=== PATIENT | male | born 1935 | race Caucasian/White ===

== ENCOUNTER 2018-11-15 18:33 | Inpatient (IN) | payer MEDICARE, OTHER ==
[~2018-11-15] VITALS: Ht 177.8 cm; Wt 67.8 kg
[2018-11-15] VITALS (9 sets, daily range): BP systolic 95–156; BP diastolic 58–105
[~2018-11-15 18:33] MED LIST: AMLO10TA PO; ASPI81TA57 PO; C250T PO; CINN500C7 PO; CLN.2T PO; DIAZ5TAB3 PO; FAMO20TA5 PO; GARL200T PO; GEMF600T3 PO; GLIP5TAB26 PO; GLUC100016 PO; HYDR1TAB86 PO; KRIL1CAP PO; LIOT25TA3 PO; LVT.1T PO; MILK200C4 PO; MULT-974 PO; NAPR220C11 PO; NIAC250T17 PO; PNT40TEC PO; SAWP1CAP PO; SOTA80TA PO; SPRN25T GT; ginger root PO
--- OUTSIDE RECORDS SUMMARY | 2018-11-15 19:53 | XMS REPORT | Continuity of Care Document ---
Author Author [facility] Organization [facility] Address Unknown Phone Unavailable Allergies There is no data. Medications There is no data. Problems There is no data. Procedures There is no data. Results There is no data. Encounters ACCT No. Visit Date/Time Discharge Status Pt. Type Provider Facility Loc./Unit Complaint [id number] 04/11/2014 07:37:00 04/11/2014 10:40:00 DIS Outpatient [id number] 04/07/2014 07:27:00 04/07/2014 23:59:59 CLS Outpatient
--- NOTE | 2018-11-15 20:00 | NUR ---
BALJEET MIX Madi admitted to room CU11-1, with an admitting diagnosis of pneumonia, on 11/15/18 from [facility], accompanied by [facility].BALJEET MIX V introduced to surroundings, call light, bed controls, phone, TV, temperature control, lights, meal times, smoking policy, visitor policy, side rail policy, bathrooms and showers. Patient Rights given to patient in the handbook. BALJEET MIX V verbalizes understanding that [facility] is not responsible for the loss or damage to any personal effects or valuables that are kept in the patient's possessions during their hospitalization. The following Patient Care Plans were discussed with the patient: Discharge Planning, risk for infection, risk for impaired mobility, and risk for fluid fall. BALJEET MIX V verbalizes understanding of Interdisciplinary Patient Education. Patient was informed about the Rapid Response Team and its purpose.
[2018-11-15] MEDS ORDERED: VANCOMYCIN INJECTION 1,000 MG in NS (IVPB) 250 ML IV SCH (21:00)
--- NOTE | 2018-11-15 21:00 | NUR ---
DR. REYEZ NOTIFIED OF PATIENT'S ADMISSION. NEW ORDERS RECEIVED AT THIS TIME. SEE ORDER HISTORY.
[2018-11-15] MEDS: rOPINIRole 1 MG (REQUIP) TABLET PO SCH (22:07)
[2018-11-15] MEDS: ALPRAZolam 0.5 MG (XANAX) TAB PO PRN (22:07)
[2018-11-15] MEDS: inSUlin ASPART (NovoLOG) 1 UNIT/0.01 ML (CHARGE PER UNIT) SC SCH (22:40)
[2018-11-16] VITALS (23 sets, daily range): BP systolic 99–164; BP diastolic 51–89
[2018-11-16] MEDS: MELATONIN 3 MG TABLET PO PRN (02:19)
[2018-11-16] MEDS ORDERED: RT-ALBUTEROL/IPRATROPIUM 3 ML (DUONEB) VIAL INH SCH (03:00)
[2018-11-16 04:11] LABS: BASOPHILS % (AUTO) 0 % (0-10); EOSINOPHILS # (AUTO) 0.2 10^3/uL (0.0-0.3); EOSINOPHILS % (AUTO) 2 % (0-10); HEMATOCRIT 34 % (40-54); HEMOGLOBIN 10.8 G/DL (13.3-17.7); LYMPHOCYTES # (AUTO) 2.4 X 10^3 (1.0-4.0); LYMPHOCYTES % (AUTO) 26 % (12-44); MEAN CORPUSCULAR HEMOGLOBIN 30 PG (25-34); MEAN CORPUSCULAR HGB CONC 32 G/DL (32-36); MEAN CORPUSCULAR VOLUME 93 FL (80-99); MEAN PLATELET VOLUME 13.5 FL (7.4-10.4); MONOCYTES # (AUTO) 0.9 X 10^3 (0.0-1.0); MONOCYTES % (AUTO) 10 % (0-12); NEUTROPHILS # (AUTO) 5.9 X 10^3 (1.8-7.8); NEUTROPHILS % (AUTO) 62 % (42-75); PLATELET COUNT 166 10^3/uL (130-400); RED BLOOD COUNT 3.64 10^6/uL (4.35-5.85); RED CELL DISTRIBUTION WIDTH 13.9 % (10.0-14.5); WHITE BLOOD COUNT 9.4 10^3/uL (4.3-11.0)
[2018-11-16 04:23] LABS: INR 1.2 (0.8-1.4); PROTHROMBIN TIME PATIENT 15.2 SEC (12.2-14.7)
[2018-11-16 04:31] LABS: CALCIUM 9.1 MG/DL (8.5-10.1); CREATININE SERUM 1.84 MG/DL (0.60-1.30); MAGNESIUM 2.2 MG/DL (1.8-2.4); PHOSPHORUS 3.3 MG/DL (2.3-4.7); POTASSIUM 4.5 MMOL/L (3.6-5.0)
[2018-11-16] MEDS: PIPERACILLIN SODIUM/TAZOBACTAM 4.5 GM in NS (IVPB) 100 ML IV SCH ×3 (04:32→18:09)
--- NOTE | 2018-11-16 05:37 | Pulmonary Consultation ---
History of Present Illness History of Present Illness Date of Consultation 11/16/18 05:32 Time Seen by Provider: 05:32 Date of Admission History of Present Illness 83yo with hx of pseudomonas and serratia PNA and completed 10days of Merrem. PT was also recently treated with Levaquin as an out patient. He was [place] here [place] [facility] [place] persistent SOB, productive cough and failing out patient treatment. Allergies and Home Medications Allergies Coded Allergies: gabapentin (Verified Allergy, Unknown, 11/15/18) pregabalin (Verified Allergy, Unknown, 11/15/18) Home Medications Ascorbic Acid 250 Mg Tab, 250 MG PO BID, (Reported) Cinnamon Bark 500 Mg Capsule, 500 MG PO BID, (Reported) Diazepam 5 Mg Tablet, 5 MG PO DAILY, (Reported) Gemfibrozil 600 Mg Tablet, 1 EACH PO BID, (Reported) Glipizide 5 Mg Tab.er.24, 5 MG PO BID, (Reported) Levothyroxine Sodium 100 Mcg Tab, 100 MCG PO DAILY, (Reported) Multivitamin 1 Each Tablet, 1 EACH PO DAILY, (Reported) Pantoprazole Sodium 40 Mg Tablet.dr, 1 TAB PO DAILY PRN for HEARTBURN, (Reported ) [mirna root] , 1 TAB PO DAILY Prescribed by: MATY SMITH on 04/11/14 0819 Past Esdzlig-Erdwdl-Ppensv Hx Patient Social History Alcohol Use: Denies Use Recreational Drug Use: No Recent Hopitalizations: Yes (OCT 2018 FOR PNEUMONIA) Immunizations Up To Date Date of Pneumonia Vaccine: Nov 03, 2016 Date of Influenza Vaccine: Aug 03, 2018 Seasonal Allergies Seasonal Allergies: No Past Medical History Surgeries: No Respiratory: Yes Pneumonia, COPD Currently Using CPAP: No Currently Using BIPAP: No Cardiac: Yes (SVT) Neurological: No Sexually Transmitted Disease: No HIV/AIDS: No Genitourinary: Yes Renal Failure Gastrointestinal: No Musculoskeletal: No Endocrine: Yes HEENT: No Cancer: No Psychosocial: Yes Sleep Difficulties Integumentary: No Blood Disorders: No Adverse Reaction/Blood Tranf: No Sepsis Event Evaluation Height, Weight, BMI Height: 5'10.00" Weight: 149lbs. 3.0oz. 67.637176uy; 21.4 BMI Method: Exam Exam Vital Signs Date Time Temp Pulse Resp B/P (MAP) Pulse Ox O2 Delivery O2 Flow Rate FiO2 11/16/18 04:00 89 21 109/78 (88) 97 Nasal Cannula 2.00 11/16/18 03:00 74 20 111/67 (82) 94 Nasal Cannula 2.00 11/16/18 02:00 94 21 119/61 (80) 96 Nasal Cannula 2.00 11/16/18 01:39 97.8 11/16/18 01:07 96 Nasal Cannula 4.00 11/16/18 01:00 80 11/16/18 01:00 82 15 121/75 (90) 96 Nasal Cannula 2.00 11/16/18 00:00 96 Nasal Cannula 3.00 11/16/18 00:00 80 20 100/62 (75) 95 Nasal Cannula 4.00 11/15/18 23:00 87 21 95/58 (70) 93 Nasal Cannula 4.00 11/15/18 22:00 104 23 116/70 (85) 97 Nasal Cannula 4.00 11/15/18 21:30 110 24 136/89 (105) 98 Nasal Cannula 4.00 11/15/18 21:25 97 Nasal Cannula 4.00 11/15/18 21:00 116 18 139/88 (105) 96 Nasal Cannula 4.00 11/15/18 20:45 104 21 129/89 (102) 96 Nasal Cannula 4.00 11/15/18 20:30 113 29 156/105 (122) 91 Nasal Cannula 4.00 11/15/18 20:20 Nasal Cannula 4.00 11/15/18 20:15 111 28 136/94 (108) 97 Nasal Cannula 4.00 11/15/18 20:00 118 11/15/18 20:00 122 21 156/104 (121) 96 Nasal Cannula 4.00 11/15/18 19:55 98.2 121 20 156/93 (114) 94 Nasal Cannula 4.00 I & O 11/16/18 07:00 Intake Total 350 ml Output Total 600 ml Balance -250 ml Height & Weight Height: 5'10.00" Weight: 149lbs. 3.0oz. 67.639250ek; 21.4 BMI Method: Results Lab Laboratory Tests 11/16/18 03:15 Assessment/Plan Assessment/Plan PNA failed out patient tx -Cont vanco, zosyn -escalante cultures -check MRSA swab -Will plan for bronchoscopy in AM Bilateral pleural effusions -Check BNP - thoracentesis today COPDAE -Oxygen -SVNS ARF -monitor Tobacco use -Education DAKOTA CASTAÑEDA DO Nov 16, 2018 05:37
[2018-11-16] MEDS: MAGNESIUM 1 GM/100 ML IVPB 100 ML IV SCH (06:46)
[2018-11-16] MEDS: POTASSIUM CL 10MEQ/50ML IVPB 50 ML IV SCH (06:46)
[2018-11-16] MEDS: inSUlin ASPART (NovoLOG) 1 UNIT/0.01 ML (CHARGE PER UNIT) SC SCH ×4 (06:47→22:15)
[2018-11-16] MEDS: KCL 20 MEQ TAB (K-DUR) PO SCH (06:47)
[2018-11-16] MEDS: rOPINIRole 1 MG (REQUIP) TABLET PO SCH ×3 (06:49→22:24)
--- NOTE | 2018-11-16 06:50 | Progress Note-Hospitalist ---
Progress Note 83 yo m accepted in transfer [place] [facility] for recurrent , refractory pneumonia and exacerbation of COPD. Pt requires further diagnosis and treatment with consultation of pulmonary. RITA REYEZ MD Nov 16, 2018 06:50
--- NOTE | 2018-11-16 07:40 | NUR ---
PTD VANCOMYCIN LABS: SCR 1.85 (CRCL ~ 30) PLAN: VANCOMYCIN 1 GRAM GIVEN ON 11/15 @ 2200, WILL SCHEDULE NEXT DOSE TODAY AT 1200. INSTEAD OF A LARGER LOADING DOSE, WE WILL GIVE THE NEXT DOSE ~ 10 HOURS EARLIER TO FACILITATE A HIGHER TROUGH LEVEL. WE WILL CHECK A TROUGH LEVEL ON 11/17 @ 1100 AND MONITOR LEVELS AND RENAL FXN CLOSELY AND ADJUST DOSING IF NEEDED.
--- NOTE | 2018-11-16 07:50 | Diagnostic Imaging Report ---
INDICATION: Dyspnea Upright portable AP view of the chest is obtained. There is no previous study for comparison. Overall heart size and pulmonary vascularity are within normal limits. There are increased alveolar and interstitial densities in the lung bases which may be due to edema and/or pneumonitis. There are moderate bilateral pleural effusions. No pneumothorax is seen. IMPRESSION: Moderate bilateral pleural effusions with bilateral basilar interstitial edema and/or pneumonitis. Dictated by: Dictated on workstation # [id number]
--- NOTE | 2018-11-16 08:16 | Diagnostic Imaging Report ---
PROCEDURE: CT chest without contrast. TECHNIQUE: Multiple contiguous axial images were obtained through the chest without the use of intravenous contrast. INDICATION: Pneumonia. FINDINGS: There are moderate-sized bilateral pleural effusions layering to a depth of about 4.2 cm without evidence for loculation. There are subjacent dependent atelectatic changes in the lungs and there are background features of centrilobular emphysema with cyst formation predominantly medially and apically. In addition, some chronic appearing prominence of the interstitial lung markings, septal thickening and increased density suggest an element of edema superimposed. Heart size is within the upper limits of normal. No gross overdistention of vascularity. No mecca alveolar consolidation. No pathological-appearing lymph nodes. There are coronary arterial atherosclerotic calcifications and nonaneurysmal calcifications of the thoracic aorta. The upper abdomen reveals atherosclerosis and ectasia with tortuosity of the abdominal aorta measuring up to 3.2 cm. There are renal cortical and parapelvic cysts on the left and a fat-containing small subcentimeter nodule in the right adrenal gland presumed adenoma. IMPRESSION: 1. COPD and bilateral effusions with basilar atelectasis. An element of interstitial edema suspected. No mecca alveolar consolidation, however. 2. Extensive atherosclerotic vascular calcifications with abdominal aortic tortuosity and ectasia up to 3.2 cm where visualized. 3. Incompletely visualized cortical and parapelvic cysts associated with the left kidney. Dictated by: Dictated on workstation # [id number]
[2018-11-16] MEDS: RT-ALBUTEROL/IPRATROPIUM 3 ML (DUONEB) VIAL INH SCH ×3 (08:35→18:41)
[2018-11-16] MEDS: RT-ADVAIR HFA 115/21 MCG PER PUFF IH SCH ×2 (08:36→18:41)
--- NOTE | 2018-11-16 09:11 | History & Physical-Hospitalist ---
History of Present Illness HPI/Chief Complaint Pt is an 83yoCM with a recent history of pneumonia treated [place] [facility] and tobacco abuse. He states roughly 2 weeks ago he was admitted for "double pneumonia" at [facility] and was treated with Merrem for reported pseudomonas and finished Levaquin as an outpatient. He states he was feeling well when he was discharged but after a couple of days started to get very short of breath again and returned to [facility] for evaluation. He was found to have recurrent pneumonia with effusion and was transferred here for pulmonology evaluation. He states he is feeling better today and his SOB is improving. His is at bedside and concerned that his restless leg syndrome is getting worse. Source: patient, family Exam Limitations: no limitations Date Seen 11/16/18 Time Seen by a Provider: 09:05 Attending Physician Rachel Albarado MD PCP SelfRodney MD Referring Physician Date of Admission Nov 16, 2018 at 08:32 Home Medications & Allergies Home Medications Reviewed patient Home Medication Reconciliation performed by pharmacy medication reconciliations lens coating technician and/or nursing. Patients Allergies have been reviewed. Allergies Allergies Coded Allergies gabapentin (Verified Allergy, Unknown, 11/15/18) pregabalin (Verified Allergy, Unknown, 11/15/18) Past Shfbynb-Wwurzl-Trmdko Hx Past Med/Social Hx: Reviewed Nursing Past Med/Soc Hx Patient Social History Marrital Status: Alcohol Use: Denies Use Recreational Drug Use: No Smoking Status: Former Smoker Former Smoker, Quit: Nov 03, 2018 Type Used: Pipe Physical Abuse Screen: No Sexual Abuse: No Recent Hopitalizations: Yes (SEP/OCT 2018 FOR PNEUMONIA) Immunizations Up To Date Date of Pneumonia Vaccine: Nov 03, 2016 Date of Influenza Vaccine: Aug 03, 2018 Seasonal Allergies Seasonal Allergies: No Past Medical History Surgeries: Orthopedic, Rectal Currently Using CPAP: No Currently Using BIPAP: No Restless leg syndrome Sexually Transmitted Disease: No HIV/AIDS: No Genitourinary: Renal Failure Endocrine: Diabetes, Non-Insulin dep Psychosocial: Sleep Difficulties History of Blood Disorders: No Adverse Reaction to Blood Cantor: No Family History Reviewed Nursing Family Hx No Pertinent Family Hx Review of Systems Constitutional: fever Respiratory: see HPI, cough, short of breath Gastrointestinal: No constipation, No diarrhea, No nausea, No vomiting Genitourinary: No dysuria, No frequency All Other Systems Reviewed Negative Unless Noted: Yes (Negative excepted noted.) Physical Exam Physical Exam Vital Signs Vital Signs - First Documented 11/15/18 19:55 Temp 98.2 Pulse 121 Resp 20 B/P (MAP) 156/93 (114) Pulse Ox 94 O2 Delivery Nasal Cannula O2 Flow Rate 4.00 Capillary Refill : Height, Weight, BMI Height: 5'10.00" Weight: 149lbs. 3.0oz. 67.646662lx; 21.4 BMI Method: General Appearance: No Apparent Distress, WD/WN HEENT: PERRL/EOMI, Moist Mucous Membranes Neck: Non Tender, Supple Respiratory: No Accessory Muscle Use, No Respiratory Distress, Decreased Breath Sounds (in bases, R>L) Cardiovascular: Regular Rate, Rhythm, No Murmur Gastrointestinal: Normal Bowel Sounds, Non Tender, Soft Extremity: Normal Capillary Refill, No Calf Tenderness Neurologic/Psychiatric: Alert, Oriented x3, Normal Mood/Affect Skin: Normal Color, Warm/Dry Results Results/Procedures Labs Laboratory Tests 11/16/18 03:15 Patient resulted labs reviewed. Imaging: Reviewed Imaging Report Assessment/Plan Admission Diagnosis Sepsis due to recurrent Pneumonia Admission Status: Inpatient Order (span 2 midnights) Reason for Inpatient Admission: IV abx, failed outpatient management Diagnosis/Problems Diagnosis/Problems (1) Sepsis Assessment & Plan: Febrile with tachycardia on arrival to OSH Placed on Zosyn but reportedly resistant will request records Maintain zosyn as is clinically better and planning for thoracentesis later today Cultures from OSH requested Qualifiers: Sepsis type: Pseudomonas Qualified Codes: A41.52 - Sepsis due to Pseudomonas (2) Pneumonia Assessment & Plan: Resistant pseudomonas per OSH Continue abx as above Await cultures Qualifiers: Pneumonia type: due to Pseudomonas Laterality: bilateral Lung location: unspecified part of lung Qualified Codes: J15.1 - Pneumonia due to Pseudomonas (3) OSWALDO (acute kidney injury) Assessment & Plan: Unsure if acute or chronic- pt denies history Records requested Continue IVF (4) COPD (chronic obstructive pulmonary disease) Status: Chronic Assessment & Plan: Denies known history COPD per CT Pulm consulted, appreciate recs MAT Protocol Qualifiers: COPD type: unspecified COPD Qualified Codes: J44.9 - Chronic obstructive pulmonary disease, unspecified (5) Pleural effusion Assessment & Plan: Plan for thoracentesis today (6) Non-insulin dependent type 2 diabetes mellitus Assessment & Plan: SSI Hold home meds Clinical Quality Measures DVT/VTE Risk/Contraindication: Risk Factor Score Per Nursin RFS Level Per Nursing on Admit: 3=High BABAR PLUMMER MD Nov 16, 2018 09:11
[2018-11-16] MEDS ORDERED: FUROSEMIDE 40 MG/4 ML INJ (LASIX) IVP NR (09:30)
[2018-11-16] MEDS ORDERED: KCL 10 MEQ TAB (MICRO K) PO NR (09:30)
[2018-11-16] MEDS ORDERED: DILTIAZEM 180 MG (CARDIZEM CD) CAP PO NR (09:30)
--- NOTE | 2018-11-16 09:35 | Consultation-Cardiology ---
HPI-Cardiology Cardiology Consultation: Date of Consultation 11/16/18 Time Seen by a Provider: 09:15 Date of Admission Attending Physician Rachel Albarado MD Admitting Physician Rodney Guerrero MD Consulting Physician PAPO HARGROVE MD, MA, FACP, FACC, FSCAI, CCDS Physician requesting consult: Dr Hawk HPI: Chief Complaint: Shortness of breath HPI: 83 yo man with pneumonia in late Oct 2018, treated at [facility], presented with recurrent pneumonia yesterday and transferred to this hosp. Has progressive exertional shortness of breath. Has a cough productive of tenacious, yellowish sputum. No cp or palp or syncope or leg swelling. Has a h/o irreg heart beat Review of Systems-Cardiology Review of Systems Constitutional: malaise, tiredness; No weight loss, No weight gain Eyes: No vision change Ears/Nose/Throat: chronic hearing loss; No ear discharge, No nasal drainage, No recent hearing loss Respiratory: As described under HPI Cardiovascular: As described under HPI Gastrointestinal: No diarrhea, No nausea, No vomiting Genitourinary: No dysuria, No hematuria, No urine frequency changes Musculoskeletal: back pain (chronic), joint pain (chronic) Skin: No rash, No ulcerations Psychiatric/Neurological: No seizure, No focal weakness, No syncope Hematologic: No bleeding abnormalities All Other Systems Reviewed Negative Unless Noted: Yes (Negative excepted noted.) MMG-Vatomf-Hmnfut Hx Patient Social History Marrital Status: Alcohol Use: Denies Use Recreational Drug Use: No Smoking Status: Former Smoker Type Used: Pipe Hospitalization with Isolation: Denies Physical Abuse Screen: No Sexual Abuse: No Immunizations Up To Date Date of Pneumonia Vaccine: Nov 03, 2016 Date of Influenza Vaccine: Aug 03, 2018 Past Medical History PMH As described under Assessment. Family Medical History Family Medical History: No fam h/o early CAD or SCD Allergies and Home Medications Allergies Coded Allergies: gabapentin (Verified Allergy, Unknown, 11/15/18) pregabalin (Verified Allergy, Unknown, 11/15/18) Home Medications Ascorbic Acid 250 Mg Tab, 250 MG PO BID, (Reported) Cinnamon Bark 500 Mg Capsule, 500 MG PO BID, (Reported) Diazepam 5 Mg Tablet, 5 MG PO DAILY, (Reported) Gemfibrozil 600 Mg Tablet, 1 EACH PO BID, (Reported) Glipizide 5 Mg Tab.er.24, 5 MG PO BID, (Reported) Levothyroxine Sodium 100 Mcg Tab, 100 MCG PO DAILY, (Reported) Multivitamin 1 Each Tablet, 1 EACH PO DAILY, (Reported) Pantoprazole Sodium 40 Mg Tablet.dr, 1 TAB PO DAILY PRN for HEARTBURN, (Reported ) [mirna root] , 1 TAB PO DAILY Prescribed by: MATY SMITH on 04/11/14818 Patient Home Medication List Home Medication List Reviewed: Yes Physical Exam-Cardiology Physical Exam Vital Signs/I&O 11/15/18 11/15/18 11/15/18 11/16/18 21:30 22:00 23:00 00:00 Pulse 110 104 87 80 Resp 24 23 21 20 B/P (MAP) 136/89 (105) 116/70 (85) 95/58 (70) 100/62 (75) Pulse Ox 98 97 93 95 O2 Delivery Nasal Cannula Nasal Cannula Nasal Cannula Nasal Cannula O2 Flow Rate 4.00 4.00 4.00 4.00 11/16/18 11/16/18 11/16/18 11/16/18 00:00 01:00 01:00 01:07 Pulse 82 80 Resp 15 B/P (MAP) 121/75 (90) Pulse Ox 96 96 96 O2 Delivery Nasal Cannula Nasal Cannula Nasal Cannula O2 Flow Rate 3.00 2.00 4.00 11/16/18 11/16/18 11/16/18 11/16/18 01:39 02:00 03:00 04:00 Temp 97.8 Pulse 94 74 Resp 21 20 B/P (MAP) 119/61 (80) 111/67 (82) Pulse Ox 96 94 97 O2 Delivery Nasal Cannula Nasal Cannula Nasal Cannula O2 Flow Rate 2.00 2.00 2.00 11/16/18 11/16/18 11/16/18 11/16/18 04:00 05:00 06:00 07:00 Pulse 89 80 80 90 Resp 21 19 22 B/P (MAP) 109/78 (88) 119/74 (89) 127/76 (93) Pulse Ox 97 95 95 O2 Delivery Nasal Cannula Nasal Cannula Nasal Cannula O2 Flow Rate 2.00 2.00 2.00 11/16/18 11/16/18 11/16/18 11/16/18 07:00 08:00 08:36 08:46 Pulse 93 77 Resp 8 21 B/P (MAP) 114/51 (72) 109/67 (81) Pulse Ox 97 95 95 O2 Delivery Nasal Cannula Nasal Cannula Nasal Cannula Nasal Cannula O2 Flow Rate 2.00 2.00 2.00 2.00 11/16/18 09:00 Pulse 95 Resp 21 B/P (MAP) 128/74 (92) Pulse Ox 92 O2 Delivery Nasal Cannula O2 Flow Rate 2.00 11/16/18 00:00 Intake Total 400 ml Output Total 400 ml Balance 0 ml Capillary Refill : Data Review Labs Laboratory Tests 11/16/18 03:15: White Blood Count 9.4, Red Blood Count 3.64L, Hemoglobin 10.8L, Hematocrit 34L, Mean Corpuscular Volume 93, Mean Corpuscular Hemoglobin 30, Mean Corpuscular Hemoglobin Concent 32, Red Cell Distribution Width 13.9, Platelet Count 166, Mean Platelet Volume 13.5H, Neutrophils (%) (Auto) 62, Lymphocytes (%) (Auto) 26 , Monocytes (%) (Auto) 10, Eosinophils (%) (Auto) 2, Basophils (%) (Auto) 0, Neutrophils # (Auto) 5.9, Lymphocytes # (Auto) 2.4, Monocytes # (Auto) 0.9, Eosinophils # (Auto) 0.2, Basophils # (Auto) 0.0, Prothrombin Time 15.2H, INR Comment 1.2, Activated Partial Thromboplast Time 36H, Sodium Level 140, Potassium Level 4.5, Chloride Level 107, Carbon Dioxide Level 22, Anion Gap 11, Blood Urea Nitrogen 34H, Creatinine 1.84H, Estimat Glomerular Filtration Rate 35 , BUN/Creatinine Ratio 18, Glucose Level 118H, Calcium Level 9.1, Phosphorus Level 3.3, Magnesium Level 2.2, B-Type Natriuretic Peptide 1578.1H A/P-Cardiology Assessment/Admission Diagnosis Shortness of breath, multifactorial Pneumonia CHF, probably acute diastolic A fib/flutter of undetermined age. Does note a h/o cardiac arrhythmia (details unknown to him) for which he has been on sotalol DM II Hypertension Quit chronic pipe smoking in Oct 2018 Restless leg syndrome Chronic hearing loss Discussion and Recomendations * We had a long and detailed discussion with him and his * We discussed and recommend risk modification, including continuing avoidance of tobacco use * We recommend a w/u for his newly diagnosed CHF: echo to eval structural heart disease, MPI to eval for cor ischemia * We recommend apixaban stroke prophylaxis * We recommend oral dilt for vent rate control Clinical Quality Measures DVT/VTE Risk/Contraindication: Risk Factor Score Per Nursin RFS Level Per Nursing on Admit: 3=High PAPO HARGROVE MD FACP FAC CCDS Nov 16, 2018 09:35
[2018-11-16] MEDS ORDERED: ASPI-983 PO (09:58)
[2018-11-16] MEDS ORDERED: AMLO10TA6 PO (09:58)
[2018-11-16] MEDS ORDERED: GLUC100016 PO (09:58)
[2018-11-16] MEDS ORDERED: CINN500C2 PO (09:58)
[2018-11-16] MEDS ORDERED: LEVO500T80 PO (09:58)
[2018-11-16] MEDS ORDERED: BRIM5DRO OU (09:58)
[2018-11-16] MEDS ORDERED: LEVO100T7 PO (09:58)
[2018-11-16] MEDS ORDERED: GARL200T PO (09:58)
[2018-11-16] MEDS ORDERED: SOTA120T PO (09:58)
[2018-11-16] MEDS ORDERED: FENO145T37 PO (09:58)
[2018-11-16] MEDS ORDERED: ROPI1TAB2 PO (09:58)
[2018-11-16] MEDS ORDERED: ALPR0.5T7 PO (09:58)
[2018-11-16] MEDS ORDERED: HYDR-3812 PO (09:58)
[2018-11-16] MEDS ORDERED: KRIL1CAP PO (09:58)
[2018-11-16] MEDS ORDERED: LIOT25TA3 PO (09:58)
[2018-11-16] MEDS ORDERED: OMEP20TA33 PO (10:06)
[2018-11-16] MEDS ORDERED: FAMO20TA3 PO (10:06)
[2018-11-16] MEDS ORDERED: MULT-35 PO (10:08)
[2018-11-16] MEDS ORDERED: SAW450CA7 PO (10:08)
[2018-11-16] MEDS ORDERED: ASCO500T7 PO (10:08)
[2018-11-16] MEDS ORDERED: FOLI0.4T2 PO (10:13)
[2018-11-16] MEDS ORDERED: CYAN10006 PO (10:13)
[2018-11-16] MEDS ORDERED: CHOL10007 PO (10:13)
[2018-11-16] MEDS ORDERED: THIA250T8 PO (10:13)
[2018-11-16] MEDS ORDERED: VIT1CAPS9 PO (10:13)
[2018-11-16] MEDS ORDERED: GARL10002 PO (10:13)
[2018-11-16] MEDS ORDERED: PYRI100T2 PO (10:13)
--- NOTE | 2018-11-16 10:14 | NUR ---
WENT OVER EXT MED HX WITH THE PATIENT AND HIS , THEY VERIFIED HOW HE TAKES THEM WELL HIS OTC MEDS. THE LEVAQUIN AND AMLODIPINE WERE STOPPED AT HIS LAST DISCHARGE FROM [place]. HIS ROPINIROLE WAS LAST FILLED #90 11-10-18 HOWEVER THEY STATE THEY HAVE INCREASED IT TO 2 TABS TID NOW.
--- NOTE | 2018-11-16 11:10 | NUR ---
Pastoral Care Visit.
[2018-11-16] MEDS ORDERED: VANCOMYCIN INJECTION 1,000 MG in NS (IVPB) 250 ML IV SCH (12:00)
[2018-11-16] MEDS: ALPRAZolam 0.5 MG (XANAX) TAB PO PRN (22:24)
[2018-11-17] VITALS (24 sets, daily range): BP systolic 91–135; BP diastolic 50–92
[2018-11-17] MEDS: RT-ALBUTEROL/IPRATROPIUM 3 ML (DUONEB) VIAL INH SCH ×4 (03:05→21:38)
[2018-11-17 04:04] LABS: BASOPHILS % (AUTO) 0 % (0-10); EOSINOPHILS # (AUTO) 0.3 10^3/uL (0.0-0.3); EOSINOPHILS % (AUTO) 3 % (0-10); HEMATOCRIT 39 % (40-54); HEMOGLOBIN 12.2 G/DL (13.3-17.7); LYMPHOCYTES # (AUTO) 2.9 X 10^3 (1.0-4.0); LYMPHOCYTES % (AUTO) 23 % (12-44); MEAN CORPUSCULAR HEMOGLOBIN 29 PG (25-34); MEAN CORPUSCULAR HGB CONC 31 G/DL (32-36); MEAN CORPUSCULAR VOLUME 93 FL (80-99); MEAN PLATELET VOLUME 13.3 FL (7.4-10.4); MONOCYTES % (AUTO) 8 % (0-12); NEUTROPHILS # (AUTO) 8.3 X 10^3 (1.8-7.8); NEUTROPHILS % (AUTO) 66 % (42-75); PLATELET COUNT 205 10^3/uL (130-400); RED BLOOD COUNT 4.23 10^6/uL (4.35-5.85); RED CELL DISTRIBUTION WIDTH 13.8 % (10.0-14.5); WHITE BLOOD COUNT 12.6 10^3/uL (4.3-11.0)
--- NOTE | 2018-11-17 04:20 | Pulmonary Progress Note ---
Subjective Time Seen by a Provider: 06:02 Subjective/Events-last exam Pt still only requiring 2 liters of oxygen. Sepsis Event Evaluation Height, Weight, BMI Height: 5'10.00" Weight: 149lbs. 3.0oz. 67.755631dk; 21.4 BMI Method: Exam Exam Vital Signs Date Time Temp Pulse Resp B/P (MAP) Pulse Ox O2 Delivery O2 Flow Rate FiO2 11/17/18 04:00 92 18 91/61 (71) 93 Nasal Cannula 2.00 11/17/18 03:09 99 Nasal Cannula 2.00 11/17/18 03:00 98 19 116/92 (100) 93 Nasal Cannula 2.00 11/17/18 02:00 101 19 112/65 (81) 93 Nasal Cannula 2.00 11/17/18 01:00 94 11/17/18 01:00 100 19 94/59 (71) 90 Nasal Cannula 2.00 11/17/18 00:00 96 Nasal Cannula 2.00 11/17/18 00:00 96 19 134/89 (104) 95 Nasal Cannula 2.00 11/16/18 23:00 96 17 115/81 (92) 92 Nasal Cannula 2.00 11/16/18 22:00 111 23 132/86 (101) 96 Nasal Cannula 2.00 11/16/18 21:00 112 25 164/86 (112) 98 Nasal Cannula 2.00 11/16/18 20:00 98.8 11/16/18 20:00 98 Nasal Cannula 2.00 11/16/18 20:00 107 24 122/82 (95) 94 Nasal Cannula 2.00 11/16/18 19:00 103 24 106/62 (77) 94 Nasal Cannula 2.00 11/16/18 19:00 101 11/16/18 18:51 Nasal Cannula 2.00 11/16/18 18:42 93 Nasal Cannula 2.00 11/16/18 18:00 106 25 99/60 (73) 97 Nasal Cannula 2.00 11/16/18 17:00 101 25 111/80 (90) 96 Nasal Cannula 2.00 11/16/18 16:00 97 Nasal Cannula 2.00 11/16/18 16:00 112 17 123/78 (93) 94 Nasal Cannula 2.00 11/16/18 15:06 96 Nasal Cannula 2.00 11/16/18 15:00 103 25 130/83 (99) 96 Nasal Cannula 2.00 11/16/18 14:00 98.2 11/16/18 14:00 105 28 117/88 (98) 94 Nasal Cannula 2.00 11/16/18 13:08 103 11/16/18 13:00 109 24 132/89 (103) 98 Nasal Cannula 2.00 11/16/18 13:00 98.2 11/16/18 12:00 98.3 11/16/18 12:00 116 29 Nasal Cannula 2.00 11/16/18 12:00 97 Nasal Cannula 2.00 11/16/18 11:00 106 21 117/84 (95) 94 Nasal Cannula 2.00 11/16/18 10:00 95 21 121/80 (94) 98 Nasal Cannula 2.00 11/16/18 09:00 95 21 128/74 (92) 92 Nasal Cannula 2.00 11/16/18 08:46 Nasal Cannula 2.00 11/16/18 08:36 95 Nasal Cannula 2.00 11/16/18 08:00 97 Nasal Cannula 2.00 11/16/18 08:00 77 21 109/67 (81) 95 Nasal Cannula 2.00 11/16/18 07:00 93 8 114/51 (72) 97 Nasal Cannula 2.00 11/16/18 07:00 90 11/16/18 06:00 80 22 127/76 (93) 95 Nasal Cannula 2.00 11/16/18 05:00 80 19 119/74 (89) 95 Nasal Cannula 2.00 I & O 11/17/18 07:00 Intake Total 950 ml Output Total 1725 ml Balance -775 ml Height & Weight Height: 5'10.00" Weight: 149lbs. 3.0oz. 67.733942dm; 21.4 BMI Method: General Appearance: No Apparent Distress, WD/WN HEENT: PERRL/EOMI, Moist Mucous Membranes Neck: Non Tender, Supple Respiratory: No Accessory Muscle Use, No Respiratory Distress, Decreased Breath Sounds (in bases, R>L) Cardiovascular: Regular Rate, Rhythm, No Murmur Extremity: Normal Capillary Refill, No Calf Tenderness Neurologic/Psychiatric: Alert, Oriented x3, Normal Mood/Affect Skin: Normal Color, Warm/Dry Results Lab Laboratory Tests 11/16/18 03:15 1/15/19 03:20 Assessment/Plan Assessment/Plan PNA failed out patient tx - Pt has had recurrent pseudomonus pneumonia -Cont zosyn -D/C Vancomycin secondary to renal function -escalante cultures -MRSA swab pending -Will plan for bronchoscopy this AM Bilateral pleural effusions -I did not do thoracentesis yesterday secondary to pt felling better after lasix and having increased UO. - BNP is 1578 -PT is on 2liter NC -Lasix hold this AMs dose secondary to bronch and worsening renal function COPDAE -Oxygen -SVNS ARF -Cr is worse today -Hold vancomycin. MRSA nose swab pending -monitor Tobacco use -Education DAKOTA CASTAÑEDA DO Nov 17, 2018 04:20
[2018-11-17] MEDS: PIPERACILLIN SODIUM/TAZOBACTAM 4.5 GM in NS (IVPB) 100 ML IV SCH (04:22)
[2018-11-17 04:29] LABS: CALCIUM 9.2 MG/DL (8.5-10.1); CREATININE SERUM 2.09 MG/DL (0.60-1.30); MAGNESIUM 2.2 MG/DL (1.8-2.4); PHOSPHORUS 4.3 MG/DL (2.3-4.7); POTASSIUM 4.3 MMOL/L (3.6-5.0)
[2018-11-17] MEDS: MAGNESIUM 1 GM/100 ML IVPB 100 ML IV SCH (04:52)
[2018-11-17] MEDS: KCL 20 MEQ TAB (K-DUR) PO SCH (04:52)
[2018-11-17] MEDS: POTASSIUM CL 10MEQ/50ML IVPB 50 ML IV SCH (04:52)
[2018-11-17] MEDS: inSUlin ASPART (NovoLOG) 1 UNIT/0.01 ML (CHARGE PER UNIT) SC SCH ×4 (04:53→21:05)
[2018-11-17] MEDS ORDERED: fentaNYL INJECTION 100 MCG/2 ML AMP ONE (05:54)
[2018-11-17] MEDS ORDERED: MIDAZOLAM 5 MG/5 ML (VERSED) VIAL ONE (05:54)
[2018-11-17] MEDS: rOPINIRole 1 MG (REQUIP) TABLET PO SCH ×3 (06:07→21:06)
[2018-11-17] MEDS ORDERED: KCL 10 MEQ TAB (MICRO K) PO SCH (07:00)
[2018-11-17] MEDS ORDERED: MIDAZOLAM 5 MG/5 ML (VERSED) VIAL IVP ONE (07:15)
[2018-11-17] MEDS ORDERED: fentaNYL INJECTION 100 MCG/2 ML AMP IVP ONE (07:15)
--- NOTE | 2018-11-17 08:41 | Progress Note-Hospitalist ---
Subjective HPI/CC On Admission Date Seen by Provider: Nov 17, 2018 Time Seen by Provider: 08:34 Pt is an 83yoCM with a recent history of pneumonia treated at [facility] and tobacco abuse. He states roughly 2 weeks ago he was admitted for "double pneumonia" at [facility] and was treated with Merrem for reported pseudomonas and finished Levaquin as an outpatient. He states he was feeling well when he was discharged but after a couple of days started to get very short of breath again and returned to [facility] for evaluation. He was found to have recurrent pneumonia with effusion and was transferred here for pulmonology evaluation. He states he is feeling better today and his SOB is improving. His is at bedside and concerned that his restless leg syndrome is getting worse. Subjective/Events-last exam Pt reports feeling well. No complaints. Breathing improved. Objective Exam Vital Signs Vital Signs Date Time Temp Pulse Resp B/P (MAP) Pulse Ox O2 Delivery O2 Flow Rate FiO2 11/17/18 08:00 97.3 105 15 113/74 (87) 95 Nasal Cannula 2.00 Capillary Refill : General Appearance: No Apparent Distress, WD/WN Respiratory: Lungs Clear, No Respiratory Distress Cardiovascular: No Murmur, Irregularly Irregular Extremity: No Calf Tenderness, No Pedal Edema Neurologic/Psychiatric: Alert, Oriented x3 Results/Procedures Lab Laboratory Tests 11/17/18 03:20 Patient resulted labs reviewed. Imaging: Reviewed Imaging Report Assessment/Plan Assessment and Plan Assess & Plan/Chief Complaint Recurrent Pneumonia Diagnosis/Problems Diagnosis/Problems (1) Sepsis Assessment & Plan: Febrile with tachycardia on arrival to OSH Placed on Zosyn but reportedly resistant will request records from [facility] White count up so will switch to Merrem Cultures from OSH requested Qualifiers: Sepsis type: Pseudomonas Qualified Codes: A41.52 - Sepsis due to Pseudomonas (2) Pneumonia Assessment & Plan: Resistant pseudomonas per OSH Switch to merrem Await cultures Qualifiers: Pneumonia type: due to Pseudomonas Laterality: bilateral Lung location: unspecified part of lung Qualified Codes: J15.1 - Pneumonia due to Pseudomonas (3) OSWALDO (acute kidney injury) Assessment & Plan: Unsure if acute or chronic- pt denies history trended up today Lasix DC-ed Records requested Continue IVF (4) COPD (chronic obstructive pulmonary disease) Status: Chronic Assessment & Plan: Denies known history COPD per CT Pulm consulted, appreciate recs MAT Protocol Qualifiers: COPD type: unspecified COPD Qualified Codes: J44.9 - Chronic obstructive pulmonary disease, unspecified (5) Pleural effusion Assessment & Plan: Lasix given yesterday Only on 2lpm currently (6) Non-insulin dependent type 2 diabetes mellitus Assessment & Plan: [facility] Hold home meds Clinical Quality Measures DVT/VTE Risk/Contraindication: Risk Factor Score Per Nursin RFS Level Per Nursing on Admit: 3=High BABAR PLUMMER MD Nov 17, 2018 08:41
--- NOTE | 2018-11-17 08:52 | Progress Note-Cardiology ---
Cardiology SOAP Progress Note Subjective: Sitting up on the side of the bed. Feels SOB is better today. No c/o CP at this time. Reports feeling of irregular heartbeat, however he feels this is unchanged. No c/o syncope or near syncope. Objective: I&O/Vital Signs 11/17/18 11/17/18 11/17/18 11/17/18 04:00 04:00 05:00 05:53 Pulse 92 93 Resp 18 18 B/P (MAP) 91/61 (71) 94/50 (65) Pulse Ox 93 92 93 94 O2 Delivery Nasal Cannula Nasal Cannula Nasal Cannula Nasal Cannula O2 Flow Rate 2.00 2.00 2.00 2.00 11/17/18 11/17/18 11/17/18 11/17/18 06:00 06:24 06:50 07:00 Pulse 112 91 110 Resp 18 20 20 B/P (MAP) 110/57 (74) 101/55 (70) Pulse Ox 100 99 O2 Delivery Nasal Cannula Nasal Cannula O2 Flow Rate 2.00 2.00 11/17/18 11/17/18 11/17/18 11/17/18 08:00 08:00 09:00 10:00 Temp 97.3 Pulse 105 109 96 Resp 15 24 27 B/P (MAP) 113/74 (87) 111/78 (89) 105/63 (77) Pulse Ox 95 95 90 91 O2 Delivery Nasal Cannula Nasal Cannula Nasal Cannula Nasal Cannula O2 Flow Rate 2.00 2.00 2.00 2.00 11/17/18 11/17/18 11/17/18 11/17/18 11:00 11:24 11:37 11:41 Temp 98.0 Pulse 92 Resp 26 B/P (MAP) 126/72 (90) Pulse Ox 91 93 95 O2 Delivery Nasal Cannula Nasal Cannula Nasal Cannula O2 Flow Rate 2.00 2.00 2.00 11/17/18 11/17/18 11/17/18 11/17/18 12:00 12:00 13:00 13:07 Pulse 114 115 100 Resp 20 22 B/P (MAP) 133/76 (95) 118/72 (87) Pulse Ox 95 95 95 O2 Delivery Nasal Cannula Nasal Cannula Nasal Cannula O2 Flow Rate 2.00 2.00 2.00 11/17/18 11/17/18 14:00 15:00 Pulse 110 89 Resp 25 32 B/P (MAP) 124/82 (96) 115/76 (89) Pulse Ox 92 95 O2 Delivery Nasal Cannula Nasal Cannula O2 Flow Rate 2.00 2.00 11/17/18 00:00 Intake Total 1000 ml Output Total 1550 ml Balance -550 ml Weight (Pounds): 148 Weight (Ounces): 3.0 Weight (Calculated Kilograms): 67.868744 Constitutional: AAO x 3, well-developed, well-nourished Respiratory: No accessory muscle use, No respiratory distress; chest expansion is symmetric, chest is bilaterally symmetric, other (diminished bases bilat) Cardiovascular: irregularly irregular; No JVD; S1 and S2 Gastrointestional: No tender; soft, round, audible bowel sounds Extremities: no lower extremity edema bilateral Neurologic/Psychiatric: grossly intact Skin: No rash, No ulcerations, No rash on exposed areas Results/Procedures: Labs Laboratory Tests 11/16/18 16:28: Glucometer 146H 11/17/18 03:20: White Blood Count 12.6H, Red Blood Count 4.23L, Hemoglobin 12.2L, Hematocrit 39L , Mean Corpuscular Volume 93, Mean Corpuscular Hemoglobin 29, Mean Corpuscular Hemoglobin Concent 31L, Red Cell Distribution Width 13.8, Platelet Count 205, Mean Platelet Volume 13.3H, Neutrophils (%) (Auto) 66, Lymphocytes (%) (Auto) 23 , Monocytes (%) (Auto) 8, Eosinophils (%) (Auto) 3, Basophils (%) (Auto) 0, Neutrophils # (Auto) 8.3H, Lymphocytes # (Auto) 2.9, Monocytes # (Auto) 1.0, Eosinophils # (Auto) 0.3, Basophils # (Auto) 0.0, Sodium Level 141, Potassium Level 4.3, Chloride Level 105, Carbon Dioxide Level 21, Anion Gap 15H, Blood Urea Nitrogen 36H, Creatinine 2.09H, Estimat Glomerular Filtration Rate 31, BUN/ Creatinine Ratio 17, Glucose Level 136H, Calcium Level 9.2, Phosphorus Level 4.3 , Magnesium Level 2.2 11/17/18 11:26: Glucometer 194H A/P: Assessment: Shortness of breath, multifactorial Pneumonia CHF, probably acute diastolic Renal failure, probably acute on chronic. Chronic component probably due to CKD due to DM II A fib/flutter of undetermined age. Does note a h/o cardiac arrhythmia (details unknown to him) for which he has been on sotalol DM II Hypertension Quit chronic pipe smoking in Oct 2018 Restless leg syndrome Chronic hearing loss Acute, likely on chronic, renal insufficiency - chronic likely d/t diabetic nephropathy; acute likely d/t aggressive diuresis Plan: * We have had a long and detailed discussion with him and his * We have discussed and recommend risk modification, including continuing avoidance of tobacco use * We recommend a w/u for his newly diagnosed CHF: echo to eval structural heart disease, MPI to eval for cor ischemia - echocardiogram pending * Bronchoscopy carried out this morning - we will start Eliquis 2.5 mg BID - d/ t age greater than 80 and Cr >1.5 (2.09 today) low dose is indicated * HR not well controlled, we will increase dilt for vent rate control * Worsening renal function likely acute on chronic renal insufficiency, acute likely d/t aggressive diuresis - Lasix held per pulmonary services * [place] [facility] [place] Assessment Physician Assessment Still has malaise. Shortness of breath somewhat better, but not resolved Denies cp or palp or syncope Cor: irreg Lungs: diminished bs at bases Ext: No c/c/e A&R * As documented in our note above that I updated (italics) * D/c diuretics because of worsening renal failure (prob vol depletion on top of diabetic nephropathy) * Add apixaban (adjusted for renal failure) * Monitor labs * Order echo * I spoke with him and his in detail and answered questions JAGDEEP PEARSON Nov 17, 2018 08:52 [facility] Nov 17, 2018 15:43
--- NOTE | 2018-11-17 08:59 | Diagnostic Imaging Report ---
INDICATION: Dyspnea. COMPARISON: 11/16/2018. FINDINGS: There are bilateral pleural effusions and 5 lobed mixed interstitial and airspace disease, all unchanged. No pneumothorax. IMPRESSION: No substantial change in the bilateral pleural/parenchymal opacities. Dictated by: Dictated on workstation # [id number]
[2018-11-17] MEDS ORDERED: FUROSEMIDE 40 MG/4 ML INJ (LASIX) IVP SCH (09:00)
[2018-11-17] MEDS ORDERED: DILTIAZEM 180 MG (CARDIZEM CD) CAP PO SCH (09:00)
[2018-11-17] MEDS: DILTIAZEM 240 MG (CARDIZEM CD) CAP PO SCH (09:08)
--- NOTE | 2018-11-17 09:08 | NUR ---
THIS RN SPOKE WITH JAGDEEP REGARDING PT CARDIZEM DOSE CHANGE. THIS RN NOTIFIED JAGDEEP THAT 180MG PO HAD ALREADY BEEN GIVEN. JAGDEEP STATED TO GIVE 120MG CD NOW AND START THE 240 DOSE IN THE AM TOMORROW.
[2018-11-17] MEDS ORDERED: DILTIAZEM 120 MG (CARDIZEM CD) CAP PO ONE (09:14)
[2018-11-17] MEDS ORDERED: DILTIAZEM 120 MG (CARDIZEM CD) CAP PO SCH (09:15)
[2018-11-17] MEDS: MEROPENEM 500 MG in NS (IVPB) 100 ML IV SCH ×2 (09:21→17:17)
[2018-11-17] MEDS ORDERED: LIDOCAINE PF 2% 5 ML (XYLOCAINE) VIAL INJ ONE (10:20)
[2018-11-17] MEDS ORDERED: LIDOCAINE PF 1% 2 ML AMP IJ ONE (10:20)
[2018-11-17] MEDS ORDERED: LIDOCAINE JELLY 2% (XYLOCAINE) 30 ML TUBE TOP ONE (10:20)
[2018-11-17] MEDS ORDERED: TROUGH ORDER-PHARMACY XX ONE (11:00)
[2018-11-17] MEDS: RT-ADVAIR HFA 115/21 MCG PER PUFF IH SCH ×2 (11:23→21:38)
[2018-11-17] MEDS: LACTOBACILLUS ACIDOPHILUS (PROBIOTIC) CAPSULE PO SCH ×2 (11:28→17:17)
[2018-11-17] MEDS ORDERED: NS IV 1000 ML 1,000 ML IV SCH (15:45)
[2018-11-17] MEDS: APIXABAN 2.5 MG (ELIQUIS) TABLET PO SCH (21:05)
[2018-11-17] MEDS: MELATONIN 3 MG TABLET PO PRN (21:06)
[2018-11-18] VITALS (13 sets, daily range): BP systolic 92–141; BP diastolic 52–84
[2018-11-18] MEDS: MEROPENEM 500 MG in NS (IVPB) 100 ML IV SCH (00:22)
[2018-11-18] MEDS: RT-ALBUTEROL/IPRATROPIUM 3 ML (DUONEB) VIAL INH SCH ×5 (02:18→21:11)
[2018-11-18 04:17] LABS: BASOPHILS % (AUTO) 0 % (0-10); EOSINOPHILS # (AUTO) 0.2 10^3/uL (0.0-0.3); EOSINOPHILS % (AUTO) 2 % (0-10); HEMATOCRIT 33 % (40-54); HEMOGLOBIN 10.5 G/DL (13.3-17.7); LYMPHOCYTES # (AUTO) 2.6 X 10^3 (1.0-4.0); LYMPHOCYTES % (AUTO) 24 % (12-44); MEAN CORPUSCULAR HEMOGLOBIN 30 PG (25-34); MEAN CORPUSCULAR HGB CONC 32 G/DL (32-36); MEAN CORPUSCULAR VOLUME 93 FL (80-99); MEAN PLATELET VOLUME 13.1 FL (7.4-10.4); MONOCYTES # (AUTO) 0.9 X 10^3 (0.0-1.0); MONOCYTES % (AUTO) 8 % (0-12); NEUTROPHILS # (AUTO) 7.1 X 10^3 (1.8-7.8); NEUTROPHILS % (AUTO) 66 % (42-75); PLATELET COUNT 177 10^3/uL (130-400); RED BLOOD COUNT 3.55 10^6/uL (4.35-5.85); RED CELL DISTRIBUTION WIDTH 13.7 % (10.0-14.5); WHITE BLOOD COUNT 10.8 10^3/uL (4.3-11.0)
[2018-11-18 04:39] LABS: CALCIUM 8.6 MG/DL (8.5-10.1); CREATININE SERUM 1.78 MG/DL (0.60-1.30); MAGNESIUM 2.1 MG/DL (1.8-2.4); PHOSPHORUS 3.4 MG/DL (2.3-4.7); POTASSIUM 3.7 MMOL/L (3.6-5.0)
[2018-11-18] MEDS: POTASSIUM CL 10MEQ/50ML IVPB 50 ML IV SCH (04:41)
[2018-11-18] MEDS: MAGNESIUM 1 GM/100 ML IVPB 100 ML IV SCH (04:41)
[2018-11-18] MEDS: inSUlin ASPART (NovoLOG) 1 UNIT/0.01 ML (CHARGE PER UNIT) SC SCH ×3 (04:42→20:15)
[2018-11-18] MEDS: KCL 20 MEQ TAB (K-DUR) PO SCH (04:42)
--- NOTE | 2018-11-18 05:20 | Pulmonary Consultation ---
History of Present Illness History of Present Illness Date of Consultation 11/18/18 05:13 Date of Admission History of Present Illness 83yo with hx of pseudomonas and serratia PNA and completed 10days of Merrem. PT was also recently treated with Levaquin as an out patient. [place] [facility] [place]B, productive cough and failing out patient treatment. Allergies and Home Medications Allergies Coded Allergies: gabapentin (Verified Allergy, Unknown, 11/15/18) pregabalin (Verified Allergy, Unknown, 11/15/18) Home Medications Alprazolam 0.5 Mg Tablet, 0.5 MG PO HS, (Reported) Ascorbic Acid 500 Mg Tablet, 500 MG PO DAILY, (Reported) Aspirin 81 Mg Tablet.dr, 81 MG PO DAILY, (Reported) Brimonidine Tartrate/Timolol 5 Ml Drops, 1 DROP OU BID, (Reported) Cholecalciferol (Vitamin D3) 1,000 Unit Capsule, 1,000 UNIT PO DAILY, (Reported) Cyanocobalamin (Vitamin B-12) 1,000 Mcg Tablet, 1,000 MCG PO DAILY, (Reported) Famotidine 20 Mg Tablet, 20 MG PO BID, (Reported) Fenofibrate Nanocrystallized 145 Mg Tablet, 145 MG PO DAILY, (Reported) Folic Acid 0.4 Mg Tablet, 0.4 MG PO DAILY, (Reported) Garlic 1,000 Mg Capsule, 1,000 MG PO DAILY, (Reported) Hydrocodone/Acetaminophen 1 Each Tablet, 1 TAB PO Q6H PRN for PAIN-MODERATE, ( Reported) Krill/Om3/Dha/Epa/Om6/Lip/Astx 1 Each Capsule, 1,000 MG PO DAILY, (Reported) Levothyroxine Sodium 100 Mcg Tablet, 100 MCG PO DAILY, (Reported) Liothyronine Sodium 25 Mcg Tablet, 25 MCG PO DAILY, (Reported) Multivitamin 1 Each Tablet, 1 TAB PO DAILY, (Reported) Omeprazole Magnesium 20 Mg Tablet.dr, 20 MG PO DAILY, (Reported) Pyridoxine HCl 100 Mg Tablet, 100 MG PO DAILY, (Reported) Ropinirole HCl 1 Mg Tablet, 2 MG PO TID, (Reported) TAKES 2 (1MG) TABLETS Saw [place] Fruit 450 Mg Capsule, 450 MG PO BID, (Reported) Sotalol HCl 120 Mg Tablet, 120 MG PO BID, (Reported) Thiamine HCl 250 Mg Tablet, 250 MG PO DAILY, (Reported) Vit C/Vit E/Lutein/Min/[place]-3 1 Each Capsule, 1 CAP PO DAILY, (Reported) Past Ibgasev-Theeuu-Jczdzk Hx Past Med/Social Hx: Reviewed Nursing Past Med/Soc Hx Patient Social History Alcohol Use: Denies Use Recreational Drug Use: No Smoking Status: Former Smoker Type Used: Pipe Former Smoker, Quit: Nov 03, 2018 Recent Hopitalizations: Yes (OCT 2018 FOR PNEUMONIA) Immunizations Up To Date Date of Pneumonia Vaccine: Nov 03, 2016 Date of Influenza Vaccine: Aug 03, 2018 Seasonal Allergies Seasonal Allergies: No Past Medical History Surgeries: No Orthopedic, Rectal Respiratory: Yes Pneumonia, COPD Currently Using CPAP: No Currently Using BIPAP: No Cardiac: Yes (SVT) Neurological: No Sexually Transmitted Disease: No HIV/AIDS: No Genitourinary: Yes Renal Failure Gastrointestinal: No Musculoskeletal: No Endocrine: Yes Diabetes, Non-Insulin dep HEENT: No Cancer: No Psychosocial: Yes Sleep Difficulties Integumentary: No Blood Disorders: No Adverse Reaction/Blood Tranf: No Family Medical History Reviewed Nursing Family Hx No Pertinent Family Hx Sepsis Event Evaluation Height, Weight, BMI Height: 5'10.00" Weight: 148lbs. 3.0oz. 67.532530rm; 21.4 BMI Method: Exam Exam Vital Signs Date Time Temp Pulse Resp B/P (MAP) Pulse Ox O2 Delivery O2 Flow Rate FiO2 11/18/18 04:00 95 Nasal Cannula 2.00 11/18/18 04:00 98.6 11/18/18 03:00 114 31 128/84 (99) 90 Nasal Cannula 2.00 11/18/18 02:20 98 Nasal Cannula 2.00 11/18/18 02:00 94 24 99/55 (70) 93 Nasal Cannula 2.00 11/18/18 01:00 73 26 92/53 (66) 91 Nasal Cannula 2.00 11/18/18 00:00 95 Nasal Cannula 2.00 11/18/18 00:00 77 22 94/52 (66) 97 Nasal Cannula 2.00 11/18/18 00:00 97.4 11/17/18 23:00 81 24 96/52 (67) 93 Nasal Cannula 2.00 11/17/18 22:00 93 21 117/67 (84) 95 Nasal Cannula 2.00 11/17/18 21:47 Nasal Cannula 2.00 11/17/18 21:38 97 Nasal Cannula 2.00 11/17/18 21:00 95 23 120/76 (91) 92 Nasal Cannula 2.00 11/17/18 20:00 99.1 11/17/18 20:00 121 21 122/86 (98) 94 Nasal Cannula 2.00 11/17/18 20:00 96 Nasal Cannula 2.00 11/17/18 19:00 131 11/17/18 19:00 131 25 135/87 (103) 96 Nasal Cannula 2.00 11/17/18 18:00 84 20 102/60 (74) 95 Nasal Cannula 2.00 11/17/18 17:00 100 24 114/74 (87) 96 Nasal Cannula 2.00 11/17/18 16:18 99.2 11/17/18 16:00 95 Nasal Cannula 2.00 11/17/18 16:00 97 29 127/62 (83) 95 Nasal Cannula 2.00 11/17/18 15:00 89 32 115/76 (89) 95 Nasal Cannula 2.00 11/17/18 14:00 110 25 124/82 (96) 92 Nasal Cannula 2.00 11/17/18 13:07 100 11/17/18 13:00 115 22 118/72 (87) 95 Nasal Cannula 2.00 11/17/18 12:00 95 Nasal Cannula 2.00 11/17/18 12:00 114 20 133/76 (95) 95 Nasal Cannula 2.00 11/17/18 11:41 95 Nasal Cannula 2.00 11/17/18 11:37 98.0 11/17/18 11:24 93 Nasal Cannula 2.00 11/17/18 11:00 92 26 126/72 (90) 91 Nasal Cannula 2.00 11/17/18 10:00 96 27 105/63 (77) 91 Nasal Cannula 2.00 11/17/18 09:00 109 24 111/78 (89) 90 Nasal Cannula 2.00 11/17/18 08:00 97.3 105 15 113/74 (87) 95 Nasal Cannula 2.00 11/17/18 08:00 95 Nasal Cannula 2.00 11/17/18 07:00 110 20 101/55 (70) 99 Nasal Cannula 2.00 11/17/18 06:50 91 11/17/18 06:24 20 11/17/18 06:00 112 18 110/57 (74) 100 Nasal Cannula 2.00 11/17/18 05:53 94 Nasal Cannula 2.00 I & O 11/18/18 07:00 Intake Total 1260 ml Output Total 1100 ml Balance 160 ml Height & Weight Height: 5'10.00" Weight: 148lbs. 3.0oz. 67.281121up; 21.4 BMI Method: General Appearance: No Apparent Distress, WD/WN HEENT: PERRL/EOMI, Moist Mucous Membranes Neck: Non Tender, Supple Respiratory: Lungs Clear, No Respiratory Distress Cardiovascular: No Murmur, Irregularly Irregular Gastrointestinal: normal bowel sounds, non tender, soft Extremity: No Calf Tenderness, No Pedal Edema Neurologic/Psychiatric: Alert, Oriented x3 Skin: Normal Color, Warm/Dry Results Lab Laboratory Tests 11/17/18 03:20 11/18/18 03:20 DAKOTA CASTAÑEDA DO Nov 18, 2018 05:20
--- NOTE | 2018-11-18 05:24 | Pulmonary Progress Note ---
Subjective Time Seen by a Provider: 05:23 Subjective/Events-last exam PT is doing better. Sepsis Event Evaluation Height, Weight, BMI Height: 5'10.00" Weight: 148lbs. 3.0oz. 67.955228xg; 21.4 BMI Method: Exam Exam Vital Signs Date Time Temp Pulse Resp B/P (MAP) Pulse Ox O2 Delivery O2 Flow Rate FiO2 11/18/18 04:00 95 Nasal Cannula 2.00 11/18/18 04:00 98.6 11/18/18 03:00 114 31 128/84 (99) 90 Nasal Cannula 2.00 11/18/18 02:20 98 Nasal Cannula 2.00 11/18/18 02:00 94 24 99/55 (70) 93 Nasal Cannula 2.00 11/18/18 01:00 73 26 92/53 (66) 91 Nasal Cannula 2.00 11/18/18 00:00 95 Nasal Cannula 2.00 11/18/18 00:00 77 22 94/52 (66) 97 Nasal Cannula 2.00 11/18/18 00:00 97.4 11/17/18 23:00 81 24 96/52 (67) 93 Nasal Cannula 2.00 11/17/18 22:00 93 21 117/67 (84) 95 Nasal Cannula 2.00 11/17/18 21:47 Nasal Cannula 2.00 11/17/18 21:38 97 Nasal Cannula 2.00 11/17/18 21:00 95 23 120/76 (91) 92 Nasal Cannula 2.00 11/17/18 20:00 99.1 11/17/18 20:00 121 21 122/86 (98) 94 Nasal Cannula 2.00 11/17/18 20:00 96 Nasal Cannula 2.00 11/17/18 19:00 131 11/17/18 19:00 131 25 135/87 (103) 96 Nasal Cannula 2.00 11/17/18 18:00 84 20 102/60 (74) 95 Nasal Cannula 2.00 11/17/18 17:00 100 24 114/74 (87) 96 Nasal Cannula 2.00 11/17/18 16:18 99.2 11/17/18 16:00 95 Nasal Cannula 2.00 11/17/18 16:00 97 29 127/62 (83) 95 Nasal Cannula 2.00 11/17/18 15:00 89 32 115/76 (89) 95 Nasal Cannula 2.00 11/17/18 14:00 110 25 124/82 (96) 92 Nasal Cannula 2.00 11/17/18 13:07 100 11/17/18 13:00 115 22 118/72 (87) 95 Nasal Cannula 2.00 11/17/18 12:00 95 Nasal Cannula 2.00 11/17/18 12:00 114 20 133/76 (95) 95 Nasal Cannula 2.00 11/17/18 11:41 95 Nasal Cannula 2.00 11/17/18 11:37 98.0 11/17/18 11:24 93 Nasal Cannula 2.00 11/17/18 11:00 92 26 126/72 (90) 91 Nasal Cannula 2.00 11/17/18 10:00 96 27 105/63 (77) 91 Nasal Cannula 2.00 11/17/18 09:00 109 24 111/78 (89) 90 Nasal Cannula 2.00 11/17/18 08:00 97.3 105 15 113/74 (87) 95 Nasal Cannula 2.00 11/17/18 08:00 95 Nasal Cannula 2.00 11/17/18 07:00 110 20 101/55 (70) 99 Nasal Cannula 2.00 11/17/18 06:50 91 11/17/18 06:24 20 11/17/18 06:00 112 18 110/57 (74) 100 Nasal Cannula 2.00 11/17/18 05:53 94 Nasal Cannula 2.00 I & O 11/18/18 07:00 Intake Total 1260 ml Output Total 1100 ml Balance 160 ml Height & Weight Height: 5'10.00" Weight: 148lbs. 3.0oz. 67.968874sr; 21.4 BMI Method: General Appearance: No Apparent Distress, WD/WN HEENT: PERRL/EOMI, Moist Mucous Membranes Neck: Non Tender, Supple Respiratory: Lungs Clear, No Respiratory Distress Cardiovascular: No Murmur, Irregularly Irregular Gastrointestinal: normal bowel sounds, non tender, soft Extremity: No Calf Tenderness, No Pedal Edema Neurologic/Psychiatric: Alert, Oriented x3 Skin: Normal Color, Warm/Dry Results Lab Laboratory Tests 11/17/18 03:20 11/18/18 03:20 Assessment/Plan Assessment/Plan PNA failed out patient tx - Pt has had recurrent pseudomonus pneumonia -Cont zosyn -escalante cultures pending -s/p bronchoscopy Bilateral pleural effusions -PT is on 2liter NC -Lasix currently on hold secondary to renal failure COPDAE -Oxygen -SVNS ARF -monitor Tobacco use -Education Pt is doing better. Will transfer to 4th floor with tele DAKOTA CASTAÑEDA DO Nov 18, 2018 05:24
[2018-11-18] MEDS: rOPINIRole 1 MG (REQUIP) TABLET PO SCH ×3 (06:02→21:47)
[2018-11-18] MEDS: LACTOBACILLUS ACIDOPHILUS (PROBIOTIC) CAPSULE PO SCH ×3 (06:02→16:33)
[2018-11-18] MEDS: PANTOPRAZOLE 40 MG (PROTONIX) TAB PO SCH (08:01)
[2018-11-18] MEDS: CYANOCOBALAMIN 1,000 MCG (VITAMIN B-12) TABLET PO SCH (08:01)
[2018-11-18] MEDS: meTOprolol TARTRATE 50 MG (LOPRESSOR) TAB PO SCH ×2 (08:01→20:13)
[2018-11-18] MEDS: APIXABAN 2.5 MG (ELIQUIS) TABLET PO SCH ×2 (08:01→20:15)
[2018-11-18] MEDS: LEVOTHYROXINE 100 MCG (LEVOTHROID) TAB PO SCH (08:01)
[2018-11-18] MEDS: ASCORBIC ACID (VIT C) 500 MG TABLET PO SCH (08:01)
[2018-11-18] MEDS: ASPIRIN E.C. 81 MG (ECOTRIN) TAB PO SCH (08:01)
[2018-11-18] MEDS: DILTIAZEM 240 MG (CARDIZEM CD) CAP PO SCH (08:01)
--- NOTE | 2018-11-18 08:08 | Progress Note-Hospitalist ---
Subjective HPI/CC On Admission Date Seen by Provider: Nov 18, 2018 Time Seen by Provider: 08:03 Pt is an 83yoCM with a recent history of pneumonia treated at [facility] [place] and tobacco abuse. He states roughly 2 weeks ago he was admitted for "double pneumonia" at [facility] and was treated with Merrem for reported pseudomonas and finished Levaquin as an outpatient. He states he was feeling well when he was discharged but after a couple of days started to get very short of breath again and returned to [facility] for evaluation. He was found to have recurrent pneumonia with effusion and was transferred here for pulmonology evaluation. He states he is feeling better today and his SOB is improving. His is at bedside and concerned that his restless leg syndrome is getting worse. Subjective/Events-last exam Pt reports feeling well. Still having significant coughing but otherwise no complaints. Objective Exam Vital Signs Vital Signs Date Time Temp Pulse Resp B/P (MAP) Pulse Ox O2 Delivery O2 Flow Rate FiO2 11/18/18 06:00 113 19 133/84 (100) 96 Nasal Cannula 2.00 11/18/18 04:00 98.6 Capillary Refill : General Appearance: No Apparent Distress, WD/WN Respiratory: Lungs Clear, No Respiratory Distress Cardiovascular: Regular Rate, Rhythm, No Murmur Gastrointestinal: Normal Bowel Sounds, Non Tender, Soft Neurologic/Psychiatric: Alert, Oriented x3 Results/Procedures Lab Laboratory Tests 11/18/18 03:20 Patient resulted labs reviewed. Imaging: Reviewed Imaging Report Assessment/Plan Assessment and Plan Assess & Plan/Chief Complaint Recurrent Pneumonia Diagnosis/Problems Diagnosis/Problems (1) Sepsis Assessment & Plan: 2/2 recurrent pneumonia Discussed with [facility] medical records- no sputum culture down Deescalate to Zosyn Await cultures from bronchoscopy Qualifiers: Sepsis type: Pseudomonas Qualified Codes: A41.52 - Sepsis due to Pseudomonas (2) Pneumonia Assessment & Plan: Report was resistant pseudomonas per OSH Discussed with med records there and no sputum cultures done to identify organism Await cultures Qualifiers: Pneumonia type: due to Pseudomonas Laterality: bilateral Lung location: unspecified part of lung Qualified Codes: J15.1 - Pneumonia due to Pseudomonas (3) OSWALDO (acute kidney injury) Assessment & Plan: Unsure if acute or chronic- pt denies history Improving Continue IVF (4) COPD (chronic obstructive pulmonary disease) Status: Chronic Assessment & Plan: Denies known history COPD per CT Pulm consulted, appreciate recs MAT Protocol Qualifiers: COPD type: unspecified COPD Qualified Codes: J44.9 - Chronic obstructive pulmonary disease, unspecified (5) Pleural effusion Assessment & Plan: Stable Only on 2lpm currently (6) Non-insulin dependent type 2 diabetes mellitus Assessment & Plan: SSI Hold home meds Clinical Quality Measures DVT/VTE Risk/Contraindication: Risk Factor Score Per Nursin RFS Level Per Nursing on Admit: 3=High BABAR PLUMMER MD Nov 18, 2018 08:08
--- NOTE | 2018-11-18 08:15 | NUR ---
PT TRANSFERRED TO ROOM 409 VIA WC ACCOMPANIED BY THIS RN AND PT . PT PERSONAL BELONGINGS SENT WITH PT AND PT . REPORT GIVEN TO LACI SCHAEFER FOR CONTINUING CARE.
--- NOTE | 2018-11-18 08:15 | NUR ---
Received report from SILVANO Hewitt. Agree with previous assessment.
--- NOTE | 2018-11-18 08:30 | Diagnostic Imaging Report ---
Indication: Dyspnea PA chest obtained at 338 hours a.m. and compared with 11/17/2018. Heart is normal in size. There is no change in diffuse bilateral mixed interstitial and alveolar infiltrates. There is a small amount of pleural fluid on the left side again noted. There is no pneumothorax or other new finding. IMPRESSION: Unchanged bilateral infiltrates with unchanged small to moderate left pleural effusion. No new abnormality. Dictated by: Dictated on workstation # [id number]
[2018-11-18] MEDS: PIPERACILLIN SODIUM/TAZOBACTAM 4.5 GM in NS (IVPB) 100 ML IV SCH ×3 (09:09→23:42)
[2018-11-18] MEDS: RT-ADVAIR HFA 115/21 MCG PER PUFF IH SCH ×2 (09:49→21:11)
--- NOTE | 2018-11-18 09:57 | Progress Note-Cardiology ---
Cardiology SOAP Progress Note Subjective: Sitting up in bed. No c/o CP or palpitations. Feels SOB continues to improve. No c/o syncope or near syncope. Reports showered this morning. Objective: I&O/Vital Signs 11/18/18 11/18/18 11/18/18 11/18/18 07:00 08:00 08:00 08:48 Temp 98.0 98.0 Pulse 94 85 102 Resp 16 16 B/P (MAP) 116/66 (83) 141/63 (89) Pulse Ox 96 96 94 O2 Delivery Nasal Cannula Nasal Cannula Nasal Cannula O2 Flow Rate 2.00 2.00 2.00 11/18/18 11/18/18 11/18/18 11/18/18 09:49 10:00 12:00 13:00 Temp 98.2 Pulse 86 91 93 Resp 18 B/P (MAP) 126/68 (87) Pulse Ox 92 95 95 O2 Delivery Nasal Cannula Nasal Cannula O2 Flow Rate 2.00 2.00 FiO2 28 11/18/18 11/18/18 14:41 16:20 Temp 97.2 Pulse 78 Resp 20 B/P (MAP) 115/57 (76) Pulse Ox 91 93 O2 Delivery Nasal Cannula Nasal Cannula O2 Flow Rate 2.00 1.50 11/18/18 00:00 Intake Total 480 ml Output Total 725 ml Balance -245 ml Weight (Pounds): 152 Weight (Ounces): 7.0 Weight (Calculated Kilograms): 69.969609 Constitutional: AAO x 3, well-developed, well-nourished Respiratory: No accessory muscle use, No respiratory distress; chest expansion is symmetric, chest is bilaterally symmetric, other (diminished bases bilat) Cardiovascular: irregularly irregular; No JVD; S1 and S2 Gastrointestional: No tender; soft, round, audible bowel sounds Extremities: no lower extremity edema bilateral Neurologic/Psychiatric: grossly intact Skin: No rash, No ulcerations, No rash on exposed areas Results/Procedures: Labs Laboratory Tests 11/17/18 21:02: Glucometer 209H 11/18/18 03:20: White Blood Count 10.8, Red Blood Count 3.55L, Hemoglobin 10.5L, Hematocrit 33L , Mean Corpuscular Volume 93, Mean Corpuscular Hemoglobin 30, Mean Corpuscular Hemoglobin Concent 32, Red Cell Distribution Width 13.7, Platelet Count 177, Mean Platelet Volume 13.1H, Neutrophils (%) (Auto) 66, Lymphocytes (%) (Auto) 24 , Monocytes (%) (Auto) 8, Eosinophils (%) (Auto) 2, Basophils (%) (Auto) 0, Neutrophils # (Auto) 7.1, Lymphocytes # (Auto) 2.6, Monocytes # (Auto) 0.9, Eosinophils # (Auto) 0.2, Basophils # (Auto) 0.0, Sodium Level 141, Potassium Level 3.7, Chloride Level 108H, Carbon Dioxide Level 21, Anion Gap 12, Blood Urea Nitrogen 29H, Creatinine 1.78H, Estimat Glomerular Filtration Rate 37, BUN/ Creatinine Ratio 16, Glucose Level 114H, Calcium Level 8.6, Phosphorus Level 3.4 , Magnesium Level 2.1 11/18/18 11:01: Glucometer 181H 11/18/18 16:24: Glucometer 244H Microbiology 11/17/18 Gram Stain - Final, Resulted 11/17/18 Bronchial Culture - Preliminary, Resulted Enterococcus faecium 11/17/18 Fungal Culture 1 - Preliminary, Resulted Culture In Progress Laboratory Tests 11/17/18 03:20 11/18/18 03:20 A/P: Assessment: Shortness of breath, multifactorial Pneumonia CHF acute diastolic Echocardiogram of 11-17-18 showed LVEF 60-65%. Mild to mod calcified annulus; mild MR; PASP 25-30 mmHg Renal failure, probably acute on chronic. Chronic component probably due to CKD due to DM II - Cr improved A fib/flutter of undetermined age. Does note a h/o cardiac arrhythmia (details unknown to him) for which he had been on sotalol DM II Hypertension Quit chronic pipe smoking in Oct 2018 Restless leg syndrome Chronic hearing loss Plan: * We have had a long and detailed discussion with him and his * We have discussed and recommend risk modification, including continuing avoidance of tobacco use * We recommend a w/u for his newly diagnosed acute diastolic CHF: MPI to eval for cor ischemia * Echocardiogram as noted above * Continue Eliquis 2.5 mg BID - d/t age greater than 80 and Cr >1.5 (2.09 today ) low dose is indicated * HR improved with increase dose of Cardizem * Worsening renal function likely acute on chronic renal insufficiency, acute likely d/t aggressive diuresis - Cr improved - continue to hold Lasix for now Physician Assessment Physician Assessment No cp or palp or syncope Lungs: fair air entry bilat Cor: irreg Ext: no c/c/e A&R * As documented in our note above that I updated (italics) and as noted below * Monitor labs * Continue current regimen JAGDEEP PEARSON [employer]RES[employer]ONDENCE TRANSCRIBER Nov 18, 2018 09:57 PAPO HARGROVE MD FACP FAC CCDS Nov 18, 2018 18:47
[2018-11-18] MEDS ORDERED: RT-ALBUTEROL SULF 2.5 MG/3 ML PRE-MIX VIAL INH PRN (10:15)
[2018-11-18] MEDS ORDERED: DOCUSATE SODIUM 100 MG (COLACE) CAP PO PRN (16:30)
[2018-11-18] MEDS ORDERED: BENZOCAINE/MENTHOL (DERMOPLAST) 56 ML CAN TP PRN (16:45)
[2018-11-18] MEDS: CHLORASEPTIC LOZENGE MM PRN ×2 (17:46→23:47)
[2018-11-19 00:03] VITALS: BP 125/65
[2018-11-19] MEDS: RT-ALBUTEROL/IPRATROPIUM 3 ML (DUONEB) VIAL INH SCH ×3 (02:14→10:52)
[2018-11-19 04:02] VITALS: BP 134/69
[2018-11-19 05:25] LABS: BASOPHILS % (AUTO) 0 % (0-10); EOSINOPHILS # (AUTO) 0.2 10^3/uL (0.0-0.3); EOSINOPHILS % (AUTO) 2 % (0-10); HEMATOCRIT 36 % (40-54); HEMOGLOBIN 11.2 G/DL (13.3-17.7); LYMPHOCYTES # (AUTO) 1.5 X 10^3 (1.0-4.0); LYMPHOCYTES % (AUTO) 15 % (12-44); MEAN CORPUSCULAR HEMOGLOBIN 29 PG (25-34); MEAN CORPUSCULAR HGB CONC 31 G/DL (32-36); MEAN CORPUSCULAR VOLUME 93 FL (80-99); MEAN PLATELET VOLUME 13.2 FL (7.4-10.4); MONOCYTES # (AUTO) 0.7 X 10^3 (0.0-1.0); MONOCYTES % (AUTO) 7 % (0-12); NEUTROPHILS # (AUTO) 7.9 X 10^3 (1.8-7.8); NEUTROPHILS % (AUTO) 77 % (42-75); PLATELET COUNT 178 10^3/uL (130-400); RED BLOOD COUNT 3.88 10^6/uL (4.35-5.85); RED CELL DISTRIBUTION WIDTH 13.5 % (10.0-14.5); WHITE BLOOD COUNT 10.2 10^3/uL (4.3-11.0)
[2018-11-19 05:42] LABS: CALCIUM 9.4 MG/DL (8.5-10.1); CREATININE SERUM 1.88 MG/DL (0.60-1.30); POTASSIUM 4.1 MMOL/L (3.6-5.0)
[2018-11-19] MEDS: inSUlin ASPART (NovoLOG) 1 UNIT/0.01 ML (CHARGE PER UNIT) SC SCH ×2 (05:57→12:03)
[2018-11-19] MEDS: LACTOBACILLUS ACIDOPHILUS (PROBIOTIC) CAPSULE PO SCH ×2 (06:08→12:03)
[2018-11-19] MEDS: rOPINIRole 1 MG (REQUIP) TABLET PO SCH (06:08)
[2018-11-19] MEDS: RT-ADVAIR HFA 115/21 MCG PER PUFF IH SCH (06:45)
--- NOTE | 2018-11-19 07:03 | Pulmonary Progress Note ---
CARINAVINH Weinstein STUDENT 11/19/18 0703: Subjective Date Seen by a Provider: Nov 19, 2018 Time Seen by a Provider: 06:58 Subjective/Events-last exam Yesterday patient was transferred down to 4th floor successfully. His antibiotics were de-escalated to zosyn from merrem due to lack of confirmatory culture [place] [facility] that the bacteria was MDR. He is doing better and would like to go home today. Sepsis Event Evaluation Height, Weight, BMI Height: 5'10.00" Weight: 149lbs. 8.0oz. 67.889583zg; 21.4 BMI Method: Exam Exam Vital Signs Date Time Temp Pulse Resp B/P (MAP) Pulse Ox O2 Delivery O2 Flow Rate FiO2 11/19/18 06:46 94 Nasal Cannula 2.50 11/19/18 04:02 98.1 91 18 134/69 (90) 95 Nasal Cannula 1.50 11/19/18 02:15 90 Nasal Cannula 2.00 11/19/18 01:00 71 11/19/18 00:03 98.0 77 20 125/65 (85) 94 Nasal Cannula 1.50 11/18/18 21:17 94 Nasal Cannula 1.50 11/18/18 21:11 90 Room Air 11/18/18 20:05 94 Nasal Cannula 2.00 11/18/18 20:00 99.3 79 20 133/81 (98) 95 Nasal Cannula 1.50 11/18/18 19:00 61 11/18/18 16:20 97.2 78 20 115/57 (76) 93 Nasal Cannula 1.50 11/18/18 14:41 91 Nasal Cannula 2.00 11/18/18 13:00 93 11/18/18 12:00 98.2 91 18 126/68 (87) 95 Nasal Cannula 2.00 11/18/18 10:00 86 95 28 11/18/18 09:49 92 Nasal Cannula 2.00 11/18/18 08:48 98.0 102 16 141/63 (89) 94 Nasal Cannula 2.00 11/18/18 08:00 98.0 85 16 116/66 (83) 96 Nasal Cannula 2.00 11/18/18 08:00 96 Nasal Cannula 2.00 11/18/18 07:00 94 I & O 11/19/18 07:00 Intake Total 1800 ml Balance 1800 ml Height & Weight Height: 5'10.00" Weight: 149lbs. 8.0oz. 67.409645xr; 21.4 BMI Method: General Appearance: No Apparent Distress, WD/WN HEENT: PERRL/EOMI, Moist Mucous Membranes Neck: Non Tender, Supple Respiratory: Lungs Clear, No Respiratory Distress Cardiovascular: Regular Rate, Rhythm, No Murmur Gastrointestinal: normal bowel sounds, non tender, soft Extremity: No Calf Tenderness, No Pedal Edema Neurologic/Psychiatric: Alert, Oriented x3 Skin: Normal Color, Warm/Dry Results Lab Laboratory Tests 11/18/18 03:20 11/19/18 04:30 Assessment/Plan Assessment/Plan PNA failed out patient tx - Pt has had recurrent pseudomonus pneumonia -Cont zosyn -s/p bronchoscopy - KRISSY wash showed entercoccus bacteria -WBC normalized, no fevers, clinically improving Bilateral pleural effusions -PT is on RA and 2L NC at night -Lasix currently on hold secondary to renal failure Diastolic HF -Cardiology recs COPDAE -Oxygen -SVNS, Proventil, advair ARF -Creatinine worsened today to 1.88 -Monitor Tobacco use -Education DAKOTA CASTAÑEDA DO 11/19/18 0906: Subjective Time Seen by a Provider: 09:01 Subjective/Events-last exam PT is doing well no complications noted. Pt is now on RA oxygen. Pt wants to go home. Exam Exam General Appearance: No Apparent Distress, WD/WN HEENT: PERRL/EOMI, Moist Mucous Membranes Neck: Non Tender, Supple Respiratory: Lungs Clear, No Respiratory Distress Cardiovascular: Regular Rate, Rhythm, No Murmur Gastrointestinal: normal bowel sounds, soft Extremity: No Calf Tenderness, No Pedal Edema Neurologic/Psychiatric: Alert, Oriented x3 Skin: Normal Color, Warm/Dry Assessment/Plan Assessment/Plan PNA failed out patient tx - -Cont zosyn - change to Augmentin at discharge. -s/p bronchoscopy - KRISSY wash showed enterococcus in BAL -WBC normalized, no fevers, clinically improving Bilateral pleural effusions -PT is on RA -Lasix currently on hold secondary to renal failure Diastolic HF -Cardiology recs COPDAE -Oxygen -SVNS, Proventil, advair ARF -Creatinine worsened today to 1.88 -Monitor Tobacco use -Education OK for discharge from pulmonary standpoint with augmentin. I will f.u with him as an outpatient VINH LIM STUDENT Nov 19, 2018 07:03 DAKOTA CASTAÑEDA DO Nov 19, 2018 09:06
--- NOTE | 2018-11-19 07:18 | Diagnostic Imaging Report ---
INDICATION: Shortness of breath. Portable chest 3:31 a.m. FINDINGS: There are bilateral basilar interstitial infiltrates. There is no appreciable effusion. IMPRESSION: Bilateral basilar interstitial infiltrates. No change from previous day. Dictated by: Dictated on workstation # [id number]
[2018-11-19 08:00] VITALS: BP 134/63
[2018-11-19] MEDS: CYANOCOBALAMIN 1,000 MCG (VITAMIN B-12) TABLET PO SCH (09:19)
[2018-11-19] MEDS: meTOprolol TARTRATE 50 MG (LOPRESSOR) TAB PO SCH (09:19)
[2018-11-19] MEDS: LEVOTHYROXINE 100 MCG (LEVOTHROID) TAB PO SCH (09:19)
[2018-11-19] MEDS: ASPIRIN E.C. 81 MG (ECOTRIN) TAB PO SCH (09:19)
[2018-11-19] MEDS: DILTIAZEM 240 MG (CARDIZEM CD) CAP PO SCH (09:19)
[2018-11-19] MEDS: PIPERACILLIN SODIUM/TAZOBACTAM 4.5 GM in NS (IVPB) 100 ML IV SCH (09:19)
[2018-11-19] MEDS: ASCORBIC ACID (VIT C) 500 MG TABLET PO SCH (09:19)
[2018-11-19] MEDS: APIXABAN 2.5 MG (ELIQUIS) TABLET PO SCH (09:19)
[2018-11-19] MEDS: PANTOPRAZOLE 40 MG (PROTONIX) TAB PO SCH (09:19)
--- NOTE | 2018-11-19 09:26 | Progress Note-Cardiology ---
Cardiology SOAP Progress Note Subjective: Sitting up in bed with spouse at the bedside. No c/o CP or palpitations. Feels breathing is improving. C/O gen fatigue. Objective: I&O/Vital Signs 11/19/18 11/19/18 11/19/18 11/19/18 02:15 04:02 06:46 07:05 Temp 98.1 Pulse 91 81 Resp 18 B/P (MAP) 134/69 (90) Pulse Ox 90 95 94 O2 Delivery Nasal Cannula Nasal Cannula Nasal Cannula O2 Flow Rate 2.00 1.50 2.50 11/19/18 11/19/18 11/19/18 11/19/18 08:00 08:00 10:49 10:52 Temp 98.2 Pulse 89 Resp 18 B/P (MAP) 134/63 (86) Pulse Ox 95 95 93 O2 Delivery Nasal Cannula Room Air Nasal Cannula O2 Flow Rate 1.50 0.00 2.00 11/19/18 11/19/18 12:00 12:00 Temp 98.4 98.9 Pulse 92 92 Resp 16 20 B/P (MAP) 131/69 (89) 153/80 (104) Pulse Ox 93 98 O2 Delivery Nasal Cannula Nasal Cannula O2 Flow Rate 1.50 2.00 11/19/18 00:00 Intake Total 1310 ml Balance 1310 ml Weight (Pounds): 149 Weight (Ounces): 8.0 Weight (Calculated Kilograms): 67.704349 Constitutional: AAO x 3, well-developed, well-nourished Respiratory: No accessory muscle use, No respiratory distress; chest expansion is symmetric, chest is bilaterally symmetric, rhonchi (scattered), other ( diminished bases bilat) Cardiovascular: irregularly irregular; No JVD; S1 and S2 Gastrointestional: No tender; soft, round, audible bowel sounds Extremities: no lower extremity edema bilateral Neurologic/Psychiatric: grossly intact Skin: No rash, No ulcerations, No rash on exposed areas Results/Procedures: Labs Laboratory Tests 11/18/18 16:24: Glucometer 244H 11/18/18 20:14: Glucometer 145H 11/19/18 04:30: White Blood Count 10.2, Red Blood Count 3.88L, Hemoglobin 11.2L, Hematocrit 36L , Mean Corpuscular Volume 93, Mean Corpuscular Hemoglobin 29, Mean Corpuscular Hemoglobin Concent 31L, Red Cell Distribution Width 13.5, Platelet Count 178, Mean Platelet Volume 13.2H, Neutrophils (%) (Auto) 77H, Lymphocytes (%) (Auto) 15, Monocytes (%) (Auto) 7, Eosinophils (%) (Auto) 2, Basophils (%) (Auto) 0, Neutrophils # (Auto) 7.9H, Lymphocytes # (Auto) 1.5, Monocytes # (Auto) 0.7, Eosinophils # (Auto) 0.2, Basophils # (Auto) 0.0, Sodium Level 138, Potassium Level 4.1, Chloride Level 107, Carbon Dioxide Level 20L, Anion Gap 11, Blood Urea Nitrogen 30H, Creatinine 1.88H, Estimat Glomerular Filtration Rate 35, BUN/ Creatinine Ratio 16, Glucose Level 191H, Calcium Level 9.4 11/19/18 05:10: Glucometer 220H 11/19/18 11:08: Glucometer 204H Microbiology 11/17/18 Gram Stain - Final, Resulted 11/17/18 Bronchial Culture - Preliminary, Resulted Enterococcus faecium Usual upper respiratory jg 11/17/18 Fungal Culture 1 - Preliminary, Resulted Culture In Progress Procedures NAME: BALJEET MIX [facility] REC#: [id number] PT STATUS: ADM IN : 1935 PHYSICIAN: RITA REYEZ MD ADMIT DATE: 11/16/18 Draft Date of Exam:11/19/18 CHEST 1 VIEW, AP/PA ONLY INDICATION: Shortness of breath. Portable chest 3:31 a.m. FINDINGS: There are bilateral basilar interstitial infiltrates. There is no appreciable effusion. IMPRESSION: Bilateral basilar interstitial infiltrates. No change from previous day. Dictated on workstation # [id number] Dict: 11/19/18 0642 Trans: 11/19/18 0717 [id number] Interpreted by: PALAK REYES MD Electronically signed by: A/P: Assessment: Shortness of breath, multifactorial Pneumonia CHF acute diastolic Echocardiogram of 11-17-18 showed LVEF 60-65%. Mild to mod calcified annulus; mild MR; PASP 25-30 mmHg Renal failure, probably acute on chronic. Chronic component probably due to CKD due to DM II - Cr worse today A fib/flutter of undetermined age. Does note a h/o cardiac arrhythmia (details unknown to him) for which he had been on sotalol in the past - currently controlled on Diltiazem DM II Hypertension Quit chronic pipe smoking in Oct 2018 Restless leg syndrome Chronic hearing loss Plan: * We have had a long and detailed discussion with him and his regarding tx plan * We have discussed and recommend risk modification, including continuing avoidance of tobacco use * We recommend a w/u for his newly diagnosed acute diastolic CHF: MPI to eval for cor ischemia * Continue Eliquis 2.5 mg BID - d/t age greater than 80 and Cr >1.5 (2.09 today ) low dose is indicated * Continue current medication regimen * Monitor lab closely * Cr elevated today from previous Physician Assessment Physician Assessment No cp or palp or syncope Shortness of breath better Wishes to go home Lungs: good bilat air entry Cor: irreg Ext: no/c/c/e A&R * As documented in our note above that I updated (italics) and as noted below * We again reviewed the management of A fib and his current regimen with him * Potential side effects of current meds were reviewed. We advised compliance with meds and with outpt f/u * I also discussed his case with JAGDEEP Jiménez Nov 19, 2018 09:26 PAPO HARGROVE MD FACP FAC CCDS Nov 19, 2018 13:36
[2018-11-19] MEDS ORDERED: APIX2.5T PO (09:36)
[2018-11-19] MEDS ORDERED: METO50TA15 PO (09:36)
[2018-11-19] MEDS ORDERED: DILT240C97 PO (09:36)
--- NOTE | 2018-11-19 09:47 | Discharge Summary-Hospitalist ---
Diagnosis/Chief Complaint Date of Admission Nov 16, 2018 at 08:32 Date of Discharge Admission Diagnosis Sepsis due to recurrent Pneumonia Discharge Diagnosis (1) Sepsis Assessment & Plan: 2/2 recurrent pneumonia Discussed with [facility] medical records- no sputum culture down Deescalate to Zosyn Await cultures from bronchoscopy (2) Pneumonia Assessment & Plan: Report was resistant pseudomonas per OSH Discussed with med records there and no sputum cultures done to identify organism Await cultures (3) OSWALDO (acute kidney injury) Assessment & Plan: Unsure if acute or chronic- pt denies history Improving Continue IVF (4) COPD (chronic obstructive pulmonary disease) Status: Chronic Assessment & Plan: Denies known history COPD per CT Pulm consulted, appreciate recs MAT Protocol (5) Pleural effusion Assessment & Plan: Stable Only on 2lpm currently (6) Non-insulin dependent type 2 diabetes mellitus Assessment & Plan: SSI Hold home meds Discharge Summary Discharge Physical Exam Allergies: Coded Allergies: gabapentin (Verified Allergy, Unknown, 11/15/18) pregabalin (Verified Allergy, Unknown, 11/15/18) Vitals & I&Os Vital Signs Date Time Temp Pulse Resp B/P (MAP) Pulse Ox O2 Delivery O2 Flow Rate FiO2 11/19/18 08:00 98.2 89 18 134/63 (86) 95 Nasal Cannula 1.50 11/18/18 10:00 28 Hospital Course Labs (last 24 hrs) Laboratory Tests 11/18/18 11:01: Glucometer 181H 11/18/18 16:24: Glucometer 244H 11/18/18 20:14: Glucometer 145H 11/19/18 04:30: White Blood Count 10.2, Red Blood Count 3.88L, Hemoglobin 11.2L, Hematocrit 36L , Mean Corpuscular Volume 93, Mean Corpuscular Hemoglobin 29, Mean Corpuscular Hemoglobin Concent 31L, Red Cell Distribution Width 13.5, Platelet Count 178, Mean Platelet Volume 13.2H, Neutrophils (%) (Auto) 77H, Lymphocytes (%) (Auto) 15, Monocytes (%) (Auto) 7, Eosinophils (%) (Auto) 2, Basophils (%) (Auto) 0, Neutrophils # (Auto) 7.9H, Lymphocytes # (Auto) 1.5, Monocytes # (Auto) 0.7, Eosinophils # (Auto) 0.2, Basophils # (Auto) 0.0, Sodium Level 138, Potassium Level 4.1, Chloride Level 107, Carbon Dioxide Level 20L, Anion Gap 11, Blood Urea Nitrogen 30H, Creatinine 1.88H, Estimat Glomerular Filtration Rate 35, BUN/ Creatinine Ratio 16, Glucose Level 191H, Calcium Level 9.4 11/19/18 05:10: Glucometer 220H Microbiology 11/17/18 Gram Stain - Final, Resulted 11/17/18 Bronchial Culture - Preliminary, Resulted Enterococcus faecium 11/17/18 Fungal Culture 1 - Preliminary, Resulted Culture In Progress Patient resulted labs reviewed. Pending Labs Laboratory Tests 11/19/18 04:30: White Blood Count 10.2, Red Blood Count 3.88, Hemoglobin 11.2, Hematocrit 36, Mean Corpuscular Volume 93, Mean Corpuscular Hemoglobin 29, Mean Corpuscular Hemoglobin Concent 31, Red Cell Distribution Width 13.5, Platelet Count 178, Mean Platelet Volume 13.2, Neutrophils (%) (Auto) 77, Lymphocytes (%) (Auto) 15 , Monocytes (%) (Auto) 7, Eosinophils (%) (Auto) 2, Basophils (%) (Auto) 0, Neutrophils # (Auto) 7.9, Lymphocytes # (Auto) 1.5, Monocytes # (Auto) 0.7, Eosinophils # (Auto) 0.2, Basophils # (Auto) 0.0, Sodium Level 138, Potassium Level 4.1, Chloride Level 107, Carbon Dioxide Level 20, Anion Gap 11, Blood Urea Nitrogen 30, Creatinine 1.88, Estimat Glomerular Filtration Rate 35, BUN/ Creatinine Ratio 16, Glucose Level 191, Calcium Level 9.4 11/19/18 05:10: Glucometer 220 Imaging: Reviewed Imaging Report Discharge Home Medications: Active Scripts Active Diltiazem 24Hr Cd (Diltiazem HCl) 240 Mg Cap.er.24h 240 Mg PO DAILY Metoprolol Tartrate 50 Mg Tablet 50 Mg PO BID Eliquis (Apixaban) 2.5 Mg Tablet 2.5 Mg PO BID Reported Vitamin B-12 (Cyanocobalamin (Vitamin B-12)) 1,000 Mcg Tablet 1,000 Mcg PO DAILY Folic Acid 0.4 Mg Tablet 0.4 Mg PO DAILY Garlic 1,000 Mg Capsule 1,000 Mg PO DAILY Vitamin B-6 (Pyridoxine HCl) 100 Mg Tablet 100 Mg PO DAILY Vitamin B-1 (Thiamine HCl) 250 Mg Tablet 250 Mg PO DAILY Ocuvite Softgel (Vit C/Vit E/Lutein/Min/[place]-3) 1 Each Capsule 1 Cap PO DAILY Vitamin D3 (Cholecalciferol (Vitamin D3)) 1,000 Unit Capsule 1,000 Unit PO DAILY Daily Multiple Vitamin (Multivitamin) 1 Each Tablet 1 Tab PO DAILY Ascorbic Acid 500 Mg Tablet 500 Mg PO DAILY Saw Bonesteel (Saw Bonesteel Fruit) 450 Mg Capsule 450 Mg PO BID Acid [employer] (FAMOTIDINE) (Famotidine) 20 Mg Tablet 20 Mg PO BID Prilosec Otc (Omeprazole Magnesium) 20 Mg Tablet.dr 20 Mg PO DAILY Levothyroxine Sodium 100 Mcg Tablet 100 Mcg PO DAILY Fenofibrate (Fenofibrate Nanocrystallized) 145 Mg Tablet 145 Mg PO DAILY Sotalol (Sotalol HCl) 120 Mg Tablet 120 Mg PO BID Alprazolam 0.5 Mg Tablet 0.5 Mg PO HS Hydrocodone-Acetamin 5-325 mg (Hydrocodone/Acetaminophen) 1 Each Tablet 1 Tab PO Q6H PRN Combigan Eye Drops (Brimonidine Tartrate/Timolol) 5 Ml Drops 1 Drop OU BID Ropinirole HCl 1 Mg Tablet 2 Mg PO TID TAKES 2 (1MG) TABLETS Liothyronine Sodium 25 Mcg Tablet 25 Mcg PO DAILY Aspirin EC (Aspirin) 81 Mg Tablet.dr 81 Mg PO DAILY Krill Oil 1,000 mg Softgel (Krill/Om3/Dha/Epa/Om6/Lip/Astx) 1 Each Capsule 1, 000 Mg PO DAILY Instructions to patient/family Please see electronic discharge instructions given to patient. Clinical Quality Measures DVT/VTE Risk/Contraindication: Risk Factor Score Per Nursin RFS Level Per Nursing on Admit: 3=High Problem Qualifiers (1) Sepsis: Sepsis type: Pseudomonas Qualified Codes: A41.52 - Sepsis due to Pseudomonas (2) Pneumonia: Pneumonia type: due to Pseudomonas Laterality: bilateral Lung location: unspecified part of lung Qualified Codes: J15.1 - Pneumonia due to Pseudomonas (3) COPD (chronic obstructive pulmonary disease): COPD type: unspecified COPD Qualified Codes: J44.9 - Chronic obstructive pulmonary disease, unspecified BABAR PLUMMER MD Nov 19, 2018 09:47
[2018-11-19] MEDS ORDERED: LACT1CAP7 PO (09:54)
[2018-11-19] MEDS ORDERED: AMOX-358 PO (09:54)
[2018-11-19] MEDS ORDERED: FLUT12AE4 IH (09:54)
--- NOTE | 2018-11-19 09:57 | Discharge Inst-Simple/Standard ---
Discharge Inst-Standard Discharge Medications New, Converted or Re-Newed RX: Transmitted to Pharmacy Patient Instructions/Follow Up Plan of Care/Instructions/FU: Please continue to take your medications as written. Please follow up with your PCP in the next week and with Dr richards in 1-2 weeks. Please also follow up with Dr Aquino in 2 weeks. Activity as Tolerated: Yes Discharge Diet: Cardiac Diet Return to The Hospital For: Chest pain, shortness of breath, fever, confusion, if you feel you are getting worse. BABAR PLUMMER MD Nov 19, 2018 09:57
--- NOTE | 2018-11-19 10:50 | NUR ---
PTS SP02 ON RA AT REST WAS 86% UPON ENTERING ROOM. PT THEN PLACED ON 2LPM, PROCEEDED TO WALK IN HALLS FOR 3-4 MINS, SP02 STAYED CONSISTENTLY AT 93-94% DURING WALK. PT QUALIFIES FOR 2LPM AT ALL TIME. Addendum: 11/19/18 at 1052 by DELMER CANTRELL RT Amended: Links added.
[2018-11-19 12:00] VITALS: BP_SYST 131; BP_SYST 153; BP_DIAS 69; BP_DIAS 80
--- NOTE | 2018-11-19 12:05 | NUR ---
CM/SS patient will discharge with continuous oxygen need at 2L. Patient is from [facility] and would like his Oxygen to come from [facility] in [facility]. Choice form signed and in chart. All necessary information sent to [facility] and they will provide the portable oxygen within the hour.
== END 2018-11-19 13:45 | disposition home or self-care (01) | DRG 871 ==
LOC: UNDOADMOB 19:49 → ICU 19:49 → INTOOBSV 11-16 08:32 → OBSVTOIN 11-16 08:32 → ICU 11-16 15:07 → 4TH 11-18 08:12 → ICU 11-18 08:12 → 4TH 11-18 14:59 → UNDODISIN 11-19 13:45
PROVIDERS: ADMIT Internal Medicine; ATTEND Internal Medicine
DX: A41.52 Sepsis due to Pseudomonas (principal); J15.1 Pneumonia due to Pseudomonas; I11.0 Hypertensive heart disease with heart failure; I50.31 Acute diastolic (congestive) heart failure; N17.9 Acute kidney failure, unspecified; J44.0 Chronic obstructive pulmonary disease with (acute) lower respiratory infection; J44.1 Chronic obstructive pulmonary disease with (acute) exacerbation; J90 Pleural effusion, not elsewhere classified; I48.92 Unspecified atrial flutter; E11.21 Type 2 diabetes mellitus with diabetic nephropathy; E11.22 Type 2 diabetes mellitus with diabetic chronic kidney disease; N18.9 Chronic kidney disease, unspecified; G25.81 Restless legs syndrome; I48.91 Unspecified atrial fibrillation; G47.9 Sleep disorder, unspecified; H91.90 Unspecified hearing loss, unspecified ear; T50.1X5A Adverse effect of loop [high-ceiling] diuretics, initial encounter; Z87.891 Personal history of nicotine dependence; Z79.84 Long term (current) use of oral hypoglycemic drugs
CPT/HCPCS: 36415; 71045; 71250; 80048; 82728; 82962; 83735; 83880; 84100; 85025; 85610; 85730; 87015; 87070; 87077; 87081; 87101; 87116; 87186; 87205; 87206; 88112; 88305; 88312; 93005; 93306; 94640; 94760; 94761; 99211; G0378

== ENCOUNTER 2018-12-04 22:58 | Inpatient (IN) | payer MEDICARE, OTHER ==
[~2018-12-04] VITALS: Ht 177.8 cm; Wt 60.5 kg
[~2018-12-04 22:58] MED LIST changes: +ALPR0.5T7 PO; +AMLO10TA7 PO; +AMOX-358 PO; +APIX2.5T PO; +ASCO500T7 PO; +ASPI-983 PO; +BRIM5DRO OU; +CHOL10007 PO; +CINN500C2 PO; +CYAN10006 PO; +DILT240C97 PO; +FAMO20TA3 PO; +FENO145T37 PO; +FLUT12AE4 IH; +FOLI0.4T2 PO; +GARL10002 PO; +HYDR-3812 PO; +LACT1CAP7 PO; +LEVO100T7 PO; +LEVO500T80 PO; +METO50TA15 PO; +MULT-35 PO; +OMEP20TA33 PO; +PYRI100T2 PO; +ROPI1TAB2 PO; +SAW450CA7 PO; +SOTA120T PO; +THIA250T8 PO; +VIT1CAPS9 PO
[2018-12-04] MEDS ORDERED: NS IV 1000 ML 1,000 ML IV ONE (23:04)
--- OUTSIDE RECORDS SUMMARY | 2018-12-04 23:04 | XMS REPORT | Continuity of Care Document ---
Author Author [facility] Organization [facility] Address Unknown Phone Unavailable Allergies Active Description Code Type Severity Reaction Onset Reported/Identified Relationship to Patient Clinical Status Yes No Known Drug Allergies [id number] Drug Allergy Unknown N/A 04/11/2014 Yes gabapentin [id number] Drug Allergy Unknown N/A 11/15/2018 Yes pregabalin [id number] Drug Allergy Unknown N/A 11/15/2018 Medications There is no data. 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 11/19/2018 RITA REYEZ MD Ot G25.81 RESTLESS LEGS SYNDROME 11/19/2018 RITA REYEZ MD Ot G47.9 SLEEP DISORDER, UNSPECIFIED 11/19/2018 RITA REYEZ MD, Ot H91.90 UNSPECIFIED HEARING LOSS, UNSPECIFIED EA 11/19/2018 RITA REYEZ MD Ot I11.0 HYPERTENSIVE HEART DISEASE WITH HEART FA 11/19/2018 RITA REYEZ MD Ot I48.91 UNSPECIFIED ATRIAL FIBRILLATION 11/19/2018 RITA REYEZ MD Ot I48.92 UNSPECIFIED ATRIAL FLUTTER 11/19/2018 RITA REYEZ MD Ot I50.31 ACUTE DIASTOLIC (CONGESTIVE) HEART FAILU 11/19/2018 RITA REYEZ MD, Ot J15.1 PNEUMONIA DUE TO PSEUDOMONAS 11/19/2018 RITA REYEZ MD, Ot J44.0 CHRONIC OBSTRUCTIVE PULMON DISEASE W ACU 11/19/2018 RITA REYEZ MD, Ot J44.1 CHRONIC OBSTRUCTIVE PULMONARY DISEASE W 11/19/2018 RITA REYEZ MD, Ot J90 PLEURAL EFFUSION, NOT ELSEWHERE CLASSIFI 11/19/2018 RITA REYEZ MD Ot N17.9 ACUTE KIDNEY FAILURE, UNSPECIFIED 11/19/2018 RITA REYEZ MD, Ot N18.9 CHRONIC KIDNEY DISEASE, UNSPECIFIED 11/19/2018 RITA REYEZ MD Ot T50.1X5A ADVERSE EFFECT OF LOOP DIURETICS, INITIA 11/19/2018 RITA REYEZ MD, Ot 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 11/19/2018 RITA REYEZ MD Ot Z87.891 PERSONAL HISTORY OF NICOTINE DEPENDENCE 11/19/2018 RITA REYEZ MD Ot A41.52 SEPSIS DUE TO PSEUDOMONAS 11/19/2018 RITA REYEZ MD Ot 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1 PNEUMONIA DUE TO PSEUDOMONAS 11/19/2018 RITA REYEZ MD, Ot J44.0 CHRONIC OBSTRUCTIVE PULMON DISEASE W ACU 11/19/2018 RITA REYEZ MD, Ot J44.1 CHRONIC OBSTRUCTIVE PULMONARY DISEASE W 11/19/2018 RITA REYEZ MD, Ot J90 PLEURAL EFFUSION, NOT ELSEWHERE CLASSIFI 11/19/2018 RITA REYEZ MD Ot N17.9 ACUTE KIDNEY FAILURE, UNSPECIFIED 11/19/2018 RITA REYEZ MD, Ot N18.9 CHRONIC KIDNEY DISEASE, UNSPECIFIED 11/19/2018 RITA REYEZ MD Ot T50.1X5A ADVERSE EFFECT OF LOOP DIURETICS, INITIA 11/19/2018 RITA REYEZ MD Ot Z79.84 [facility] (CURRENT) USE OF ORAL HYPOGLYC 11/19/2018 RITA REYEZ MD, Ot Z87.891 PERSONAL HISTORY OF NICOTINE DEPENDENCE 11/19/2018 RITA REYEZ MD Ot A41.52 SEPSIS DUE TO PSEUDOMONAS 11/19/2018 RITA REYEZ MD Ot 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 11/19/2018 RITA REYEZ MD Ot 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 11/19/2018 RITA REYEZ MD Ot G25.81 RESTLESS LEGS SYNDROME 11/19/2018 RITA REYEZ MD, Ot G47.9 SLEEP DISORDER, UNSPECIFIED 11/19/2018 RITA REYEZ MD Ot H91.90 UNSPECIFIED HEARING LOSS, UNSPECIFIED EA 11/19/2018 RITA REYEZ MD Ot I11.0 HYPERTENSIVE HEART DISEASE WITH HEART FA 11/19/2018 RITA REYEZ MD Ot I48.91 UNSPECIFIED ATRIAL FIBRILLATION 11/19/2018 RITA REYEZ MD Ot I48.92 UNSPECIFIED ATRIAL FLUTTER 11/19/2018 RITA REYEZ MD Ot I50.31 ACUTE DIASTOLIC (CONGESTIVE) HEART FAILU 11/19/2018 RITA REYEZ MD, Ot J15.1 PNEUMONIA DUE TO PSEUDOMONAS 11/19/2018 RITA REYEZ MD Ot J44.0 CHRONIC OBSTRUCTIVE PULMON DISEASE W ACU 11/19/2018 RITA REYEZ MD, Ot J44.1 CHRONIC OBSTRUCTIVE PULMONARY DISEASE W 11/19/2018 RITA REYEZ MD Ot J90 PLEURAL EFFUSION, NOT ELSEWHERE CLASSIFI 11/19/2018 RITA REYEZ MD Ot N17.9 ACUTE KIDNEY FAILURE, UNSPECIFIED 11/19/2018 RITA REYEZ MD Ot N18.9 CHRONIC KIDNEY DISEASE, UNSPECIFIED 11/19/2018 RITA REYEZ MD Ot T50.1X5A ADVERSE EFFECT OF LOOP DIURETICS, INITIA 11/19/2018 RITA REYEZ MD Ot 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 11/19/2018 RITA REYEZ MD, Ot Z87.891 PERSONAL HISTORY OF NICOTINE DEPENDENCE 11/19/2018 RITA REYEZ MD Ot A41.52 SEPSIS DUE TO PSEUDOMONAS 11/19/2018 RITA REYEZ MD Ot 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1 PNEUMONIA DUE TO PSEUDOMONAS 11/19/2018 RITA REYEZ MD Ot J44.0 CHRONIC OBSTRUCTIVE PULMON DISEASE W ACU 11/19/2018 RITA REYEZ MD, Ot J44.1 CHRONIC OBSTRUCTIVE PULMONARY DISEASE W 11/19/2018 RITA REYEZ MD Ot J90 PLEURAL EFFUSION, NOT ELSEWHERE CLASSIFI 11/19/2018 RITA REYEZ MD Ot N17.9 ACUTE KIDNEY FAILURE, UNSPECIFIED 11/19/2018 RITA REYEZ MD, Ot N18.9 CHRONIC KIDNEY DISEASE, UNSPECIFIED 11/19/2018 RITA REYEZ MD, Ot T50.1X5A ADVERSE EFFECT OF LOOP DIURETICS, INITIA 11/19/2018 RITA REYEZ MD, Ot 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 11/19/2018 RITA REYEZ MD, Ot Z87.891 PERSONAL HISTORY OF NICOTINE DEPENDENCE 11/20/2018 RITA REYEZ MD Ot A41.52 SEPSIS DUE TO PSEUDOMONAS 11/20/2018 RITA REYEZ MD Ot 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 11/20/2018 RITA REYEZ MD, Ot 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 11/20/2018 RITA REYEZ MD, Ot G25.81 RESTLESS LEGS SYNDROME 11/20/2018 RITA REYEZ MD, Ot G47.9 SLEEP DISORDER, UNSPECIFIED 11/20/2018 RITA REYEZ MD Ot H91.90 UNSPECIFIED HEARING LOSS, UNSPECIFIED EA 11/20/2018 RITA REYEZ MD Ot I11.0 HYPERTENSIVE HEART DISEASE WITH HEART FA 11/20/2018 RITA REYEZ MD Ot I48.91 UNSPECIFIED ATRIAL FIBRILLATION 11/20/2018 RITA REYEZ MD Ot I48.92 UNSPECIFIED ATRIAL FLUTTER 11/20/2018 RITA REYEZ MD Ot I50.31 ACUTE DIASTOLIC (CONGESTIVE) HEART FAILU 11/20/2018 RITA REYEZ MD Ot J15.1 PNEUMONIA DUE TO PSEUDOMONAS 11/20/2018 RITA REYEZ MD, Ot J44.0 CHRONIC OBSTRUCTIVE PULMON DISEASE W ACU 11/20/2018 RITA REYEZ MD, Ot J44.1 CHRONIC OBSTRUCTIVE PULMONARY DISEASE W 11/20/2018 RITA REYEZ MD, Ot J90 PLEURAL EFFUSION, NOT ELSEWHERE CLASSIFI 11/20/2018 RITA REYEZ MD Ot N17.9 ACUTE KIDNEY FAILURE, UNSPECIFIED 11/20/2018 RITA REYEZ MD, Ot N18.9 CHRONIC KIDNEY DISEASE, UNSPECIFIED 11/20/2018 RITA REYEZ MD, Ot T50.1X5A ADVERSE EFFECT OF LOOP DIURETICS, INITIA 11/20/2018 RITA REYEZ MD Ot Z79.84 [facility] (CURRENT) USE OF ORAL HYPOGLYC 11/20/2018 RITA REYEZ MD Ot Z87.891 PERSONAL HISTORY OF NICOTINE DEPENDENCE 11/20/2018 RITA REYEZ MD Ot A41.52 SEPSIS DUE TO PSEUDOMONAS 11/20/2018 RITA REYEZ MD Ot 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1 PNEUMONIA DUE TO PSEUDOMONAS 11/20/2018 RITA REYEZ MD Ot J44.0 CHRONIC OBSTRUCTIVE PULMON DISEASE W ACU 11/20/2018 RITA REYEZ MD Ot J44.1 CHRONIC OBSTRUCTIVE PULMONARY DISEASE W 11/20/2018 RITA REYEZ MD Ot J90 PLEURAL EFFUSION, NOT ELSEWHERE CLASSIFI 11/20/2018 RITA REYEZ MD Ot N17.9 ACUTE KIDNEY FAILURE, UNSPECIFIED 11/20/2018 RITA REYEZ MD Ot N18.9 CHRONIC KIDNEY DISEASE, UNSPECIFIED 11/20/2018 RITA REYEZ MD Ot T50.1X5A ADVERSE EFFECT OF LOOP DIURETICS, INITIA 11/20/2018 RITA REYEZ MD Ot Z79.84 [facility] (CURRENT) USE OF ORAL HYPOGLYC 11/20/2018 RITA REYEZ MD, Ot Z87.891 PERSONAL HISTORY OF NICOTINE DEPENDENCE 11/20/2018 RITA REYEZ MD Ot A41.52 SEPSIS DUE TO PSEUDOMONAS 11/20/2018 RITA REYEZ MD Ot 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1 PNEUMONIA DUE TO PSEUDOMONAS 11/20/2018 RITA REYEZ MD Ot J44.0 CHRONIC OBSTRUCTIVE PULMON DISEASE W ACU 11/20/2018 RITA REYEZ MD, Ot J44.1 CHRONIC OBSTRUCTIVE PULMONARY DISEASE W 11/20/2018 RITA REYEZ MD Ot J90 PLEURAL EFFUSION, NOT ELSEWHERE CLASSIFI 11/20/2018 RITA REYEZ MD Ot N17.9 ACUTE KIDNEY FAILURE, UNSPECIFIED 11/20/2018 RITA REYEZ MD Ot N18.9 CHRONIC KIDNEY DISEASE, UNSPECIFIED 11/20/2018 RITA REYEZ MD Ot T50.1X5A ADVERSE EFFECT OF LOOP DIURETICS, INITIA 11/20/2018 RITA REYEZ MD Ot Z79.84 [facility] (CURRENT) USE OF ORAL HYPOGLYC 11/20/2018 RITA REYEZ MD, Ot Z87.891 PERSONAL HISTORY OF NICOTINE DEPENDENCE Procedures There is no data. Results Test Result Range Methicillin resistant Staphylococcus aureus (MRSA) screening culture - 20:00 Methicillin resistant Staphylococcus aureus (MRSA) screening culture NEG NRG Complete blood count (CBC) with automated white blood cell (WBC) differential - 11/16/18 03:15 Blood leukocytes automated count (number/volume) 9.4 10*3/uL 4.3-11.0 Blood erythrocytes automated count (number/volume) 3.64 10*6/uL 4.35-5.85 Venous blood hemoglobin measurement (mass/volume) 10.8 g/dL 13.3-17.7 Blood hematocrit (volume fraction) 34 % 40-54 Automated erythrocyte mean corpuscular volume 93 [foz_us] 80-99 Automated erythrocyte mean corpuscular hemoglobin (mass per erythrocyte) 30 pg 25-34 Automated erythrocyte mean corpuscular hemoglobin concentration measurement ( mass/volume) 32 g/dL 32-36 Automated erythrocyte distribution width ratio 13.9 % 10.0-14.5 Automated blood platelet count (count/volume) 166 10*3/uL 130-400 Automated blood platelet mean volume measurement 13.5 [foz_us] 7.4-10.4 Automated blood neutrophils/100 leukocytes 62 % 42-75 Automated blood lymphocytes/100 leukocytes 26 % 12-44 Blood monocytes/100 leukocytes 10 % 0-12 Automated blood eosinophils/100 leukocytes 2 % 0-10 Automated blood basophils/100 leukocytes 0 % 0-10 Blood neutrophils automated count (number/volume) 5.9 10*3 1.8-7.8 Blood lymphocytes automated count (number/volume) 2.4 10*3 1.0-4.0 Blood monocytes automated count (number/volume) 0.9 10*3 0.0-1.0 Automated eosinophil count 0.2 10*3/uL 0.0-0.3 Automated blood basophil count (count/volume) 0.0 10*3/uL 0.0-0.1 PT panel in platelet poor plasma by coagulation assay - 11/16/18 03:15 Prothrombin time (PT) in platelet poor plasma by coagulation assay 15.2 s 12.2-14.7 INR in platelet poor plasma or blood by coagulation assay 1.2 0.8-1.4 Activated partial thromboplastin time (aPTT) in platelet poor plasma bycoagulation assay - 11/16/18 03:15 Activated partial thromboplastin time (aPTT) in platelet poor plasma bycoagulation assay 36 s 24-35 Whole blood basic metabolic panel - 11/16/18 03:15 Serum or plasma sodium measurement (moles/volume) 140 mmol/L 135-145 Serum or plasma potassium measurement (moles/volume) 4.5 mmol/L 3.6-5.0 Serum or plasma chloride measurement (moles/volume) 107 mmol/L 98-107 Carbon dioxide 22 mmol/L 21-32 Serum or plasma anion gap determination (moles/volume) 11 mmol/L 5-14 Serum or plasma urea nitrogen measurement (mass/volume) 34 mg/dL 7-18 Serum or plasma creatinine measurement (mass/volume) 1.84 mg/dL 0.60-1.30 Serum or plasma urea nitrogen/creatinine mass ratio 18 NRG Serum or plasma creatinine measurement with calculation of estimated glomerular filtration rate 35 NRG Serum or plasma glucose measurement (mass/volume) 118 mg/dL 70-105 Serum or plasma calcium measurement (mass/volume) 9.1 mg/dL 8.5-10.1 Serum or plasma phosphate measurement (mass/volume) - 11/16/18 03:15 Serum or plasma phosphate measurement (mass/volume) 3.3 mg/dL 2.3-4.7 Magnesium - 11/16/18 03:15 Magnesium 2.2 mg/dL 1.8-2.4 Serum or plasma lithium measurement (moles/volume) - 11/16/18 03:15 BNP level 1578.1 pg/mL <100.0 Serum or plasma ferritin measurement (mass/volume) - 11/16/18 03:15 Serum or plasma ferritin measurement (mass/volume) 97.8 % 32.0-356.0 Capillary blood glucose measurement by glucometer (mass/volume) - 11/16/18 11: 32 Capillary blood glucose measurement by glucometer (mass/volume) 153 mg/dL 70-110 Capillary blood glucose measurement by glucometer (mass/volume) - 11/16/18 16: 28 Capillary blood glucose measurement by glucometer (mass/volume) 146 mg/dL 70-110 Complete blood count (CBC) with automated white blood cell (WBC) differential - 11/17/18 03:20 Blood leukocytes automated count (number/volume) 12.6 10*3/uL 4.3-11.0 Blood erythrocytes automated count (number/volume) 4.23 10*6/uL 4.35-5.85 Venous blood hemoglobin measurement (mass/volume) 12.2 g/dL 13.3-17.7 Blood hematocrit (volume fraction) 39 % 40-54 Automated erythrocyte mean corpuscular volume 93 [foz_us] 80-99 Automated erythrocyte mean corpuscular hemoglobin (mass per erythrocyte) 29 pg 25-34 Automated erythrocyte mean corpuscular hemoglobin concentration measurement ( mass/volume) 31 g/dL 32-36 Automated erythrocyte distribution width ratio 13.8 % 10.0-14.5 Automated blood platelet count (count/volume) 205 10*3/uL 130-400 Automated blood platelet mean volume measurement 13.3 [foz_us] 7.4-10.4 Automated blood neutrophils/100 leukocytes 66 % 42-75 Automated blood lymphocytes/100 leukocytes 23 % 12-44 Blood monocytes/100 leukocytes 8 % 0-12 Automated blood eosinophils/100 leukocytes 3 % 0-10 Automated blood basophils/100 leukocytes 0 % 0-10 Blood neutrophils automated count (number/volume) 8.3 10*3 1.8-7.8 Blood lymphocytes automated count (number/volume) 2.9 10*3 1.0-4.0 Blood monocytes automated count (number/volume) 1.0 10*3 0.0-1.0 Automated eosinophil count 0.3 10*3/uL 0.0-0.3 Automated blood basophil count (count/volume) 0.0 10*3/uL 0.0-0.1 Whole blood basic metabolic panel - 11/17/18 03:20 Serum or plasma sodium measurement (moles/volume) 141 mmol/L 135-145 Serum or plasma potassium measurement (moles/volume) 4.3 mmol/L 3.6-5.0 Serum or plasma chloride measurement (moles/volume) 105 mmol/L 98-107 Carbon dioxide 21 mmol/L 21-32 Serum or plasma anion gap determination (moles/volume) 15 mmol/L 5-14 Serum or plasma urea nitrogen measurement (mass/volume) 36 mg/dL 7-18 Serum or plasma creatinine measurement (mass/volume) 2.09 mg/dL 0.60-1.30 Serum or plasma urea nitrogen/creatinine mass ratio 17 NRG Serum or plasma creatinine measurement with calculation of estimated glomerular filtration rate 31 NRG Serum or plasma glucose measurement (mass/volume) 136 mg/dL 70-105 Serum or plasma calcium measurement (mass/volume) 9.2 mg/dL 8.5-10.1 Serum or plasma phosphate measurement (mass/volume) - 11/17/18 03:20 Serum or plasma phosphate measurement (mass/volume) 4.3 mg/dL 2.3-4.7 Magnesium - 11/17/18 03:20 Magnesium 2.2 mg/dL 1.8-2.4 Sputum Gram stain - 11/17/18 06:15 Sputum Gram stain No bacteria seen NRG Bacteria identification in bronchial specimen by aerobe culture - 11/17/18 06: 15 QUANTITY OF GROWTH . NRG Bacteria identification in bronchial specimen by aerobe culture USUAL RESP NRG FTX;REPORTABLE 2,000 CFU/ML NRG C FUNGUS SPUTUM FLUID TISSUE - 11/17/18 06:15 FUNGUS REPORT CURRENT REPORT: NEGATIVE NRG FUNGUS EXAM FINAL REQUIRES 4 WEEKS NRG Mycobacterium species detection by organism specific culture - 11/17/18 06:15 Sputum Gram stain - 11/17/18 06:16 Sputum Gram stain TNP NRG Bacteria identification in bronchial specimen by aerobe culture - 11/17/18 06: 16 QUANTITY OF GROWTH Rare NRG Bacteria identification in bronchial specimen by aerobe culture USUAL RESP NRG FTX;REPORTABLE RML SENT SENSITIVITY REPORT 11/20 11:05 NRG FREE TEXT ENTRY 2 NOTE:VRE NRG FREE TEXT ENTRY 3 RML SENT ID REPORT 11/18 15:05 NRG RML Sensitivity Panel - 11/17/18 06:16 Vancomycin susceptibility test by minimum inhibitory concentration > NRG Ampicillin susceptibility test by minimum inhibitory concentration > NRG Linezolid susceptibility test by minimum inhibitory concentration 2 NRG C FUNGUS SPUTUM FLUID TISSUE - 11/17/18 06:16 FUNGUS REPORT CURRENT REPORT: NEGATIVE NRG FUNGUS EXAM FINAL REQUIRES 4 WEEKS NRG Capillary blood glucose measurement by glucometer (mass/volume) - 11/17/18 11: 26 Capillary blood glucose measurement by glucometer (mass/volume) 194 mg/dL 70-110 Capillary blood glucose measurement by glucometer (mass/volume) - 11/17/18 16: 07 Capillary blood glucose measurement by glucometer (mass/volume) 281 mg/dL 70-110 Capillary blood glucose measurement by glucometer (mass/volume) - 11/17/18 21: 02 Capillary blood glucose measurement by glucometer (mass/volume) 209 mg/dL 70-110 Complete blood count (CBC) with automated white blood cell (WBC) differential - 11/18/18 03:20 Blood leukocytes automated count (number/volume) 10.8 10*3/uL 4.3-11.0 Blood erythrocytes automated count (number/volume) 3.55 10*6/uL 4.35-5.85 Venous blood hemoglobin measurement (mass/volume) 10.5 g/dL 13.3-17.7 Blood hematocrit (volume fraction) 33 % 40-54 Automated erythrocyte mean corpuscular volume 93 [foz_us] 80-99 Automated erythrocyte mean corpuscular hemoglobin (mass per erythrocyte) 30 pg 25-34 Automated erythrocyte mean corpuscular hemoglobin concentration measurement ( mass/volume) 32 g/dL 32-36 Automated erythrocyte distribution width ratio 13.7 % 10.0-14.5 Automated blood platelet count (count/volume) 177 10*3/uL 130-400 Automated blood platelet mean volume measurement 13.1 [foz_us] 7.4-10.4 Automated blood neutrophils/100 leukocytes 66 % 42-75 Automated blood lymphocytes/100 leukocytes 24 % 12-44 Blood monocytes/100 leukocytes 8 % 0-12 Automated blood eosinophils/100 leukocytes 2 % 0-10 Automated blood basophils/100 leukocytes 0 % 0-10 Blood neutrophils automated count (number/volume) 7.1 10*3 1.8-7.8 Blood lymphocytes automated count (number/volume) 2.6 10*3 1.0-4.0 Blood monocytes automated count (number/volume) 0.9 10*3 0.0-1.0 Automated eosinophil count 0.2 10*3/uL 0.0-0.3 Automated blood basophil count (count/volume) 0.0 10*3/uL 0.0-0.1 Whole blood basic metabolic panel - 11/18/18 03:20 Serum or plasma sodium measurement (moles/volume) 141 mmol/L 135-145 Serum or plasma potassium measurement (moles/volume) 3.7 mmol/L 3.6-5.0 Serum or plasma chloride measurement (moles/volume) 108 mmol/L 98-107 Carbon dioxide 21 mmol/L 21-32 Serum or plasma anion gap determination (moles/volume) 12 mmol/L 5-14 Serum or plasma urea nitrogen measurement (mass/volume) 29 mg/dL 7-18 Serum or plasma creatinine measurement (mass/volume) 1.78 mg/dL 0.60-1.30 Serum or plasma urea nitrogen/creatinine mass ratio 16 NRG Serum or plasma creatinine measurement with calculation of estimated glomerular filtration rate 37 NRG Serum or plasma glucose measurement (mass/volume) 114 mg/dL 70-105 Serum or plasma calcium measurement (mass/volume) 8.6 mg/dL 8.5-10.1 Serum or plasma phosphate measurement (mass/volume) - 11/18/18 03:20 Serum or plasma phosphate measurement (mass/volume) 3.4 mg/dL 2.3-4.7 Magnesium - 11/18/18 03:20 Magnesium 2.1 mg/dL 1.8-2.4 Capillary blood glucose measurement by glucometer (mass/volume) - 11/18/18 11: 01 Capillary blood glucose measurement by glucometer (mass/volume) 181 mg/dL 70-110 Capillary blood glucose measurement by glucometer (mass/volume) - 11/18/18 16: 24 Capillary blood glucose measurement by glucometer (mass/volume) 244 mg/dL 70-110 Capillary blood glucose measurement by glucometer (mass/volume) - 11/18/18 20: 14 Capillary blood glucose measurement by glucometer (mass/volume) 145 mg/dL 70-110 Complete blood count (CBC) with automated white blood cell (WBC) differential - 11/19/18 04:30 Blood leukocytes automated count (number/volume) 10.2 10*3/uL 4.3-11.0 Blood erythrocytes automated count (number/volume) 3.88 10*6/uL 4.35-5.85 Venous blood hemoglobin measurement (mass/volume) 11.2 g/dL 13.3-17.7 Blood hematocrit (volume fraction) 36 % 40-54 Automated erythrocyte mean corpuscular volume 93 [foz_us] 80-99 Automated erythrocyte mean corpuscular hemoglobin (mass per erythrocyte) 29 pg 25-34 Automated erythrocyte mean corpuscular hemoglobin concentration measurement ( mass/volume) 31 g/dL 32-36 Automated erythrocyte distribution width ratio 13.5 % 10.0-14.5 Automated blood platelet count (count/volume) 178 10*3/uL 130-400 Automated blood platelet mean volume measurement 13.2 [foz_us] 7.4-10.4 Automated blood neutrophils/100 leukocytes 77 % 42-75 Automated blood lymphocytes/100 leukocytes 15 % 12-44 Blood monocytes/100 leukocytes 7 % 0-12 Automated blood eosinophils/100 leukocytes 2 % 0-10 Automated blood basophils/100 leukocytes 0 % 0-10 Blood neutrophils automated count (number/volume) 7.9 10*3 1.8-7.8 Blood lymphocytes automated count (number/volume) 1.5 10*3 1.0-4.0 Blood monocytes automated count (number/volume) 0.7 10*3 0.0-1.0 Automated eosinophil count 0.2 10*3/uL 0.0-0.3 Automated blood basophil count (count/volume) 0.0 10*3/uL 0.0-0.1 Whole blood basic metabolic panel - 11/19/18 04:30 Serum or plasma sodium measurement (moles/volume) 138 mmol/L 135-145 Serum or plasma potassium measurement (moles/volume) 4.1 mmol/L 3.6-5.0 Serum or plasma chloride measurement (moles/volume) 107 mmol/L 98-107 Carbon dioxide 20 mmol/L 21-32 Serum or plasma anion gap determination (moles/volume) 11 mmol/L 5-14 Serum or plasma urea nitrogen measurement (mass/volume) 30 mg/dL 7-18 Serum or plasma creatinine measurement (mass/volume) 1.88 mg/dL 0.60-1.30 Serum or plasma urea nitrogen/creatinine mass ratio 16 NRG Serum or plasma creatinine measurement with calculation of estimated glomerular filtration rate 35 NRG Serum or plasma glucose measurement (mass/volume) 191 mg/dL 70-105 Serum or plasma calcium measurement (mass/volume) 9.4 mg/dL 8.5-10.1 Capillary blood glucose measurement by glucometer (mass/volume) - 11/19/18 05: 10 Capillary blood glucose measurement by glucometer (mass/volume) 220 mg/dL 70-110 Capillary blood glucose measurement by glucometer (mass/volume) - 11/19/18 11: 08 Capillary blood glucose measurement by glucometer (mass/volume) 204 mg/dL 70-110 Encounters ACCT No. Visit Date/Time Discharge Status Pt. Type Provider Facility Loc./Unit Complaint [id number] 11/16/2018 08:37:00 11/19/2018 13:45:00 DIS Outpatient AISSATOU RICHTER, RITA Simpson [facility] 4TH PNEUMONIA [id number] 04/11/2014 07:37:00 04/11/2014 10:40:00 DIS Outpatient ZAIRA FLANAGAN MD [facility] SDC DYSPHASIA [id number] 04/07/2014 07:27:00 04/07/2014 23:59:59 CLS Outpatient ZAIRA FLANAGAN MD [facility] PREOP DYSPHASIA [id number] 12/04/2018 22:59:00 ACT Emergency FLORIAN VILLARREAL DO [facility] ER BLOOD SUGAR 427/SOB [id number] 12/02/2018 09:02:00 PEN Preadmit YAMILEX KAPLAN APRN [facility] RAD PNEUMONIA, HYPOXEMIA REQUIRING SUPPLEMENTAL OXYGEN [id number] 12/02/2018 09:00:00 PEN Preadmit YAMILEX KAPLAN APRN [facility] RT OTHER FORMS OF DYSPNEA
[2018-12-04] MEDS ORDERED: ASPIRIN 81 MG CHEW (CHILDREN'S ASA) PO ONE (23:15)
--- NOTE | 2018-12-04 23:20 | NUR ---
Pt complained of chest pain from difficulty breathing, but later asked what his pain was he stated he did not have any. He stated it was earlier on car ride here.
[2018-12-04 23:30] LABS: BASOPHILS % (AUTO) 0 % (0-10); EOSINOPHILS # (AUTO) 0.2 10^3/uL (0.0-0.3); EOSINOPHILS % (AUTO) 1 % (0-10); HEMATOCRIT 37 % (40-54); HEMOGLOBIN 11.5 G/DL (13.3-17.7); LYMPHOCYTES # (AUTO) 1.9 X 10^3 (1.0-4.0); LYMPHOCYTES % (AUTO) 14 % (12-44); MEAN CORPUSCULAR HEMOGLOBIN 29 PG (25-34); MEAN CORPUSCULAR HGB CONC 31 G/DL (32-36); MEAN CORPUSCULAR VOLUME 93 FL (80-99); MEAN PLATELET VOLUME 12.7 FL (7.4-10.4); MONOCYTES % (AUTO) 7 % (0-12); NEUTROPHILS # (AUTO) 10.9 X 10^3 (1.8-7.8); NEUTROPHILS % (AUTO) 78 % (42-75); PLATELET COUNT 309 10^3/uL (130-400); RED CELL DISTRIBUTION WIDTH 14.9 % (10.0-14.5); WHITE BLOOD COUNT 14.1 10^3/uL (4.3-11.0)
[2018-12-04 23:41] LABS: INR 1.3 (0.8-1.4); PROTHROMBIN TIME PATIENT 16.4 SEC (12.2-14.7)
[2018-12-04 23:47] LABS: EOSINOPHILS % (MANUAL) 4 %; LYMPHOCYTES % (MANUAL) 13 %; MONOCYTES % (MANUAL) 13 %; NEUTROPHILS % (MANUAL) 70 %; RBC MORPH NORMAL
[2018-12-04 23:48] LABS: ALANINE AMINOTRANSFERASE 20 U/L (0-55); ALBUMIN 4.1 GM/DL (3.2-4.5); ALKALINE PHOSPHATASE 70 U/L (40-136); AMYLASE 46 U/L (25-125); BILIRUBIN,TOTAL 0.4 MG/DL (0.1-1.0); BUN/CREATININE RATIO 14; CALCIUM 8.9 MG/DL (8.5-10.1); CARBON DIOXIDE 19 MMOL/L (21-32); CHLORIDE 106 MMOL/L (98-107); GFR ESTIMATED 30; GLUCOSE 276 MG/DL (70-105); LIPASE 52 U/L (8-78); MAGNESIUM 2.5 MG/DL (1.8-2.4); POTASSIUM 5.9 MMOL/L (3.6-5.0); SODIUM 139 MMOL/L (135-145)
[2018-12-04] MEDS ORDERED: RT-ALBUTEROL/IPRATROPIUM 3 ML (DUONEB) VIAL ONE (23:57)
[2018-12-05] VITALS (14 sets, daily range): BP systolic 127–156; BP diastolic 78–109
[2018-12-05] MEDS ORDERED: NITROGLYCERIN 2% OINT 1 GM UNIT DOSE PACKET TOP ONE
[2018-12-05] MEDS ORDERED: SOD POLYSTERENE 15 GM/60 ML (KAYEXALATE) UNIT DOSE PO ONE
[2018-12-05] MEDS ORDERED: FUROSEMIDE 40 MG/4 ML INJ (LASIX) IVP ONE
[2018-12-05] MEDS ORDERED: WATER IV ONE ×2
[2018-12-05] MEDS ORDERED: CEFEPIME IV ONE ×2
[2018-12-05] MEDS ORDERED: methylPREDNISolone 125 MG (Solu-MEDROL) VIAL IVP ONE
[2018-12-05 00:04] LABS: ABG BASE EXCESS -5.7 MMOL/L (-2.5-2.5); ABG OXYGEN SATURATION 91 % (94-100); ABG PCO2 34 MMHG (35-45); ABG PH 7.36 (7.37-7.43); ABG PO2 62 MMHG (79-93)
[2018-12-05 00:05] LABS: ALLENS TEST YES-POS; INSPIRED O2 5L; PATIENT TEMP 97.2; VENTILATOR NO
[2018-12-05] MEDS ORDERED: APIXABAN 5 MG (ELIQUIS) TABLET PO ONE (00:15)
--- NOTE | 2018-12-05 00:40 | NUR ---
IV in left wrist was taken out after infiltrating after giving solu-medrol
[2018-12-05] MEDS ORDERED: APIXABAN 5 MG (ELIQUIS) TABLET ONE (00:41)
[2018-12-05] MEDS ORDERED: CEFEPIME 1 GM (MAXIPIME) VIAL ONE (00:41)
[2018-12-05] MEDS ORDERED: NS (IVPB) 50 ML ONE (00:45)
--- NOTE | 2018-12-05 01:01 | NUR ---
maxipine mixed with 50 ml bag of sodium chloride 0.9% not sterile water after talking to Dr. Davison
[2018-12-05 01:10] LABS: BILIRUBIN,URINE NEGATIVE (NEGATIVE); CLARITY,URINE CLEAR; COLOR,URINE YELLOW; GLUCOSE, URINE (UA) 1+ (NEGATIVE); KETONES,URINE NEGATIVE (NEGATIVE); LEUKOCYTE ESTERASE ,URINE NEGATIVE (NEGATIVE); NITRITE,URINE NEGATIVE (NEGATIVE); PH,URINE 5 (5-9); PROTEIN,URINE NEGATIVE (NEGATIVE); UROBILINOGEN,URINE NORMAL (NORMAL)
[2018-12-05] MEDS ORDERED: RT-ALBUTEROL/IPRATROPIUM 3 ML (DUONEB) VIAL ONE (01:11)
[2018-12-05] MEDS ORDERED: RT-ALBUTEROL/IPRATROPIUM 3 ML (DUONEB) VIAL INH ONE ×2 (01:15)
--- NOTE | 2018-12-05 01:20 | NUR ---
Pt's oxygen saturation was 87-88%, so we increased oxygen to 6 liters via nasal canula. Called RT. order to give duoneb and decrease oxygen to 5 liters
[2018-12-05 01:24] LABS: BACTERIA,URINE NEGATIVE /HPF; SQUAMOUS EPITHELIAL CELL,UR RARE /HPF
--- OUTSIDE RECORDS SUMMARY | 2018-12-05 01:30 | XMS REPORT | Continuity of Care Document ---
Author Author [facility] Organization [facility] Address Unknown Phone Unavailable Allergies Active Description Code Type Severity Reaction Onset Reported/Identified Relationship to Patient Clinical Status Yes No Known Drug Allergies [id number] Drug Allergy Unknown N/A 04/11/2014 Yes gabapentin [id number] Drug Allergy Unknown N/A 11/15/2018 Yes pregabalin [id number] Drug Allergy Unknown N/A 11/15/2018 Medications There [...] 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 DIABETIC MEDICAL TECHNOLOGIST GENERALIST 11/19/2018 RITA REYEZ MD Ot G25.81 RESTLESS [...] INITIA 11/19/2018 RITA REYEZ MD, Ot 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 11/19/2018 RITA REYEZ MD Ot Z87.891 PERSONAL HISTORY OF NICOTINE DEPENDENCE 11/19/2018 RITA REYEZ MD Ot A41.52 SEPSIS DUE TO PSEUDOMONAS 11/19/2018 RITA REYEZ MD Ot 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 11/19/2018 RITA REYEZ MD Ot 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 DIABETIC MEDICAL TECHNOLOGIST GENERALIST 11/19/2018 RITA REYEZ MD Ot G25.81 RESTLESS [...] INITIA 11/19/2018 RITA REYEZ MD Ot Z79.84 CORRECTION (CURRENT) USE OF ORAL HYPOGLYC 11/19/2018 RITA REYEZ MD, Ot Z87.891 PERSONAL HISTORY OF NICOTINE DEPENDENCE 11/19/2018 RITA REYEZ MD Ot A41.52 SEPSIS DUE TO PSEUDOMONAS 11/19/2018 RITA REYEZ MD Ot 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 11/19/2018 RITA REYEZ MD Ot 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 DIABETIC MEDICAL TECHNOLOGIST GENERALIST 11/19/2018 RITA REYEZ MD Ot G25.81 RESTLESS [...] INITIA 11/19/2018 RITA REYEZ MD Ot 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 11/19/2018 RITA REYEZ MD, Ot Z87.891 PERSONAL HISTORY OF NICOTINE DEPENDENCE 11/19/2018 RITA REYEZ MD Ot A41.52 SEPSIS DUE TO PSEUDOMONAS 11/19/2018 RITA REYEZ MD Ot 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 11/19/2018 RITA REYEZ MD Ot 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 DIABETIC MEDICAL TECHNOLOGIST GENERALIST 11/19/2018 RITA REYEZ MD Ot G25.81 RESTLESS [...] INITIA 11/19/2018 RITA REYEZ MD, Ot 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 11/19/2018 RITA REYEZ MD, Ot Z87.891 PERSONAL HISTORY OF NICOTINE DEPENDENCE 11/20/2018 RITA REYEZ MD Ot A41.52 SEPSIS DUE TO PSEUDOMONAS 11/20/2018 RITA REYEZ MD Ot 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 11/20/2018 RITA REYEZ MD, Ot 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 DIABETIC MEDICAL TECHNOLOGIST GENERALIST 11/20/2018 RITA REYEZ MD, Ot G25.81 RESTLESS LEGS SYNDROME 11/20/2018 RITA REYEZ MD, Ot G47.9 SLEEP DISORDER, UNSPECIFIED 11/20/2018 RITA REYEZ MD Ot H91.90 UNSPECIFIED HEARING LOSS, UNSPECIFIED EA 11/20/2018 RITA REYEZ MD Ot I11.0 HYPERTENSIVE HEART DISEASE WITH HEART FA 11/20/2018 RITA RYEEZ MD Ot I48.91 UNSPECIFIED ATRIAL FIBRILLATION 11/20/2018 [...] Ot N18.9 CHRONIC KIDNEY DISEASE, UNSPECIFIED 11/20/2018 RTIA REYEZ MD, Ot T50.1X5A ADVERSE EFFECT OF LOOP DIURETICS, INITIA 11/20/2018 RITA REYEZ MD Ot Z79.84 CORRECTION (CURRENT) USE OF ORAL HYPOGLYC 11/20/2018 RITA REYEZ MD Ot Z87.891 PERSONAL HISTORY OF NICOTINE DEPENDENCE 11/20/2018 RITA REYEZ MD Ot A41.52 SEPSIS DUE TO PSEUDOMONAS 11/20/2018 RITA REYEZ MD Ot 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 11/20/2018 RITA REYEZ MD Ot 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 DIABETIC MEDICAL TECHNOLOGIST GENERALIST 11/20/2018 RITA REYEZ MD Ot G25.81 RESTLESS [...] INITIA 11/20/2018 RITA REYEZ MD Ot Z79.84 CORRECTION (CURRENT) USE OF ORAL HYPOGLYC 11/20/2018 RITA REYEZ MD, Ot Z87.891 PERSONAL HISTORY OF NICOTINE DEPENDENCE 11/20/2018 RITA REYEZ MD Ot A41.52 SEPSIS DUE TO PSEUDOMONAS 11/20/2018 RITA REYEZ MD Ot 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 Type Provider Facility Loc./Unit Complaint [id number] 11/16/2018 08:37:00 11/19/2018 13:45:00 DIS Outpatient AISSATOU RICHTER, RITA Simpson [facility] 4TH PNEUMONIA [id number] 04/11/2014 07:37:00 04/11/2014 10:40:00 DIS Outpatient ZAIRA FLANAGAN MD [facility] SDC DYSPHASIA [id number] 04/07/2014 07:27:00 04/07/2014 23:59:59 CLS Outpatient ZAIRA FLANAGAN MD [facility] PREOP DYSPHASIA [id number] 12/05/2018 01:23:00 ACT Inpatient ELIAN RICHTER, BABAR Simpson [facility] ICU CHF;BILAT PLEURAL EFFUSIONS;BIBASILER INFILTRATES; [id number] 12/02/2018 09:02:00 PEN Preadmit YAMILEX KAPLAN APRN [facility] RAD PNEUMONIA, HYPOXEMIA REQUIRING SUPPLEMENTAL OXYGEN [id number] 12/02/2018 09:00:00 PEN Preadmit YAMILEX KAPLAN APRN [facility] RT OTHER FORMS OF DYSPNEA
--- NOTE | 2018-12-05 01:55 | NUR ---
After changing pt into gown, pt was transferred to 2 by [facility] via wheelchair with oxygen. Family was escorted up to room as well.
--- NOTE | 2018-12-05 02:00 | NUR ---
pt to cu2 per wc. pt states that needs to go to commode before getting into bed. large stool passed, pt alert and oriented exhibits signs of HO-CHUNK. pt oriented to surrounding and call light.
[2018-12-05] MEDS ORDERED: CATHETER FLUSH 10 ML SYR IV PRN (03:30)
[2018-12-05] MEDS ORDERED: RT-ALBUTEROL/IPRATROPIUM 3 ML (DUONEB) VIAL INH PRN (03:45)
[2018-12-05 03:58] LABS: BASOPHILS % (AUTO) 0 % (0-10); EOSINOPHILS % (AUTO) 0 % (0-10); HEMATOCRIT 42 % (40-54); HEMOGLOBIN 12.9 G/DL (13.3-17.7); LYMPHOCYTES # (AUTO) 0.9 X 10^3 (1.0-4.0); LYMPHOCYTES % (AUTO) 8 % (12-44); MEAN CORPUSCULAR HEMOGLOBIN 28 PG (25-34); MEAN CORPUSCULAR HGB CONC 31 G/DL (32-36); MEAN CORPUSCULAR VOLUME 91 FL (80-99); MEAN PLATELET VOLUME 12.9 FL (7.4-10.4); MONOCYTES # (AUTO) 0.2 X 10^3 (0.0-1.0); MONOCYTES % (AUTO) 2 % (0-12); NEUTROPHILS # (AUTO) 9.8 X 10^3 (1.8-7.8); NEUTROPHILS % (AUTO) 90 % (42-75); PLATELET COUNT 221 10^3/uL (130-400); RED CELL DISTRIBUTION WIDTH 14.7 % (10.0-14.5); WHITE BLOOD COUNT 10.8 10^3/uL (4.3-11.0)
[2018-12-05 04:20] LABS: ALBUMIN 4.4 GM/DL (3.2-4.5); BILIRUBIN,TOTAL 0.5 MG/DL (0.1-1.0); CALCIUM 9.2 MG/DL (8.5-10.1); CREATININE SERUM 2.03 MG/DL (0.60-1.30); TOTAL PROTEIN 7.8 GM/DL (6.4-8.2)
[2018-12-05] MEDS ORDERED: methylPREDNISolone 125 MG (Solu-MEDROL) VIAL IV ONE (06:00)
[2018-12-05] MEDS ORDERED: FUROSEMIDE 40 MG/4 ML INJ (LASIX) IV ONE (06:00)
[2018-12-05] MEDS: NITROGLYCERIN 2% OINT 1 GM UNIT DOSE PACKET TOP SCH ×2 (06:32→12:33)
[2018-12-05] MEDS: inSUlin ASPART (NovoLOG) 1 UNIT/0.01 ML (CHARGE PER UNIT) SC SCH ×4 (06:32→23:23)
[2018-12-05] MEDS: CATHETER FLUSH 10 ML SYR IV SCH ×3 (06:33→23:23)
--- NOTE | 2018-12-05 06:50 | ED General ---
General Chief Complaint: Respiratory Problems Stated Complaint: CHF;BILAT PLEURAL EFFUSIONS;BIBASILER INFILTRATES; Nursing Triage Note: Pt arrived by private vehicle for SOB. Pt and came from [place]. stated he become very short of breath on drive down here. Pt's was asking if oxygen tank was working, because he was having difficulty breathing. Pt was on 2 liters. After being attached to pulse ox, pt was 87/88%. Pt was increased to 4 liters. Pt was at 94-96%. Within 10 minutes pt had to be increased to 5 liters, because he was staying at 92%. Pt has clear upper lobes, but diminished lower lobes. Pt was having difficulty time catching his breath. Nursing Sepsis Screen: Severe Sepsis Risk Source of Information: Patient, Spouse ( DOES MOST OF TALKING FOR PT) History of Present Illness Date Seen by Provider: Dec 04, 2018 Time Seen by Provider: 23:04 Initial Comments PT ARRIVES VIA POV WITH , FROM [facility]. FONTAINE CAME TO ER BECAUSE OF ELEVATED BLOOD SUGAR STATES GLUCOSE WAS 422, TOOK REGULAR DOSE OF GLIMEPIRIDE 4 MG, AND RECHECKED GLUCOSE AN HOUR LATER AND WAS 427, SO CAME TO ER C/O SHORTNESS OF BREATH ALL EVENING C/O MID EPIGASTRIC / MID STERNAL DISCOMFORT --BEGAN EN ROUTE PT STATES HE IS REAL ANXIOUS NO SWELLING IN LEGS / FEET OR PAIN IN CALVES PT ADMITTED 11/16-11/19/18 FOR NEW ONSET ATRIAL FIBRILLATION, PNEUMONIA STATES HIS COUGH IS BETTER AND IS NON-PRODUCTIVE. HAS FINISHED ANTIBIOTICS NO FEVER WAS SENT HOME WITH HOME O2 TO WEAR AT NIGHT, BUT HAS BEEN WEARING IN CONTINUOUSLY SINCE 1899 THIS EVENING--2L/NC PT WAS STARTED ON ELIQUIS AND TAKES ASPIRIN HAS NOT TAKEN EVENING DOSES OF ANY OF HIS MEDICATIONS SAW DR. CASTAÑEDA ON FRIDAY FOR FOLLOW UP SAW DR. HARGROVE ON FRIDAY FOR FOLLOW UP BOTH REPORTED TO HIM THAT THEY FELT LIKE HE WAS DOING BETTER. PT WAS ADMITTED AT [facility] A COUPLE OF WEEKS PRIOR TO BEING ADMITTED HERE, FOR SIMILAR. ' PCP: DR. FALCON, [facility]. FONTAINE MED AIDE: DR. HARGROVE CODER: DR. CASTAÑEDA Allergies and Home Medications Allergies Coded Allergies: gabapentin (Verified Allergy, Unknown, 11/15/18) pregabalin (Verified Allergy, Unknown, 11/15/18) Home Medications Alprazolam 0.5 Mg Tablet, 0.5 MG PO HS, (Reported) Amoxicillin/Potassium Clav 1 Each Tablet, 1 EACH PO BID Prescribed by: BABAR PLUMMER on 11/19/18953 Apixaban 2.5 Mg Tablet, 2.5 MG PO BID Prescribed by: JAGDEEP PEARSON on 11/19/18935 Ascorbic Acid 500 Mg Tablet, 500 MG PO DAILY, (Reported) Aspirin 81 Mg Tablet.dr, 81 MG PO DAILY, (Reported) Brimonidine Tartrate/Timolol 5 Ml Drops, 1 DROP OU BID, (Reported) Cholecalciferol (Vitamin D3) 1,000 Unit Capsule, 1,000 UNIT PO DAILY, (Reported) Cyanocobalamin (Vitamin B-12) 1,000 Mcg Tablet, 1,000 MCG PO DAILY, (Reported) Diltiazem HCl 240 Mg Cap.er.24h, 240 MG PO DAILY Prescribed by: JAGDEEP PEARSON on 11/19/18935 Famotidine 20 Mg Tablet, 20 MG PO BID, (Reported) Fenofibrate Nanocrystallized 145 Mg Tablet, 145 MG PO DAILY, (Reported) Fluticasone/Salmeterol 12 Gm Hfa.aer.ad, 2 PUFF IH RTBID@0800,1999 Prescribed by: BABAR PLUMMER on 11/19/18953 Folic Acid 0.4 Mg Tablet, 0.4 MG PO DAILY, (Reported) Garlic 1,000 Mg Capsule, 1,000 MG PO DAILY, (Reported) Hydrocodone/Acetaminophen 1 Each Tablet, 1 TAB PO Q6H PRN for PAIN-MODERATE, ( Reported) Krill/Om3/Dha/Epa/Om6/Lip/Astx 1 Each Capsule, 1,000 MG PO DAILY, (Reported) Lactobacillus Acidophilus/Pect 1 Each Capsule, 1 EACH PO TIDWM Prescribed by: BABAR PLUMMER on 11/19/18953 Levothyroxine Sodium 100 Mcg Tablet, 100 MCG PO DAILY, (Reported) Liothyronine Sodium 25 Mcg Tablet, 25 MCG PO DAILY, (Reported) Metoprolol Tartrate 50 Mg Tablet, 50 MG PO BID Prescribed by: JAGDEEP PEARSON on 11/19/18935 Multivitamin 1 Each Tablet, 1 TAB PO DAILY, (Reported) Omeprazole Magnesium 20 Mg Tablet.dr, 20 MG PO DAILY, (Reported) Pyridoxine HCl 100 Mg Tablet, 100 MG PO DAILY, (Reported) Ropinirole HCl 1 Mg Tablet, 2 MG PO TID, (Reported) TAKES 2 (1MG) TABLETS Saw [place] Fruit 450 Mg Capsule, 450 MG PO BID, (Reported) Thiamine HCl 250 Mg Tablet, 250 MG PO DAILY, (Reported) Vit C/Vit E/Lutein/Min/[place]-3 1 Each Capsule, 1 CAP PO DAILY, (Reported) Patient Home Medication List Home Medication List Reviewed: Yes Review of Systems Review of Systems Constitutional: No chills, No dizziness, No fever EENTM: no symptoms reported Respiratory: see HPI Cardiovascular: see HPI Gastrointestinal: no symptoms reported Genitourinary: no symptoms reported Musculoskeletal: no symptoms reported Skin: no symptoms reported Psychiatric/Neurological: No Symptoms Reported Hematologic/Lymphatic: No Symptoms Reported Immunological/Allergic: no symptoms reported Past Ijclokb-Dsgsvc-Airhvy Hx Patient Social History Alcohol Use: Denies Use Recreational Drug Use: No Smoking Status: Former Smoker Type Used: Pipe Former Smoker, Quit: Nov 03, 2018 Recent Foreign Travel: No Contact w/Someone Who Travel: No Recent Infectious Disease Expo: No Recent Hopitalizations: Yes (OCT 2018 FOR PNEUMONIA; 11/16-11/19/18 FOR A FIB AND PNEUMONIA) Physical Abuse: No Sexual Abuse: No Mistreated: No Fear: No Immunizations Up To Date Date of Pneumonia Vaccine: Nov 03, 2016 Date of Influenza Vaccine: Aug 03, 2018 Seasonal Allergies Seasonal Allergies: No Past Medical History Surgeries: Yes (EGD WITH DILATION OF ESOPHAGEAL STRICTUE) Orthopedic, Rectal Respiratory: Yes Pneumonia, COPD Currently Using CPAP: No Currently Using BIPAP: No Cardiac: Yes (SVT) Atrial Fibrillation, High Cholesterol, Hypertension Neurological: No Sexually Transmitted Disease: No HIV/AIDS: No Genitourinary: Yes Renal Failure Gastrointestinal: Yes (ESOPHAGEAL STRICTURE) Gastroesophageal Reflux, Chronic Diarrhea, Hiatal Hernia Musculoskeletal: No Endocrine: Yes Hypothyroidsim, Diabetes, Non-Insulin dep Are Your Blood Sugars Over 250: Yes (yesterday in 400's) HEENT: No Cancer: No Psychosocial: Yes Sleep Difficulties, Anxiety Integumentary: No Blood Disorders: No Adverse Reaction/Blood Tranf: No Family Medical History No Pertinent Family Hx Physical Exam Vital Signs Vital Signs - First Documented 12/04/18 23:20 Temp 96.3 Pulse 97 Resp 27 B/P (MAP) 144/101 (115) Pulse Ox 94 O2 Delivery Nasal Cannula O2 Flow Rate 4.00 Capillary Refill : Less Than 3 Seconds Height, Weight, BMI Height: 5'10.00" Weight: 156lbs. 4.0oz. 70.036199uo; 22.7 BMI Method:Stated General Appearance: WD/WN, Anxious, Mild Distress (MILDLY DYSPNEIC) Neck: Normal Inspection Respiratory: Decreased Breath Sounds (IN BASES), Other (MILD DYSPNEA. ABLE TO SPEAK IN FULL SENTENCES. DECREASED AERATION IN BASES. ) Cardiovascular: No Edema, No JVD, No Murmur, Irregularly Irregular Gastrointestinal: No Pulsatile Mass, Non Tender, Soft Back: Normal Inspection, No CVA Tenderness Extremity: Normal Inspection, Normal Range of Motion, Non Tender, No Calf Tenderness, No Pedal Edema Neurologic/Psychiatric: Alert, Oriented x3, No Motor/Sensory Deficits, medical billing specialist II- XII Norm as Tested, Other (MILDLY ANXIOUS) Focused Exam Lactate Level 12/04/18 23:20: Lactic Acid Level 3.10*H 12/05/18 01:42: Lactic Acid Level 1.71 Progress/Results/Core Measures Suspected Sepsis Recent Fever Within 48 Hours: No Infection Criteria Present: Documented Infection New/Unexplained Altered Menta: No Sepsis Screen: Severe Sepsis Risk SIRS Temperature:97.2 Pulse: 101 Respiratory Rate: 22 Laboratory Tests 12/04/18 23:20: White Blood Count 14.1H 12/05/18 03:45: White Blood Count 10.8 Blood Pressure 138 /85 Mean: 102 12/04/18 23:20: Lactic Acid Level 3.10*H 12/05/18 01:42: Lactic Acid Level 1.71 Laboratory Tests 12/04/18 23:20: Creatinine 2.10H, INR Comment 1.3, Platelet Count 309, Total Bilirubin 0.4 12/05/18 03:45: Creatinine 2.03H, Platelet Count 221, Total Bilirubin 0.5 Results/Orders Lab Results Laboratory Tests Test 12/04/18 23:20 12/04/18 23:59 12/05/18 01:00 12/05/18 01:42 Range/Units White Blood Count 14.1 H 4.3-11.0 10^3/uL Red Blood Count 4.01 L 4.35-5.85 10^6/uL Hemoglobin 11.5 L 13.3-17.7 G/DL Hematocrit 37 L 40-54 % Mean Corpuscular Volume 93 80-99 FL Mean Corpuscular Hemoglobin 29 25-34 PG Mean Corpuscular Hemoglobin Concent 31 L 32-36 G/DL Red Cell Distribution Width 14.9 H 10.0-14.5 % Platelet Count 309 130-400 10^3/uL Mean Platelet Volume 12.7 H 7.4-10.4 FL Neutrophils (%) (Auto) 78 H 42-75 % Lymphocytes (%) (Auto) 14 12-44 % Monocytes (%) (Auto) 7 0-12 % Eosinophils (%) (Auto) 1 0-10 % Basophils (%) (Auto) 0 0-10 % Neutrophils # (Auto) 10.9 H 1.8-7.8 X 10^3 Lymphocytes # (Auto) 1.9 1.0-4.0 X 10^3 Monocytes # (Auto) 1.0 0.0-1.0 X 10^3 Eosinophils # (Auto) 0.2 0.0-0.3 10^3/uL Basophils # (Auto) 0.0 0.0-0.1 10^3/uL Neutrophils % (Manual) 70 % Lymphocytes % (Manual) 13 % Monocytes % (Manual) 13 % Eosinophils % (Manual) 4 % Blood Morphology Comment NORMAL Prothrombin Time 16.4 H 12.2-14.7 SEC INR Comment 1.3 0.8-1.4 Activated Partial Thromboplast Time 29 24-35 SEC Sodium Level 139 135-145 MMOL/L Potassium Level 5.9 H 3.6-5.0 MMOL/L Chloride Level 106 98-107 MMOL/L Carbon Dioxide Level 19 L 21-32 MMOL/L Anion Gap 14 5-14 MMOL/L Blood Urea Nitrogen 30 H 7-18 MG/DL Creatinine 2.10 H 0.60-1.30 MG/DL Estimat Glomerular Filtration Rate 30 BUN/Creatinine Ratio 14 Glucose Level 276 H 70-105 MG/DL Lactic Acid Level 3.10 *H 1.71 0.50-2.00 MMOL/L Calcium Level 8.9 8.5-10.1 MG/DL Corrected Calcium 8.8 8.5-10.1 MG/DL Magnesium Level 2.5 H 1.8-2.4 MG/DL Total Bilirubin 0.4 0.1-1.0 MG/DL Aspartate Amino Transf (AST/SGOT) 52 H 5-34 U/L Alanine Aminotransferase (ALT/SGPT) 20 0-55 U/L Alkaline Phosphatase 70 40-136 U/L Troponin I < 0.028 <0.028 NG/ML B-Type Natriuretic Peptide 1608.8 H <100.0 PG/ML Total Protein 7.0 6.4-8.2 GM/DL Albumin 4.1 3.2-4.5 GM/DL Amylase Level 46 25-125 U/L Lipase 52 8-78 U/L Blood Gas Puncture Site RT RADIAL Blood Gas Patient Temperature 97.2 Arterial Blood pH 7.36 L 7.37-7.43 Arterial Blood Partial Pressure CO2 34 L 35-45 MMHG Arterial Blood Partial Pressure O2 62 L 79-93 MMHG Arterial Blood HCO3 19 L 23-27 MMOL/L Arterial Blood Total CO2 20.0 L 21.0-31.0 MMOL/L Arterial Blood Oxygen Saturation 91 L 94-100 % Arterial Blood Base Excess -5.7 L -2.5-2.5 MMOL/L Bharathi Test YES-POS Blood Gas Ventilator Setting NO Blood Gas Inspired Oxygen 5L Urine Color YELLOW Urine Clarity CLEAR Urine pH 5 5-9 Urine Specific Everly 1.010 L 1.016-1.022 Urine Protein NEGATIVE NEGATIVE Urine Glucose (UA) 1+ H NEGATIVE Urine Ketones NEGATIVE NEGATIVE Urine Nitrite NEGATIVE NEGATIVE Urine Bilirubin NEGATIVE NEGATIVE Urine Urobilinogen NORMAL NORMAL MG/DL Urine Leukocyte Esterase NEGATIVE NEGATIVE Urine RBC (Auto) NEGATIVE NEGATIVE Urine RBC NONE /HPF Urine WBC NONE /HPF Urine Squamous Epithelial Cells RARE /HPF Urine Crystals NONE /LPF Urine Bacteria NEGATIVE /HPF Urine Casts NONE /LPF Urine Mucus NEGATIVE /LPF Urine Culture Indicated NO Test 12/05/18 03:45 12/05/18 06:15 Range/Units White Blood Count 10.8 4.3-11.0 10^3/uL Red Blood Count 4.57 4.35-5.85 10^6/uL Hemoglobin 12.9 L 13.3-17.7 G/DL Hematocrit 42 40-54 % Mean Corpuscular Volume 91 80-99 FL Mean Corpuscular Hemoglobin 28 25-34 PG Mean Corpuscular Hemoglobin Concent 31 L 32-36 G/DL Red Cell Distribution Width 14.7 H 10.0-14.5 % Platelet Count 221 130-400 10^3/uL Mean Platelet Volume 12.9 H 7.4-10.4 FL Neutrophils (%) (Auto) 90 H 42-75 % Lymphocytes (%) (Auto) 8 L 12-44 % Monocytes (%) (Auto) 2 0-12 % Eosinophils (%) (Auto) 0 0-10 % Basophils (%) (Auto) 0 0-10 % Neutrophils # (Auto) 9.8 H 1.8-7.8 X 10^3 Lymphocytes # (Auto) 0.9 L 1.0-4.0 X 10^3 Monocytes # (Auto) 0.2 0.0-1.0 X 10^3 Eosinophils # (Auto) 0.0 0.0-0.3 10^3/uL Basophils # (Auto) 0.0 0.0-0.1 10^3/uL Sodium Level 138 135-145 MMOL/L Potassium Level 5.0 3.6-5.0 MMOL/L Chloride Level 105 98-107 MMOL/L Carbon Dioxide Level 18 L 21-32 MMOL/L Anion Gap 15 H 5-14 MMOL/L Blood Urea Nitrogen 30 H 7-18 MG/DL Creatinine 2.03 H 0.60-1.30 MG/DL Estimat Glomerular Filtration Rate 32 BUN/Creatinine Ratio 15 Glucose Level 216 H 70-105 MG/DL Calcium Level 9.2 8.5-10.1 MG/DL Corrected Calcium 8.9 8.5-10.1 MG/DL Total Bilirubin 0.5 0.1-1.0 MG/DL Aspartate Amino Transf (AST/SGOT) 56 H 5-34 U/L Alanine Aminotransferase (ALT/SGPT) 23 0-55 U/L Alkaline Phosphatase 74 40-136 U/L Total Protein 7.8 6.4-8.2 GM/DL Albumin 4.4 3.2-4.5 GM/DL Glucometer 220 H 70-110 MG/DL My Orders Orders - FLORIAN VILLARREAL DO Accucheck Stat ONCE (12/04/18 23:04) Saline Lock/Iv-Start (12/04/18 23:04) Ekg Tracing (12/04/18 23:04) Monitor-Rhythm Ecg Trace Only (12/04/18 23:04) Amylase (12/04/18 23:04) Arterial Blood Gas (12/04/18 23:04) BNP (12/04/18 23:04) Cbc With Automated Diff (12/04/18 23:04) Comprehensive Metabolic Panel (12/04/18 23:04) Lactic Acid Analyzer (12/04/18 23:04) Lipase (12/04/18 23:04) Magnesium (12/04/18 23:04) Protime With Inr (12/04/18 23:04) Partial Thromboplastin Time (12/04/18 23:04) Troponin I (12/04/18 23:04) Ua Culture If Indicated (12/04/18 23:04) Saline Lock/Iv-Start (12/04/18 23:04) Ns Iv 1000 Ml (Sodium Chloride 0.9%) (12/04/18 23:04) Blood Culture (12/04/18 23:11) Aspirin Chewable Tablet (Baby Aspirin Ch (12/04/18 23:15) Chest 1 View, Ap/Pa Only (12/04/18 23:19) Manual Differential (12/04/18 23:20) Furosemide Injection (Lasix Injection) (12/05/18 00:00) Methylprednisolone Sod Succ (Solu-Medrol (12/05/18 00:00) Sodium Polystyrene Sulfonate (Kayexalate (12/05/18 00:00) Nitroglycerin Ointment (Nitrobid Ointme (12/05/18 00:00) Cefepime Injection (Maxipime Injection) (12/05/18 00:00) Albuterol/Ipra Inhalation Soln (Duoneb I (12/05/18 00:00) Rt Request For Service (12/04/18 23:56) Svn Small Volume Nebulizer (12/04/18 23:56) Apixaban Tablet (Eliquis Tablet) (12/05/18 00:15) Arterial Blood Draw (12/04/18 23:59) Cefepime Injection (Maxipime Injection) (12/05/18 00:41) Ns (Ivpb) (Sodium Chloride 0.9% Ivpb Bag (12/05/18 00:45) Albuterol/Ipra Inhalation Soln (Duoneb I (12/05/18 01:15) Rt Request For Service (12/05/18 01:13) Svn Small Volume Nebulizer (12/05/18 01:13) Albuterol/Ipra Inhalation Soln (Duoneb I (12/04/18 23:57) Albuterol/Ipra Inhalation Soln (Duoneb I (12/05/18 01:11) Apixaban Tablet (Eliquis Tablet) (12/05/18 00:41) Medications Given in ED Current Medications Medications Dose Ordered Sig/Munira Route Start Time Stop Time Status Last Admin Dose Admin Albuterol/ Ipratropium 3 ml ONCE ONCE INH 12/05/18 00:00 12/05/18 03:21 DC 12/05/18 00:13 3 ML Albuterol/ Ipratropium 3 ml ONCE ONCE INH 12/05/18 01:15 12/05/18 01:16 DC 12/05/18 01:34 3 ML Apixaban 10 mg ONCE ONCE PO 12/05/18 00:15 12/05/18 03:21 DC 12/05/18 00:51 10 MG Aspirin 324 mg ONCE ONCE PO 12/04/18 23:15 12/04/18 23:16 DC 12/04/18 23:35 324 MG Cefepime HCl 1000 mg/Sterile Water 50 ml @ 200 mls/hr ONCE ONCE IV 12/05/18 00:00 12/05/18 00:14 DC 12/05/18 00:51 200 MLS/HR Furosemide 80 mg ONCE ONCE IVP 12/05/18 00:00 12/05/18 00:01 DC 12/05/18 00:02 80 MG Methylprednisolone Sodium Succinate 125 mg ONCE ONCE IVP 12/05/18 00:00 12/05/18 00:01 DC 12/05/18 00:02 125 MG Nitroglycerin 1 inch ONCE ONCE TOP 12/05/18 00:00 12/05/18 00:01 DC 12/05/18 00:02 1 INCH Sodium Polystyrene Sulfonate 15 gm ONCE ONCE PO 12/05/18 00:00 12/05/18 03:21 DC 12/05/18 00:52 15 GM Sodium Chloride 1,000 ml @ 0 mls/hr Q0M ONCE IV 12/04/18 23:04 12/04/18 23:06 DC 12/04/18 23:35 1,000 MLS/HR Vital Signs/I&O 12/04/18 12/05/18 12/05/18 12/05/18 23:20 00:03 01:16 01:26 Temp 96.3 96.1 Pulse 97 93 Resp B/P (MAP) 144/101 (115) 143/99 (114) Pulse Ox 94 92 94 90 O2 Delivery Nasal Cannula Nasal Cannula Nasal Cannula Nasal Cannula O2 Flow Rate 4.00 5.00 5.00 5.00 12/05/18 12/05/18 12/05/18 12/05/18 01:53 02:00 02:05 02:11 Temp 96.1 97.2 Pulse 87 87 94 Resp B/P (MAP) 132/89 154/101 Pulse Ox 96 96 94 O2 Delivery Nasal Cannula Nasal Cannula Nasal Cannula O2 Flow Rate 5.00 4.00 4.00 12/05/18 12/05/18 12/05/18 12/05/18 02:15 02:30 02:45 03:00 Temp 97.2 Pulse 89 108 112 106 Resp B/P (MAP) 155/101 (119) 155/82 (106) 156/109 (125) 152/104 (120) Pulse Ox 91 91 91 93 O2 Delivery Nasal Cannula Nasal Cannula Nasal Cannula Nasal Cannula O2 Flow Rate 4.00 4.00 4.00 4.00 12/05/18 12/05/18 12/05/18 12/05/18 03:30 03:32 04:00 04:00 Pulse 104 114 104 Resp B/P (MAP) 147/94 (111) 153/101 (118) Pulse Ox 92 94 94 O2 Delivery Nasal Cannula Nasal Cannula Nasal Cannula O2 Flow Rate 4.00 4.00 4.00 12/05/18 05:00 Pulse 101 Resp 22 B/P (MAP) 138/85 (102) O2 Delivery Nasal Cannula O2 Flow Rate 4.00 Capillary Refill : Less Than 3 Seconds Blood Pressure Mean: 102 Progress Note : Progress Note INCREASED AERATION AFTER NEB TREATMENT AND PT STATES HE FEELS LIKE HE CAN BREATHE BETTER NO DETERIORATION IN PT'S CONDITION DURING ER STAY ECG Initial ECG Impression Date: Dec 04, 2018 Initial ECG Impression Time: 23:31 Initial ECG Rate: 105 Initial ECG Rhythm: A Fib/Flutter Initial ECG Comparisson: Unchanged Diagnostic Imaging Comments CXR--BABASILAR INFILTRATES AND EFFUSIONS, WITH CHF, PENDING RADIOLOGIST REVIEW Reviewed: Reviewed by Me Departure Communication (Admissions) 0001--SPOKE WITH DR. PLUMMER, ACCEPTS PT FOR ADMIT Impression Primary Impression: CHF (congestive heart failure) Additional Impressions: BIBASILAR INFILTRATES AND EFFUSIONS Hypoxia Atrial fibrillation Acute on chronic renal insufficiency Hyperkalemia Non-insulin dependent type 2 diabetes mellitus COPD (chronic obstructive pulmonary disease) Disposition: ADMITTED INPATIENT Condition: Improved Admissions Decision to Admit Reason: Admit from ER (General) Decision to Admit/Date: Dec 05, 2018 Time/Decision to Admit Time: 00:01 Departure-Patient Inst. Referrals: ROBEL FALCON MD (PCP) Primary Care Physician FLORIAN VILLARREAL DO Dec 05, 2018 06:50
--- NOTE | 2018-12-05 07:03 | Pulmonary Consultation ---
History of Present Illness History of Present Illness Date of Consultation 12/05/18 06:57 Time Seen by Provider: 06:57 Date of Admission History of Present Illness 83yo with recent hospitalization for CHF presented to ED secondary to worsening SOB. Upon ED admission Sp02 was 88% on 2 liters did improve to 94% after increasing oxygen to 4 liters/min. PT was also found to have increased K+ and worsening CHF. PT denies missing any medications. No change in diet. I am consulted for pulmonary management. P Allergies and Home Medications Allergies Coded Allergies: gabapentin (Verified Allergy, Unknown, 11/15/18) pregabalin (Verified Allergy, Unknown, 11/15/18) Home Medications Alprazolam 0.5 Mg Tablet, 0.5 MG PO HS, (Reported) Amoxicillin/Potassium Clav 1 Each Tablet, 1 EACH PO BID Prescribed by: BABAR PLUMMER on 11/19/18 0954 Apixaban 2.5 Mg Tablet, 2.5 MG PO BID Prescribed by: JAGDEEP PEARSON on 11/19/18 0936 Ascorbic Acid 500 Mg Tablet, 500 MG PO DAILY, (Reported) Brimonidine Tartrate/Timolol 5 Ml Drops, 1 DROP OU BID, (Reported) Cholecalciferol (Vitamin D3) 1,000 Unit Capsule, 1,000 UNIT PO DAILY, (Reported) Cyanocobalamin (Vitamin B-12) 1,000 Mcg Tablet, 1,000 MCG PO DAILY, (Reported) Diltiazem HCl 240 Mg Cap.er.24h, 240 MG PO DAILY Prescribed by: JAGDEEP PEARSON on 11/19/18 0936 Famotidine 20 Mg Tablet, 20 MG PO BID, (Reported) Fenofibrate Nanocrystallized 145 Mg Tablet, 145 MG PO DAILY, (Reported) Fluticasone/Salmeterol 12 Gm Hfa.aer.ad, 2 PUFF IH RTBID@0800,1999 Prescribed by: BABAR PLUMMER on 11/19/18 0954 Folic Acid 0.4 Mg Tablet, 0.4 MG PO DAILY, (Reported) Garlic 1,000 Mg Capsule, 1,000 MG PO DAILY, (Reported) Hydrocodone/Acetaminophen 1 Each Tablet, 1 TAB PO Q6H PRN for PAIN-MODERATE, ( Reported) Krill/Om3/Dha/Epa/Om6/Lip/Astx 1 Each Capsule, 1,000 MG PO DAILY, (Reported) Lactobacillus Acidophilus/Pect 1 Each Capsule, 1 EACH PO TIDWM Prescribed by: BABAR PLUMMER on 11/19/18 0954 Levothyroxine Sodium 100 Mcg Tablet, 100 MCG PO DAILY, (Reported) Liothyronine Sodium 25 Mcg Tablet, 25 MCG PO DAILY, (Reported) Metoprolol Tartrate 50 Mg Tablet, 50 MG PO BID Prescribed by: JAGDEEP PEARSON on 11/19/18 0936 Multivitamin 1 Each Tablet, 1 TAB PO DAILY, (Reported) Omeprazole Magnesium 20 Mg Tablet.dr, 40 MG PO DAILY, (Reported) Pyridoxine HCl 100 Mg Tablet, 100 MG PO DAILY, (Reported) Ropinirole HCl 1 Mg Tablet, 2 MG PO TID, (Reported) TAKES 2 (1MG) TABLETS [place] Fruit 450 Mg Capsule, 450 MG PO BID, (Reported) Thiamine HCl 250 Mg Tablet, 250 MG PO DAILY, (Reported) Vit C/Vit E/Lutein/Min/[place]-3 1 Each Capsule, 1 CAP PO DAILY, (Reported) Past Tdclknj-Kzjhkd-Fqsjpd Hx Patient Social History Alcohol Use: Denies Use Recreational Drug Use: No Type Used: Pipe Former Smoker, Quit: Nov 03, 2018 Recent Foreign Travel: No Contact w/Someone Who Travel: No Recent Infectious Disease Expo: No Recent Hopitalizations: Yes (SEP/OCT 2018 FOR PNEUMONIA) Physical Abuse: No Sexual Abuse: No Mistreated: No Fear: No Immunizations Up To Date Date of Pneumonia Vaccine: Nov 03, 2016 Date of Influenza Vaccine: Aug 03, 2018 Seasonal Allergies Seasonal Allergies: No Past Medical History Surgeries: No Orthopedic, Rectal Respiratory: Yes Pneumonia, COPD Currently Using CPAP: No Currently Using BIPAP: No Cardiac: Yes (SVT) Neurological: No Sexually Transmitted Disease: No HIV/AIDS: No Genitourinary: Yes Renal Failure Gastrointestinal: Yes Chronic Diarrhea Musculoskeletal: No Endocrine: Yes Diabetes, Non-Insulin dep Are Your Blood Sugars Over 250: Yes (yesterday in 400's) HEENT: No Cancer: No Psychosocial: Yes Sleep Difficulties, Anxiety Integumentary: No Blood Disorders: No Adverse Reaction/Blood Tranf: No Family Medical History No Pertinent Family Hx Review of Systems Time Seen by Provider: 08:59 Constitutional: Chills, Sweats, Weakness, Malaise; No: Fever Eyes: No: Pain, Vision change, Conjunctivae inflammation, Eyelid inflammation, Other, Redness ENT: Nose congestion Respiratory: Cough, Dry, Shortness of breath, SOB with excertion, Wheezing; No : Hemoptysis Cardiovascular: Palpitations, Orthopnea, Paroxysmal Noc. Dyspnea Sepsis Event Evaluation Height, Weight, BMI Height: 5'10.00" Weight: 156lbs. 4.0oz. 70.794699ql; 22.7 BMI Method:Stated Exam Exam Vital Signs Date Time Temp Pulse Resp B/P (MAP) Pulse Ox O2 Delivery O2 Flow Rate FiO2 12/05/18 05:00 101 22 138/85 (102) Nasal Cannula 4.00 12/05/18 04:00 94 Nasal Cannula 4.00 12/05/18 04:00 104 20 153/101 (118) Nasal Cannula 4.00 12/05/18 03:32 114 94 12/05/18 03:30 104 22 147/94 (111) 92 Nasal Cannula 4.00 12/05/18 03:00 106 19 152/104 (120) 93 Nasal Cannula 4.00 12/05/18 02:45 112 21 156/109 (125) 91 Nasal Cannula 4.00 12/05/18 02:30 108 25 155/82 (106) 91 Nasal Cannula 4.00 12/05/18 02:15 97.2 89 25 155/101 (119) 91 Nasal Cannula 4.00 12/05/18 02:11 94 12/05/18 02:05 94 Nasal Cannula 4.00 12/05/18 02:00 97.2 87 19 154/101 96 Nasal Cannula 4.00 12/05/18 01:53 96.1 87 19 132/89 96 Nasal Cannula 5.00 12/05/18 01:26 96.1 93 19 143/99 (114) 90 Nasal Cannula 5.00 12/05/18 01:16 94 Nasal Cannula 5.00 12/05/18 00:03 92 Nasal Cannula 5.00 12/04/18 23:20 96.3 97 27 144/101 (115) 94 Nasal Cannula 4.00 I & O 12/05/18 07:00 Intake Total 1050 ml Balance 1050 ml Height & Weight Height: 5'10.00" Weight: 156lbs. 4.0oz. 70.544568bo; 22.7 BMI Method:Stated General Appearance: Anxious, Chronically ill, Mild Distress HEENT: PERRL/EOMI, Pharynx Normal Neck: Full Range of Motion, Non Tender, Supple Respiratory: Accessory Muscle Use, Crackles, Decreased Breath Sounds Cardiovascular: Regular Rate, Rhythm, No Edema, No Gallop Capillary Refill: Less Than 3 Seconds Gastrointestinal: normal bowel sounds, non tender, soft, no organomegaly Extremity: Normal Capillary Refill, Normal Inspection Neurologic/Psychiatric: Alert, Oriented x3 Skin: Normal Color, Warm/Dry Results Lab Laboratory Tests 12/04/18 23:20 12/05/18 03:45 Assessment/Plan Assessment/Plan Acute on chronic respiratory failure s/p bronchoscopy last admission Diastolic CHFAE with bilateral pleural effusions -Start Lasix 40mg IV daily Pneumonia -Change Cefepime to Zosyn -Bronch cultures grew enterococcus Metabolic lactic acidosis -Monitor -escalante culture Atelectasis -Increase activity COPDAE -SVNS Q4 -Oxygen -Check AB DAKOTA CASTAÑEDA DO Dec 05, 2018 07:03
--- NOTE | 2018-12-05 07:08 | Diagnostic Imaging Report ---
INDICATION: Infiltrates. COMPARISON: 11/19/2018. FINDINGS: Single view of the chest demonstrates cardiac enlargement with mild interstitial pulmonary edema. Bilateral pleural effusions are present. There is no pneumothorax. Osseous structures are age-appropriate. IMPRESSION: Cardiac enlargement with mild interstitial pulmonary edema and increasing bilateral pleural effusions. Dictated by: Dictated on workstation # [id number]
[2018-12-05] MEDS ORDERED: PIPERACILLIN/TAZO 4.5 GM/NS 100 ML IV NR ×2 (07:15)
[2018-12-05] MEDS: RT-ALBUTEROL/IPRATROPIUM 3 ML (DUONEB) VIAL INH SCH ×5 (07:32→22:52)
[2018-12-05] MEDS ORDERED: LORazepam INJ 2 MG/ML (ATIVAN) VIAL IVP PRN (08:30)
[2018-12-05] MEDS: meTOprolol TARTRATE 50 MG (LOPRESSOR) TAB PO SCH ×2 (08:55→23:24)
[2018-12-05] MEDS: DILTIAZEM 240 MG (CARDIZEM CD) CAP PO SCH (08:55)
[2018-12-05] MEDS ORDERED: CEFEPIME 1 GM/NS 50 ML IV SCH ×2 (09:00)
[2018-12-05] MEDS ORDERED: FUROSEMIDE 40 MG/4 ML INJ (LASIX) IVP SCH (09:00)
--- NOTE | 2018-12-05 09:04 | History & Physical-Hospitalist ---
History of Present Illness HPI/Chief Complaint Pt is a 83yoCM known to me from recent admission who presented to the ER per him due to SOB. He is confused and asking for pants so he can go "to the services." He is unable to give me most details of his history other than that he started to get SOB yesterday prompting him to come to the ER. The rest of his history is obtained from records. ER notes state that he came due to high blood sugar (422) and incidentally complained of shortness of breath when he was found to be hypoxic on his normal 2lpm. His CXR revealed persistent bilateral pleural effusions and he had a leukocytosis of 14.1. He was admitted for recurrent pneumonia and OSWALDO. Source: patient Exam Limitations: clinical condition Date Seen 12/05/18 Time Seen by a Provider: 08:59 Attending Physician Babar Hawk MD PCP Rodney Guerrero MD Referring Physician Date of Admission Dec 05, 2018 at 01:23 Home Medications & Allergies Home Medications Reviewed patient Home Medication Reconciliation performed by pharmacy medication reconciliations pharmacy technician assistant and/or nursing. Patients Allergies have been reviewed. Allergies Allergies Coded Allergies gabapentin (Verified Allergy, Unknown, 11/15/18) pregabalin (Verified Allergy, Unknown, 11/15/18) Past Oiqnjoj-Emohqw-Bcvris Hx Past Med/Social Hx: Reviewed Nursing Past Med/Soc Hx Patient Social History Marrital Status: Employed/Student: retired Alcohol Use: Denies Use Recreational Drug Use: No Smoking Status: Former Smoker Former Smoker, Quit: Nov 03, 2018 Type Used: Pipe Physical Abuse Screen: No Sexual Abuse: No Recent Foreign Travel: No Contact w/other who traveled: No Recent Hopitalizations: Yes (OCT 2018 FOR PNEUMONIA; 11/16-11/19/18 FOR A FIB AND PNEUMONIA) Recent Infectious Disease Expo: No Immunizations Up To Date Date of Pneumonia Vaccine: Nov 03, 2016 Date of Influenza Vaccine: Aug 03, 2018 Seasonal Allergies Seasonal Allergies: No Past Medical History Surgeries: Orthopedic, Rectal Currently Using CPAP: No Currently Using BIPAP: No Cardiac: Atrial Fibrillation, High Cholesterol, Hypertension Restless leg syndrome Sexually Transmitted Disease: No HIV/AIDS: No Genitourinary: Renal Failure Gastrointestinal: Gastroesophageal Reflux, Chronic Diarrhea, Hiatal Hernia Endocrine: Hypothyroidsim, Diabetes, Non-Insulin dep Are Your Blood Sugars Over 250: Yes (yesterday in 400's) Psychosocial: Sleep Difficulties, Anxiety History of Blood Disorders: No Adverse Reaction to Blood Cantor: No Family History Reviewed Nursing Family Hx No Pertinent Family Hx Review of Systems ROS-Unable to Obtain: limited due to confusion Constitutional: No chills, No fever Respiratory: short of breath Cardiovascular: No chest pain, No edema, No palpitations Psychiatric/Neurological: Anxiety Physical Exam Physical Exam Vital Signs Vital Signs - First Documented 12/04/18 23:20 Temp 96.3 Pulse 97 Resp 27 B/P (MAP) 144/101 (115) Pulse Ox 94 O2 Delivery Nasal Cannula O2 Flow Rate 4.00 Capillary Refill : Less Than 3 Seconds Height, Weight, BMI Height: 5'10.00" Weight: 156lbs. 4.0oz. 70.889009mj; 22.7 BMI Method:Stated General Appearance: No Apparent Distress, Anxious, Chronically ill, Thin HEENT: PERRL/EOMI, Moist Mucous Membranes; No Scleral Icterus (L), No Scleral Icterus (R) Neck: Non Tender, Supple Respiratory: No Accessory Muscle Use, No Respiratory Distress, Decreased Breath Sounds Cardiovascular: No JVD, No Murmur, Irregularly Irregular Gastrointestinal: Normal Bowel Sounds, Non Tender, Soft Extremity: Normal Capillary Refill, No Calf Tenderness Neurologic/Psychiatric: Alert, Normal Mood/Affect, Other (oriented to person and at times place/situation) Skin: Normal Color, Warm/Dry Results Results/Procedures Labs Laboratory Tests 12/04/18 23:20 12/05/18 03:45 12/06/18 03:35 Patient resulted labs reviewed. Imaging: Reviewed Imaging Report Assessment/Plan Admission Diagnosis Acute on chronic respiratory failure Admission Status: Inpatient Order (span 2 midnights) Reason for Inpatient Admission: Failed outpatient management Diagnosis/Problems Diagnosis/Problems (1) Acute and chronic respiratory failure with hypoxia Assessment & Plan: Currently on 4lpm with baseline 2lpm need Titrate as able Continue lasix CT Chest ordered Pulm consulted, appreciate recs Discussed with Dr Kothari- may need thoracentesis Continue Zosyn for possible recurrent pneumonia Lactic acidosis likely due to hypoxia (2) Acute on chronic renal insufficiency Status: Acute Assessment & Plan: Baseline around 1.8 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 2.1 on arrival Monitor closely with diuresis Hyperkalemia resolved (3) Pleural effusion Assessment & Plan: CT chest ordered unable to order contrast due to OSWALDO Possible thoracentesis pending CT (4) Hyperkalemia Status: Acute Assessment & Plan: Now resolved Monitor with Lasix (5) Non-insulin dependent type 2 diabetes mellitus Assessment & Plan: SSI A Hold home meds (6) Atrial fibrillation Status: Acute Assessment & Plan: Follows with Dr Aquino Rate mildly elevated this AM Resume home Diltiazem and Metoprolol Hold Eliquis today for possible thoracentesis Qualifiers: Atrial fibrillation type: chronic Qualified Codes: I48.2 - Chronic atrial fibrillation (7) Hypothyroidism Assessment & Plan: On supplement per med rec Check TSH Qualifiers: Hypothyroidism type: unspecified Qualified Codes: E03.9 - Hypothyroidism, unspecified Clinical Quality Measures DVT/VTE Risk/Contraindication: Risk Factor Score Per Nursin RFS Level Per Nursing on Admit: 4+=Very High BABAR HAWK MD Dec 05, 2018 09:04
--- NOTE | 2018-12-05 09:30 | Diagnostic Imaging Report ---
INDICATION: lactic acidosis, shortness of breath, CHF COMPARISON: 12/04/2018 FINDINGS: Single view chest demonstrate cardiac enlargement with unchanged central vascular congestion, bilateral pleural effusions and dependent atelectasis. There was no pneumothorax. Osseous structures are stable. IMPRESSION: Unchanged aeration of the lungs. Dictated by: Dictated on workstation # [id number]
--- NOTE | 2018-12-05 09:55 | Diagnostic Imaging Report ---
PROCEDURE: CT chest without contrast. TECHNIQUE: Multiple contiguous axial images were obtained through the chest without the use of intravenous contrast. INDICATION: Shortness of breath, pleural effusion, confusion. COMPARISON: 11/16/2018. FINDINGS: There has been slight interval increase in the patient's bilateral pleural effusions right greater than left. There is dependent atelectasis. There is no pneumothorax. Centrilobular emphysema is present. Heart is enlarged with advanced coronary artery disease. There is no pericardial effusion. No lymphadenopathy is identified. Osseous structures are stable. Visualized upper abdominal solid organs are intact. IMPRESSION: 1. Slight interval increase in the patient's bilateral pleural effusions with dependent atelectasis. 2. Cardiac enlargement with coronary artery disease. 3. Centrilobular emphysema. No new infiltrate identified. 4. Not mentioned above, resolved central vascular congestion. Dictated by: Dictated on workstation # [id number]
[2018-12-05] MEDS ORDERED: ENAL5TAB PO (10:13)
[2018-12-05] MEDS ORDERED: ATOR80TA76 PO (10:13)
[2018-12-05] MEDS ORDERED: BUDE10.22 IH (10:13)
[2018-12-05] MEDS ORDERED: HALOPERIDOL 5 MG/ML (HALDOL) AMP IM NR (11:15)
--- NOTE | 2018-12-05 13:20 | Consultation-Cardiology ---
HPI-Cardiology Cardiology Consultation: Date of Consultation 12/05/18 Time Seen by a Provider: 12:50 Date of Admission 12/05/18 Attending Physician Babar Hawk MD Admitting Physician Rodney Guerrero MD Consulting Physician PAPO HARGROVE MD, MA, FACP, FACC, FSCAI, CCDS Physician requesting consult: Dr Hawk HPI: Chief Complaint: CC: Shortness of breath, marked hyperglycemia, confusion 83 yo man who has intermittently been quite ill since Sep 2018. Admitted through ER to Dr Hawk this am with increasing shortness of breath and confusion. Family noted a blood sugar of around 450 at home. Had been agitated in the hosp and was treated with Haldol. We were asked to see him for A Fib with RVR and for suspected CHF. He is currently not reporting any symptoms. Denies cp or palp or syncope. No N/V/D. Has had gen malaise. No recent wgt loss Review of Systems-Cardiology Review of Systems Constitutional: other (ROS is not fully reliable due to patient's confusion. To the extent that it could be obtained from the patient and his fam ( and son) is described under HPI) JNX-Nfhydi-Qdapro Hx Patient Social History Marrital Status: Employed/Student: retired Alcohol Use: Denies Use Recreational Drug Use: No Smoking Status: Former Smoker Type Used: Pipe Recent Foreign Travel: No Recent Infectious Disease Expo: No Hospitalization with Isolation: Denies Physical Abuse Screen: No Sexual Abuse: No Immunizations Up To Date Date of Pneumonia Vaccine: Nov 03, 2016 Date of Influenza Vaccine: Aug 03, 2018 Past Medical History PMH As described under Assessment. Family Medical History Family Medical History: No fam h/o early CAD or SCD Allergies and Home Medications Allergies Coded Allergies: gabapentin (Verified Allergy, Unknown, 11/15/18) pregabalin (Verified Allergy, Unknown, 11/15/18) Home Medications Alprazolam 0.5 Mg Tablet, 0.5 MG PO HS, (Reported) Amoxicillin/Potassium Clav 1 Each Tablet, 1 EACH PO BID Prescribed by: BABAR HAWK on 11/19/18 0954 Apixaban 2.5 Mg Tablet, 2.5 MG PO BID Prescribed by: JAGDEEP PEARSON on 11/19/18 0936 Ascorbic Acid 500 Mg Tablet, 500 MG PO DAILY, (Reported) Aspirin 81 Mg Tablet.dr, 81 MG PO DAILY, (Reported) Atorvastatin Calcium 80 Mg Tablet, 40 MG PO HS, (Reported) Brimonidine Tartrate/Timolol 5 Ml Drops, 1 DROP OU BID, (Reported) Budesonide/Formoterol Fumarate Unknown Strength Hfa.aer.ad, Unknown Dose IH BID, (Reported) Cholecalciferol (Vitamin D3) 1,000 Unit Capsule, 1,000 UNIT PO DAILY, (Reported) Cyanocobalamin (Vitamin B-12) 1,000 Mcg Tablet, 1,000 MCG PO DAILY, (Reported) Diltiazem HCl 240 Mg Cap.er.24h, 240 MG PO DAILY Prescribed by: JAGDEEP PEARSON on 11/19/18935 Enalapril Maleate 5 Mg Tablet, 5 MG PO DAILY, (Reported) Famotidine 20 Mg Tablet, 20 MG PO BID, (Reported) Fenofibrate Nanocrystallized 145 Mg Tablet, 145 MG PO DAILY, (Reported) Fluticasone/Salmeterol 12 Gm Hfa.aer.ad, 2 PUFF IH RTBID@0800,1999 Prescribed by: BABAR HAWK on 11/19/18953 Folic Acid 0.4 Mg Tablet, 0.4 MG PO DAILY, (Reported) Garlic 1,000 Mg Capsule, 1,000 MG PO DAILY, (Reported) Hydrocodone/Acetaminophen 1 Each Tablet, 1 TAB PO Q6H PRN for PAIN-MODERATE, ( Reported) Krill/Om3/Dha/Epa/Om6/Lip/Astx 1 Each Capsule, 1,000 MG PO DAILY, (Reported) Lactobacillus Acidophilus/Pect 1 Each Capsule, 1 EACH PO TIDWM Prescribed by: BABAR HAWK on 11/19/18953 Levothyroxine Sodium 100 Mcg Tablet, 100 MCG PO DAILY, (Reported) Liothyronine Sodium 25 Mcg Tablet, 25 MCG PO DAILY, (Reported) Metoprolol Tartrate 50 Mg Tablet, 50 MG PO BID Prescribed by: JAGDEEP PEARSON on 11/19/18935 Multivitamin 1 Each Tablet, 1 TAB PO DAILY, (Reported) Omeprazole Magnesium 20 Mg Tablet.dr, 40 MG PO DAILY, (Reported) Pyridoxine HCl 100 Mg Tablet, 100 MG PO DAILY, (Reported) Ropinirole HCl 1 Mg Tablet, 2 MG PO TID, (Reported) TAKES 2 (1MG) TABLETS Saw [place] Fruit 450 Mg Capsule, 450 MG PO BID, (Reported) Thiamine HCl 250 Mg Tablet, 250 MG PO DAILY, (Reported) Vit C/Vit E/Lutein/Min/[place]-3 1 Each Capsule, 1 CAP PO DAILY, (Reported) Patient Home Medication List Home Medication List Reviewed: Yes Physical Exam-Cardiology Physical Exam Vital Signs/I&O 12/05/18 12/05/18 12/05/18 12/05/18 01:16 01:26 01:53 02:00 Temp 96.1 96.1 97.2 Pulse 93 87 87 Resp B/P (MAP) 143/99 (114) 132/89 154/101 Pulse Ox 94 90 96 96 O2 Delivery Nasal Cannula Nasal Cannula Nasal Cannula Nasal Cannula O2 Flow Rate 5.00 5.00 5.00 4.00 12/05/18 12/05/18 12/05/18 12/05/18 02:05 02:11 02:15 02:30 Temp 97.2 Pulse 94 89 108 Resp B/P (MAP) 155/101 (119) 155/82 (106) Pulse Ox 94 91 91 O2 Delivery Nasal Cannula Nasal Cannula Nasal Cannula O2 Flow Rate 4.00 4.00 4.00 12/05/18 12/05/18 12/05/18 12/05/18 02:45 03:00 03:30 03:32 Pulse 112 106 104 114 Resp B/P (MAP) 156/109 (125) 152/104 (120) 147/94 (111) Pulse Ox 91 93 92 94 O2 Delivery Nasal Cannula Nasal Cannula Nasal Cannula O2 Flow Rate 4.00 4.00 4.00 12/05/18 12/05/18 12/05/18 12/05/18 04:00 04:00 05:00 07:06 Pulse 104 101 110 Resp B/P (MAP) 153/101 (118) 138/85 (102) Pulse Ox 94 O2 Delivery Nasal Cannula Nasal Cannula Nasal Cannula O2 Flow Rate 4.00 4.00 4.00 12/05/18 12/05/18 12/05/18 12/05/18 07:33 08:00 08:15 11:21 Pulse 116 Resp B/P (MAP) 153/107 (122) Pulse Ox 95 94 94 95 O2 Delivery Nasal Cannula Nasal Cannula Nasal Cannula Nasal Cannula O2 Flow Rate 5.00 4.00 4.00 5.00 12/05/18 12:17 Temp 98.6 Pulse 99 Resp 16 B/P (MAP) 137/86 (103) Pulse Ox 96 O2 Delivery Nasal Cannula O2 Flow Rate 4.00 Capillary Refill : Less Than 3 Seconds Constitutional: No AAO x 3, No apparent distress; well-developed, well- nourished HEENT: EOMI, hearing is well preserved; No xanthelasmas are seen Neck: carotid pulses are 2 + bilaterally, with good upstrokes Respiratory: No accessory muscle use, No respiratory distress; other (fair bilat air entry, diminished at the bases) Cardiovascular: irregularly irregular, S1 and S2, systolic murmur (soft ARSENIO at card base) Gastrointestinal: No tender; soft; No guarding, No rebound; audible bowel sounds Extremities: No clubbing, No cyanosis, No significant edema Neurologic/Psychiatric: No oriented x 3; other (confused, not able to cooperate with a neuro exam, moves all limbs equally) Skin: No rash on exposed areas, No ulcerations on exposed areas Data Review Labs Laboratory Tests 12/04/18 23:20: White Blood Count 14.1H, Red Blood Count 4.01L, Hemoglobin 11.5L, Hematocrit 37L , Mean Corpuscular Volume 93, Mean Corpuscular Hemoglobin 29, Mean Corpuscular Hemoglobin Concent 31L, Red Cell Distribution Width 14.9H, Platelet Count 309, Mean Platelet Volume 12.7H, Neutrophils (%) (Auto) 78H, Lymphocytes (%) (Auto) 14, Monocytes (%) (Auto) 7, Eosinophils (%) (Auto) 1, Basophils (%) (Auto) 0, Neutrophils # (Auto) 10.9H, Lymphocytes # (Auto) 1.9, Monocytes # (Auto) 1.0, Eosinophils # (Auto) 0.2, Basophils # (Auto) 0.0, Neutrophils % (Manual) 70, Lymphocytes % (Manual) 13, Monocytes % (Manual) 13, Eosinophils % (Manual) 4, Blood Morphology Comment NORMAL, Prothrombin Time 16.4H, INR Comment 1.3, Activated Partial Thromboplast Time 29, Sodium Level 139, Potassium Level 5.9H, Chloride Level 106, Carbon Dioxide Level 19L, Anion Gap 14, Blood Urea Nitrogen 30H, Creatinine 2.10H, Estimat Glomerular Filtration Rate 30, BUN/Creatinine Ratio 14, Glucose Level 276H, Lactic Acid Level 3.10*H, Calcium Level 8.9, Corrected Calcium 8.8, Magnesium Level 2.5H, Total Bilirubin 0.4, Aspartate Amino Transf (AST/SGOT) 52H, Alanine Aminotransferase (ALT/SGPT) 20, Alkaline Phosphatase 70, Troponin I < 0.028, B-Type Natriuretic Peptide 1608.8H, Total Protein 7.0, Albumin 4.1, Amylase Level 46, Lipase 52 12/04/18 23:59: Blood Gas Puncture Site RT RADIAL, Blood Gas Patient Temperature 97.2, Arterial Blood pH 7.36L, Arterial Blood Partial Pressure CO2 34L, Arterial Blood Partial Pressure O2 62L, Arterial Blood HCO3 19L, Arterial Blood Total CO2 20.0L, Arterial Blood Oxygen Saturation 91L, Arterial Blood Base Excess -5.7L, Bharathi Test YES-POS, Blood Gas Ventilator Setting NO, Blood Gas Inspired Oxygen 5L 12/05/18 01:00: Urine Color YELLOW, Urine Clarity CLEAR, Urine pH 5, Urine Specific [place] 1.010L, Urine Protein NEGATIVE, Urine Glucose (UA) 1+H, Urine Ketones NEGATIVE, Urine Nitrite NEGATIVE, Urine Bilirubin NEGATIVE, Urine Urobilinogen NORMAL, Urine Leukocyte Esterase NEGATIVE, Urine RBC (Auto) NEGATIVE, Urine RBC NONE, Urine WBC NONE, Urine Squamous Epithelial Cells RARE, Urine Crystals NONE, Urine Bacteria NEGATIVE, Urine Casts NONE, Urine Mucus NEGATIVE, Urine Culture Indicated NO 12/05/18 01:42: Lactic Acid Level 1.71 12/05/18 03:45: White Blood Count 10.8, Red Blood Count 4.57, Hemoglobin 12.9L, Hematocrit 42, Mean Corpuscular Volume 91, Mean Corpuscular Hemoglobin 28, Mean Corpuscular Hemoglobin Concent 31L, Red Cell Distribution Width 14.7H, Platelet Count 221, Mean Platelet Volume 12.9H, Neutrophils (%) (Auto) 90H, Lymphocytes (%) (Auto) 8L, Monocytes (%) (Auto) 2, Eosinophils (%) (Auto) 0, Basophils (%) (Auto) 0, Neutrophils # (Auto) 9.8H, Lymphocytes # (Auto) 0.9L, Monocytes # (Auto) 0.2, Eosinophils # (Auto) 0.0, Basophils # (Auto) 0.0, Sodium Level 138, Potassium Level 5.0, Chloride Level 105, Carbon Dioxide Level 18L, Anion Gap 15H, Blood Urea Nitrogen 30H, Creatinine 2.03H, Estimat Glomerular Filtration Rate 32, BUN/ Creatinine Ratio 15, Glucose Level 216H, Calcium Level 9.2, Corrected Calcium 8.9, Total Bilirubin 0.5, Aspartate Amino Transf (AST/SGOT) 56H, Alanine Aminotransferase (ALT/SGPT) 23, Alkaline Phosphatase 74, Total Protein 7.8, Albumin 4.4, Thyroid Stimulating Hormone (TSH) 0.92 12/05/18 06:15: Glucometer 220H 12/05/18 11:00: Glucometer 208H Laboratory Tests 12/04/18 23:20 12/05/18 03:45 A/P-Cardiology Assessment/Admission Diagnosis Multifactorial shortness of breath due to pneumonia and ac christie CHF Ac mental status change (confusion) Echocardiogram of 11-17-18 showed LVEF 60-65%. Mild to mod calcified annulus; mild MR; PASP 25-30 mmHg DM II CKD-4, likely due to diabetic nephropathy, followed by Dr Rowley Chronic A Fib with an intermittently rapid ventricular response Hypertension Quit chronic pipe smoking in Sep 2018 Restless leg syndrome Chronic hearing loss H/o h'hoids Discussion and Recomendations * Complex management * We recommend CT head to exclude any ic bleed before continuing OAC * Continue meds for vent rate control * Use furosemide as needed, if decomp of CHF suspected * I had a long and detailed conversation with the fam and answered their CV- related questions Clinical Quality Measures DVT/VTE Risk/Contraindication: Risk Factor Score Per Nursin RFS Level Per Nursing on Admit: 4+=Very High PAPO HARGROVE MD FACP FAC CCDS Dec 05, 2018 13:20
--- NOTE | 2018-12-05 14:22 | NUR ---
Called Dr. Hawk to notify her that patient tolerated IM 2mg haldol well and was calm for 2 hrs, however patient is again agitated/frightened by hallucinations. orders haldol 2mg iv every 2 hrs PRN for agitation at this time.
--- NOTE | 2018-12-05 14:23 | Diagnostic Imaging Report ---
PROCEDURE: CT head without contrast. TECHNIQUE: Multiple contiguous axial images were obtained through the brain without the use of intravenous contrast. INDICATION: Confusion, intraparenchymal hemorrhage, patient taking Eliquis. COMPARISON: None available. FINDINGS: Mild atrophy. No intracranial hemorrhage. No intracranial mass, mass effect, midline shift, herniation or hydrocephalus, or extra-axial fluid collection. 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 No CT evidence of an acute ischemic infarction. The orbits are unremarkable. The visualized paranasal sinuses are clear. The calvarium and extracalvarial soft tissues are unremarkable. IMPRESSION: No acute intracranial abnormality. 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 Dictated by: Dictated on workstation # [id number]
[2018-12-05] MEDS ORDERED: HALOPERIDOL 5 MG/ML (HALDOL) AMP IV PRN (14:30)
[2018-12-05] MEDS: PIPERACILLIN SODIUM/TAZOBACTAM 4.5 GM in NS (IVPB) 100 ML IV SCH ×2 (16:08→23:22)
[2018-12-05] MEDS: FUROSEMIDE 40 MG/4 ML INJ (LASIX) IVP SCH (17:27)
[2018-12-05] MEDS ORDERED: RISP0.253 PO (18:10)
--- NOTE | 2018-12-05 18:15 | NUR ---
FAMILY ASKS THIS RN IS PATIENT'S HOME RISPERIDONE COULD BE RESTARTED. CALLED DR. PLUMMER TO REPORT FAMILY'S REQUEST. DR. PLUMMER ORDERS HOME RISPERIDONE TO BE RESTARTED AT THIS TIME. WILL CARRY OUT ORDERS AND CONTINUE TO MONITOR
[2018-12-05] MEDS: risperiDONE 0.25 MG (RisperDAL) TAB PO SCH (23:23)
[2018-12-05] MEDS: APIXABAN 2.5 MG (ELIQUIS) TABLET PO SCH (23:24)
[2018-12-06] MEDS: RT-ALBUTEROL/IPRATROPIUM 3 ML (DUONEB) VIAL INH SCH ×6 (03:14→22:28)
[2018-12-06 04:00] VITALS: BP 133/75
[2018-12-06 04:02] LABS: BASOPHILS % (AUTO) 0 % (0-10); EOSINOPHILS % (AUTO) 0 % (0-10); HEMATOCRIT 37 % (40-54); HEMOGLOBIN 12.1 G/DL (13.3-17.7); LYMPHOCYTES # (AUTO) 1.6 X 10^3 (1.0-4.0); LYMPHOCYTES % (AUTO) 11 % (12-44); MEAN CORPUSCULAR HEMOGLOBIN 29 PG (25-34); MEAN CORPUSCULAR HGB CONC 33 G/DL (32-36); MEAN CORPUSCULAR VOLUME 89 FL (80-99); MEAN PLATELET VOLUME 12.9 FL (7.4-10.4); MONOCYTES # (AUTO) 1.3 X 10^3 (0.0-1.0); MONOCYTES % (AUTO) 9 % (0-12); NEUTROPHILS # (AUTO) 11.7 X 10^3 (1.8-7.8); NEUTROPHILS % (AUTO) 80 % (42-75); PLATELET COUNT 243 10^3/uL (130-400); RED CELL DISTRIBUTION WIDTH 14.8 % (10.0-14.5); WHITE BLOOD COUNT 14.6 10^3/uL (4.3-11.0)
[2018-12-06 04:20] LABS: CALCIUM 9.2 MG/DL (8.5-10.1); CREATININE SERUM 2.43 MG/DL (0.60-1.30); POTASSIUM 3.8 MMOL/L (3.6-5.0)
--- NOTE | 2018-12-06 06:32 | Pulmonary Progress Note ---
Sepsis Event Evaluation Height, Weight, BMI Height: 5'10.00" Weight: 156lbs. 4.0oz. [id number]; 22.7 BMI Method:Stated Focused Exam Lactate Level 12/04/18 23:20: Lactic Acid Level 3.10*H 12/05/18 01:42: Lactic Acid Level 1.71 Exam Exam Vital Signs Date Time Temp Pulse Resp B/P (MAP) Pulse Ox O2 Delivery O2 Flow Rate FiO2 12/06/18 04:00 96 Nasal Cannula 4.00 12/06/18 03:14 94 Nasal Cannula 4.00 12/06/18 01:00 80 12/06/18 00:00 96 Nasal Cannula 4.00 12/05/18 23:28 99.1 93 18 127/87 (100) 96 Nasal Cannula 4.00 12/05/18 22:52 95 Nasal Cannula 4.00 12/05/18 21:00 Nasal Cannula 4.00 12/05/18 20:00 98.6 89 18 144/78 (100) 97 Nasal Cannula 4.00 12/05/18 20:00 97 Nasal Cannula 4.00 12/05/18 19:00 100 12/05/18 18:45 94 Nasal Cannula 4.00 12/05/18 16:17 99.6 94 18 141/83 (102) 94 Nasal Cannula 4.00 12/05/18 16:00 Nasal Cannula 4.00 12/05/18 14:43 99 Nasal Cannula 5.00 12/05/18 13:00 99 12/05/18 12:17 98.6 99 16 137/86 (103) 96 Nasal Cannula 4.00 12/05/18 12:00 96 Nasal Cannula 4.00 12/05/18 11:21 95 Nasal Cannula 5.00 12/05/18 08:15 94 Nasal Cannula 4.00 12/05/18 08:15 Nasal Cannula 4.00 12/05/18 08:00 116 22 153/107 (122) 94 Nasal Cannula 4.00 12/05/18 07:33 95 Nasal Cannula 5.00 12/05/18 07:06 110 I & O 12/06/18 07:00 Intake Total 240 ml Output Total 950 ml Balance -710 ml Height & Weight Height: 5'10.00" Weight: 156lbs. 4.0oz. 70.481621jy; 22.7 BMI Method:Stated General Appearance: No Apparent Distress, Anxious, Chronically ill, Thin HEENT: PERRL/EOMI, Moist Mucous Membranes; No Scleral Icterus (L), No Scleral Icterus (R) Neck: Non Tender, Supple Respiratory: No Accessory Muscle Use, No Respiratory Distress, Decreased Breath Sounds Cardiovascular: No JVD, No Murmur, Irregularly Irregular Capillary Refill: Less Than 3 Seconds Extremity: Normal Capillary Refill, No Calf Tenderness Neurologic/Psychiatric: Alert, Normal Mood/Affect, Other (oriented to person and at times place/situation) Skin: Normal Color, Warm/Dry Results Lab Laboratory Tests 12/04/18 23:20 12/05/18 03:45 12/06/18 03:35 Assessment/Plan Assessment/Plan Acute on chronic respiratory failure s/p bronchoscopy last admission Diastolic CHFAE with bilateral pleural effusions - Lasix -Repeat CXR pending for this AM. Pt states he feels less SOB and less fullness in his chest. -Will plan for thoracentesis if CXR does not appear improved. -Hold Eliquis for possible thoracentesis Pneumonia - Zosyn -Bronch cultures grew enterococcus Metabolic lactic acidosis - resolved -Monitor -escalante culture Atelectasis -Increase activity COPD -SVNS Q4 -Oxygen -Check ABG AfDAKOTA Gandhi DO Dec 06, 2018 06:32
[2018-12-06] MEDS: FUROSEMIDE 40 MG/4 ML INJ (LASIX) IVP SCH (06:39)
[2018-12-06] MEDS: inSUlin ASPART (NovoLOG) 1 UNIT/0.01 ML (CHARGE PER UNIT) SC SCH ×4 (06:39→21:17)
[2018-12-06] MEDS: CATHETER FLUSH 10 ML SYR IV SCH ×3 (06:40→22:00)
[2018-12-06] MEDS ORDERED: ACETAMINOPHEN 500 MG TAB (TYLENOL) PO PRN (07:30)
[2018-12-06 08:10] VITALS: BP 99/57
[2018-12-06] MEDS: PIPERACILLIN SODIUM/TAZOBACTAM 4.5 GM in NS (IVPB) 100 ML IV SCH ×2 (08:40→17:12)
--- NOTE | 2018-12-06 09:19 | Diagnostic Imaging Report ---
INDICATION: Congestive heart failure, effusions. Shortness of breath.. TECHNIQUE: Single view chest 6:43 AM. CORRELATION STUDY: 12/05/2018 FINDINGS: Cardiac enlargement persists. There is severity of pulmonary vascular congestion and edema, appears slightly less severe but does persist. Combination of effusion with consolidation lung bases persisting unchanged. IMPRESSION: 1. Findings of congestive heart failure persisting but overall slightly improved. 2. Combination of effusion along with atelectasis and/or infiltrate versus edema about both lung bases persisting. Dictated by: Dictated on workstation # [id number]
[2018-12-06] MEDS: risperiDONE 0.25 MG (RisperDAL) TAB PO SCH ×2 (09:40→21:17)
[2018-12-06] MEDS: meTOprolol TARTRATE 50 MG (LOPRESSOR) TAB PO SCH ×2 (09:40→21:17)
[2018-12-06] MEDS: DILTIAZEM 240 MG (CARDIZEM CD) CAP PO SCH (09:40)
[2018-12-06] MEDS ORDERED: LIDOCAINE 1% INJ 20 ML 20 ML VIAL ONE (10:55)
[2018-12-06] MEDS: morphine INJ 4 MG/ML 1 ML (VIAL/SYRINGE) IVP PRN ×2 (11:44→21:17)
--- NOTE | 2018-12-06 11:56 | Progress Note-Hospitalist ---
Subjective HPI/CC On Admission Date Seen by Provider: Dec 06, 2018 Time Seen by Provider: 09:30 Pt is a 83yoCM known to me from recent admission who presented to the ER per him due to SOB. He is confused and asking for pants so he can go "to the services." He is unable to give me most details of his history other than that he started to get SOB yesterday prompting him to come to the ER. The rest of his history is obtained from records. ER notes state that he came due to high blood sugar (422) and incidentally complained of shortness of breath when he was found to be hypoxic on his normal 2lpm. His CXR revealed persistent bilateral pleural effusions and he had a leukocytosis of 14.1. He was admitted for recurrent pneumonia and OSWALDO. Subjective/Events-last exam Pt reports feeling much better today. No complaints. at bedside who states he is markedly improved as well. Focused Exam Lactate Level 12/04/18 23:20: Lactic Acid Level 3.10*H 12/05/18 01:42: Lactic Acid Level 1.71 Objective Exam Vital Signs Vital Signs Date Time Temp Pulse Resp B/P (MAP) Pulse Ox O2 Delivery O2 Flow Rate FiO2 12/06/18 11:00 94 Nasal Cannula 3.00 12/06/18 08:10 99.1 99 18 99/57 (71) Capillary Refill : Less Than 3 Seconds General Appearance: No Apparent Distress, Chronically ill, Thin Respiratory: No Respiratory Distress, Decreased Breath Sounds (in bases); No Wheezing Cardiovascular: Regular Rate, Rhythm, No Murmur Gastrointestinal: Normal Bowel Sounds, Non Tender, Soft Extremity: No Calf Tenderness Neurologic/Psychiatric: Alert, Oriented x3 Results/Procedures Lab Laboratory Tests 12/06/18 03:35 Patient resulted labs reviewed. Imaging: Reviewed Imaging Report Assessment/Plan Assessment and Plan Assess & Plan/Chief Complaint Acute on Chronic Respiratory failure Diagnosis/Problems Diagnosis/Problems (1) Acute and chronic respiratory failure with hypoxia Assessment & Plan: Up from baseline to 3lpm NC Lasix given this AM but will hold for OSWALDO Plan for thoracentesis today per Dr Kothari (2) Hypothyroidism Assessment & Plan: TSH WNL Qualifiers: Hypothyroidism type: unspecified Qualified Codes: E03.9 - Hypothyroidism, unspecified (3) Pleural effusion Assessment & Plan: Thoracentesis today per Dr Saniya Continue IV abx (4) Atrial fibrillation Status: Acute Assessment & Plan: Rate improving Continue home medications Hold anticoagulation for procedure Qualifiers: Atrial fibrillation type: chronic Qualified Codes: I48.2 - Chronic atrial fibrillation (5) Non-insulin dependent type 2 diabetes mellitus Assessment & Plan: Blood sugars well controlled Continue SSI (6) COPD (chronic obstructive pulmonary disease) Status: Chronic Assessment & Plan: Continue scheduled duonebs and prn treatment MAT protocol Qualifiers: COPD type: unspecified COPD Qualified Codes: J44.9 - Chronic obstructive pulmonary disease, unspecified (7) Acute on chronic renal insufficiency Status: Acute Assessment & Plan: Creatinine at baseline 1.8 Up to 2.43 Hold Lasix Monitor I/Os Patient has been incontinent but refusing catheter (8) CHF (congestive heart failure) Status: Acute Assessment & Plan: diastolic HF- acutely decompensated with BNP elevation Cardiology consulted, appreciate recs Lasix held for OSWALDO Echo form earlier this month shows preserved EF Continue metoprolol Qualifiers: Heart failure type: diastolic Heart failure chronicity: acute on chronic Qualified Codes: I50.33 - Acute on chronic diastolic (congestive) heart failure Clinical Quality Measures DVT/VTE Risk/Contraindication: Risk Factor Score Per Nursin RFS Level Per Nursing on Admit: 4+=Very High BABAR PLUMMER MD Dec 06, 2018 11:56
--- NOTE | 2018-12-06 12:15 | NUR ---
THORACENTESIS PERFORMED AT THIS TIME BY DR. CASTAÑEDA YIELDS 1450CC CLEAR YELLOW BODY FLUID. THIS RN WILL SEND FLUID FOR CYTOLOGY AND CULTURE PER DR. HODGE ORDERS IN CHART. PATIENT TOLERATED PROCEDURE WELL. WILL CONTINUE TO MONITOR.
--- NOTE | 2018-12-06 13:03 | Progress Note-Cardiology ---
Cardiology SOAP Progress Note Subjective: Less short of breath No cp or palp or syncope or leg swelling by bedside who notes improvement of pt's confusion Objective: I&O/Vital Signs 12/06/18 12/06/18 12/06/18 12/06/18 01:00 03:14 04:00 04:00 Temp 97.9 Pulse 80 94 Resp 16 B/P (MAP) 133/75 (94) Pulse Ox 94 94 96 O2 Delivery Nasal Cannula Nasal Cannula Nasal Cannula O2 Flow Rate 4.00 4.00 4.00 12/06/18 12/06/18 12/06/18 12/06/18 06:51 07:00 08:10 08:10 Pulse 115 Pulse Ox 100 93 O2 Delivery Nasal Cannula Nasal Cannula Nasal Cannula O2 Flow Rate 4.00 4.00 4.00 12/06/18 12/06/18 08:10 11:00 Temp 99.1 Pulse 99 Resp 18 B/P (MAP) 99/57 (71) Pulse Ox 94 O2 Delivery Nasal Cannula Nasal Cannula O2 Flow Rate 4.00 3.00 12/05/18 23:59 Intake Total 240 ml Output Total 950 ml Balance -710 ml Weight (Pounds): 156 Weight (Ounces): 4.0 Weight (Calculated Kilograms): 70.631318 Constitutional: AAO x 3; No apparent distress; well-developed, well-nourished Respiratory: No accessory muscle use, No respiratory distress; other (fair bilat air entry, diminished at the bases) Cardiovascular: irregularly irregular, S1 and S2, systolic murmur (soft ARSENIO at card base) Gastrointestional: No tender; soft; No guarding, No rebound; audible bowel sounds Extremities: No clubbing, No cyanosis, No significant edema Neurologic/Psychiatric: oriented x 3, other (Moves all limbs equally ) Skin: No rash on exposed areas, No ulcerations on exposed areas Results/Procedures: Labs Laboratory Tests 12/05/18 14:13: Glucometer 129H 12/05/18 15:55: Glucometer 149H 12/05/18 23:12: Glucometer 187H 12/06/18 03:35: White Blood Count 14.6H, Red Blood Count 4.15L, Hemoglobin 12.1L, Hematocrit 37L , Mean Corpuscular Volume 89, Mean Corpuscular Hemoglobin 29, Mean Corpuscular Hemoglobin Concent 33, Red Cell Distribution Width 14.8H, Platelet Count 243, Mean Platelet Volume 12.9H, Neutrophils (%) (Auto) 80H, Lymphocytes (%) (Auto) 11L, Monocytes (%) (Auto) 9, Eosinophils (%) (Auto) 0, Basophils (%) (Auto) 0, Neutrophils # (Auto) 11.7H, Lymphocytes # (Auto) 1.6, Monocytes # (Auto) 1.3H, Eosinophils # (Auto) 0.0, Basophils # (Auto) 0.0, Sodium Level 140, Potassium Level 3.8, Chloride Level 99, Carbon Dioxide Level 23, Anion Gap 18H, Blood Urea Nitrogen 39H, Creatinine 2.43H, Estimat Glomerular Filtration Rate 26, BUN/ Creatinine Ratio 16, Glucose Level 133H, Calcium Level 9.2 12/06/18 11:19: Glucometer 179H Microbiology 12/04/18 Blood Culture - Preliminary, Resulted No growth Laboratory Tests 12/04/18 23:20 12/05/18 03:45 12/06/18 03:35 A/P: Assessment: Multifactorial shortness of breath due to pneumonia and ac christie CHF Ac mental status change (confusion) improved. No head bleed on CT head of 12/05/18 S/p R thoracentesis by Dr Kothari (approx 1500 ml) on 12/06/18 Echocardiogram of 11-17-18 showed LVEF 60-65%. Mild to mod calcified annulus; mild MR; PASP 25-30 mmHg DM II CKD-4, likely due to diabetic nephropathy, followed by Dr Rowley Ac renal insuff due to aggressive diuretic therapy Chronic A Fib with an intermittently rapid ventricular response Hypertension Quit chronic pipe smoking in Sep 2018 Restless leg syndrome Chronic hearing loss H/o h'hoids Plan: * Complex management * I discussed his case in detail with Dr Kothari today * Continue meds for vent rate control * Use furosemide as needed. Reduce furosemide today due to worsening renal function * I had a long and detailed conversation with the pt and his and answered their CV-related questions PAPO HARGROVE MD FACP [facility] CCDS Dec 06, 2018 13:03
[2018-12-06 14:07] LABS: BODY FLUID TRIGLYCERIDES 11 MG/DL; GLUCOSE,BODY FLUID 203 MG/DL; LDH,BODY FLUID 73 U/L; TOTAL PROTEIN,BODY FLUID 1.5 G/DL
[2018-12-06 14:12] LABS: BODY FLUID PH 7.7
[2018-12-06 14:13] LABS: BODY FLUID SOURCE THORACEN
[2018-12-06 14:14] LABS: BODY FLUID APPEARENCE CLEAR; BODY FLUID COLOR YELLOW; BODY FLUID RBC COUNT 436 /uL; BODY FLUID WBC TOTAL COUNT 142 /uL
[2018-12-06 14:15] VITALS: BP 95/50
[2018-12-06 14:27] LABS: BF OTHER CELLS 55 %; LYMPHOCYTES,BODY FLUID 42 %
--- NOTE | 2018-12-06 14:57 | Diagnostic Imaging Report ---
INDICATION: Post thoracentesis. TECHNIQUE: Single view chest 2:14 PM. CORRELATION STUDY: 12/06/2018 FINDINGS: There's been decrease in size of right pleural effusion post thoracentesis. Small amount of fluid along with atelectasis suggested about the right lung base. There is presence of small right apical pneumothorax. Pleural line just below the posterior right third rib. Left pleural effusion along with atelectasis and/or infiltrate at the left lung base generally stable. Heart size enlarged. Vascular is slightly prominent. IMPRESSION: 1. Decreased right pleural effusion post thoracentesis. Improvement in aeration of the right lung base. There's been development of a small right pneumothorax. 2. Stable appearance about the left pleural effusion along with atelectasis or infiltrate the left lung base. Report was called to Brynn/SILVANO [facility] by ariane at 2:56 p.m. Dictated by: Dictated on workstation # [id number]
--- NOTE | 2018-12-06 15:26 | NUR ---
REPORTS OF CXR CALLED TO THIS RN. X-RAY TECH STATES THAT THERE IS A NEW SMALL RIGHT PNEUMOTHORAX POST THORACENTESIS. CALLED DR. CASTAÑEDA TO REPORT. ORDERS TO REPEAT CXR AT 1700 TONIGHT. WILL PUT IN ORDER AND CONTINUE TO MONITOR.
[2018-12-06 16:26] VITALS: BP 109/70
--- NOTE | 2018-12-06 17:40 | Diagnostic Imaging Report ---
EXAMINATION: Portable erect AP chest at 5:02 p.m. INDICATION: Pneumothorax. FINDINGS: The chest exam performed earlier today at 2:14 p.m. noted a small apical pneumothorax on the right. The pneumothorax does appear to have decreased since the prior exam and is now barely visible. There is a linear lucency extending obliquely over the right upper lung. This is most likely due to a skin fold. The overall appearance of the chest has not changed significantly otherwise. IMPRESSION: 1. The apical pneumothorax on the right seen on the previous exam has nearly completely resolved. 2. The overall appearance of the chest is otherwise stable. 3. A followup exam would be recommended for continued evaluation. Dictated by: Dictated on workstation # [id number]
[2018-12-06 20:00] VITALS: BP 118/70
[2018-12-06] MEDS: APIXABAN 2.5 MG (ELIQUIS) TABLET PO SCH (21:00)
[2018-12-07] VITALS (7 sets, daily range): BP systolic 105–142; BP diastolic 64–90
[2018-12-07] MEDS: PIPERACILLIN SODIUM/TAZOBACTAM 4.5 GM in NS (IVPB) 100 ML IV SCH ×3 (00:55→17:40)
[2018-12-07] MEDS: morphine INJ 4 MG/ML 1 ML (VIAL/SYRINGE) IVP PRN (01:23)
[2018-12-07] MEDS: RT-ALBUTEROL/IPRATROPIUM 3 ML (DUONEB) VIAL INH SCH ×6 (02:14→19:20)
--- NOTE | 2018-12-07 05:50 | Pulmonary Progress Note ---
Subjective Time Seen by a Provider: 08:02 Subjective/Events-last exam Pt feels better post thoracentesis Sepsis Event Evaluation Height, Weight, BMI Height: 5'10.00" Weight: 156lbs. 4.0oz. 70.116613ms; 22.7 BMI Method:Stated Focused Exam Lactate Level 12/04/18 23:20: Lactic Acid Level 3.10*H 12/05/18 01:42: Lactic Acid Level 1.71 Exam Exam Vital Signs Date Time Temp Pulse Resp B/P (MAP) Pulse Ox O2 Delivery O2 Flow Rate FiO2 12/07/18 01:00 80 12/07/18 00:00 98.6 96 18 107/67 (80) 98 Nasal Cannula 4.00 12/06/18 22:29 96 Nasal Cannula 3.00 12/06/18 20:00 Nasal Cannula 4.00 12/06/18 20:00 97.0 94 16 118/70 (86) 98 Nasal Cannula 4.00 12/06/18 19:00 100 12/06/18 18:49 98 Nasal Cannula 3.00 12/06/18 16:26 80 18 109/70 (83) 99 Nasal Cannula 4.00 12/06/18 16:00 Nasal Cannula 4.00 12/06/18 14:15 98.7 83 18 95/50 (65) 97 Nasal Cannula 4.00 12/06/18 13:54 97 Nasal Cannula 3.00 12/06/18 13:00 110 12/06/18 12:00 Nasal Cannula 4.00 12/06/18 11:00 94 Nasal Cannula 3.00 12/06/18 08:10 99.1 99 18 99/57 (71) Nasal Cannula 4.00 12/06/18 08:10 93 Nasal Cannula 4.00 12/06/18 08:10 Nasal Cannula 4.00 12/06/18 07:00 115 12/06/18 06:51 100 Nasal Cannula 4.00 I & O 12/07/18 07:00 Intake Total 420 ml Output Total 525 ml Balance -105 ml Height & Weight Height: 5'10.00" Weight: 156lbs. 4.0oz. 70.074164dy; 22.7 BMI Method:Stated General Appearance: No Apparent Distress, Chronically ill, Thin HEENT: PERRL/EOMI, Moist Mucous Membranes; No Scleral Icterus (L), No Scleral Icterus (R) Neck: Non Tender, Supple Respiratory: No Respiratory Distress, Decreased Breath Sounds (in bases); No Wheezing Cardiovascular: Regular Rate, Rhythm, No Murmur Capillary Refill: Less Than 3 Seconds Extremity: No Calf Tenderness Neurologic/Psychiatric: Alert, Oriented x3 Skin: Normal Color, Warm/Dry Results Lab Laboratory Tests 12/06/18 03:35 Assessment/Plan Assessment/Plan Acute on chronic respiratory failure s/p bronchoscopy last admission Diastolic CHFAE with bilateral pleural effusions s/p thoracentesis 12/06/17 - Lasix -Repeat CXR pending for this AM. Pt states he feels less SOB and less fullness in his chest. -Will plan for thoracentesis if CXR does not appear improved. -Hold Eliquis for possible thoracentesis Pneumonia - Zosyn -Bronch cultures grew enterococcus Metabolic lactic acidosis - resolved -Monitor -escalante culture Atelectasis -Increase activity COPD -SVNS Q4 -Oxygen -Check ABG Afib DAKOTA CASTAÑEDA DO Dec 07, 2018 05:50
--- NOTE | 2018-12-07 07:24 | Diagnostic Imaging Report ---
INDICATION: Dyspnea. Upright portable AP view of the chest is obtained with comparison made study one day earlier. FINDINGS: There is continued pulmonary venous congestion with blunting of left costophrenic sulcus. Associated left basilar airspace disease is noted with mild right basilar atelectasis. No pneumothorax is seen. Overall, there is no significant change. IMPRESSION: Pleural effusions, greater on the left with basilar infiltrate also greater on the left. Dictated by: Dictated on workstation # [id number]
[2018-12-07] MEDS: inSUlin ASPART (NovoLOG) 1 UNIT/0.01 ML (CHARGE PER UNIT) SC SCH ×3 (07:44→21:00)
[2018-12-07] MEDS: CATHETER FLUSH 10 ML SYR IV SCH ×3 (07:44→21:13)
[2018-12-07] MEDS: APIXABAN 2.5 MG (ELIQUIS) TABLET PO SCH ×2 (08:26→21:12)
[2018-12-07] MEDS: DILTIAZEM 240 MG (CARDIZEM CD) CAP PO SCH (08:26)
[2018-12-07] MEDS: risperiDONE 0.25 MG (RisperDAL) TAB PO SCH ×2 (08:26→21:12)
[2018-12-07] MEDS: FUROSEMIDE 40 MG/4 ML INJ (LASIX) IVP SCH (08:26)
--- NOTE | 2018-12-07 09:08 | Progress Note-Cardiology ---
Cardiology SOAP Progress Note Objective: I&O/Vital Signs 12/08/18 12/08/18 12/08/18 12/08/18 03:30 04:06 07:05 07:15 Temp 97.8 Pulse 97 80 Resp 18 B/P (MAP) 126/77 (93) Pulse Ox 93 96 97 O2 Delivery Room Air Room Air Room Air 12/08/18 12/08/18 12/08/18 07:15 08:00 08:30 Temp 96.5 Pulse 100 95 Resp 22 B/P (MAP) 141/72 (95) Pulse Ox 97 95 O2 Delivery Room Air Room Air 12/07/18 23:59 Intake Total 1760 ml Output Total 2065 ml Balance -305 ml Weight (Pounds): 156 Weight (Ounces): 4.0 Weight (Calculated Kilograms): 70.654771 Constitutional: AAO x 3; No apparent distress; well-developed, well-nourished Respiratory: No accessory muscle use, No respiratory distress; other (fair bilat air entry, diminished at the bases) Cardiovascular: irregularly irregular, S1 and S2, systolic murmur (soft ARSENIO at card base) Gastrointestional: No tender; soft; No guarding, No rebound; audible bowel sounds Extremities: No clubbing, No cyanosis, No significant edema Neurologic/Psychiatric: oriented x 3, other (Moves all limbs equally ) Skin: No rash on exposed areas, No ulcerations on exposed areas Results/Procedures: Labs Laboratory Tests 12/07/18 17:58: Glucometer 128H 12/07/18 23:42: Glucometer 196H 12/08/18 05:24: Glucometer 135H 12/08/18 06:05: White Blood Count 15.5H, Red Blood Count 4.76, Hemoglobin 13.5, Hematocrit 42, Mean Corpuscular Volume 88, Mean Corpuscular Hemoglobin 28, Mean Corpuscular Hemoglobin Concent 32, Red Cell Distribution Width 14.9H, Platelet Count 220, Mean Platelet Volume 12.9H, Sodium Level 140, Potassium Level 4.3, Chloride Level 101, Carbon Dioxide Level 23, Anion Gap 16H, Blood Urea Nitrogen 41H, Creatinine 2.11H, Estimat Glomerular Filtration Rate 30, BUN/Creatinine Ratio 19 , Glucose Level 134H, Calcium Level 8.9, Magnesium Level 2.4 12/08/18 11:35: Glucometer 120H Microbiology 12/04/18 Blood Culture - Preliminary, Resulted No growth 12/06/18 Gram Stain - Final, Resulted 12/06/18 Body Fluid Culture - Preliminary, Resulted No growth Procedures NAME: [facility] REC#: [id number] PT STATUS: ADM IN : 1935 PHYSICIAN: DAKOTA KOTHARI DO ADMIT DATE: 12/05/18/ICU Draft Date of Exam:12/07/18 CHEST 1 VIEW, AP/PA ONLY INDICATION: Dyspnea. Upright portable AP view of the chest is obtained with comparison made study one day earlier. FINDINGS: There is continued pulmonary venous congestion with blunting of left costophrenic sulcus. Associated left basilar airspace disease is noted with mild right basilar atelectasis. No pneumothorax is seen. Overall, there is no significant change. IMPRESSION: Pleural effusions, greater on the left with basilar infiltrate also greater on the left. Dictated on workstation # [id number] Dict: 12/07/18716 Trans: 12/07/18 0724 [id number] Interpreted by: NICHOLAS FONG MD Electronically signed by: A/P: Assessment: Multifactorial shortness of breath due to pneumonia and ac christie CHF Ac mental status change (confusion) improved. No head bleed on CT head of 12/05/18 S/p R thoracentesis by Dr Kothari (approx 1500 ml) on 12/06/18 Echocardiogram of 11-17-18 showed LVEF 60-65%. Mild to mod calcified annulus; mild MR; PASP 25-30 mmHg DM II CKD-4, likely due to diabetic nephropathy, followed by Dr Rowley Ac renal insuff due to aggressive diuretic therapy Chronic A Fib with an intermittently rapid ventricular response Hypertension Quit chronic pipe smoking in Sep 2018 Restless leg syndrome Chronic hearing loss H/o h'hoids Plan: * Complex management * I discussed his case in detail with Dr Kothari today * Continue meds for vent rate control * Use furosemide as needed. Reduce furosemide today due to worsening renal function * I had a long and detailed conversation with the pt and his and answered their CV-related questions JAGDEEP PEARSON Dec 07, 2018 09:08
[2018-12-07] MEDS: meTOprolol TARTRATE 50 MG (LOPRESSOR) TAB PO SCH ×2 (09:10→21:12)
--- NOTE | 2018-12-07 10:10 | NUR ---
Patient brought to room via wheelchair accompanied by FOR[employer]OLOG[employer] PROFESSOR and . Currently on 3L nasal cannula. Reports no complaints of pain or any needs at this time.
--- NOTE | 2018-12-07 10:25 | NUR ---
REPORT CALLED TO KAMALJIT SCHAEFER, PATIENT TRANSFERRED TO [facility], SPOUSE TOOK PERSONAL BELONGINGS TO NEW ROOM ON TRANSFER.
--- NOTE | 2018-12-07 11:15 | Progress Note-Cardiology ---
Cardiology SOAP Progress Note Subjective: No new symptoms Less confused Less short of breath Objective: I&O/Vital Signs 12/07/18 12/07/18 12/07/18 12/07/18 00:00 00:00 01:00 04:00 Temp 98.6 Pulse 96 80 Resp 18 B/P (MAP) 107/67 (80) Pulse Ox 98 O2 Delivery Nasal Cannula Nasal Cannula Nasal Cannula O2 Flow Rate 4.00 4.00 4.00 12/07/18 12/07/18 12/07/18 12/07/18 04:00 07:00 07:16 08:00 Temp 97.4 Pulse 91 90 Resp 16 B/P (MAP) 142/90 (107) Pulse Ox 98 100 100 O2 Delivery Nasal Cannula Nasal Cannula Nasal Cannula O2 Flow Rate 4.00 3.00 3.00 12/07/18 12/07/18 12/07/18 12/07/18 08:00 08:00 09:00 10:50 Temp 98.5 97.4 Pulse 105 Resp 16 B/P (MAP) 110/64 (79) Pulse Ox 98 98 O2 Delivery Nasal Cannula Nasal Cannula Nasal Cannula O2 Flow Rate 4.00 4.00 3.00 12/07/18 00:00 Intake Total 520 ml Output Total 525 ml Balance -5 ml Weight (Pounds): 156 Weight (Ounces): 4.0 Weight (Calculated Kilograms): 70.017671 Constitutional: AAO x 3; No apparent distress; well-developed, well-nourished Respiratory: No accessory muscle use, No respiratory distress; other (fair bilat air entry, diminished at the bases) Cardiovascular: irregularly irregular, S1 and S2, systolic murmur (soft ARSENIO at card base) Gastrointestional: No tender; soft; No guarding, No rebound; audible bowel sounds Extremities: No clubbing, No cyanosis, No significant edema Neurologic/Psychiatric: oriented x 3, other (Moves all limbs equally ) Skin: No rash on exposed areas, No ulcerations on exposed areas Results/Procedures: Labs Laboratory Tests 12/06/18 11:19: Glucometer 179H 12/06/18 12:32: Body Fluid Source THORACEN, Body Fluid Color YELLOW, Body Fluid Appearance CLEAR , Body Fluid pH 7.7, Body Fluid WBC 142, Body Fluid RBC 436, Body Fluid Polynuclear WBCs 3, Body Fluid Mononuclear WBCs 0, Body Fluid Lymphocytes 42, Body Fluid Other Cells 55, Body Fluid Glucose 203, Body Fluid Total Protein 1.5 , Body Fluid Lactate Dehydrogenase 73, Body Fluid Triglycerides 11 12/06/18 16:25: Glucometer 182H 12/06/18 21:16: Glucometer 177H 12/07/18 06:54: Glucometer 129H Microbiology 12/04/18 Blood Culture - Preliminary, Resulted No growth Laboratory Tests 12/06/18 03:35 A/P: Assessment: Multifactorial shortness of breath due to pneumonia and ac christie CHF Ac mental status change (confusion) improved. No head bleed on CT head of 12/05/18 S/p R thoracentesis by Dr Kothari (approx 1500 ml) on 12/06/18 Echocardiogram of 11-17-18 showed LVEF 60-65%. Mild to mod calcified annulus; mild MR; PASP 25-30 mmHg DM II CKD-4, likely due to diabetic nephropathy, followed by Dr Rowley Ac renal insuff due to aggressive diuretic therapy Chronic A Fib with an intermittently rapid ventricular response Hypertension Quit chronic pipe smoking in Sep 2018 Restless leg syndrome Chronic hearing loss H/o h'hoids Plan: * Complex management * Continue meds for vent rate control * Use furosemide as needed. Reduce furosemide today due to worsening renal function * I had a long and detailed conversation with the pt and his and answered their CV-related questions PAPO HARGROVE MD FACP FAC CCDS Dec 07, 2018 11:15
--- NOTE | 2018-12-07 15:56 | Progress Note-Hospitalist ---
Progress Note Progress Notes/Assess & Plan Date Seen 12/07/18 Time Seen by Provider: 15:50 Assessment & Plan The patient is an 83-year-old white male from [place] who was hospitalized here from 11/16 through 11/19 with a presumed pneumonia. He is modestly confused and tells me that he had one good day at home before he had to return here. His states that he was home for 2 weeks and seemed to be doing well however Spencer evening he became acutely short of breath and that returned here. Chest x-ray showed recurrent pleural effusion. Dr. Kothari has subsequently done a thoracentesis and he feels much better. He has been able to walk in the hallways without oxygen supplementation. Physical exam: The patient appears comfortable. He is somewhat confused about dates and circumstances. Lungs are clear to auscultation. CV is irregular. Abdomen is soft. Extremities show no pedal edema. Impression: Bilateral pleural effusion. 2.atrial fibrillation. 3.possible pneumonia. Plan: Continue present regimen. 2.add furosemide. 3.await lab analysis of thoracentesis fluid. Focused Exam Lactate Level 12/04/18 23:20: Lactic Acid Level 3.10*H 12/05/18 01:42: Lactic Acid Level 1.71 KACEY PALENCIA MD Dec 07, 2018 15:56
[2018-12-08] VITALS (7 sets, daily range): BP systolic 116–141; BP diastolic 61–92
[2018-12-08] MEDS: PIPERACILLIN SODIUM/TAZOBACTAM 4.5 GM in NS (IVPB) 100 ML IV SCH ×3 (00:30→16:32)
[2018-12-08] MEDS: RT-ALBUTEROL/IPRATROPIUM 3 ML (DUONEB) VIAL INH SCH ×5 (03:30→21:40)
[2018-12-08] MEDS: morphine INJ 4 MG/ML 1 ML (VIAL/SYRINGE) IVP PRN ×2 (04:21→16:52)
[2018-12-08] MEDS: inSUlin ASPART (NovoLOG) 1 UNIT/0.01 ML (CHARGE PER UNIT) SC SCH ×4 (05:25→21:26)
[2018-12-08] MEDS: CATHETER FLUSH 10 ML SYR IV SCH ×3 (05:25→22:00)
--- NOTE | 2018-12-08 05:56 | NUR ---
This RN noticed worsening facial and neck tremors. Patient is the same level of orientation to self and place and very confused. Patient strength in all extremities remains equal. No facial drooping or difficulty with speech observed. VS remain similar Patient Fina called at 5:13am to see if facial tremors were normal for the patient and she stated "No he doesn't normally have them." Dr. Tolliver called and notified of tremors at 5:36am with no new orders received. Will continue to monitor.
[2018-12-08 06:22] LABS: HEMOGLOBIN 13.5 G/DL (13.3-17.7); MEAN PLATELET VOLUME 12.9 FL (7.4-10.4); RED CELL DISTRIBUTION WIDTH 14.9 % (10.0-14.5); WHITE BLOOD COUNT 15.5 10^3/uL (4.3-11.0)
[2018-12-08 06:36] LABS: CALCIUM 8.9 MG/DL (8.5-10.1); CREATININE SERUM 2.11 MG/DL (0.60-1.30); MAGNESIUM 2.4 MG/DL (1.8-2.4); POTASSIUM 4.3 MMOL/L (3.6-5.0)
--- NOTE | 2018-12-08 08:04 | Pulmonary Progress Note ---
Sepsis Event Evaluation Height, Weight, BMI Height: 5'10.00" Weight: 141lbs. 1.0oz. 63.328168qt; 22.7 BMI Method:Stated Exam Exam Vital Signs Date Time Temp Pulse Resp B/P (MAP) Pulse Ox O2 Delivery O2 Flow Rate FiO2 12/08/18 07:15 100 97 12/08/18 07:15 97 Room Air 12/08/18 04:06 97.8 97 18 126/77 (93) 96 Room Air 12/08/18 03:30 93 Room Air 12/08/18 01:00 94 12/08/18 00:00 98.8 92 18 129/92 (104) 96 Room Air 12/07/18 21:00 Room Air 12/07/18 20:00 98.5 90 18 135/87 (103) 96 Room Air 12/07/18 19:20 94 Room Air 12/07/18 19:00 88 12/07/18 16:00 98.3 87 19 109/70 (83) 96 Room Air 12/07/18 15:03 97 Room Air 12/07/18 13:00 96 12/07/18 12:00 96.9 105 18 105/64 (78) 97 Room Air 12/07/18 10:50 98 Nasal Cannula 3.00 12/07/18 10:07 97.8 104 18 120/81 (94) 98 Nasal Cannula 4.00 12/07/18 09:00 Nasal Cannula 4.00 I & O 12/08/18 07:00 Intake Total 2060 ml Output Total 2765 ml Balance -705 ml Height & Weight Height: 5'10.00" Weight: 141lbs. 1.0oz. 63.596361ai; 22.7 BMI Method:Stated General Appearance: No Apparent Distress, Chronically ill, Thin HEENT: PERRL/EOMI, Moist Mucous Membranes; No Scleral Icterus (L), No Scleral Icterus (R) Neck: Non Tender, Supple Respiratory: No Respiratory Distress, Decreased Breath Sounds (in bases); No Wheezing Cardiovascular: Regular Rate, Rhythm, No Murmur Capillary Refill: NONE Gastrointestinal: normal bowel sounds, non tender, soft, no organomegaly Extremity: No Calf Tenderness Neurologic/Psychiatric: Alert, Oriented x3 Skin: Normal Color, Warm/Dry Results Lab Laboratory Tests 12/08/18 06:05 Assessment/Plan Assessment/Plan Acute on chronic respiratory failure s/p bronchoscopy last admission Diastolic CHFAE with bilateral pleural effusions s/p thoracentesis 12/06/18 -- transudative -Continue Lasix -Repeat CXR pending for this AM. Pt states he feels less SOB and less fullness in his chest. Pneumonia - Zosyn -Bronch cultures grew enterococcus Metabolic lactic acidosis - resolved -Monitor -escalante culture Atelectasis -Increase activity COPD -SVNS Q4 -Oxygen Afib DAKOTA CASTAÑEDA DO Dec 08, 2018 08:04
--- NOTE | 2018-12-08 08:10 | Diagnostic Imaging Report ---
PATIENT HISTORY: Shortness of breath. TECHNIQUE: Frontal view of the chest COMPARISON: 12/07/2018 FINDINGS: There is a small left pleural effusion with associated airspace opacities. Stable mild interstitial opacities are seen at the right lung base. The cardiac silhouette is stable in size. There is aortic atherosclerosis. Degenerative changes are seen in the spine. IMPRESSION: 1. Small left pleural effusion appears stable since the prior study. Bibasilar pulmonary opacities, left greater than right, also appear stable. Dictated by: Dictated on workstation # [id number]
[2018-12-08] MEDS: meTOprolol TARTRATE 50 MG (LOPRESSOR) TAB PO SCH ×2 (08:36→21:19)
[2018-12-08] MEDS: APIXABAN 2.5 MG (ELIQUIS) TABLET PO SCH ×2 (08:36→21:19)
[2018-12-08] MEDS: DILTIAZEM 240 MG (CARDIZEM CD) CAP PO SCH (08:36)
[2018-12-08] MEDS: risperiDONE 0.25 MG (RisperDAL) TAB PO SCH ×3 (08:43→21:21)
[2018-12-08] MEDS: FUROSEMIDE 40 MG/4 ML INJ (LASIX) IVP SCH (08:44)
[2018-12-08] MEDS ORDERED: LORazepam INJ 2 MG/ML (ATIVAN) VIAL IVP PRN (09:15)
--- NOTE | 2018-12-08 10:16 | Progress Note-Hospitalist ---
Progress Note Progress Notes/Assess & Plan Date Seen 12/08/18 Time Seen by Provider: 10:11 Assessment & Plan Early this morning I got a phone call from nursing staff stating that the patient was having in because voluntary movements of his face and jaw. Ultimately he was given a dose of Ativan to help the 's consternation. He is now sleeplike and these movements are not so obvious. After reviewing his medication list I believe this to be a function of Risperdal. This was started on his last admission as he was agitated and aggressive. This will be discontinued. Physical exam: Lungs are clear to auscultation. CV is irregular. The patient does not answer to voice but does move his arms and made some facial contortions. Impression: Recurrent pneumonia. 2.progressive dementia. 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
--- NOTE | 2018-12-08 11:29 | Progress Note-Cardiology ---
Cardiology SOAP Progress Note Subjective: Spouse at the bedside. She reports he was having facial tremors this morning and was given Ativan. She reports since then he has been trying to get out of the chair and not following directions. Dr. Tolliver has seen him this morning. Objective: I&O/Vital Signs 12/08/18 12/08/18 12/08/18 12/08/18 07:05 07:15 07:15 08:00 Temp 96.5 Pulse 80 100 95 Resp 22 B/P (MAP) 141/72 (95) Pulse Ox 97 97 95 O2 Delivery Room Air Room Air 12/08/18 12/08/18 12/08/18 12/08/18 08:30 12:00 13:07 15:16 Temp 96.7 Pulse 80 95 Resp 20 B/P (MAP) 116/61 (79) Pulse Ox 97 98 O2 Delivery Room Air Room Air Room Air 12/08/18 15:45 Temp 97.9 Pulse 74 Resp 14 B/P (MAP) 125/75 (92) Pulse Ox 99 O2 Delivery Nasal Cannula 12/08/18 00:00 Intake Total 1760 ml Output Total 2065 ml Balance -305 ml Weight (Pounds): 141 Weight (Ounces): 1.0 Weight (Calculated Kilograms): 63.598591 Constitutional: appears stated age; No apparent distress; well-developed, well- nourished Respiratory: No accessory muscle use, No respiratory distress; other (fair bilat air entry, diminished at the bases) Cardiovascular: irregularly irregular, S1 and S2, systolic murmur (soft ARSENIO at card base) Gastrointestional: No tender; soft; No guarding, No rebound; audible bowel sounds Extremities: No clubbing, No cyanosis, No significant edema Neurologic/Psychiatric: No oriented x 3 (unable to answer questions this morning; not verbally answering questions meaningfully; impulsive movement ( trying to get out of the chair)); other (Moves all limbs equally) Skin: No rash on exposed areas, No ulcerations on exposed areas Results/Procedures: Labs Laboratory Tests 12/07/18 23:42: Glucometer 196H 12/08/18 05:24: Glucometer 135H 12/08/18 06:05: White Blood Count 15.5H, Red Blood Count 4.76, Hemoglobin 13.5, Hematocrit 42, Mean Corpuscular Volume 88, Mean Corpuscular Hemoglobin 28, Mean Corpuscular Hemoglobin Concent 32, Red Cell Distribution Width 14.9H, Platelet Count 220, Mean Platelet Volume 12.9H, Sodium Level 140, Potassium Level 4.3, Chloride Level 101, Carbon Dioxide Level 23, Anion Gap 16H, Blood Urea Nitrogen 41H, Creatinine 2.11H, Estimat Glomerular Filtration Rate 30, BUN/Creatinine Ratio 19 , Glucose Level 134H, Calcium Level 8.9, Magnesium Level 2.4 12/08/18 11:35: Glucometer 120H 12/08/18 15:39: Glucometer 199H Microbiology 12/04/18 Blood Culture - Preliminary, Resulted No growth 12/06/18 Gram Stain - Final, Resulted 12/06/18 Body Fluid Culture - Preliminary, Resulted No growth Laboratory Tests 12/08/18 06:05 A/P: Assessment: Multifactorial shortness of breath due to pneumonia and ac christie CHF Fluctuating mental status change (confusion) apparently worsened by anxiolytic and psychoactive medications. No head bleed on CT head of 12/05/18 S/p R thoracentesis by Dr Kothari (approx 1500 ml) on 12/06/18 Echocardiogram of 11-17-18 showed LVEF 60-65%. Mild to mod calcified annulus; mild MR; PASP 25-30 mmHg DM II CKD-4, likely due to diabetic nephropathy, followed by Dr Rowley Ac renal insuff due to aggressive diuretic therapy Chronic A Fib with an intermittently rapid ventricular response Hypertension Quit chronic pipe smoking in Sep 2018 Restless leg syndrome Chronic hearing loss H/o h'hoids Plan: * Complex management * Continue meds for vent rate control * Use furosemide as needed. Previously reduced d/t worsening renal function. Renal function improved today. * I had a long and detailed conversation with the pt and his and answered their CV-related questions Physician Assessment Physician Assessment Confused but pleasant. Does not report any symptoms. by bedside who reports that he has been confused after being treated with Ativan this am for tremors Lungs: fair to good air entry, diminished at the bases Cor: irreg Ext: no c/c/e A&R * As documented in our note above that I updated (italics) and as noted below * Continue current cardiac regimen * Monitor labs * I discussed his CV issues with his and answered questions JAGDEEP PEARSON CINDER CRUSHER OPERATOR Dec 08, 2018 11:29 PAPO HARGROVE MD FACP FAC CCDS Dec 08, 2018 18:58
[2018-12-08] MEDS ORDERED: DILT240C53 PO (13:46)
[2018-12-08] MEDS ORDERED: METO50TA15 PO (13:46)
[2018-12-08] MEDS ORDERED: MULT-351 PO (13:46)
[2018-12-08] MEDS ORDERED: ASCO10006 PO (13:54)
[2018-12-08] MEDS ORDERED: PYRI100T2 PO (13:54)
[2018-12-08] MEDS ORDERED: GLIM4TAB PO (13:54)
[2018-12-08] MEDS ORDERED: ROPI1TAB2 PO (13:54)
[2018-12-08] MEDS ORDERED: LACT1CAP62 PO (13:54)
[2018-12-08] MEDS ORDERED: ASPI-983 PO (13:54)
--- NOTE | 2018-12-08 13:56 | NUR ---
PATIENT'S HAD A DISCHARGE MEDICATION LIST FROM [facility] AND WE WENT OVER THAT TOGETHER. SHE VERIFIED HOW HE TAKES EACH MEDICATION.
--- NOTE | 2018-12-08 15:17 | NUR ---
Pastoral care visit, visited with pts , offered support, expressed department availability and services.
[2018-12-09] MEDS: morphine INJ 4 MG/ML 1 ML (VIAL/SYRINGE) IVP PRN (00:25)
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
[2018-12-09] MEDS: PIPERACILLIN SODIUM/TAZOBACTAM 4.5 GM in NS (IVPB) 100 ML IV SCH ×3 (02:37→18:25)
[2018-12-09 03:36] VITALS: BP 118/69
[2018-12-09] MEDS: inSUlin ASPART (NovoLOG) 1 UNIT/0.01 ML (CHARGE PER UNIT) SC SCH ×4 (06:52→21:52)
[2018-12-09] MEDS: CATHETER FLUSH 10 ML SYR IV SCH ×3 (06:52→20:48)
[2018-12-09 08:00] VITALS: BP 135/75
[2018-12-09] MEDS: RT-ALBUTEROL/IPRATROPIUM 3 ML (DUONEB) VIAL INH SCH ×3 (08:09→18:57)
--- NOTE | 2018-12-09 08:17 | Diagnostic Imaging Report ---
INDICATION: Shortness of breath. TIME OF EXAMINATION: 04:03 a.m. COMPARISON: Correlation is made with prior study one day earlier. FINDINGS: The heart size is stable. There is a small left pleural effusion, slightly decreased when compared with yesterday. There are some patchy airspace infiltrates obscuring the left hemidiaphragm, similar to prior. Mild interstitial changes in the right lung base are noted. The pulmonary vascularity is unremarkable. No pneumothorax is seen. IMPRESSION: Overall stable appearance to the chest when compared with one day earlier apart from slight decrease in left-sided pleural effusion. Dictated by: Dictated on workstation # [id number]
--- NOTE | 2018-12-09 08:49 | Pulmonary Progress Note ---
Subjective Time Seen by a Provider: 08:01 Subjective/Events-last exam Pt is doing better. No complications noted. Sepsis Event Evaluation Height, Weight, BMI Height: 5'10.00" Weight: 143lbs. 1.0oz. 64.012049ye; 22.7 BMI Method:Stated Exam Exam Vital Signs Date Time Temp Pulse Resp B/P (MAP) Pulse Ox O2 Delivery O2 Flow Rate FiO2 12/09/18 08:09 Room Air 12/09/18 08:00 98.0 89 18 135/75 (95) 96 Room Air 12/09/18 03:36 98.6 78 16 118/69 (85) 93 Room Air 12/09/18 00:00 Room Air 12/08/18 21:00 Room Air 12/08/18 19:26 96.7 54 16 118/76 (90) 93 Room Air 12/08/18 15:45 97.9 74 14 125/75 (92) 99 Nasal Cannula 12/08/18 15:16 98 Room Air 12/08/18 13:07 95 12/08/18 12:00 96.7 80 20 116/61 (79) 97 Room Air I & O 12/09/18 07:00 Intake Total 2000 ml Output Total 2275 ml Balance -275 ml Height & Weight Height: 5'10.00" Weight: 143lbs. 1.0oz. 64.146987vk; 22.7 BMI Method:Stated General Appearance: No Apparent Distress, Chronically ill, Thin HEENT: PERRL/EOMI, Moist Mucous Membranes; No Scleral Icterus (L), No Scleral Icterus (R) Neck: Non Tender, Supple Respiratory: No Respiratory Distress, Decreased Breath Sounds (in bases); No Wheezing Cardiovascular: Regular Rate, Rhythm, No Murmur Capillary Refill: NONE Gastrointestinal: normal bowel sounds, non tender, soft, no organomegaly Extremity: No Calf Tenderness Neurologic/Psychiatric: Alert, Oriented x3 Skin: Normal Color, Warm/Dry Results Lab Laboratory Tests 12/08/18 06:05 Assessment/Plan Assessment/Plan Acute on chronic respiratory failure s/p bronchoscopy last admission Diastolic CHFAE with bilateral pleural effusions s/p thoracentesis 12/06/18 -- transudative -Continue Lasix -Repeat CXR pending for this AM. Pt states he feels less SOB and less fullness in his chest. Pneumonia - Zosyn -Bronch cultures grew enterococcus Metabolic lactic acidosis - resolved -Monitor -escalante culture Atelectasis -Increase activity COPD -SVNS Q4 -Oxygen Afib DAKOTA CASTAÑEDA DO Dec 09, 2018 08:49
[2018-12-09] MEDS: meTOprolol TARTRATE 50 MG (LOPRESSOR) TAB PO SCH ×2 (09:13→21:52)
[2018-12-09] MEDS: DILTIAZEM 240 MG (CARDIZEM CD) CAP PO SCH (09:13)
[2018-12-09] MEDS: APIXABAN 2.5 MG (ELIQUIS) TABLET PO SCH ×2 (09:13→21:52)
[2018-12-09] MEDS: FUROSEMIDE 40 MG/4 ML INJ (LASIX) IVP SCH (09:13)
[2018-12-09] MEDS: risperiDONE 0.25 MG (RisperDAL) TAB PO SCH ×2 (09:14→20:33)
[2018-12-09 09:26] LABS: BASOPHILS % (AUTO) 0 % (0-10); EOSINOPHILS # (AUTO) 0.4 10^3/uL (0.0-0.3); EOSINOPHILS % (AUTO) 3 % (0-10); HEMATOCRIT 40 % (40-54); HEMOGLOBIN 12.5 G/DL (13.3-17.7); LYMPHOCYTES # (AUTO) 1.7 X 10^3 (1.0-4.0); LYMPHOCYTES % (AUTO) 14 % (12-44); MEAN CORPUSCULAR HEMOGLOBIN 28 PG (25-34); MEAN CORPUSCULAR HGB CONC 31 G/DL (32-36); MEAN CORPUSCULAR VOLUME 91 FL (80-99); MEAN PLATELET VOLUME 12.4 FL (7.4-10.4); MONOCYTES # (AUTO) 1.1 X 10^3 (0.0-1.0); MONOCYTES % (AUTO) 9 % (0-12); NEUTROPHILS # (AUTO) 8.9 X 10^3 (1.8-7.8); NEUTROPHILS % (AUTO) 74 % (42-75); PLATELET COUNT 206 10^3/uL (130-400); RED CELL DISTRIBUTION WIDTH 14.5 % (10.0-14.5); WHITE BLOOD COUNT 12.1 10^3/uL (4.3-11.0)
[2018-12-09 09:46] LABS: ALBUMIN 3.7 GM/DL (3.2-4.5); BILIRUBIN,TOTAL 0.5 MG/DL (0.1-1.0); CALCIUM 8.9 MG/DL (8.5-10.1); CREATININE SERUM 2.34 MG/DL (0.60-1.30); POTASSIUM 4.1 MMOL/L (3.6-5.0); TOTAL PROTEIN 6.2 GM/DL (6.4-8.2)
--- NOTE | 2018-12-09 09:58 | Progress Note-Cardiology ---
Cardiology SOAP Progress Note Subjective: Still confused and restless by bedside Does not report any cp or shortness of breath or palp Objective: I&O/Vital Signs 12/09/18 12/09/18 12/09/18 12/09/18 00:00 03:36 08:00 08:09 Temp 98.6 98.0 Pulse 78 89 Resp 16 18 B/P (MAP) 118/69 (85) 135/75 (95) Pulse Ox 93 96 O2 Delivery Room Air Room Air Room Air Room Air 12/09/18 00:00 Intake Total 1900 ml Output Total 1975 ml Balance -75 ml Weight (Pounds): 143 Weight (Ounces): 1.0 Weight (Calculated Kilograms): 64.557888 Constitutional: appears stated age; No AAO x 3, No apparent distress; well- developed, well-nourished Respiratory: No accessory muscle use, No respiratory distress; other (fair bilat air entry, diminished at the bases) Cardiovascular: irregularly irregular, S1 and S2, systolic murmur (soft ARSENIO at card base) Gastrointestional: No tender; soft; No guarding, No rebound; audible bowel sounds Extremities: No clubbing, No cyanosis, No significant edema Neurologic/Psychiatric: No oriented x 3 (unable to answer questions this morning; not verbally answering questions meaningfully; impulsive movement ( trying to get out of the chair)); other (Moves all limbs equally) Skin: No rash on exposed areas, No ulcerations on exposed areas Results/Procedures: Labs Laboratory Tests 12/08/18 11:35: Glucometer 120H 12/08/18 15:39: Glucometer 199H 12/08/18 20:17: Glucometer 149H 12/09/18 06:07: Glucometer 136H 12/09/18 09:15: White Blood Count 12.1H, Red Blood Count 4.44, Hemoglobin 12.5L, Hematocrit 40, Mean Corpuscular Volume 91, Mean Corpuscular Hemoglobin 28, Mean Corpuscular Hemoglobin Concent 31L, Red Cell Distribution Width 14.5, Platelet Count 206, Mean Platelet Volume 12.4H, Neutrophils (%) (Auto) 74, Lymphocytes (%) (Auto) 14 , Monocytes (%) (Auto) 9, Eosinophils (%) (Auto) 3, Basophils (%) (Auto) 0, Neutrophils # (Auto) 8.9H, Lymphocytes # (Auto) 1.7, Monocytes # (Auto) 1.1H, Eosinophils # (Auto) 0.4H, Basophils # (Auto) 0.0, Sodium Level 141, Potassium Level 4.1, Chloride Level 102, Carbon Dioxide Level 28, Anion Gap 11, Blood Urea Nitrogen 38H, Creatinine 2.34H, Estimat Glomerular Filtration Rate 27, BUN/ Creatinine Ratio 16, Glucose Level 166H, Calcium Level 8.9, Corrected Calcium 9.1, Total Bilirubin 0.5, Aspartate Amino Transf (AST/SGOT) 26, Alanine Aminotransferase (ALT/SGPT) 10, Alkaline Phosphatase 48, Total Protein 6.2L, Albumin 3.7 Microbiology 12/04/18 Blood Culture - Preliminary, Resulted No growth 12/06/18 Gram Stain - Final, Resulted 12/06/18 Body Fluid Culture - Preliminary, Resulted No growth Laboratory Tests 12/08/18 06:05 12/09/18 09:15 A/P: Assessment: Multifactorial shortness of breath due to pneumonia and ac christie CHF Fluctuating mental status change (confusion) apparently worsened by anxiolytic and psychoactive medications. No head bleed on CT head of 12/05/18 S/p R thoracentesis by Dr Kothari (approx 1500 ml) on 12/06/18 Echocardiogram of 11-17-18 showed LVEF 60-65%. Mild to mod calcified annulus; mild MR; PASP 25-30 mmHg DM II CKD-4, likely due to diabetic nephropathy, followed by Dr Rowley Ac renal insuff due to aggressive diuretic therapy Chronic A Fib with an intermittently rapid ventricular response Hypertension Quit chronic pipe smoking in Sep 2018 Restless leg syndrome Chronic hearing loss H/o h'hoids Plan: * Complex management * Continue meds for vent rate control * Use furosemide as needed. Previously reduced d/t worsening renal function * I had a long and detailed conversation with the pt and his and answered their CV-related questions PAPO HARGROVE MD FACP FAC CCDS Dec 09, 2018 09:57
--- NOTE | 2018-12-09 11:34 | Progress Note-Hospitalist ---
Subjective HPI/CC On Admission Date Seen by Provider: Dec 09, 2018 Time Seen by Provider: 11:00 Pt is a 83yoCM known to me from recent admission who presented to the ER per him due to SOB. He is confused and asking for pants so he can go "to the services." He is unable to give me most details of his history other than that he started to get SOB yesterday prompting him to come to the ER. The rest of his history is obtained from records. ER notes state that he came due to high blood sugar (422) and incidentally complained of shortness of breath when he was found to be hypoxic on his normal 2lpm. His CXR revealed persistent bilateral pleural effusions and he had a leukocytosis of 14.1. He was admitted for recurrent pneumonia and OSWALDO. Subjective/Events-last exam Pt doing much better Less confused but I needed to go ahead and refer to [facility] [place] of which screening was successful. Pt did meet criteria but he does not wish to be admitted there Spoke with Dr. Kothari and antibiotic duration discussed Getting close to DC Creatinine of baseline 2.1 Review of Systems General: Fatigue Neurological: Confusion Objective Exam Vital Signs Vital Signs Date Time Temp Pulse Resp B/P (MAP) Pulse Ox O2 Delivery O2 Flow Rate FiO2 12/09/18 18:59 98 Room Air 12/09/18 16:00 97.7 81 18 151/79 (103) 12/07/18 10:50 3.00 Capillary Refill : NONE General Appearance: No Apparent Distress, Chronically ill, Cachetic, Thin HEENT: PERRL/EOMI, Moist Mucous Membranes; No Scleral Icterus (L), No Scleral Icterus (R) Neck: Non Tender, Supple Respiratory: Chest Non Tender, No Respiratory Distress, Decreased Breath Sounds (in bases); No Wheezing Cardiovascular: Regular Rate, Rhythm, No Murmur Gastrointestinal: Normal Bowel Sounds, Non Tender, Soft Back: Normal Inspection, No CVA Tenderness Extremity: No Calf Tenderness Neurologic/Psychiatric: Alert, Oriented x3, Disoriented Skin: Normal Color, Warm/Dry Results/Procedures Lab Laboratory Tests 12/09/18 09:15 Patient resulted labs reviewed. Imaging: Reviewed Imaging Report Assessment/Plan Assessment and Plan Assess & Plan/Chief Complaint Assessment: Pneumonia with enterococcus on bronch cultures Dementia with severe confusion now improved but prompted [facility] referral Chronic renal insufficiency next number diabetes mellitus Hypertension Plan: Maintain IV antibiotics Monitor creatinine DC soon Diagnosis/Problems Diagnosis/Problems (1) Pneumonia Qualifiers: Pneumonia type: due to unspecified organism Laterality: unspecified laterality Lung location: unspecified part of lung Qualified Codes: J18.9 - Pneumonia, unspecified organism (2) OSWALDO (acute kidney injury) (3) Atrial fibrillation Status: Acute Qualifiers: Atrial fibrillation type: chronic Qualified Codes: I48.2 - Chronic atrial fibrillation (4) Acute and chronic respiratory failure with hypoxia (5) Hypothyroidism Qualifiers: Hypothyroidism type: unspecified Qualified Codes: E03.9 - Hypothyroidism, unspecified (6) COPD (chronic obstructive pulmonary disease) Status: Chronic Qualifiers: COPD type: unspecified COPD Qualified Codes: J44.9 - Chronic obstructive pulmonary disease, unspecified (7) CHF (congestive heart failure) Status: Acute Qualifiers: Heart failure type: diastolic Heart failure chronicity: acute on chronic Qualified Codes: I50.33 - Acute on chronic diastolic (congestive) heart failure (8) Acute on chronic renal insufficiency Status: Acute (9) Hypoxia Status: Acute (10) Hyperkalemia Status: Acute (11) Dementia Status: Chronic Qualifiers: Dementia type: Alzheimer's disease (12) Psychosis Status: Acute Qualifiers: Psychosis type: unspecified psychosis type Qualified Codes: F29 - Unspecified psychosis not due to a substance or known physiological condition (13) Smoker Status: Chronic Clinical Quality Measures DVT/VTE Risk/Contraindication: Risk Factor Score Per Nursin RFS Level Per Nursing on Admit: 4+=Very High VANE BRISCOE DO Dec 09, 2018 11:33
--- NOTE | 2018-12-09 11:38 | NUR ---
GENA/ELENO Shea with [facility] here to assess the patient, provided him with necessary information for his assessment. He will contact after assessment is complete to let know if they are able to accept him.
[2018-12-09 12:00] VITALS: BP 136/80
--- NOTE | 2018-12-09 15:15 | NUR ---
PT REFUSES TO COOPERATE WITH BREATHING TX.
[2018-12-09 16:00] VITALS: BP 151/79
--- NOTE | 2018-12-09 19:12 | NUR ---
is refusing to have Risperdal administered
[2018-12-09 20:05] VITALS: BP 141/84
[2018-12-10 00:58] VITALS: BP 146/88
[2018-12-10] MEDS: PIPERACILLIN SODIUM/TAZOBACTAM 4.5 GM in NS (IVPB) 100 ML IV SCH ×2 (01:04→09:17)
[2018-12-10 05:00] VITALS: BP 148/80
[2018-12-10] MEDS: inSUlin ASPART (NovoLOG) 1 UNIT/0.01 ML (CHARGE PER UNIT) SC SCH ×2 (06:05→11:46)
[2018-12-10] MEDS: CATHETER FLUSH 10 ML SYR IV SCH ×2 (06:06→13:35)
[2018-12-10] MEDS: RT-ALBUTEROL/IPRATROPIUM 3 ML (DUONEB) VIAL INH SCH (06:58)
--- NOTE | 2018-12-10 07:58 | Diagnostic Imaging Report ---
INDICATION: Shortness of breath. COMPARISON: 12/09/2018. FINDINGS: Left basilar heterogeneous opacities are unchanged. Potential trace left pleural effusion is also similar. No pneumothorax. Stable borderline cardiomegaly. IMPRESSION: No change in left basilar heterogeneous opacities and trace left pleural effusion. Dictated by: Dictated on workstation # [id number]
[2018-12-10 08:00] VITALS: BP 148/62
--- NOTE | 2018-12-10 08:06 | Pulmonary Progress Note ---
Subjective Time Seen by a Provider: 08:02 Subjective/Events-last exam No complications noted. Sepsis Event Evaluation Height, Weight, BMI Height: 5'10.00" Weight: 133lbs. 6.0oz. 60.733136gr; 22.7 BMI Method:Stated Exam Exam Vital Signs Date Time Temp Pulse Resp B/P (MAP) Pulse Ox O2 Delivery O2 Flow Rate FiO2 12/10/18 06:58 95 Room Air 12/10/18 05:00 98.0 80 20 148/80 (102) 96 Room Air 12/10/18 00:58 98.3 78 20 146/88 (107) 97 Room Air 12/09/18 21:00 Room Air 12/09/18 20:05 97.0 90 20 141/84 (103) 99 Room Air 12/09/18 18:59 98 Room Air 12/09/18 16:00 97.7 81 18 151/79 (103) 96 Room Air 12/09/18 12:00 97.5 94 18 136/80 (98) 94 Room Air 12/09/18 09:00 Room Air 12/09/18 08:09 Room Air I & O 12/10/18 07:00 Intake Total 1460 ml Output Total 1100 ml Balance 360 ml Height & Weight Height: 5'10.00" Weight: 133lbs. 6.0oz. 60.718170qe; 22.7 BMI Method:Stated General Appearance: No Apparent Distress, Chronically ill, Thin HEENT: PERRL/EOMI, Moist Mucous Membranes; No Scleral Icterus (L), No Scleral Icterus (R) Neck: Non Tender, Supple Respiratory: No Respiratory Distress, Decreased Breath Sounds (in bases); No Wheezing Cardiovascular: Regular Rate, Rhythm, No Murmur Capillary Refill: Less Than 3 Seconds Gastrointestinal: normal bowel sounds, non tender, soft, no organomegaly Extremity: No Calf Tenderness Neurologic/Psychiatric: Alert, Oriented x3 Skin: Normal Color, Warm/Dry Results Lab Laboratory Tests 12/09/18 09:15 Assessment/Plan Assessment/Plan Acute on chronic respiratory failure s/p bronchoscopy last admission Diastolic CHFAE with bilateral pleural effusions s/p thoracentesis 12/06/18 -- transudative -Continue Lasix Pneumonia - Zosyn -Bronch cultures grew enterococcus Metabolic lactic acidosis - resolved -Monitor -escalante culture Atelectasis -Increase activity COPD -SVNS Q4 -Oxygen Afib PT refusing [facility] transfer. DAKOTA CASTAÑEDA DO Dec 10, 2018 08:06
--- NOTE | 2018-12-10 08:09 | Pulmonary Procedures ---
Pulmonary Procedures Date of Procedure Date of Service: Dec 06, 2018 (late entry procedure was done on 12/06/18) Bronch US guided complex thoracentesis Preop DX: pleural effusion post op DX: Same 1500cc of yellow fluid obtained) Complications: None After informed consent obtained US was used to localize pleural fluid. Pt has pleural effusions. Skin was anesthetized at approximately the 10th ICS right posterior axillary line. Thoracentesis needle was advanced through the right 10th ICS posterior axillary line. Needle was removed and catheter left in place.1500cc of yellow fluid obtained using vacuum bottles. Catheter was then removed. Pt tolerated procedure well. No complications noted. DAKOTA CASTAÑEDA DO Dec 10, 2018 08:09
--- NOTE | 2018-12-10 08:10 | Cardiology Progress Note ---
Subjective Date Seen by Provider: Dec 10, 2018 Time Seen by Provider: 08:06 Subjective/Events-last exam Patient is walking around in room, pleasantly confused. No chest pain or dyspnea. Objective-Cardiology Exam Last Set of Vital Signs Vital Signs 12/07/18 12/10/18 12/10/18 10:50 05:00 06:58 Temp 98.0 Pulse 80 Resp 20 B/P (MAP) 148/80 (102) Pulse Ox 95 O2 Delivery Room Air O2 Flow Rate 3.00 Capillary Refill : Less Than 3 SecondsLess Than 3 Seconds I&O Intake and Output 12/10/18 00:00 Intake Total 1260 ml Output Total 1400 ml Balance -140 ml Intake Oral 1160 ml IV Total 100 ml Output Urine Total 1400 ml # Voids 4 # Bowel Movements 2 General: Alert, Cooperative, No Acute Distress HEENT: Atraumatic, PERRLA Neck: Supple, No JVD Lungs: Clear to Auscultation, Normal Air Movement Heart: Other (irregularly irregular) Abdomen: Normal Bowel Sounds, Soft Extremities: No Edema Skin: No Rashes Neuro: Cranial Nerves 3-12 NL Psych/Mental Status: Mental Status NL, Mood NL Results Lab Laboratory Tests 12/09/18 09:15 A/P-Cardiology Admission Diagnosis Dyspnea Diastolic CHF HTN Chronic atrial fibrillation Assessment/Plan Multifactorial shortness of breath due to pneumonia and acute diastolic CHF, improving, continue to monitor. Echocardiogram of 11-17-18 showed LVEF 60-65%. Mild to mod calcified annulus; mild MR; PASP 25-30 mmHg Fluctuating mental status change (confusion) apparently worsened by anxiolytic and psychoactive medications. No head bleed on CT head of 12/05/18 Pleural effusion-S/p R thoracentesis by Dr Kothari (approx 1500 ml) on 12/06/18 CKD-4, likely due to diabetic nephropathy, followed by Dr Rowley Acute on chronic renal insufficiency due to aggressive diuretic therapy, I will change Lasix to PO, continue to monitor. Chronic A Fib with an intermittently rapid ventricular response Hypertension- controlled, continue to monitor. Diabetes mellitus- management per primary services Quit chronic pipe smoking in Sep 2018 Restless leg syndrome Chronic hearing loss Clinical Quality Measures DVT/VTE Risk/Contraindication: Risk Factor Score Per Nursin RFS Level Per Nursing on Admit: 4+=Very High FRED PASTOR Dec 10, 2018 08:10
[2018-12-10] MEDS: APIXABAN 2.5 MG (ELIQUIS) TABLET PO SCH (09:08)
[2018-12-10] MEDS: DILTIAZEM 240 MG (CARDIZEM CD) CAP PO SCH (09:08)
[2018-12-10] MEDS: meTOprolol TARTRATE 50 MG (LOPRESSOR) TAB PO SCH (09:08)
[2018-12-10] MEDS: FUROSEMIDE 40 MG/4 ML INJ (LASIX) IVP SCH (09:09)
--- NOTE | 2018-12-10 09:20 | Cardiology Progress Note ---
Subjective Date Seen by Provider: Dec 10, 2018 Time Seen by Provider: 09:19 Subjective/Events-last exam patient is sitting in a chair, confused, no new complaint. Review of Systems General: No Chills, No Night Sweats, No Fatigue, No Malaise, No Appetite, No Other HEENT: No Head Aches, No Visual Changes, No Eye Pain, No Ear Pain, No Dysphasia , No Sinus Congestion, No Post Nasal Drip, No Sore Throat, No Other Pulmonary: No Dyspnea, No Cough, No Pleuritic Chest Pain, No Other Cardiovascular: No: Chest Pain, Palpitations, Orthopnea, Paroxysmal Noc. Dyspnea, Edema, Lt Headedness, Other Objective-Cardiology Exam Last Set of Vital Signs Vital Signs 12/07/18 12/10/18 10:50 08:00 Temp 98.2 Pulse 94 Resp 20 B/P (MAP) 148/62 (90) Pulse Ox 96 O2 Delivery Room Air O2 Flow Rate 3.00 Capillary Refill : Less Than 3 SecondsLess Than 3 Seconds I&O Intake and Output 12/10/18 00:00 Intake Total 1260 ml Output Total 1400 ml Balance -140 ml Intake Oral 1160 ml IV Total 100 ml Output Urine Total 1400 ml # Voids 4 # Bowel Movements 2 General: Alert, Cooperative, No Acute Distress HEENT: Atraumatic, PERRLA Neck: Supple, No JVD Lungs: Clear to Auscultation, Normal Air Movement Heart: Normal S1, Normal S2, Other (irregularly irregular) Abdomen: Normal Bowel Sounds, Soft Extremities: No Clubbing, No Edema Skin: No Rashes Neuro: Normal Gait, Cranial Nerves 3-12 NL Psych/Mental Status: Mood NL Results Lab Laboratory Tests Test 12/09/18 11:05 12/09/18 17:06 12/09/18 20:44 12/10/18 05:39 Range/Units Glucometer 143 H 192 H 255 H 125 H 70-110 MG/DL A/P-Cardiology Admission Diagnosis Dyspnea Diastolic CHF HTN Chronic atrial fibrillation Assessment/Plan Multifactorial shortness of breath due to pneumonia and acute diastolic CHF, improving, continue to monitor. Echocardiogram of 11-17-18 showed LVEF 60-65%. Mild to mod calcified annulus; mild MR; PASP 25-30 mmHg Fluctuating mental status change (confusion) apparently worsened by anxiolytic and psychoactive medications. No head bleed on CT head of 12/05/18 Pleural effusion-S/p R thoracentesis by Dr Kothari (approx 1500 ml) on 12/06/18 CKD-4, likely due to diabetic nephropathy, followed by Dr Rowley Acute on chronic renal insufficiency due to aggressive diuretic therapy, I will change Lasix to PO, continue to monitor. Chronic A Fib with an intermittently rapid ventricular response Hypertension- controlled, continue to monitor. Diabetes mellitus- management per primary services Quit chronic pipe smoking in Sep 2018 Restless leg syndrome Chronic hearing loss Clinical Quality Measures DVT/VTE Risk/Contraindication: Risk Factor Score Per Nursin RFS Level Per Nursing on Admit: 4+=Very High AZUL THORNTON MD Dec 10, 2018 09:20
[2018-12-10] MEDS: risperiDONE 0.25 MG (RisperDAL) TAB PO SCH (09:24)
[2018-12-10] MEDS ORDERED: IPRA3AMP31 INH (11:14)
[2018-12-10] MEDS ORDERED: AMOX-358 PO (11:14)
[2018-12-10] MEDS ORDERED: FURO-125 PO (11:14)
--- NOTE | 2018-12-10 11:16 | Discharge Summary-Hospitalist ---
Diagnosis/Chief Complaint Date of Admission Dec 05, 2018 at 01:23 Date of Discharge Discharge Date: Dec 10, 2018 Admission Diagnosis Acute on chronic respiratory failure Discharge Diagnosis (1) Pneumonia Status: Acute (2) OSWALDO (acute kidney injury) Status: Acute (3) Atrial fibrillation Status: Acute (4) Acute and chronic respiratory failure with hypoxia Status: Chronic (5) Hypothyroidism Status: Chronic (6) COPD (chronic obstructive pulmonary disease) Status: Chronic (7) CHF (congestive heart failure) Status: Acute (8) Acute on chronic renal insufficiency Status: Acute (9) Hypoxia Status: Acute (10) Hyperkalemia Status: Acute (11) Dementia Status: Chronic (12) Psychosis Status: Acute (13) Smoker Status: Chronic (14) Pleural effusion Status: Acute Discharge Summary Discharge Physical Exam Allergies: Coded Allergies: gabapentin (Verified Allergy, Unknown, 11/15/18) pregabalin (Verified Allergy, Unknown, 11/15/18) lorazepam (Verified Adverse Reaction, Severe, AGITATION, 12/08/18) haloperidol (Verified Adverse Reaction, Intermediate, AGITATION, 12/08/18) Vitals & I&Os Vital Signs Date Time Temp Pulse Resp B/P (MAP) Pulse Ox O2 Delivery O2 Flow Rate FiO2 12/10/18 16:58 12/10/18 12:00 98.6 100 22 96 Room Air 12/07/18 10:50 3.00 General Appearance: No Apparent Distress, Chronically ill, Thin HEENT: PERRL/EOMI, Moist Mucous Membranes; No Scleral Icterus (L), No Scleral Icterus (R) Respiratory: No Respiratory Distress, Decreased Breath Sounds (in bases); No Wheezing Cardiovascular: Regular Rate, Rhythm, No Murmur Gastrointestinal: Normal Bowel Sounds, Non Tender, Soft Extremity: No Calf Tenderness Skin: Normal Color, Warm/Dry Neurologic/Psychiatric: Alert, Disoriented Hospital Course Was the Problem List Reviewed?: Yes This is an 83-year-old white male who is familiar to me from [facility] for Pseudomonas and Serratia pneumonia requiring swing bed for IV antibiotic completion who presented for the second time to be a [place] for recurrent pneumonia and was found to have a pleural effusion that underwent thoracentesis. Patient was placed on aggressive nebulizer treatments and pulmonary management by Dr. Kothari. Dementia worsened with acute psychosis and antipsychotics were initiated with some side effects of worsening behavior and twitching. Laboratory was monitored closely along with creatinine which remained a little bit elevated more than his baseline of 1.8. He does see nephrology in [place] for that. Insulin with sliding scale was initiated and most of his home medications were held due to acute illness. Senior behavioral unit consult was initiated of which she met criteria due to the confusional state but he declined to be admitted there and his supported that decision. Overall he was deemed stable placed on Augmentin for adequate oral antibiotic regimen as an outpatient but considering this being his third hospital stay for the same recurrent pneumonia and worsening renal function along with dementia precludes anything but a poor prognosis. Labs (last 24 hrs) Microbiology 12/04/18 Blood Culture - Final, Complete No growth 12/06/18 Gram Stain - Final, Complete 12/06/18 Body Fluid Culture - Final, Complete No growth Patient resulted labs reviewed. Pending Labs Imaging: Reviewed Imaging Report Discussion & Recommendations Discharge Planning: <30 minutes discharge planning Discharge Home Medications: Active Scripts Active Augmentin 875-125 Tablet (Amoxicillin/Potassium Clav) 1 Each Tablet 1 Each PO BID Lasix (Furosemide) 20 Mg Tablet 20 Mg PO Q48H Iprat-Albut 0.5-3(2.5) mg/3 ml (Ipratropium/Albuterol Sulfate) 3 Ml Ampul.neb 3 Ml INH RTTID Advair Hfa 115-21 Mcg Inhaler (Fluticasone/Salmeterol) 12 Gm Hfa.aer.ad 2 Puff IH RTBID@0800,2000 Eliquis (Apixaban) 2.5 Mg Tablet 2.5 Mg PO BID Reported Ropinirole HCl 1 Mg Tablet 2 Mg PO 2029 TAKES 2 (1MG) TABLETS Probiotic (Lactobacillus Acidophilus) 1 Each Capsule 1 Cap PO DAILY Glimepiride 4 Mg Tablet 4 Mg PO BID Aspirin EC (Aspirin) 81 Mg Tablet.dr 81 Mg PO HS Vitamin B-6 (Pyridoxine HCl) 100 Mg Tablet 100 Mg PO DAILY Vitamin C (Ascorbic Acid) 1,000 Mg Tablet 1,000 Mg PO DAILY Metoprolol Tartrate 50 Mg Tablet 50 Mg PO BID Cartia Xt (Diltiazem HCl) 240 Mg Cap.er.24h 240 Mg PO DAILY Daily Vitamin Formula (Multivitamin) 1 Each Tablet 1 Tab PO DAILY Vitamin B-12 (Cyanocobalamin (Vitamin B-12)) 1,000 Mcg Tablet 1,000 Mcg PO DAILY Garlic 1,000 Mg Capsule 1,000 Mg PO DAILY Vitamin B-6 (Pyridoxine HCl) 100 Mg Tablet 100 Mg PO DAILY Ocuvite Softgel (Vit C/Vit E/Lutein/Min/[place]-3) 1 Each Capsule 1 Cap PO DAILY Vitamin D3 (Cholecalciferol (Vitamin D3)) 1,000 Unit Capsule 1,000 Unit PO DAILY Saw [place] (Saw [place] Fruit) 450 Mg Capsule 450 Mg PO BID Acid Offset Label Rewinder (FAMOTIDINE) (Famotidine) 20 Mg Tablet 20 Mg PO BID Prilosec Otc (Omeprazole Magnesium) 20 Mg Tablet.dr 40 Mg PO DAILY Levothyroxine Sodium 100 Mcg Tablet 100 Mcg PO DAILY Fenofibrate (Fenofibrate Nanocrystallized) 145 Mg Tablet 145 Mg PO DAILY Combigan Eye Drops (Brimonidine Tartrate/Timolol) 5 Ml Drops 1 Drop OU BID Ropinirole HCl 1 Mg Tablet 1 Mg PO 0800,1530 Liothyronine Sodium 25 Mcg Tablet 25 Mcg PO DAILY Krill Oil 1,000 mg Softgel (Krill/Om3/Dha/Epa/Om6/Lip/Astx) 1 Each Capsule 1, 000 Mg PO DAILY Instructions to patient/family Please see electronic discharge instructions given to patient. Clinical Quality Measures DVT/VTE Risk/Contraindication: Risk Factor Score Per Nursin RFS Level Per Nursing on Admit: 4+=Very High Problem Qualifiers (1) Pneumonia: Pneumonia type: due to unspecified organism Laterality: unspecified laterality Lung location: unspecified part of lung Qualified Codes: J18.9 - Pneumonia, unspecified organism (2) Atrial fibrillation: Atrial fibrillation type: chronic Qualified Codes: I48.2 - Chronic atrial fibrillation (3) Hypothyroidism: Hypothyroidism type: unspecified Qualified Codes: E03.9 - Hypothyroidism, unspecified (4) COPD (chronic obstructive pulmonary disease): COPD type: unspecified COPD Qualified Codes: J44.9 - Chronic obstructive pulmonary disease, unspecified (5) CHF (congestive heart failure): Heart failure type: diastolic Heart failure chronicity: acute on chronic Qualified Codes: I50.33 - Acute on chronic diastolic (congestive) heart failure (6) Dementia: Dementia type: Alzheimer's disease (7) Psychosis: Psychosis type: unspecified psychosis type Qualified Codes: F29 - Unspecified psychosis not due to a substance or known physiological condition VANE BRISCOE DO Dec 10, 2018 11:16
[2018-12-10 12:00] VITALS: BP 133/77
== END 2018-12-10 14:25 | disposition home or self-care (01) | DRG 189 ==
LOC: EDUNIT# 22:58 → ER 22:59 → ICU 12-05 01:23 → 4TH 12-07 10:05
PROVIDERS: ADMIT Family Medicine; ATTEND Family Medicine
PROC: 0W993ZZ Drainage of Right Pleural Cavity, Percutaneous Approach (ICD-10-PCS; principal; 2018-12-06)
DX: J96.21 Acute and chronic respiratory failure with hypoxia (principal); I13.0 Hypertensive heart and chronic kidney disease with heart failure and stage 1 through stage 4 chronic kidney disease, or unspecified chronic kidney disease; I50.31 Acute diastolic (congestive) heart failure; N18.4 Chronic kidney disease, stage 4 (severe); J18.9 Pneumonia, unspecified organism; B95.2 Enterococcus as the cause of diseases classified elsewhere; J90 Pleural effusion, not elsewhere classified; E87.2 Acidosis; J98.11 Atelectasis; J44.1 Chronic obstructive pulmonary disease with (acute) exacerbation; J44.0 Chronic obstructive pulmonary disease with (acute) lower respiratory infection; N17.9 Acute kidney failure, unspecified; R41.0 Disorientation, unspecified; I48.2 Chronic atrial fibrillation; E11.65 Type 2 diabetes mellitus with hyperglycemia; E11.21 Type 2 diabetes mellitus with diabetic nephropathy; E78.00 Pure hypercholesterolemia, unspecified; E87.5 Hyperkalemia; E03.9 Hypothyroidism, unspecified; K21.9 Gastro-esophageal reflux disease without esophagitis; K44.9 Diaphragmatic hernia without obstruction or gangrene; G47.9 Sleep disorder, unspecified; F41.9 Anxiety disorder, unspecified; I34.0 Nonrheumatic mitral (valve) insufficiency; G25.81 Restless legs syndrome; G24.01 Drug induced subacute dyskinesia; T43.505A Adverse effect of unspecified antipsychotics and neuroleptics, initial encounter
CPT/HCPCS: 36415; 36600; 70450; 71045; 71250; 80048; 80053; 81000; 82150; 82805; 82945; 82962; 83605; 83615; 83690; 83735; 83880; 83986; 84157; 84443; 84478; 84484; 85007; 85025; 85027; 85610; 85730; 87040; 87070; 87205; 88112; 88305; 88341; 88342; 89051; 93005; 93041; 94640; 94760; 96361; 96365; 96375

== ENCOUNTER 2018-12-26 15:30 | Inpatient (IN) | payer MEDICARE, OTHER ==
[~2018-12-26] VITALS: Ht 175.3 cm; Wt 62.8 kg
[~2018-12-26 15:30] MED LIST changes: +ASCO10006 PO; +ATOR80TA76 PO; +BUDE10.22 IH; +DILT240C53 PO; +ENAL5TAB PO; +FURO-125 PO; +GLIM4TAB PO; +IPRA3AMP31 INH; +LACT1CAP62 PO; +MULT-351 PO; +RISP0.253 PO
--- NOTE | 2018-12-26 15:50 | NUR ---
BALJEET MIX V admitted to room 422-1, with an DIRECT admitting diagnosis of PNUEM, on 12/26/18 from [facility] via [facility], accompanied by EMS STAFF.BALJEET MIX V introduced to surroundings, call light, bed controls, phone, TV, temperature control, lights, meal times, smoking policy, visitor policy, side rail policy, bathrooms and showers. Patient Rights given to patient in the handbook. BALJEET MIX V verbalizes understanding that [facility] is not responsible for the loss or damage to any personal effects or valuables that are kept in the patients posession during their hospitalization. The following Patient Care Plans were discussed with the PT: Discharge Planning, IMP GAS EXCH, INEFF BREATHING PATTERN, INEFF AIRWAY CLEARANCE, PAIN, INFECTION, ACT INTOL AND ANXIETY. BALJEET MIX V verbalizes understanding of Interdisciplinary Patient Education. Patient and/or family were informed about the Rapid Response Team and its purpose. REPORT WAS CALLED TO THIS RN FROM [facility] AT [facility] AND REPORT FROM EM WHEN TO FLOOR -- NOAH WAS MADE AWARE AND DR REYEZ WAS CALLED FOR ORDERS -- PT CAME TO FLOOR WITH SL IN (FROM [facility]) L FA -- FAMILY TO FLOOR AND ROOM --- TELESITTER ON AND WHEN FAMILY LEAVES WILL HAE BED EXIT ALARM ON AND CHAIR ALARM IS IN ROOM
[2018-12-26] MEDS ORDERED: CHOL10003 PO (16:18)
[2018-12-26] MEDS ORDERED: DIVA500T15 PO (16:23)
[2018-12-26] MEDS ORDERED: ACET325T49 PO (16:23)
[2018-12-26] MEDS ORDERED: QUET25TA73 PO (16:23)
[2018-12-26] MEDS ORDERED: LACT20SO2 PO (16:23)
[2018-12-26 16:44] VITALS: BP 119/67
[2018-12-26] MEDS: FUROSEMIDE 20 MG (LASIX) TAB PO SCH (17:29)
[2018-12-26 18:05] LABS: BASOPHILS % (AUTO) 0 % (0-10); EOSINOPHILS % (AUTO) 0 % (0-10); HEMATOCRIT 39 % (40-54); HEMOGLOBIN 12.6 G/DL (13.3-17.7); LYMPHOCYTES # (AUTO) 1.6 X 10^3 (1.0-4.0); LYMPHOCYTES % (AUTO) 17 % (12-44); MEAN CORPUSCULAR HEMOGLOBIN 28 PG (25-34); MEAN CORPUSCULAR HGB CONC 32 G/DL (32-36); MEAN CORPUSCULAR VOLUME 88 FL (80-99); MEAN PLATELET VOLUME 12.5 FL (7.4-10.4); MONOCYTES # (AUTO) 1.1 X 10^3 (0.0-1.0); MONOCYTES % (AUTO) 11 % (0-12); NEUTROPHILS # (AUTO) 6.8 X 10^3 (1.8-7.8); NEUTROPHILS % (AUTO) 72 % (42-75); PLATELET COUNT 178 10^3/uL (130-400); RED CELL DISTRIBUTION WIDTH 15.4 % (10.0-14.5); WHITE BLOOD COUNT 9.5 10^3/uL (4.3-11.0)
[2018-12-26 18:27] LABS: ERYTHROCYTE SEDIMENTATION RATE 39 MM/HR (0-30)
[2018-12-26 18:30] LABS: ALBUMIN 4.1 GM/DL (3.2-4.5); BILIRUBIN,TOTAL 0.4 MG/DL (0.1-1.0); CALCIUM 9.6 MG/DL (8.5-10.1); POTASSIUM 4.5 MMOL/L (3.6-5.0); TOTAL PROTEIN 7.6 GM/DL (6.4-8.2)
[2018-12-26 18:36] LABS: BAND NEUTROPHILS 0 %; BASOPHILS % (MANUAL) 0 %; EOSINOPHILS % (MANUAL) 0 %; LYMPHOCYTES % (MANUAL) 18 %; MONOCYTES % (MANUAL) 7 %; NEUTROPHILS % (MANUAL) 75 %; RBC MORPH NORMAL
--- NOTE | 2018-12-26 19:00 | Diagnostic Imaging Report ---
PROCEDURE: CT chest without contrast. TECHNIQUE: Multiple contiguous axial images were obtained through the chest without the use of intravenous contrast. INDICATION: Pneumonia COMPARISON: 12/05/2018 FINDINGS: Since the previous exam, there has been interval resolution of moderate bilateral pleural effusions. There is background emphysematous disease, primarily within a paraseptal distribution. There are patchy groundglass micronodular densities within both lower lobes, right greater than left. These findings are admixed with areas of coarse interstitial prominence and scattered areas of more dense alveolar consolidation. Findings are felt to be on the basis of residual bibasilar pneumonia superimposed on background chronic interstitial lung disease. Soft tissue pulmonary nodule could be obscured secondary to the underlying airspace disease. No pneumothorax is seen on either side. Cardiomediastinal structures show normal heart size. There is no large pericardial effusion. There is moderate calcified aortic and coronary atherosclerosis. A few prominent right hilar and mediastinal lymph nodes are identified. Largest is precarinal in location and measures 1.6 x 2.5 cm. No abnormal axillary adenopathy is seen. Bony structures show no acute abnormalities. No lytic or blastic osseous lesions are seen. Included portions of the upper abdomen show no additional acute abnormalities. IMPRESSION: 1. Interval resolution of bilateral pleural effusions. 2. Findings suggestive of residual bibasilar pneumonia superimposed on chronic emphysematous disease. Continued followup to resolution with chest radiographs is recommended. 3. Moderate calcified aortic and coronary atherosclerosis. 4. Few mildly prominent right perihilar and mediastinal lymph nodes; possibly reactive. Dictated by: Dictated on workstation # [id number]
[2018-12-26 19:08] LABS: CREATININE SERUM 2.33 MG/DL (0.60-1.30)
[2018-12-26 19:41] VITALS: BP 124/70
[2018-12-26] MEDS: RT-ALBUTEROL/IPRATROPIUM 3 ML (DUONEB) VIAL INH SCH (19:45)
[2018-12-26] MEDS: ACETAMINOPHEN 325 MG TABLET PO SCH (20:17)
[2018-12-26] MEDS: DIVALPROEX EXT RELEASE 500 MG (DEPAKOTE ER) TAB PO SCH (20:17)
[2018-12-26] MEDS: FENOFIBRATE 134 MG (LOFIBRA) CAPSULE PO SCH (20:17)
[2018-12-26] MEDS: ASPIRIN 81 MG CHEW (CHILDREN'S ASA) PO SCH (20:17)
[2018-12-26] MEDS: LACTULOSE SYRUP 10GM/15ML (ENULOSE) 30ML UDC PO SCH (20:18)
[2018-12-26] MEDS: QUEtiapine 25 MG (SEROquel) TAB IMMEDIATE RELEASE PO SCH (20:18)
[2018-12-26] MEDS: APIXABAN 2.5 MG (ELIQUIS) TABLET PO SCH (20:18)
--- NOTE | 2018-12-26 20:18 | NUR ---
MEDICATION NOT SCANNED IN ROOM. COMPUTER NOT WORKING.
[2018-12-26] MEDS ORDERED: FAMOTIDINE 20 MG (PEPCID) TABLET PO SCH (21:00)
[2018-12-27] VITALS (7 sets, daily range): BP systolic 112–166; BP diastolic 57–97
[2018-12-27] MEDS: CYANOCOBALAMIN 1,000 MCG (VITAMIN B-12) TABLET PO SCH (06:13)
[2018-12-27] MEDS: LEVOTHYROXINE 100 MCG (LEVOTHROID) TAB PO SCH (06:13)
[2018-12-27] MEDS ORDERED: LIOTHYRONINE 25 MCG PO SCH (09:00)
--- NOTE | 2018-12-27 09:00 | NUR ---
NOTE THAT PT IS CONTINUALLY UP AND MOVING IN RM -- STAFF GOING IN AND PT EVENTUALLY COOPERATES WITH STAFF TO SIT OR TO GET BACK IN BED -- STAFF HAS HAD TO REMIND HIM NOT TO PICK AT HIS IV SITE
[2018-12-27] MEDS: RT-ALBUTEROL/IPRATROPIUM 3 ML (DUONEB) VIAL INH SCH ×3 (09:49→19:14)
[2018-12-27] MEDS: DILTIAZEM 240 MG (CARDIZEM CD) CAP PO SCH (10:23)
[2018-12-27] MEDS ORDERED: FURO20TA4 PO (10:23)
[2018-12-27] MEDS: APIXABAN 2.5 MG (ELIQUIS) TABLET PO SCH ×2 (10:23→21:06)
[2018-12-27] MEDS: LACTULOSE SYRUP 10GM/15ML (ENULOSE) 30ML UDC PO SCH ×2 (10:23→21:06)
[2018-12-27] MEDS: LINEZOLID IVPB 300 ML IV SCH ×2 (10:23→21:07)
[2018-12-27] MEDS: PYRIDOXINE (VITAMIN B-6) 50 MG TABLET PO SCH (10:23)
[2018-12-27] MEDS: PANTOPRAZOLE 40 MG (PROTONIX) TAB PO SCH (10:24)
[2018-12-27] MEDS: FAMOTIDINE 20 MG (PEPCID) TABLET PO SCH (10:24)
[2018-12-27] MEDS: ASCORBIC ACID (VIT C) 500 MG TABLET PO SCH (10:24)
[2018-12-27] MEDS: LACTOBACILLUS ACIDOPHILUS (PROBIOTIC) CAPSULE PO SCH (10:24)
[2018-12-27] MEDS: ACETAMINOPHEN 325 MG TABLET PO SCH ×3 (10:24→21:06)
[2018-12-27] MEDS: MULTIVIT W/MINERALS TAB (THERAGRAN M) PO SCH (10:25)
[2018-12-27] MEDS: VITAMIN D3 1,000 UNITS (CHOLECALCIFEROL) TABLET PO SCH (10:25)
--- NOTE | 2018-12-27 10:36 | NUR ---
Medication list from [facility]
--- NOTE | 2018-12-27 10:36 | History & Physical-Hospitalist ---
History of Present Illness HPI/Chief Complaint This is an 83-year-old white male who was accepted in transfer from [facility] yesterday. 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 Despite treatment the patient continues to be febrile and have a symptomatic cough. He did have pleural effusions that have been tapped without having any bacteria cultured. The patient does have a history of dementia. He was taken in transfer and seen in consultation by Dr. Kothari who started him on Zyvox. CT chest without contrast shows no evidence of empyema and a resolving bilateral lower lobe pneumonia. Source: family, old records Exam Limitations: clinical condition Date Seen 12/27/18 Time Seen by a Provider: 10:00 Attending Physician Rachel Albarado MD PCP Self,Rodney RICHTER Referring Physician Date of Admission Dec 26, 2018 at 15:30 Home Medications & Allergies Home Medications Reviewed patient Home Medication Reconciliation performed by pharmacy medication reconciliations computer system technician and/or nursing. Patients Allergies have been reviewed. Allergies Allergies Coded Allergies gabapentin (Verified Allergy, Unknown, 11/15/18) pregabalin (Verified Allergy, Unknown, 11/15/18) lorazepam (Verified Adverse Reaction, Severe, AGITATION, 12/08/18) haloperidol (Verified Adverse Reaction, Intermediate, AGITATION, 12/08/18) Past Oabmvpa-Dfqsvm-Rrqsei Hx Past Med/Social Hx: Reviewed Nursing Past Med/Soc Hx Patient Social History Marrital Status: Employed/Student: retired Alcohol Use: Denies Use Recreational Drug Use: No Former Smoker, Quit: Nov 03, 2018 Type Used: Pipe Physical Abuse Screen: No Sexual Abuse: No Recent Foreign Travel: No Contact w/other who traveled: No Recent Hopitalizations: Yes (OCT 2018 FOR PNEUMONIA; 11/16-11/19/18 FOR A FIB AND PNEUMONIA) Recent Infectious Disease Expo: No Immunizations Up To Date Date of Pneumonia Vaccine: Nov 03, 2016 Date of Influenza Vaccine: Aug 03, 2018 Seasonal Allergies Seasonal Allergies: No Past Medical History Surgeries: Orthopedic, Rectal Currently Using CPAP: No Currently Using BIPAP: No Cardiac: Atrial Fibrillation, High Cholesterol, Hypertension Restless leg syndrome Sexually Transmitted Disease: No HIV/AIDS: No Genitourinary: Renal Failure Gastrointestinal: Gastroesophageal Reflux, Chronic Diarrhea, Hiatal Hernia Endocrine: Hypothyroidsim, Diabetes, Non-Insulin dep Psychosocial: Sleep Difficulties, Anxiety History of Blood Disorders: No Adverse Reaction to Blood Cantor: No Family History No Pertinent Family Hx Review of Systems Constitutional: no symptoms reported Respiratory: cough Gastrointestinal: no symptoms reported Psychiatric/Neurological: Other (Dementia with agitation) Physical Exam Physical Exam Vital Signs Vital Signs - First Documented 12/26/18 12/26/18 15:55 16:44 Temp 99.3 Pulse 111 Resp 18 B/P (MAP) 119/67 Pulse Ox 97 O2 Delivery Room Air Capillary Refill : Less Than 3 Seconds Height, Weight, BMI Height: 5'9.00" Weight: 138lbs. 7.0oz. 62.389016gg; 19.1 BMI Method:Stated General Appearance: Chronically ill, Other (And restlessness fidgeting) HEENT: Normal ENT Inspection Neck: Supple Respiratory: Crackles, Expiration, Inspiration, Rales Cardiovascular: Irregularly Irregular, Tachycardia Gastrointestinal: Soft Back: Normal Inspection Extremity: Non Tender, No Calf Tenderness Neurologic/Psychiatric: Alert, Disoriented Skin: Normal Color, Warm/Dry Results Results/Procedures Labs Laboratory Tests 12/26/18 18:00 Patient resulted labs reviewed. Imaging: Reviewed Imaging Report Assessment/Plan Admission Diagnosis VRE pneumonia-per bronch cultures obtained in early November. Uncertain if this is the etiology are whether this has been treated before. Chronic atrial fibrillation Senile dementia Alzheimer's type-with episodic agitation Hypothyroidism replaced Admission Status: Observation Clinical Quality Measures DVT/VTE Risk/Contraindication: Risk Factor Score Per Nursin RFS Level Per Nursing on Admit: 4+=Very High RACHEL ALBARADO MD Dec 27, 2018 10:36
--- NOTE | 2018-12-27 13:04 | Pulmonary Consultation ---
History of Present Illness History of Present Illness Date of Consultation 12/27/18 13:00 Date of Admission Allergies and Home Medications Allergies Coded Allergies: gabapentin (Verified Allergy, Unknown, 11/15/18) pregabalin (Verified Allergy, Unknown, 11/15/18) lorazepam (Verified Adverse Reaction, Severe, AGITATION, 12/08/18) haloperidol (Verified Adverse Reaction, Intermediate, AGITATION, 12/08/18) Home Medications Acetaminophen 325 Mg Tablet, 650 MG PO TID, (Reported) Apixaban 2.5 Mg Tablet, 2.5 MG PO BID Prescribed by: JAGDEEP PEARSON on 11/19/18 0936 Ascorbic Acid 1,000 Mg Tablet, 1,000 MG PO DAILY, (Reported) Aspirin 81 Mg Tablet.dr, 81 MG PO HS, (Reported) Brimonidine Tartrate/Timolol 5 Ml Drops, 1 DROP OU BID, (Reported) Cholecalciferol (Vitamin D3) 1,000 Unit Capsule, 1,000 UNIT PO DAILY, (Reported) Cyanocobalamin (Vitamin B-12) 1,000 Mcg Tablet, 1,000 MCG PO DAILY, (Reported) Diltiazem HCl 240 Mg Cap.er.24h, 240 MG PO DAILY, (Reported) Divalproex Sodium 500 Mg Tab.er.24h, 1,000 MG PO HS, (Reported) Famotidine 20 Mg Tablet, 20 MG PO BID, (Reported) Fenofibrate Nanocrystallized 145 Mg Tablet, 145 MG PO DAILY, (Reported) Fluticasone/Salmeterol 12 Gm Hfa.aer.ad, 2 PUFF IH RTBID@0800,2000 Prescribed by: BABAR PLUMMER on 11/19/18 0954 Furosemide 20 Mg Tablet, 20 MG PO Q48H Prescribed by: VANE BRISCOE on 12/10/18 1114 Garlic 1,000 Mg Capsule, 1,000 MG PO DAILY, (Reported) Glimepiride 4 Mg Tablet, 4 MG PO BID, (Reported) Ipratropium/Albuterol Sulfate 3 Ml Ampul.neb, 3 ML INH RTTID Prescribed by: VANE BRISCOE on 12/10/18 1114 Krill/Om3/Dha/Epa/Om6/Lip/Astx 1 Each Capsule, 1,000 MG PO DAILY, (Reported) Lactobacillus Acidophilus 1 Each Capsule, 1 CAP PO DAILY, (Reported) Lactulose 20 Gm/30 Ml Solution, 20 GM PO BID, (Reported) Levothyroxine Sodium 100 Mcg Tablet, 100 MCG PO DAILY, (Reported) Liothyronine Sodium 25 Mcg Tablet, 25 MCG PO DAILY, (Reported) Metoprolol Tartrate 50 Mg Tablet, 50 MG PO BID, (Reported) Multivitamin 1 Each Tablet, 1 TAB PO DAILY, (Reported) Omeprazole Magnesium 20 Mg Tablet.dr, 40 MG PO DAILY, (Reported) Pyridoxine HCl 100 Mg Tablet, 50 MG PO DAILY, (Reported) Quetiapine Fumarate 25 Mg Tablet, 25 MG PO HS, (Reported) Ropinirole HCl 1 Mg Tablet, 1 MG PO 0800,1530, (Reported) Ropinirole HCl 1 Mg Tablet, 2 MG PO 2030, (Reported) TAKES 2 (1MG) TABLETS Saw [place] Fruit 450 Mg Capsule, 450 MG PO BID, (Reported) Vit C/Vit E/Lutein/Min/[place]-3 1 Each Capsule, 1 CAP PO DAILY, (Reported) Past Kgypdpu-Ravkyv-Mhgbdj Hx Patient Social History Alcohol Use: Denies Use Recreational Drug Use: No Type Used: Pipe Former Smoker, Quit: Nov 03, 2018 Recent Foreign Travel: No Contact w/Someone Who Travel: No Recent Infectious Disease Expo: No Recent Hopitalizations: Yes (OCT 2018 FOR PNEUMONIA; 11/16-11/19/18 FOR A FIB AND PNEUMONIA) Immunizations Up To Date Date of Pneumonia Vaccine: Nov 03, 2016 Date of Influenza Vaccine: Aug 03, 2018 Seasonal Allergies Seasonal Allergies: No Past Medical History Surgeries: Yes (EGD WITH DILATION OF ESOPHAGEAL STRICTUE) Orthopedic, Rectal 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 ) Pneumonia, COPD Currently Using CPAP: No Currently Using BIPAP: No Cardiac: Yes (SVT) Atrial Fibrillation, High Cholesterol, Hypertension Neurological: No Sexually Transmitted Disease: No HIV/AIDS: No Genitourinary: Yes Renal Failure Gastrointestinal: Yes (ESOPHAGEAL STRICTURE) Gastroesophageal Reflux, Chronic Diarrhea, Hiatal Hernia Musculoskeletal: No Endocrine: Yes Hypothyroidsim, Diabetes, Non-Insulin dep HEENT: No Cancer: No Psychosocial: Yes (AGGRESIVE -- ) Sleep Difficulties, Anxiety Integumentary: No Blood Disorders: No Adverse Reaction/Blood Tranf: No Family Medical History No Pertinent Family Hx Sepsis Event Evaluation Height, Weight, BMI Height: 5'9.00" Weight: 138lbs. 7.0oz. 62.909849iy; 19.1 BMI Method:Stated Exam Exam Vital Signs Date Time Temp Pulse Resp B/P (MAP) Pulse Ox O2 Delivery O2 Flow Rate FiO2 12/27/18 09:57 96 Room Air 12/27/18 08:00 97.6 128 117/58 (77) 18 Room Air 12/27/18 08:00 Room Air 12/27/18 04:50 98.3 102 20 112/62 (79) 96 Room Air 12/27/18 00:45 99.0 100 20 166/97 (120) 97 Room Air 12/26/18 20:00 Room Air 12/26/18 19:45 96 Room Air 12/26/18 19:41 98.8 112 22 124/70 (88) 97 Room Air 12/26/18 16:44 99.3 111 18 119/67 97 Room Air 12/26/18 15:55 97 Room Air I & O 12/27/18 07:00 Intake Total 1000 ml Output Total 350 ml Balance 650 ml Height & Weight Height: 5'9.00" Weight: 138lbs. 7.0oz. 62.127942tz; 19.1 BMI Method:Stated General Appearance: Chronically ill, Other (And restlessness fidgeting) HEENT: Normal ENT Inspection Neck: Supple Respiratory: Crackles, Expiration, Inspiration, Rales Cardiovascular: Irregularly Irregular, Tachycardia Extremity: Non Tender, No Calf Tenderness Neurologic/Psychiatric: Alert, Disoriented Skin: Normal Color, Warm/Dry Results Lab Laboratory Tests 12/26/18 18:00 Assessment/Plan Assessment/Plan Persistent pneumonia vs slowly resolving PNA -Pt was transferred here after worsening leukocytosis at [facility] -S/p bronchoscopy at last hospitalization --will start Zyvox -CT of chest reviewed -Await cultures - - DAKOTA CASTAÑEDA DO Dec 27, 2018 13:04
--- NOTE | 2018-12-27 18:36 | NUR ---
NOTE THAT PT WAS VERY CONFUSED HE CAME OUT DOOR AND THIS RN STEPPED IN FRONT OF HIM AND TALKED HIM TO GOING BACK IN ROOM THIS RN SEAT AND TALKED WITH PT HE VOICED HE WANTED TO HAVE HIS BACK TO ROOM ---- REMINDED HIM AND GETS UP AND WANDER AROUND -- DOOR TO HIS ROOM SHUT SHE WAS HERE AND LEFT AND SHE WOULD BE BACK -- PT IN ROOM TALKING TO NO ONE -- STAFF WILL CONT. TO MONITOR
[2018-12-27] MEDS: ASPIRIN 81 MG CHEW (CHILDREN'S ASA) PO SCH (21:06)
[2018-12-27] MEDS: FENOFIBRATE 134 MG (LOFIBRA) CAPSULE PO SCH (21:06)
[2018-12-27] MEDS: QUEtiapine 25 MG (SEROquel) TAB IMMEDIATE RELEASE PO SCH (21:07)
[2018-12-27] MEDS: DIVALPROEX EXT RELEASE 500 MG (DEPAKOTE ER) TAB PO SCH (21:07)
[2018-12-28 04:02] VITALS: BP 121/55
[2018-12-28] MEDS: CYANOCOBALAMIN 1,000 MCG (VITAMIN B-12) TABLET PO SCH (05:48)
[2018-12-28] MEDS: LEVOTHYROXINE 100 MCG (LEVOTHROID) TAB PO SCH (05:48)
[2018-12-28] MEDS: RT-ALBUTEROL/IPRATROPIUM 3 ML (DUONEB) VIAL INH SCH ×3 (07:42→19:55)
[2018-12-28 08:01] VITALS: BP 139/64
[2018-12-28] MEDS: FAMOTIDINE 20 MG (PEPCID) TABLET PO SCH (08:03)
[2018-12-28] MEDS: PANTOPRAZOLE 40 MG (PROTONIX) TAB PO SCH (08:03)
[2018-12-28] MEDS: LACTULOSE SYRUP 10GM/15ML (ENULOSE) 30ML UDC PO SCH ×3 (08:03→20:36)
[2018-12-28] MEDS: DILTIAZEM 240 MG (CARDIZEM CD) CAP PO SCH (08:03)
[2018-12-28] MEDS: APIXABAN 2.5 MG (ELIQUIS) TABLET PO SCH ×2 (08:03→20:50)
[2018-12-28] MEDS: ASCORBIC ACID (VIT C) 500 MG TABLET PO SCH (08:03)
[2018-12-28] MEDS: LINEZOLID IVPB 300 ML IV SCH ×2 (08:03→20:50)
[2018-12-28] MEDS: MULTIVIT W/MINERALS TAB (THERAGRAN M) PO SCH (08:03)
[2018-12-28] MEDS: LACTOBACILLUS ACIDOPHILUS (PROBIOTIC) CAPSULE PO SCH (08:04)
[2018-12-28] MEDS: ACETAMINOPHEN 325 MG TABLET PO SCH ×3 (08:04→20:50)
[2018-12-28] MEDS: PYRIDOXINE (VITAMIN B-6) 50 MG TABLET PO SCH (08:04)
[2018-12-28] MEDS: VITAMIN D3 1,000 UNITS (CHOLECALCIFEROL) TABLET PO SCH (08:04)
[2018-12-28] MEDS ORDERED: LINE600T5 PO (09:56)
[2018-12-28] MEDS ORDERED: CHLORASEPTIC LOZENGE MM PRN (10:15)
--- NOTE | 2018-12-28 10:51 | Progress Note-Hospitalist ---
Subjective HPI/CC On Admission Date Seen by Provider: Dec 28, 2018 Time Seen by Provider: 10:46 This is an 83-year-old white male who was accepted in transfer from [facility] yesterday. 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 Despite treatment the patient continues to be febrile and have a symptomatic cough. He did have pleural effusions that have been tapped without having any bacteria cultured. The patient does have a history of dementia. He was taken in transfer and seen in consultation by Dr. Kothari who started him on Zyvox. CT chest without contrast shows no evidence of empyema and a resolving bilateral lower lobe pneumonia. Subjective/Events-last exam Pt is confused and asking me about expense reports. at bedside with mutiple questions. Concerned about why he keeps getting pneumonia and his confusion. Objective Exam Vital Signs Vital Signs Date Time Temp Pulse Resp B/P (MAP) Pulse Ox O2 Delivery O2 Flow Rate FiO2 12/28/18 12:00 97.2 80 18 121/63 (82) 97 Room Air Capillary Refill : Less Than 3 Seconds General Appearance: Chronically ill, Thin HEENT: Normal ENT Inspection Neck: Supple Respiratory: Lungs Clear, No Accessory Muscle Use, No Respiratory Distress Cardiovascular: No Edema, No Murmur, Irregularly Irregular Gastrointestinal: Non Tender, Soft Extremity: Non Tender, No Calf Tenderness, No Pedal Edema Neurologic/Psychiatric: Alert, Disoriented Results/Procedures Lab Patient resulted labs reviewed. Imaging: Reviewed Imaging Report Assessment/Plan Assessment and Plan Assess & Plan/Chief Complaint VRE pneumonia-per bronch cultures obtained in early November. Continue on Zyvox - Pharmacist to assist with arranging as an outpatient Chronic atrial fibrillation- continue current meds, rate controlled Senile dementia Alzheimer's type-with episodic agitation- confused currently Hypothyroidism- continue supplement Emphysema- discussed trajectory of illness with and that he may not return to previous baseline, consider palliative consult Clinical Quality Measures DVT/VTE Risk/Contraindication: Risk Factor Score Per Nursin RFS Level Per Nursing on Admit: 4+=Very High BABAR PLUMMER MD Dec 28, 2018 10:51
--- NOTE | 2018-12-28 11:29 | NUR ---
CM/SS met with the patient for discharge planning. The patient and his SO know that the prescription will be at [facility] at around $10 and family will be able to afford this. stated that their son will be staying with them and so do not feel that they would have any other discharge needs.
[2018-12-28 12:00] VITALS: BP 121/63
--- NOTE | 2018-12-28 15:11 | Pulmonary Progress Note ---
Sepsis Event Evaluation Height, Weight, BMI Height: 5'9.00" Weight: 138lbs. 7.0oz. 62.842900lk; 19.1 BMI Method:Stated Exam Exam Vital Signs Date Time Temp Pulse Resp B/P (MAP) Pulse Ox O2 Delivery O2 Flow Rate FiO2 12/28/18 12:00 97.2 80 18 121/63 (82) 97 Room Air 12/28/18 08:01 96.8 106 18 139/64 (89) 95 Room Air 12/28/18 08:00 Room Air 12/28/18 07:43 97 Room Air 12/28/18 04:02 97.8 89 18 121/55 (77) 97 Room Air 12/27/18 23:45 97.0 106 16 132/82 (99) 98 Room Air 12/27/18 20:00 Room Air 12/27/18 20:00 98.0 122 22 123/57 (79) 100 Room Air 12/27/18 19:14 94 Room Air 12/27/18 16:00 98.0 93 24 124/72 (89) 97 Room Air I & O 12/28/18 07:00 Intake Total 1800 ml Balance 1800 ml Height & Weight Height: 5'9.00" Weight: 138lbs. 7.0oz. 62.508424qh; 19.1 BMI Method:Stated General Appearance: Chronically ill, Thin HEENT: Normal ENT Inspection Neck: Supple Respiratory: Lungs Clear, No Accessory Muscle Use, No Respiratory Distress Cardiovascular: No Edema, No Murmur, Irregularly Irregular Extremity: Non Tender, No Calf Tenderness, No Pedal Edema Neurologic/Psychiatric: Alert, Disoriented Results Lab Laboratory Tests 12/26/18 18:00 Assessment/Plan Assessment/Plan Persistent pneumonia vs slowly resolving PNA -Pt was transferred here after worsening leukocytosis at [facility] -S/p bronchoscopy at last hospitalization --Zyvox -CT of chest reviewed -Await cultures - Ok with discharge on PO Zyvox x total of 10days. DAKOTA CASTAÑEDA DO Dec 28, 2018 15:11
[2018-12-28 15:16] LABS: BILIRUBIN,URINE NEGATIVE (NEGATIVE); CLARITY,URINE CLEAR; COLOR,URINE YELLOW; GLUCOSE, URINE (UA) NEGATIVE (NEGATIVE); KETONES,URINE NEGATIVE (NEGATIVE); LEUKOCYTE ESTERASE ,URINE NEGATIVE (NEGATIVE); NITRITE,URINE NEGATIVE (NEGATIVE); PH,URINE 6 (5-9); PROTEIN,URINE 2+ (NEGATIVE); UROBILINOGEN,URINE NORMAL (NORMAL)
[2018-12-28 15:25] LABS: BACTERIA,URINE NEGATIVE /HPF; SQUAMOUS EPITHELIAL CELL,UR RARE /HPF
[2018-12-28] MEDS: FUROSEMIDE 20 MG (LASIX) TAB PO SCH (15:58)
[2018-12-28 16:31] VITALS: BP 137/90
[2018-12-28] MEDS: FENOFIBRATE 134 MG (LOFIBRA) CAPSULE PO SCH (20:49)
[2018-12-28] MEDS: QUEtiapine 25 MG (SEROquel) TAB IMMEDIATE RELEASE PO SCH (20:50)
[2018-12-28] MEDS: DIVALPROEX EXT RELEASE 500 MG (DEPAKOTE ER) TAB PO SCH (20:50)
[2018-12-28] MEDS: ASPIRIN 81 MG CHEW (CHILDREN'S ASA) PO SCH (20:50)
[2018-12-28 23:29] VITALS: BP 151/74
[2018-12-29] MEDS ORDERED: ZIPRASIDONE 20 MG INJ (GEODON) VIAL IM ONE ×4 (00:11→02:15)
--- NOTE | 2018-12-29 02:15 | NUR ---
CALLED DR. PALENCIA AND INFORMED HIM THAT PATIENT WAS STILL COMBATIVE AND ATTEMPTING TO KICK AT NURSES. RECEIVED ORDERS FOR 10MG GEODON. WILL CONTINUE TO MONITOR.
[2018-12-29] MEDS: VITAMIN D3 1,000 UNITS (CHOLECALCIFEROL) TABLET PO SCH (06:15)
[2018-12-29] MEDS: LEVOTHYROXINE 100 MCG (LEVOTHROID) TAB PO SCH (06:15)
--- NOTE | 2018-12-29 07:00 | Pulmonary Progress Note ---
Subjective Time Seen by a Provider: 08:32 Subjective/Events-last exam NO complications noted. Sepsis Event Evaluation Height, Weight, BMI Height: 5'9.00" Weight: 138lbs. 7.0oz. 62.623374iu; 19.1 BMI Method:Stated Exam Exam Vital Signs Date Time Temp Pulse Resp B/P (MAP) Pulse Ox O2 Delivery O2 Flow Rate FiO2 12/28/18 23:29 96.5 112 18 151/74 (99) 98 Room Air 12/28/18 20:00 Room Air 12/28/18 19:55 96 Room Air 12/28/18 16:31 96.5 105 18 137/90 (106) 100 Room Air 12/28/18 15:46 95 Room Air 12/28/18 12:00 97.2 80 18 121/63 (82) 97 Room Air 12/28/18 08:01 96.8 106 18 139/64 (89) 95 Room Air 12/28/18 08:00 Room Air 12/28/18 07:43 97 Room Air I & O 12/29/18 07:00 Intake Total 1440 ml Output Total 625 ml Balance 815 ml Height & Weight Height: 5'9.00" Weight: 138lbs. 7.0oz. 62.991962sd; 19.1 BMI Method:Stated General Appearance: Chronically ill, Thin HEENT: Normal ENT Inspection Neck: Supple Respiratory: Lungs Clear, No Accessory Muscle Use, No Respiratory Distress Cardiovascular: No Edema, No Murmur, Irregularly Irregular Extremity: Non Tender, No Calf Tenderness, No Pedal Edema Neurologic/Psychiatric: Alert, Disoriented Assessment/Plan Assessment/Plan Persistent pneumonia vs slowly resolving PNA -Pt was transferred here after worsening leukocytosis at [facility] -S/p bronchoscopy at last hospitalization --Zyvox switch to PO and continue for 10 more days. -CT of chest reviewed -Await cultures -Repeat CBC, and CMP today -Repeat CXR - DAKOTA CASTAÑEDA DO Dec 29, 2018 07:00
[2018-12-29 08:00] VITALS: BP 152/86
--- NOTE | 2018-12-29 08:22 | Diagnostic Imaging Report ---
Indication: Shortness of breath. Findings: There are interstitial opacities in the mid to lower lungs, chronic. No alveolar consolidation, effusion or pneumothorax. The heart size is upper limits, stable. Impression: Chronic interstitial disease and upper limits heart size. No acute finding apparent. Dictated by: Dictated on workstation # [id number]
[2018-12-29] MEDS: LACTOBACILLUS ACIDOPHILUS (PROBIOTIC) CAPSULE PO SCH (08:23)
[2018-12-29] MEDS: LACTULOSE SYRUP 10GM/15ML (ENULOSE) 30ML UDC PO SCH (08:24)
[2018-12-29] MEDS: DILTIAZEM 240 MG (CARDIZEM CD) CAP PO SCH (08:24)
[2018-12-29] MEDS: PANTOPRAZOLE 40 MG (PROTONIX) TAB PO SCH (08:24)
[2018-12-29] MEDS: ACETAMINOPHEN 325 MG TABLET PO SCH (08:24)
[2018-12-29] MEDS: MULTIVIT W/MINERALS TAB (THERAGRAN M) PO SCH (08:24)
[2018-12-29] MEDS: PYRIDOXINE (VITAMIN B-6) 50 MG TABLET PO SCH (08:24)
[2018-12-29] MEDS: APIXABAN 2.5 MG (ELIQUIS) TABLET PO SCH (08:24)
[2018-12-29] MEDS: FAMOTIDINE 20 MG (PEPCID) TABLET PO SCH (08:24)
[2018-12-29] MEDS: CYANOCOBALAMIN 1,000 MCG (VITAMIN B-12) TABLET PO SCH (08:25)
[2018-12-29] MEDS: ASCORBIC ACID (VIT C) 500 MG TABLET PO SCH (08:25)
[2018-12-29] MEDS ORDERED: LINEZOLID (ZYVOX) 600 MG TAB PO SCH (09:00)
[2018-12-29 09:27] LABS: BASOPHILS % (AUTO) 0 % (0-10); EOSINOPHILS % (AUTO) 1 % (0-10); HEMATOCRIT 40 % (40-54); HEMOGLOBIN 12.8 G/DL (13.3-17.7); LYMPHOCYTES # (AUTO) 1.1 X 10^3 (1.0-4.0); LYMPHOCYTES % (AUTO) 19 % (12-44); MEAN CORPUSCULAR HEMOGLOBIN 28 PG (25-34); MEAN CORPUSCULAR HGB CONC 32 G/DL (32-36); MEAN CORPUSCULAR VOLUME 88 FL (80-99); MEAN PLATELET VOLUME 13.5 FL (7.4-10.4); MONOCYTES # (AUTO) 0.5 X 10^3 (0.0-1.0); MONOCYTES % (AUTO) 9 % (0-12); NEUTROPHILS % (AUTO) 71 % (42-75); PLATELET COUNT 171 10^3/uL (130-400); RED CELL DISTRIBUTION WIDTH 15.3 % (10.0-14.5); WHITE BLOOD COUNT 5.7 10^3/uL (4.3-11.0)
[2018-12-29 09:49] LABS: ALBUMIN 3.9 GM/DL (3.2-4.5); BILIRUBIN,TOTAL 0.3 MG/DL (0.1-1.0); CALCIUM 9.2 MG/DL (8.5-10.1); CREATININE SERUM 2.1 MG/DL (0.60-1.30); MAGNESIUM 2.7 MG/DL (1.8-2.4); POTASSIUM 5.3 MMOL/L (3.6-5.0); TOTAL PROTEIN 7.4 GM/DL (6.4-8.2)
[2018-12-29] MEDS: RT-ALBUTEROL/IPRATROPIUM 3 ML (DUONEB) VIAL INH SCH (09:57)
--- NOTE | 2018-12-29 10:13 | NUR ---
CM/SS called [facility] as patient no longer has a need for oxygen and would like the equipment picked up from his home. They will begin the process to get that picked up. Patient and family were updated.
--- NOTE | 2018-12-29 10:16 | Discharge Inst-Simple/Standard ---
Discharge Inst-Standard Discharge Medications New, Converted or Re-Newed RX: Transmitted to Pharmacy Patient Instructions/Follow Up Plan of Care/Instructions/FU: Please continue to take your medications as written. Please follow up with your PCP within the next week to follow up this hospital stay and with Dr Kothari within 2 weeks. Activity as Tolerated: Yes Discharge Diet: No Restrictions Return to The Hospital For: Fever, worsening confusion, low oxygen saturations, shortness of breath, if you feel you are getting worse. BABAR PLUMMER MD Dec 29, 2018 10:16
--- NOTE | 2018-12-29 10:21 | Discharge Summary-Hospitalist ---
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 Uncertain if this is the etiology are whether this has been treated before. Chronic atrial fibrillation Senile dementia Alzheimer's type-with episodic agitation Hypothyroidism replaced Discharge Summary Procedures/Consulations Dr Kothari- Sammie Discharge Physical Exam Allergies: Coded Allergies: gabapentin (Verified Allergy, Unknown, 11/15/18) pregabalin (Verified Allergy, Unknown, 11/15/18) lorazepam (Verified Adverse Reaction, Severe, AGITATION, 12/08/18) haloperidol (Verified Adverse Reaction, Intermediate, AGITATION, 12/08/18) Vitals & I&Os Vital Signs Date Time Temp Pulse Resp B/P (MAP) Pulse Ox O2 Delivery O2 Flow Rate FiO2 12/29/18 11:10 119 18 152/86 96 Room Air 12/29/18 08:00 96.2 General Appearance: Chronically ill, Thin HEENT: Normal ENT Inspection Respiratory: Lungs Clear, No Accessory Muscle Use, No Respiratory Distress Cardiovascular: No Edema, No Murmur, Irregularly Irregular Gastrointestinal: Non Tender, Soft Extremity: Non Tender, No Calf Tenderness, No Pedal Edema Neurologic/Psychiatric: Alert, Disoriented Hospital Course [facility] to concerns for recurrent pneumonia or possible empyema. Imaging revealed resolving pneumonia and no evidence of empyema. He was started on linezolid for coverage for VRE and was transitioned to oral antibiotics to complete course and follow up with Dr Kothari as an outpatient. He remained confused throughout his admission and I had multiple mecca conversations with regarding trajectory of illness and likelihood that he would continue to decline and that he made need [place] [facility]. She verbalized understanding of this. I did call and speak with Dr Guerrero in regards to this hospitalization who will follow him as an outpatient. He was discharged home at family request. Labs (last 24 hrs) Patient resulted labs reviewed. Pending Labs Imaging: Reviewed Imaging Report Discussion & Recommendations Discharge Planning: >30 minutes discharge planning Discharge Home Medications: Active Scripts Active Quetiapine Fumarate 25 Mg Tablet 25 Mg PO HS Divalproex Sodium ER (Divalproex Sodium) 500 Mg Tab.er.24h 1,000 Mg PO HS Zyvox (Linezolid) 600 Mg Tablet 600 Mg PO BID Lasix (Furosemide) 20 Mg Tablet 20 Mg PO Q48H Iprat-Albut 0.5-3(2.5) mg/3 ml (Ipratropium/Albuterol Sulfate) 3 Ml Ampul.neb 3 Ml INH RTTID Advair Hfa 115-21 Mcg Inhaler (Fluticasone/Salmeterol) 12 Gm Hfa.aer.ad 2 Puff IH RTBID@0800,2000 Eliquis (Apixaban) 2.5 Mg Tablet 2.5 Mg PO BID Reported Acetaminophen 325 Mg Tablet 650 Mg PO TID Lactulose 20 Gm/30 Ml Solution 20 Gm PO BID Ropinirole HCl 1 Mg Tablet 2 Mg PO 2030 TAKES 2 (1MG) TABLETS Probiotic (Lactobacillus Acidophilus) 1 Each Capsule 1 Cap PO DAILY Aspirin EC (Aspirin) 81 Mg Tablet.dr 81 Mg PO HS Vitamin C (Ascorbic Acid) 1,000 Mg Tablet 1,000 Mg PO DAILY Cartia Xt (Diltiazem HCl) 240 Mg Cap.er.24h 240 Mg PO DAILY Daily Vitamin Formula (Multivitamin) 1 Each Tablet 1 Tab PO DAILY Vitamin B-12 (Cyanocobalamin (Vitamin B-12)) 1,000 Mcg Tablet 1,000 Mcg PO DAILY Garlic 1,000 Mg Capsule 1,000 Mg PO DAILY Vitamin B-6 (Pyridoxine HCl) 100 Mg Tablet 50 Mg PO DAILY Ocuvite Softgel (Vit C/Vit E/Lutein/Min/[place]-3) 1 Each Capsule 1 Cap PO DAILY Vitamin D3 (Cholecalciferol (Vitamin D3)) 1,000 Unit Capsule 1,000 Unit PO DAILY [place] (Saw [place] Fruit) 450 Mg Capsule 450 Mg PO BID Acid [facility] (FAMOTIDINE) (Famotidine) 20 Mg Tablet 20 Mg PO BID Levothyroxine Sodium 100 Mcg Tablet 100 Mcg PO DAILY Fenofibrate (Fenofibrate Nanocrystallized) 145 Mg Tablet 145 Mg PO DAILY Combigan Eye Drops (Brimonidine Tartrate/Timolol) 5 Ml Drops 1 Drop OU BID Ropinirole HCl 1 Mg Tablet 1 Mg PO 0800,1530 Liothyronine Sodium 25 Mcg Tablet 25 Mcg PO DAILY Krill Oil 1,000 mg Softgel (Krill/Om3/Dha/Epa/Om6/Lip/Astx) 1 Each Capsule 1, 000 Mg PO DAILY Instructions to patient/family Please see electronic discharge instructions given to patient. Clinical Quality Measures DVT/VTE Risk/Contraindication: Risk Factor Score Per Nursin RFS Level Per Nursing on Admit: 4+=Very High BABAR PLUMMER MD Dec 29, 2018 10:21
[2018-12-29 11:10] VITALS: BP 152/86
[2018-12-29] MEDS ORDERED: QUET25TA73 PO (11:48)
[2018-12-29] MEDS ORDERED: DIVA500T15 PO (11:48)
== END 2018-12-29 13:10 | disposition home or self-care (01) | DRG 194 ==
LOC: 4TH 15:30
PROVIDERS: ADMIT Internal Medicine; ATTEND Internal Medicine
DX: J13 Pneumonia due to Streptococcus pneumoniae (principal); J90 Pleural effusion, not elsewhere classified; G30.9 Alzheimer's disease, unspecified; F02.81 Dementia in other diseases classified elsewhere, unspecified severity, with behavioral disturbance; I10 Essential (primary) hypertension; I48.2 Chronic atrial fibrillation; E11.9 Type 2 diabetes mellitus without complications; J43.9 Emphysema, unspecified; E78.00 Pure hypercholesterolemia, unspecified; K21.9 Gastro-esophageal reflux disease without esophagitis; K44.9 Diaphragmatic hernia without obstruction or gangrene; E03.9 Hypothyroidism, unspecified; G25.81 Restless legs syndrome; G47.9 Sleep disorder, unspecified; F41.9 Anxiety disorder, unspecified; Z87.891 Personal history of nicotine dependence; Z16.21 Resistance to vancomycin
CPT/HCPCS: 36415; 71045; 71250; 80053; 81000; 83735; 84100; 85007; 85025; 85027; 85652; 86141; 94640; 94760

== ENCOUNTER 2019-01-07 05:43 | Emergency (ER) | payer MEDICARE, OTHER ==
[~2019-01-07] VITALS: Ht 175.3 cm; Wt 62.8 kg
[~2019-01-07 05:43] MED LIST changes: +ACET325T49 PO; +CHOL10003 PO; +DIVA500T15 PO; +FURO20TA4 PO; +LACT20SO2 PO; +LINE600T5 PO; +OCUVITE SOFTGE1 EACH PO; +QUET25TA73 PO; -VIT1CAPS9 PO
--- NOTE | 2019-01-07 06:41 | Diagnostic Imaging Report ---
PROCEDURE: CT head, face, and cervical spine without contrast. TECHNIQUE: Multiple contiguous axial images were obtained through the head, neck, and facial bones without the use of intravenous contrast. Sagittal and coronal reformations through the cervical spine and facial bones were also performed. INDICATION: Fall, trauma to face. Comparison: None available. Findings: CT head: No hyperdense hemorrhage or space-occupying mass. No hydrocephalus or midline shift. Knapp white matter differentiation is preserved. Atrophy with chronic microvascular ischemic disease. No acute skull fracture. Mastoid air cells are clear. CT face: Acute, mildly comminuted fracture of the left nasal bone and frontal process of the left maxilla. There is also fracture within the right nasal bone. There is rightward deviation of the nasal bones due to the fracturing. The anterior aspect of the osseous nasal septum is also fractured. No additional fracture within the mid face or mandible. Small air-fluid levels within the bilateral maxillary sinuses. No features of soft tissue injury to the globes. CT cervical spine: No acute fracture or traumatic malalignment. Multilevel degenerative changes. However, no high-grade spinal canal narrowing is appreciated by CT. Varying degrees of neuroforaminal narrowing due to facet and uncovertebral joint hypertrophy. Paraseptal emphysema is present lung apices. No cervical lymphadenopathy. Impression: 1. No acute intracranial hemorrhage or skull fracture. 2. Acute and mildly comminuted fractures of bilateral nasal bones and the frontal process of the left maxilla. The fractures result in rightward deviation of the nasal bridge. 3. Mildly displaced fracture of the osseous nasal septum in its anterior aspect. 4. No acute fracture or traumatic malalignment in the cervical spine. Dictated by: Dictated on workstation # [id number]
--- NOTE | 2019-01-07 06:59 | ED Fall/Injury ---
General Chief Complaint: Trauma-Non Activation Stated Complaint: FALL,NOSE INJURY Nursing Triage Note: SEE TRAUMA NOTE Source: patient, family, old records Exam Limitations: no limitations History of Present Illness Date Seen by Provider: Jan 07, 2019 Time Seen by Provider: 05:53 Initial Comments This 83-year-old gentleman presents to the emergency room accompanied by his and son after having a fall in the home. He got up to go to the restroom and was unable to support himself. His was unable to prevent him from falling. He struck his face on the floor resulting in injury to his nose. Patient was recently admitted to the senior behavioral health unit at [facility] and dismissed on December 29. He has significant dementia. He is on Eliquis for atrial fibrillation. He is also presently on Zyvox for treatment of pneumonia. Patient is having significant difficulty with ambulation and requires constant support. His son and [id number] are now helping with his care. Allergies and Home Medications Allergies Coded Allergies: gabapentin (Verified Allergy, Unknown, 11/15/18) pregabalin (Verified Allergy, Unknown, 11/15/18) lorazepam (Verified Adverse Reaction, Severe, AGITATION, 12/08/18) haloperidol (Verified Adverse Reaction, Intermediate, AGITATION, 12/08/18) Home Medications Acetaminophen 325 Mg Tablet, 650 MG PO TID, (Reported) Apixaban 2.5 Mg Tablet, 2.5 MG PO BID Prescribed by: JAGDEEP PEARSON on 11/19/18 0936 Ascorbic Acid 1,000 Mg Tablet, 1,000 MG PO DAILY, (Reported) Aspirin 81 Mg Tablet.dr, 81 MG PO HS, (Reported) Brimonidine Tartrate/Timolol 5 Ml Drops, 1 DROP OU BID, (Reported) Cholecalciferol (Vitamin D3) 1,000 Unit Capsule, 1,000 UNIT PO DAILY, (Reported) Cyanocobalamin (Vitamin B-12) 1,000 Mcg Tablet, 1,000 MCG PO DAILY, (Reported) Diltiazem HCl 240 Mg Cap.er.24h, 240 MG PO DAILY, (Reported) Divalproex Sodium 500 Mg Tab.er.24h, 1,000 MG PO HS Prescribed by: BABAR PLUMMER on 12/29/18 1148 Famotidine 20 Mg Tablet, 20 MG PO BID, (Reported) Fenofibrate Nanocrystallized 145 Mg Tablet, 145 MG PO DAILY, (Reported) Fluticasone/Salmeterol 12 Gm Hfa.aer.ad, 2 PUFF IH RTBID@08,1999 Prescribed by: BABAR PLUMMER on 11/19/18 0954 Furosemide 20 Mg Tablet, 20 MG PO Q48H Prescribed by: VANE BRISCOE on 12/10/18 1114 Garlic 1,000 Mg Capsule, 1,000 MG PO DAILY, (Reported) Ipratropium/Albuterol Sulfate 3 Ml Ampul.neb, 3 ML INH RTTID Prescribed by: VANE BRISCOE on 12/10/18 1114 Krill/Om3/Dha/Epa/Om6/Lip/Astx 1 Each Capsule, 1,000 MG PO DAILY, (Reported) Lactobacillus Acidophilus 1 Each Capsule, 1 CAP PO DAILY, (Reported) Lactulose 20 Gm/30 Ml Solution, 20 GM PO BID, (Reported) Levothyroxine Sodium 100 Mcg Tablet, 100 MCG PO DAILY, (Reported) Linezolid 600 Mg Tablet, 600 MG PO BID Prescribed by: BABAR PLUMMER on 12/28/18 0956 Liothyronine Sodium 25 Mcg Tablet, 25 MCG PO DAILY, (Reported) Multivitamin 1 Each Tablet, 1 TAB PO DAILY, (Reported) Pyridoxine HCl 100 Mg Tablet, 50 MG PO DAILY, (Reported) Quetiapine Fumarate 25 Mg Tablet, 25 MG PO HS Prescribed by: BABAR PLUMMER on 12/29/18 1148 Ropinirole HCl 1 Mg Tablet, 1 MG PO 0800,1530, (Reported) Ropinirole HCl 1 Mg Tablet, 2 MG PO 2029, (Reported) TAKES 2 (1MG) TABLETS Saw Bailey Fruit 450 Mg Capsule, 450 MG PO BID, (Reported) Vit C/Vit E/Lutein/Min/Crooks-3 1 Each Capsule, 1 CAP PO DAILY, (Reported) Patient Home Medication List Home Medication List Reviewed: Yes Review of Systems Review of Systems Constitutional: see HPI, weakness Eyes: No Symptoms Reported Ears, Nose, Mouth, Throat: see HPI Respiratory: no symptoms reported Cardiovascular: no symptoms reported Gastrointestinal: no symptoms reported Genitourinary: no symptoms reported Musculoskeletal: see HPI Skin: see HPI Psychiatric/Neurological: See HPI Past Abfctjh-Lkiayh-Zacdar Hx Patient Social History Alcohol Use: Denies Use Recreational Drug Use: No Smoking Status: Former Smoker Type Used: Pipe Former Smoker, Quit: Nov 03, 2018 Recent Foreign Travel: No Contact w/Someone Who Travel: No Recent Infectious Disease Expo: No Recent Hopitalizations: Yes (OCT 2018 FOR PNEUMONIA; 11/16-11/19/18 FOR A FIB AND PNEUMONIA) Immunizations Up To Date Date of Pneumonia Vaccine: Nov 03, 2016 Date of Influenza Vaccine: Aug 03, 2018 Seasonal Allergies Seasonal Allergies: No Past Medical History Surgeries: Yes (EGD WITH DILATION OF ESOPHAGEAL STRICTUE) Orthopedic, Rectal 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 ) Pneumonia, COPD Currently Using CPAP: No Currently Using BIPAP: No Cardiac: Yes (SVT) Atrial Fibrillation, High Cholesterol, Hypertension Neurological: No Sexually Transmitted Disease: No HIV/AIDS: No Genitourinary: Yes Renal Failure Gastrointestinal: Yes (ESOPHAGEAL STRICTURE) Gastroesophageal Reflux, Chronic Diarrhea, Hiatal Hernia Musculoskeletal: No Endocrine: Yes Hypothyroidsim, Diabetes, Non-Insulin dep HEENT: No Cancer: No Psychosocial: Yes (AGGRESIVE -- ) Sleep Difficulties, Anxiety Integumentary: No Blood Disorders: No Adverse Reaction/Blood Tranf: No Family Medical History No Pertinent Family Hx Physical Exam Vital Signs Vital Signs - First Documented 01/07/19 07:12 Temp 96.1 Pulse 110 Resp 20 B/P (MAP) 118/84 (95) Pulse Ox 96 Capillary Refill : Less Than 3 Seconds Height, Weight, BMI Height: 5'9.00" Weight: 138lbs. 7.0oz. 62.881753wh; 19.1 BMI Method:Stated General Appearance: WD/WN, no apparent distress HEENT: PERRL/EOMI, other (Contusion with bruising over a displaced fracture of the nose) Neck: non-tender, normal inspection Cardiovascular: regular rate, rhythm, no edema, no murmur Respiratory: lungs clear, normal breath sounds, no respiratory distress, no accessory muscle use Gastrointestinal: normal bowel sounds, non tender, soft Extremities: normal inspection, no pedal edema Neurologic/Psychiatric: dietary cook II-XII nml as tested, no motor/sensory deficits, alert, normal mood/affect Skin: normal color, warm/dry, ecchymosis Speedy Coma Score Best Eye Response: (4) Open Spontaneously Best Verbal Response: (5) Oriented Best Motor Response: (6) Obeys Commands [place] Total: 15 Progress/Results/Core Measures Results/Orders Lab Results Laboratory Tests Test 01/07/19 07:20 01/07/19 07:43 Range/Units White Blood Count 7.6 4.3-11.0 10^3/uL Red Blood Count 4.72 4.35-5.85 10^6/uL Hemoglobin 12.8 L 13.3-17.7 G/DL Hematocrit 40 40-54 % Mean Corpuscular Volume 85 80-99 FL Mean Corpuscular Hemoglobin 27 25-34 PG Mean Corpuscular Hemoglobin Concent 32 32-36 G/DL Red Cell Distribution Width 15.3 H 10.0-14.5 % Platelet Count 188 130-400 10^3/uL Mean Platelet Volume 10.8 H 7.4-10.4 FL Neutrophils (%) (Auto) 73 42-75 % Lymphocytes (%) (Auto) 23 12-44 % Monocytes (%) (Auto) 4 0-12 % Eosinophils (%) (Auto) 0 0-10 % Basophils (%) (Auto) 0 0-10 % Neutrophils # (Auto) 5.6 1.8-7.8 X 10^3 Lymphocytes # (Auto) 1.7 1.0-4.0 X 10^3 Monocytes # (Auto) 0.3 0.0-1.0 X 10^3 Eosinophils # (Auto) 0.0 0.0-0.3 10^3/uL Basophils # (Auto) 0.0 0.0-0.1 10^3/uL Sodium Level 138 135-145 MMOL/L Potassium Level 5.2 H 3.6-5.0 MMOL/L Chloride Level 103 98-107 MMOL/L Carbon Dioxide Level 23 21-32 MMOL/L Anion Gap 12 5-14 MMOL/L Blood Urea Nitrogen 54 H 7-18 MG/DL Creatinine 2.53 H 0.60-1.30 MG/DL Estimat Glomerular Filtration Rate 25 BUN/Creatinine Ratio 21 Glucose Level 137 H 70-105 MG/DL Calcium Level 8.9 8.5-10.1 MG/DL Corrected Calcium 9.3 8.5-10.1 MG/DL Magnesium Level 2.0 1.8-2.4 MG/DL Total Bilirubin 0.5 0.1-1.0 MG/DL Aspartate Amino Transf (AST/SGOT) 78 H 5-34 U/L Alanine Aminotransferase (ALT/SGPT) 23 0-55 U/L Alkaline Phosphatase 60 40-136 U/L Total Protein 6.3 L 6.4-8.2 GM/DL Albumin 3.5 3.2-4.5 GM/DL Thyroid Stimulating Hormone (TSH) 0.20 L 0.35-4.94 UIU/ML Free Thyroxine 1.01 0.70-1.48 NG/DL Valproic Acid (Depakene) Level 43.0 L 50.0-100.0 UG/ML Urine Color YELLOW Urine Clarity CLEAR Urine pH 5 5-9 Urine Specific [place] 1.020 1.016-1.022 Urine Protein 1+ H NEGATIVE Urine Glucose (UA) NEGATIVE NEGATIVE Urine Ketones NEGATIVE NEGATIVE Urine Nitrite NEGATIVE NEGATIVE Urine Bilirubin NEGATIVE NEGATIVE Urine Urobilinogen NORMAL NORMAL MG/DL Urine Leukocyte Esterase 1+ H NEGATIVE Urine RBC (Auto) 1+ H NEGATIVE Urine RBC 5-10 H /HPF Urine WBC 2-5 /HPF Urine Squamous Epithelial Cells 2-5 /HPF Urine Crystals NONE /LPF Urine Bacteria TRACE /HPF Urine Casts PRESENT /LPF Urine Hyaline Casts 10-25 H /LPF Urine Mucus NEGATIVE /LPF Urine Culture Indicated YES My Orders Orders - PAULINE PRESCOTT MD Chest 1 View, Ap/Pa Only (01/07/19 06:33) Pelvis (01/07/19 06:33) Cbc With Automated Diff (01/07/19 06:33) Comprehensive Metabolic Panel (01/07/19 06:33) Magnesium (01/07/19 06:33) Ua Culture If Indicated (01/07/19 06:33) Thyroid Stimulating Hormone (01/07/19 06:35) Free T4 (Free Thyroxine) (01/07/19 06:35) Valproic Acid (01/07/19 06:35) Saline Lock/Iv-Start (01/07/19 07:59) Ns Iv 1000 Ml (Sodium Chloride 0.9%) (01/07/19 07:59) Monitor-Rhythm Ecg Trace Only (01/07/19 08:00) Urine Culture (01/07/19 07:43) Ns Iv 1000 Ml (Sodium Chloride 0.9%) (01/07/19 08:10) Medications Given in ED Vital Signs/I&O 01/07/19 01/07/19 01/07/19 05:53 07:12 09:34 Temp 96.1 98.9 Pulse 110 107 Resp 20 20 B/P (MAP) 118/84 (95) 115/78 (90) Pulse Ox 96 95 Progress Progress Note : Time: 08:[address] of the head, face, and cervical spine demonstrated a nasal fracture but no other acute injuries. The patient had a bump in his creatinine likely representing acute on chronic renal failure. Family admits that he has not been drinking well in the past couple of days a 2 L normal saline bolus was administered. At family's request, I did attempt to reduce the nasal fracture. However, the displacement was very firm and would not move even when fairly firm pressure was applied. I've advised follow-up with an ENT or maxillofacial surgeon after swelling reduces. We discussed placement in a long-term care facility as this was mentioned in documentation from his prior admission. Family states this is not an option and they are not considering placement at this time. As an alternative, the patient's son is staying in the patient's home. The son works from home and is moving his office into the patient's bedroom. They're working toward having patient and his moved into their home to provide 24/7 care. Family assures me that a family member will be with the patient at all times. Diagnostic Imaging Diagonstic Imaging: CT Plain Films/CT/US/NM/MRI: facial bones, c-spine, head Comments CT head, face and C-spine viewed by me and report reviewed. See report below: NAME: BALJEET MIX V [facility] REC#: [id number] PT STATUS: REG ER : 1935 PHYSICIAN: FLORIAN VILLARREAL DO ADMIT DATE: 01/07/19/ER Draft Date of Exam:01/07/19 CT HEAD/FACE/CERVICAL WO PROCEDURE: CT head, face, and cervical spine without contrast. TECHNIQUE: Multiple contiguous axial images were obtained through the head, neck, and facial bones without the use of intravenous contrast. Sagittal and coronal reformations through the cervical spine and facial bones were also performed. INDICATION: Fall, trauma to face. Comparison: None available. Findings: CT head: No hyperdense hemorrhage or space-occupying mass. No hydrocephalus or midline shift. Knapp white matter differentiation is preserved. Atrophy with chronic microvascular ischemic disease. No acute skull fracture. Mastoid air cells are clear. CT face: Acute, mildly comminuted fracture of the left nasal bone and frontal process of the left maxilla. There is also fracture within the right nasal bone. There is rightward deviation of the nasal bones due to the fracturing. The anterior aspect of the osseous nasal septum is also fractured. No additional fracture within the mid face or mandible. Small air-fluid levels within the bilateral maxillary sinuses. No features of soft tissue injury to the globes. CT cervical spine: No acute fracture or traumatic malalignment. Multilevel degenerative changes. However, no high-grade spinal canal narrowing is appreciated by CT. Varying degrees of neuroforaminal narrowing due to facet and uncovertebral joint hypertrophy. Paraseptal emphysema is present lung apices. No cervical lymphadenopathy. Impression: 1. No acute intracranial hemorrhage or skull fracture. 2. Acute and mildly comminuted fractures of bilateral nasal bones and the frontal process of the left maxilla. The fractures result in rightward deviation of the nasal bridge. 3. Mildly displaced fracture of the osseous nasal septum in its anterior aspect. 4. No acute fracture or traumatic malalignment in the cervical spine. Dictated on workstation # [id number] Dict: 01/07/19618 Trans: 01/07/19639 [facility] [id number] Interpreted by: ROLLY ALVAREZ MD Diagonstic Imaging: Xray Plain Films/CT/US/NM/MRI: chest Comments Chest x-ray viewed by me and report reviewed. See report below: NAME: BALJEET MIX V [facility] REC#: [id number] PT STATUS: REG ER : 1935 PHYSICIAN: PAULINE PRESCOTT MD ADMIT DATE: 01/07/19/ER Draft Date of Exam:01/07/19 CHEST 1 VIEW, AP/PA ONLY INDICATION: Trauma, fall. COMPARISON: 12/29/2018. FINDINGS: Chronic reticular opacities in lung bases are stable. No new airspace opacities. No pneumothorax or pleural effusion. Stable cardiomediastinal silhouette. No displaced fracture in the visualized ribs. IMPRESSION: 1. No acute process by portable radiography. 2. Chronic reticular opacities in lung bases may be senescent in nature. Dictated on workstation # [id number] Dict: 01/07/1906 Trans: 01/07/19 0819 [facility] [id number] Interpreted by: ROLLY ALVAREZ MD Departure Impression Primary Impression: Nasal fracture Qualified Codes: S02.2XXA - Fracture of nasal bones, initial encounter for closed fracture Additional Impressions: Fall on same level Qualified Codes: W18.30XA - Fall on same level, unspecified, initial encounter Acute on chronic renal failure Qualified Codes: N17.9 - Acute kidney failure, unspecified; N18.9 - Chronic kidney disease, unspecified Hypovolemia Disposition: 01 HOME, SELF-CARE Condition: Improved Departure-Patient Inst. Decision time for Depature: 08:22 Referrals: SHERIN COLBY MD, MATTHEW DDS SELF, MAXWELL MD (PCP/Family) Primary Care Physician Patient Instructions: Nose Fracture Add. Discharge Instructions: Encourage plenty of clear liquids. Ambulate only with full assistance. Consider obtaining a gait belt to help him ambulate safely. Using a walker with a family member at his side is also an option for walking. You may apply ice in 20 minute intervals to the nasal fracture to help with pain and swelling. Follow-up with Dr. Eli or Dr. Colby to assess his nose for reduction of the fracture. All discharge instructions reviewed with patient and/or family. Voiced understanding. Copy Copies To 1: ROBEL FALCON MD, JOSHUA T MD Jan 07, 2019 06:59
[2019-01-07 07:34] LABS: BASOPHILS % (AUTO) 0 % (0-10); EOSINOPHILS % (AUTO) 0 % (0-10); HEMATOCRIT 40 % (40-54); HEMOGLOBIN 12.8 G/DL (13.3-17.7); LYMPHOCYTES # (AUTO) 1.7 X 10^3 (1.0-4.0); LYMPHOCYTES % (AUTO) 23 % (12-44); MEAN CORPUSCULAR HEMOGLOBIN 27 PG (25-34); MEAN CORPUSCULAR HGB CONC 32 G/DL (32-36); MEAN CORPUSCULAR VOLUME 85 FL (80-99); MEAN PLATELET VOLUME 10.8 FL (7.4-10.4); MONOCYTES # (AUTO) 0.3 X 10^3 (0.0-1.0); MONOCYTES % (AUTO) 4 % (0-12); NEUTROPHILS # (AUTO) 5.6 X 10^3 (1.8-7.8); NEUTROPHILS % (AUTO) 73 % (42-75); PLATELET COUNT 188 10^3/uL (130-400); RED CELL DISTRIBUTION WIDTH 15.3 % (10.0-14.5); WHITE BLOOD COUNT 7.6 10^3/uL (4.3-11.0)
[2019-01-07 07:51] LABS: BILIRUBIN,URINE NEGATIVE (NEGATIVE); CLARITY,URINE CLEAR; COLOR,URINE YELLOW; GLUCOSE, URINE (UA) NEGATIVE (NEGATIVE); KETONES,URINE NEGATIVE (NEGATIVE); LEUKOCYTE ESTERASE ,URINE 1+ (NEGATIVE); NITRITE,URINE NEGATIVE (NEGATIVE); PH,URINE 5 (5-9); PROTEIN,URINE 1+ (NEGATIVE); UROBILINOGEN,URINE NORMAL (NORMAL)
[2019-01-07 07:57] LABS: ALBUMIN 3.5 GM/DL (3.2-4.5); BILIRUBIN,TOTAL 0.5 MG/DL (0.1-1.0); CALCIUM 8.9 MG/DL (8.5-10.1); CREATININE SERUM 2.53 MG/DL (0.60-1.30); POTASSIUM 5.2 MMOL/L (3.6-5.0); TOTAL PROTEIN 6.3 GM/DL (6.4-8.2)
[2019-01-07] MEDS ORDERED: NS IV 1000 ML 1,000 ML IV ONE ×2 (07:59→08:10)
[2019-01-07 08:03] LABS: BACTERIA,URINE TRACE /HPF
--- NOTE | 2019-01-07 08:10 | Diagnostic Imaging Report ---
Indication: Fall. Comparison: None available. Findings: No displaced fracture in the pelvis or proximal femurs. No hip dislocation. No diastases of the symphysis pubis or SI joints. Degenerative changes are present lower lumbar spine. Impression: No displaced fracture in the pelvis. Dictated by: Dictated on workstation # [id number]
[2019-01-07 08:18] LABS: FREE T4 (FREE THYROXINE) 1.01 NG/DL (0.70-1.48)
--- NOTE | 2019-01-07 08:19 | Diagnostic Imaging Report ---
INDICATION: Trauma, fall. COMPARISON: 12/29/2018. FINDINGS: Chronic reticular opacities in lung bases are stable. No new airspace opacities. No pneumothorax or pleural effusion. Stable cardiomediastinal silhouette. No displaced fracture in the visualized ribs. IMPRESSION: 1. No acute process by portable radiography. 2. Chronic reticular opacities in lung bases may be senescent in nature. Dictated by: Dictated on workstation # [id number]
[2019-01-07 09:34] VITALS: BP 115/78
[2019-01-09] MEDS ORDERED: CEPH-507 PO (15:16)
== END 2019-01-07 09:32 | disposition home or self-care (01) ==
LOC: EDUNIT# 05:43 → ER 05:45
DX: S02.2XXA Fracture of nasal bones, initial encounter for closed fracture (principal); N17.9 Acute kidney failure, unspecified; I12.9 Hypertensive chronic kidney disease with stage 1 through stage 4 chronic kidney disease, or unspecified chronic kidney disease; N18.9 Chronic kidney disease, unspecified; E86.1 Hypovolemia; F03.90 Unspecified dementia, unspecified severity, without behavioral disturbance, psychotic disturbance, mood disturbance, and anxiety; I48.91 Unspecified atrial fibrillation; J44.9 Chronic obstructive pulmonary disease, unspecified; E78.00 Pure hypercholesterolemia, unspecified; F41.9 Anxiety disorder, unspecified; R40.2142 Coma scale, eyes open, spontaneous, at arrival to emergency department; R40.2252 Coma scale, best verbal response, oriented, at arrival to emergency department; R40.2362 Coma scale, best motor response, obeys commands, at arrival to emergency department; K21.9 Gastro-esophageal reflux disease without esophagitis; Z87.19 Personal history of other diseases of the digestive system; Z88.8 Allergy status to other drugs, medicaments and biological substances; Z79.01 Long term (current) use of anticoagulants; Z79.82 Long term (current) use of aspirin; Z79.51 Long term (current) use of inhaled steroids; Z87.891 Personal history of nicotine dependence; Z87.01 Personal history of pneumonia (recurrent); Z98.890 Other specified postprocedural states; W01.198A Fall on same level from slipping, tripping and stumbling with subsequent striking against other object, initial encounter; Y92.009 Unspecified place in unspecified non-institutional (private) residence as the place of occurrence of the external cause
CPT/HCPCS: 36415; 70450; 70486; 71045; 72125; 72170; 80053; 80164; 81000; 83735; 84439; 84443; 85025; 87077; 87088; 87186; 93041

== ENCOUNTER → 2019-02-08 | Outpatient (CLI) | payer MEDICARE, OTHER ==
[~2019-02-08] MED LIST changes: +CEPH-507 PO
--- NOTE | 2019-02-08 10:29 | Diagnostic Imaging Report ---
PROCEDURE: CT chest without contrast. TECHNIQUE: Multiple contiguous axial images were obtained through the chest without the use of intravenous contrast. Auto Exposure Controls were utilized during the CT exam to meet ALARA standards for radiation dose reduction. INDICATION: Pneumonia. The previous CT chest exam of 12/26/2018 noted that the bilateral pleural effusions identified on the prior exam of 12/05/2018 had resolved. There was still some residual atelectasis/pneumonia involving both lung bases however in the interval since the previous exam , the pleural effusions have reaccumulated. The effusion on the right measures approximately 3.8 cm maximum depth while left side effusion is estimated to be 3.0 cm. There is also bibasilar atelectasis/infiltrate. Heart is borderline enlarged and the interstitial densities in both upper lungs do seem somewhat prominent. There could be an element of pulmonary congestion present as well. The emphysematous changes involving the upper lungs, primarily the right upper lung seen on the prior exam are again evident and no different. The aorta is not abnormally dilated. The mediastinal adenopathy noted on the previous study is less striking. The thyroid gland is generally unremarkable. The sections through the upper abdomen fail to show any sign of an acute abnormality. However the infrarenal abdominal aorta is ectatic and dilated measuring 3.2 x 4.2 cm. There are no prior CT examinations available to demonstrate that this finding is stable. Therefore I would recommend that CT of the abdomen and pelvis be performed for further study. There is also question of parapelvic cysts associate with the left kidney. This could also be further evaluated on the followup exam. The bone windows show degenerative disc and bony disease throughout the thoracic spine. There is no evidence for an acute bony abnormality. There is no obvious breast mass. IMPRESSION: 1. The appearance of the chest has worsened since the prior exam as bilateral pleural effusions have developed. There may also somewhat greater involving the lung bases by atelectasis/infiltrate and there may also be an element of mild pulmonary congestion present. 2. There is borderline cardiomegaly and coronary artery disease. 3. CT abdomen and pelvis would be recommended for further evaluation of the infrarenal abdominal aortic aneurysm. Dictated by: Dictated on workstation # [id number]
== END ==
LOC: RAD FS 09:45
PROVIDERS: ATTEND Nurse Practitioner Family
DX: J18.9 Pneumonia, unspecified organism (principal); J90 Pleural effusion, not elsewhere classified; I51.7 Cardiomegaly; I25.10 Atherosclerotic heart disease of native coronary artery without angina pectoris; Z72.0 Tobacco use
CPT/HCPCS: 71250

== ENCOUNTER → 2019-03-10 | Outpatient (CLI) | payer MEDICARE, OTHER ==
[~2019-03-10] MED LIST changes: +RT-ALBUTEROL SULF 2.5 MG/3 ML PRE-MIX VIAL INH ONE; +RT-ALBUTEROL SULF 2.5 MG/3 ML PRE-MIX VIAL ONE
== END ==
LOC: RT 13:56
PROVIDERS: ATTEND Nurse Practitioner Family
DX: R06.09 Other forms of dyspnea (principal); J18.9 Pneumonia, unspecified organism; R09.02 Hypoxemia; Z72.0 Tobacco use
CPT/HCPCS: 94060; 94726; 94729

== ENCOUNTER → 2019-04-02 | Outpatient (CLI) | payer MEDICARE, OTHER ==
[~2019-04-02] MED LIST changes: -RT-ALBUTEROL SULF 2.5 MG/3 ML PRE-MIX VIAL INH ONE; -RT-ALBUTEROL SULF 2.5 MG/3 ML PRE-MIX VIAL ONE
--- NOTE | 2019-04-02 12:56 | Diagnostic Imaging Report ---
EXAMINATION: Abdomen, supine erect at 12:30 p.m. INDICATION: Abdominal pain. COMPARISON: There are no prior studies available for comparison. FINDINGS: There is gas in both the large and small bowel in a nonspecific fashion. There is no evidence for a bowel obstruction. There does appear to be a large soft tissue fullness arising from the pelvis and extending into the lower abdomen. This finding was not present on the prior pelvis exam of 01/07/2019. I suspect that this is related to the bladder distended by urine. If further evaluation of this finding is desired, then either ultrasound or preferably CT would be recommended. There is no other mass or organomegaly noted. There is no sign of pneumoperitoneum on the erect image. The osseous structures are intact. The degenerative disc and bony disease involving the lower lumbar spine seen previously is again evident and no different. IMPRESSION: 1. The bowel gas pattern is nonspecific. There is no acute abnormality identified. 2. The soft tissue fullness arising from the pelvis and extending into the lower abdomen is most likely related to the urinary bladder. Recommendations as above. Dictated by: Dictated on workstation # [id number]
[2019-04-02 13:02] LABS: HEMATOCRIT 36 % (40-54); HEMOGLOBIN 11.8 G/DL (13.3-17.7); MEAN CORPUSCULAR HEMOGLOBIN 31 PG (25-34); MEAN CORPUSCULAR HGB CONC 33 G/DL (32-36); MEAN CORPUSCULAR VOLUME 96 FL (80-99); MEAN PLATELET VOLUME 14.4 FL (7.4-10.4); PLATELET COUNT 178 10^3/uL (130-400); RED CELL DISTRIBUTION WIDTH 16.4 % (10.0-14.5); WHITE BLOOD COUNT 10.2 10^3/uL (4.3-11.0)
[2019-04-02 13:03] LABS: BASOPHILS % (AUTO) 0 % (0-10); EOSINOPHILS % (AUTO) 0 % (0-10); LYMPHOCYTES # (AUTO) 1.7 X 10^3 (1.0-4.0); LYMPHOCYTES % (AUTO) 16 % (12-44); MONOCYTES # (AUTO) 0.9 X 10^3 (0.0-1.0); MONOCYTES % (AUTO) 9 % (0-12); NEUTROPHILS # (AUTO) 7.7 X 10^3 (1.8-7.8); NEUTROPHILS % (AUTO) 75 % (42-75)
[2019-04-02 13:17] LABS: BAND NEUTROPHILS 2 %; BASOPHILS % (MANUAL) 0 %; EOSINOPHILS % (MANUAL) 0 %; LYMPHOCYTES % (MANUAL) 11 %; METAMYELOCYTES % 1 %; MONOCYTES % (MANUAL) 7 %; NEUTROPHILS % (MANUAL) 79 %
== END ==
LOC: LAB FS 12:01
PROVIDERS: ATTEND Nurse Practitioner Family
DX: R19.5 Other fecal abnormalities (principal); K57.92 Diverticulitis of intestine, part unspecified, without perforation or abscess without bleeding
CPT/HCPCS: 36415; 74019; 85007; 85027

== ENCOUNTER 2019-05-09 12:18 | Inpatient (IN) | payer MEDICARE, OTHER ==
[~2019-05-09] VITALS: Ht 175.3 cm; Wt 59.5 kg
--- OUTSIDE RECORDS SUMMARY | 2019-05-09 12:22 | XMS REPORT ---
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 Priming Machine Operator Name Role Phone SELFGUYROBEL Unavailable PROBLEMS Type Condition ICD9-CM Code [id number] Code Onset Dates Condition Status SNOMED Code Problem Vitamin D deficiency E55.9 15 Jan, 2018 Active 56418188 Problem Neuropathy G62.9 Dec, Active 936158634 Problem Acquired hypothyroidism E03.9 Oct, Active 350527412 Problem Diabetic polyneuropathy associated with type 2 diabetes mellitus E11.42 15 Jan, 2018 Active 001455430 Problem Peripheral arterial disease I73.9 Dec, Active 243415497 Problem Diverticulitis K57.92 09 Aug, 2008 Active 94575148 Problem Hyperglycemia R73.9 Oct, Active 42609429 Problem Onychomycosis of left great toe B35.1 Dec, Active 715186854 Problem Hearing loss H91.90 Oct, Active 04732834 Problem Type 2 diabetes mellitus with diabetic peripheral angiopathy without gangrene E11.51 16 Jan, 2018 Active 408731286 Problem Hypertriglyceridemia E78.1 Aug, Active 120013847 Problem Type 2 diabetes with stage 3 chronic kidney disease GFR 30-59 E11.22 16 Jan, 2018 Active 796296930 Problem Other specified cardiac dysrhythmias(427.89) I49.8 Active 877474175 Problem Special screening for malignant neoplasms, colon Z12.11 Oct, Active 254653219 Problem Status post colonoscopy Z98.890 Oct, Active 982524848166 Problem Systolic murmur R01.1 Oct, Active 48701912 Problem Pneumonia of both lower lobes due to infectious organism J18.1 Sep, Active 487050984 Problem Cigarette nicotine dependence, uncomplicated F17.210 16 Jan, 2018 Active 272983970 Problem Recent unexplained weight loss R63.4 Sep, Active 749163056 Problem 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 Active 38436834 Problem Type 2 diabetes mellitus E11.9 Active 57496560 Problem Systolic murmur I38 Active 89700672 Problem Type 2 diabetes mellitus with other specified complication E11.69 Active 37800508 Problem Acute renal failure with acute tubular necrosis superimposed on stage 3 chronic kidney disease N17.0 13 Sep, 2018 Active 73126584 Problem COPD exacerbation J44.1 Active 185514726 Problem Pharyngoesophageal dysphagia R13.14 13 Jan, 2017 Active 23040313 Problem PAT (paroxysmal atrial tachycardia) I47.1 Oct, Active 87487183 Problem CHF (congestive heart failure) I50.9 Active 85024410 Problem Atrial fibrillation I48.91 Active 41185818 Problem Hypothyroidism E03.9 Active 55582648 Problem 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 Z79.4 Active 498563529 ALLERGIES No Information ENCOUNTERS Encounter Location Date Diagnosis [address] [address] Apr, [address] [address] Apr, [address] [address] Apr, [address] [address] March, Lower abdominal pain R10.30 ; Loose stools R19.5 and Diverticulitis K57.[address] [address] March, Generalized weakness R53.[address] [address] March, [address] [address] March, COPD exacerbation J44.[address] [address] Feb, [address] [address] Feb, [address] [address] Feb, Generalized weakness R53.1 ; Suprapubic abdominal pain R10.2 and Pleural effusion J90 [facility] [address] [place] [address] Feb, [facility] [address] [place] [address] Feb, Urinary pain R30.9 [facility] [address] [address] Feb, Urinary pain R30.9 [facility] [address] [place] [address] Feb, [facility] [address] [place] [address] Feb, Urinary pain R30.9 [facility] [address] [place] [address] Feb, [facility] [address] [address] 18 Jan, 2019 [facility] [address] [address] Jan, [facility] [address] [place] [address] 14 Jan, 2019 Acute UTI N39.0 [facility] [address] [address] 13 Jan, 2019 Acute UTI N39.0 ; Confusion R41.0 and 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, subsequent encounter S02.2XXK [facility] [address] [address] Jan, [facility] [address] [address] 08 Dec, 2018 Type 2 diabetes mellitus with other specified complication E11.69 ; 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 Z79.4 and Elevated blood sugar R73.09 [facility] [id number] [address] Nov, [facility] [address] [facility] [id number] [address] Oct, [facility] [address] [address] Oct, [facility] [address] [address] Oct, [facility] [address], [place] [address] Oct, [facility] [address], [place] [address] Oct, [facility] [address] [place] [address] Sep, [facility] [address] [place] [address] Sep, [facility] [address] [place] [address] Sep, [facility] [address] [place] [address] Sep, IMMUNIZATIONS No Known Immunizations SOCIAL HISTORY Never Assessed REASON FOR VISIT PLAN OF CARE VITAL SIGNS MEDICATIONS Medication Instructions Dosage Frequency Start Date End Date Duration Status Cipro 250 MG Orally every 12 hrs 1 tablet 12h Jan, 05 days Active RESULTS No Results PROCEDURES No Known procedures INSTRUCTIONS MEDICATIONS ADMINISTERED No Known Medications MEDICAL (GENERAL) HISTORY Type Description Date Medical History Type 2 diabetes mellitus Medical History CHF (congestive heart failure) Medical History Atrial fibrillation Medical History Hypertriglyceridemia Medical History Hearing loss Medical History Hypothyroidism Medical History Dementia due to Alzheimers disease Medical History Systolic murmur Surgical History LUMBAR SURGERY Surgical History RECTAL SURGERY Hospitalization History CHF 12/2018
[2019-05-09 13:07] LABS: BASOPHILS % (AUTO) 0 % (0-10); EOSINOPHILS % (AUTO) 0 % (0-10); HEMATOCRIT 36 % (40-54); HEMOGLOBIN 11.6 G/DL (13.3-17.7); LYMPHOCYTES # (AUTO) 2.3 X 10^3 (1.0-4.0); LYMPHOCYTES % (AUTO) 23 % (12-44); MEAN CORPUSCULAR HEMOGLOBIN 31 PG (25-34); MEAN CORPUSCULAR HGB CONC 32 G/DL (32-36); MEAN CORPUSCULAR VOLUME 97 FL (80-99); MEAN PLATELET VOLUME 13.2 FL (7.4-10.4); MONOCYTES # (AUTO) 0.8 X 10^3 (0.0-1.0); MONOCYTES % (AUTO) 8 % (0-12); NEUTROPHILS # (AUTO) 7.1 X 10^3 (1.8-7.8); NEUTROPHILS % (AUTO) 69 % (42-75); PLATELET COUNT 206 10^3/uL (130-400); RED CELL DISTRIBUTION WIDTH 14.9 % (10.0-14.5); WHITE BLOOD COUNT 10.2 10^3/uL (4.3-11.0)
[2019-05-09] MEDS ORDERED: LACTATED RINGERS 1,000 ML IV ONE (13:09)
[2019-05-09] MEDS ORDERED: ONDANSETRON 4 MG/2 ML (SDV) Z0FRAN IVP ONE (13:15)
[2019-05-09 13:27] LABS: ALBUMIN 3.6 GM/DL (3.2-4.5); BILIRUBIN,TOTAL 0.4 MG/DL (0.1-1.0); CALCIUM 9.4 MG/DL (8.5-10.1); CREATININE SERUM 4.03 MG/DL (0.60-1.30); MAGNESIUM 2.4 MG/DL (1.8-2.4); TOTAL PROTEIN 6.5 GM/DL (6.4-8.2)
--- NOTE | 2019-05-09 13:33 | Diagnostic Imaging Report ---
INDICATION: Dyspnea with productive cough with nausea and vomiting for two days. COMPARISON: 01/07/2019. DISCUSSION: Single portable upright view of the chest was obtained. New consolidation within the right lung base with worsening consolidation within the left lung base is suggestive of pneumonia. No pleural fluid or pneumothorax. Normal heart size. No osseous abnormality. IMPRESSION: 1. Bibasilar infiltrates. Dictated by: Dictated on workstation # [id number]
[2019-05-09 13:37] LABS: BILIRUBIN,URINE NEGATIVE (NEGATIVE); CLARITY,URINE CLEAR; COLOR,URINE YELLOW; GLUCOSE, URINE (UA) NEGATIVE (NEGATIVE); KETONES,URINE 1+ (NEGATIVE); LEUKOCYTE ESTERASE ,URINE NEGATIVE (NEGATIVE); NITRITE,URINE POSITIVE (NEGATIVE); PH,URINE 5 (5-9); PROTEIN,URINE 2+ (NEGATIVE); UROBILINOGEN,URINE NORMAL (NORMAL)
--- NOTE | 2019-05-09 13:41 | Diagnostic Imaging Report ---
PROCEDURE: CT abdomen and pelvis without contrast. TECHNIQUE: Multiple contiguous axial images were obtained through the abdomen and pelvis without the use of intravenous contrast. Auto Exposure Controls were utilized during the CT exam to meet ALARA standards for radiation dose reduction. INDICATION: Nausea, vomiting, and cough. COMPARISON: CT chest of 02/28/2018. FINDINGS: Evaluation of the abdominal viscera is mildly limited without contrast. Lower chest: Paraseptal emphysema. Subpleural reticulations are likely senescent in etiology. Peritoneum: No free intraperitoneal air or fluid. Liver and biliary system: Unenhanced liver is normal. The gallbladder is normal. No biliary duct dilation. Spleen and Pancreas: Spleen is normal. Unenhanced pancreas is grossly normal. Adrenals: Normal. tract: There is a 1 cm nonobstructing stone in the lower pole of the left kidney. Marked distention of the urinary bladder is present. Moderate right-sided hydroureter and hydronephrosis. Prostate is enlarged. GI tract: Stomach is decompressed. No bowel obstruction. No pericolonic inflammatory changes. Normal appendix. Vasculature and Lymph nodes: Fusiform aneurysm of the abdominal aorta measuring up to 3.5 cm. No abdominal or pelvic lymphadenopathy. Musculoskeletal: No concerning osseous lesion. IMPRESSION: 1. There is a 1 cm nonobstructing stone in the lower pole of the left kidney. 2. Moderate distention of the urinary bladder. Correlation for bladder outlet obstruction is advised. 3. Moderate right hydronephrosis and hydroureter may be due to reflux nephropathy as there is no distal obstructing process appreciated. Dictated by: Dictated on workstation # [id number]
[2019-05-09 13:51] LABS: BACTERIA,URINE FEW /HPF; GRANULAR CASTS,URINE RARE /LPF; WBC,URINE 0-2 /HPF
[2019-05-09] MEDS ORDERED: cefTRIAXone FOR IV USE 1,000 MG in WATER (STERILE) FOR INJECTION 10 ML IV ONE (14:15)
[2019-05-09] MEDS ORDERED: SOD POLYSTERENE 15 GM/60 ML (KAYEXALATE) UNIT DOSE PO ONE (14:30)
[2019-05-09] MEDS ORDERED: PANTOPRAZOLE 40 MG (PROTONIX) VIAL IV ONE (14:30)
[2019-05-09] MEDS ORDERED: cefTRIAXone 1,000 MG IV (ROCEPHIN) VIAL ONE (14:38)
[2019-05-09] MEDS ORDERED: WATER (STERILE) FOR INJECTION 10 ML ONE (14:39)
[2019-05-09] MEDS ORDERED: LIDOCAINE UROJET 2% GEL 10 ML PKG TOP ONE (15:00)
--- NOTE | 2019-05-09 15:13 | NUR ---
Changed pt's brief. Pt had two full pills in stool. believes pills are depakote. Dr. Hilliard in room with pt.
--- NOTE | 2019-05-09 15:24 | History & Physical-Hospitalist ---
History of Present Illness HPI/Chief Complaint Chief complaint: Fatigue with acute renal failure History of present illness: This is an 84-year-old white male known to me from earlier this year after multiple hospital stays at [facility] floor in addition to [facility] unit due to dementia with psychosis in addition to [facility] for recurrent pneumonia with COPD exacerbation who presents to the ER with complaints of weakness and weight loss found to have a creatinine of 4 with bladder outlet obstruction requiring urology consultation and catheter placement. He does have significant hyperkalemia requiring Kayexalate and Dr. Kothari consultation for metabolic acidosis due to renal failure. He had actually been doing pretty well per the had returned home under her care and had not really required oxygen / as he had before. He denied any significant pain does report chronic diarrhea causing weight loss. He is never had any bladder problems. Source: patient, family, RN/MD, old records Exam Limitations: no limitations Date Seen 05/09/19 Time Seen by a Provider: 14:00 Attending Physician Jessie Briscoe DO PCP Self,Rodney RICHTER Referring Physician Date of Admission May 09, 2019 at 14:11 Home Medications & Allergies Home Medications Reviewed patient Home Medication Reconciliation performed by pharmacy medication reconciliations small electric engine technician and/or nursing. Patients Allergies have been reviewed. 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) Alcohol Use: Denies Use Recreational Drug Use: No Smoking Status: Former Smoker Former Smoker, Quit: Nov 03, 2018 Type Used: Pipe 2nd Hand Smoke Exposure: No Recent Foreign Travel: No Contact w/other who traveled: No Recent Hopitalizations: No (OCT 2018 FOR PNEUMONIA; 11/16-11/19/18 FOR A FIB AND PNEUMONIA) Recent Infectious Disease Expo: No Immunizations Up To Date Date of Pneumonia Vaccine: Nov 03, 2016 Date of Influenza Vaccine: Aug 03, 2018 Seasonal Allergies Seasonal Allergies: No Past Medical History Surgeries: Orthopedic, Rectal Respiratory: COPD, Emphysema, Pneumonia Currently Using CPAP: No Currently Using BIPAP: No Cardiac: Atrial Fibrillation, High Cholesterol, Hypertension Neurological: Dementia Restless leg syndrome Sexually Transmitted Disease: No HIV/AIDS: No Genitourinary: Renal Failure Gastrointestinal: Gastroesophageal Reflux, Chronic Diarrhea, Hiatal Hernia Endocrine: Hypothyroidsim, Diabetes, Non-Insulin dep Psychosocial: Sleep Difficulties, Anxiety History of Blood Disorders: No Adverse Reaction to Blood Cantor: No Family History No Pertinent Family Hx Review of Systems Constitutional: see HPI, malaise, weakness, weight loss EENTM: no symptoms reported Respiratory: no symptoms reported Cardiovascular: no symptoms reported Gastrointestinal: abdominal pain (LUQ) Genitourinary: decreased output, dysuria, frequency, hematuria, hesitancy, nocturia Musculoskeletal: no symptoms reported Skin: no symptoms reported Psychiatric/Neurological: No Symptoms Reported All Other Systems Reviewed Negative Unless Noted: Yes Physical Exam Physical Exam Vital Signs Vital Signs - First Documented 05/09/19 12:27 Temp 97.4 Pulse 103 Resp 18 B/P (MAP) 137/83 (101) Pulse Ox 100 O2 Delivery Room Air Capillary Refill : Less Than 3 Seconds Height, Weight, BMI Height: 5'9.00" Weight: 143lbs. 7.0oz. 64.644608ah; 19.1 BMI Method:Stated General Appearance: No Apparent Distress, WD/WN, Chronically ill, Thin Eyes: Right Eye Normal Inspection, Right Eye PERRL HEENT: PERRL/EOMI, Normal ENT Inspection, Pharynx Normal, Moist Mucous Membranes Neck: Full Range of Motion, Normal Inspection, Non Tender Respiratory: Chest Non Tender, Lungs Clear, Normal Breath Sounds, No Accessory Muscle Use, No Respiratory Distress Cardiovascular: Regular Rate, Rhythm, No Edema, No Gallop, No JVD, No Murmur, Normal Peripheral Pulses Gastrointestinal: Normal Bowel Sounds, No Organomegaly, No Pulsatile Mass, Non Tender, Soft Back: Normal Inspection, No CVA Tenderness, No Vertebral Tenderness Extremity: Normal Capillary Refill, Normal Inspection, Normal Range of Motion, Non Tender, No Calf Tenderness, No Pedal Edema Neurologic/Psychiatric: Alert, Oriented x3, No Motor/Sensory Deficits, Normal Mood/Affect, Disoriented (subtle poor recall) Skin: Normal Color, Warm/Dry Lymphatic: No Adenopathy Results Results/Procedures Labs Laboratory Tests 05/09/19 13:00 Patient resulted labs reviewed. Assessment/Plan Admission Diagnosis Assessment: Acute on chronic renal failure Bladder outlet obstruction requiring Khan catheter placement Chronic diarrhea resulting in weight loss Hyperkalemia Metabolic acidosis due to renal failure COPD History of recurrent pneumonia Diabetes mellitus Hypertension Dementia Plan: Treat hyperkalemia with Kayexalate Gentle IV fluids Dr. Kothari consult for renal failure and hyperkalemia Consult urology for urinary retention Home meds as long as no renal toxic meds are included Admission Status: Inpatient Order (span 2 midnights) Reason for Inpatient Admission: Severe renal failure will require 3 days inpatient Diagnosis/Problems Diagnosis/Problems (1) Acute on chronic renal failure Status: Acute Qualifiers: Acute renal failure type: unspecified Chronic kidney disease stage: stage 4 (severe) Qualified Codes: N17.9 - Acute kidney failure, unspecified; N18.4 - Chronic kidney disease, stage 4 (severe) (2) Urinary retention Status: Acute (3) Khan catheter in place Status: Acute (4) Hyperkalemia Status: Acute (5) Atrial fibrillation Status: Chronic Qualifiers: Atrial fibrillation type: paroxysmal Qualified Codes: I48.0 - Paroxysmal atrial fibrillation (6) CHF (congestive heart failure) Status: Acute Qualifiers: Heart failure type: unspecified (7) Hypovolemia Status: Acute (8) Hypoxia Status: Chronic (9) Smoker Status: Chronic (10) OSWALDO (acute kidney injury) Status: Acute (11) Hypothyroidism Status: Chronic Qualifiers: Hypothyroidism type: acquired Qualified Codes: E03.9 - Hypothyroidism, unspecified (12) EMPHYSEMA, UNSPECIFIED Status: Chronic (13) Dementia Status: Chronic Qualifiers: Dementia type: Alzheimer's disease Alzheimer's disease onset: unspecified onset Dementia behavioral disturbance: without behavioral disturbance Qualified Codes: G30.9 - Alzheimer's disease, unspecified; F02.80 - Dementia in other diseases classified elsewhere without behavioral disturbance (14) Non-insulin dependent type 2 diabetes mellitus Status: Chronic JESSIE BRISCOE DO May 09, 2019 15:24
--- NOTE | 2019-05-09 15:30 | NUR ---
REPORT RECEIVED FROM SILVANO ARREDONDO.
--- NOTE | 2019-05-09 15:40 | Consultation - Surgery ---
History of Present Illness History of Present Illness Patient Consulted On(ale/time) 05/09/19 15:34 Time Seen by Provider: 14:59 History of Present Illness Surgery asked to consult regarding diarrhea, weight loss and abdominal pain. HPI per IM: History of present illness: This is an 84-year-old white male known to me from earlier this year after multiple hospital stays at [facility] floor in addition to [facility] unit due to dementia with psychosis in addition to [facility] for recurrent pneumonia with COPD exacerbation who presents to the ER with complaints of weakness and weight loss found to have a creatinine of 4 with bladder outlet obstruction requiring urology consultation and catheter placement. He does have significant hyperkalemia requiring Kayexalate and Dr. Kothari consultation for metabolic acidosis due to renal failure. He had actually been doing pretty well per the had returned home under her care and had not really required oxygen 26/05 as he had before. He denied any significant pain does report chronic diarrhea causing weight loss. He is never had any bladder problems. When I spoke to pt his main complaint was diarrhea, "an hour after I eat it comes out the other end". He states he has lost appx 30-40 lbs over the past few months. He describes pain mostly in the LUQ, kind of crampy and comes and goes. He is not really sure what brings pain on. He thinks he has a Hiatal hernia that could be causing some of the problems. Allergies and Home Medications Allergies Coded Allergies: gabapentin (Verified Allergy, Unknown, 11/15/18) pregabalin (Verified Allergy, Unknown, 11/15/18) lorazepam (Verified Adverse Reaction, Severe, AGITATION, 12/08/18) haloperidol (Verified Adverse Reaction, Intermediate, AGITATION, 12/08/18) Home Medications Acetaminophen 325 Mg Tablet, 650 MG PO TID, (Reported) Apixaban 2.5 Mg Tablet, 2.5 MG PO BID Prescribed by: JAGDEEP PEARSON on 11/19/18 0936 Ascorbic Acid 1,000 Mg Tablet, 1,000 MG PO DAILY, (Reported) Aspirin 81 Mg Tablet., 81 MG PO HS, (Reported) Brimonidine Tartrate/Timolol 5 Ml Drops, 1 DROP OU BID, (Reported) Cephalexin 500 Mg Capsule, 500 MG PO TID, (Reported) Cholecalciferol (Vitamin D3) 1,000 Unit Capsule, 1,000 UNIT PO DAILY, (Reported) Cyanocobalamin (Vitamin B-12) 1,000 Mcg Tablet, 1,000 MCG PO DAILY, (Reported) Diltiazem HCl 240 Mg Cap.er.24h, 240 MG PO DAILY, (Reported) Divalproex Sodium 500 Mg Tab.er.24h, 1,000 MG PO HS Prescribed by: BABAR PLUMMER on 12/29/18 1148 Famotidine 20 Mg Tablet, 20 MG PO BID, (Reported) Fenofibrate Nanocrystallized 145 Mg Tablet, 145 MG PO DAILY, (Reported) Fluticasone/Salmeterol 12 Gm Hfa.aer.ad, 2 PUFF IH RTBID@0800,1999 Prescribed by: BABAR PLUMMER on 11/19/18 0954 Furosemide 20 Mg Tablet, 20 MG PO Q48H Prescribed by: VANE BRISCOE on 12/10/18 1114 Garlic 1,000 Mg Capsule, 1,000 MG PO DAILY, (Reported) Ipratropium/Albuterol Sulfate 3 Ml Ampul.neb, 3 ML INH RTTID Prescribed by: VANE BRISCOE on 12/10/18 1114 Krill/Om3/Dha/Epa/Om6/Lip/Astx 1 Each Capsule, 1,000 MG PO DAILY, (Reported) Lactobacillus Acidophilus 1 Each Capsule, 1 CAP PO DAILY, (Reported) Lactulose 20 Gm/30 Ml Solution, 20 GM PO BID, (Reported) Levothyroxine Sodium 100 Mcg Tablet, 100 MCG PO DAILY, (Reported) Linezolid 600 Mg Tablet, 600 MG PO BID Prescribed by: BABAR PLUMMER on 12/28/18 0956 Liothyronine Sodium 25 Mcg Tablet, 25 MCG PO DAILY, (Reported) Multivitamin 1 Each Tablet, 1 TAB PO DAILY, (Reported) Pyridoxine HCl 100 Mg Tablet, 50 MG PO DAILY, (Reported) Quetiapine Fumarate 25 Mg Tablet, 25 MG PO HS Prescribed by: BABAR PLUMMER on 12/29/18 1148 Ropinirole HCl 1 Mg Tablet, 1 MG PO 0800,1530, (Reported) Ropinirole HCl 1 Mg Tablet, 2 MG PO 2030, (Reported) TAKES 2 (1MG) TABLETS Saw [place] Fruit 450 Mg Capsule, 450 MG PO BID, (Reported) Vit C/Vit E/Lutein/Min/[place]-3 1 Each Capsule, 1 CAP PO DAILY, (Reported) Patient Home Medication List Home Medication List Reviewed: Yes Past Ndsxnlp-Xqbhgi-Cvnzay Hx Patient Social History Alcohol Use: Denies Use Recreational Drug Use: No Smoking Status: Former Smoker Former Smoker, Quit: Nov 03, 2018 Type Used: Pipe 2nd Hand Smoke Exposure: No Recent Foreign Travel: No Contact w/Someone Who Travel: No Recent Infectious Disease Expo: No Recent Hopitalizations: No (OCT 2018 FOR PNEUMONIA; 11/16-11/19/18 FOR A FIB AND PNEUMONIA) Immunizations Up To Date Date of Pneumonia Vaccine: Nov 03, 2016 Date of Influenza Vaccine: Aug 03, 2018 Seasonal Allergies Seasonal Allergies: No Surgeries History of Surgeries: Yes (EGD WITH DILATION OF ESOPHAGEAL STRICTUE) Surgeries: Orthopedic, Rectal Respiratory History of 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 ) Respiratory Disorders: Pneumonia, COPD Cardiovascular History of Cardiac Disorders: Yes (SVT) Cardiac Disorders: Atrial Fibrillation, High Cholesterol, Hypertension Neurological History of Neurological Disord: No Neurological Disorders: Dementia Reproductive System Sexually Transmitted Disease: No HIV/AIDS: No Genitourinary History of Genitourinary Disor: Yes Genitourinary Disorders: Renal Failure Gastrointestinal History of Gastrointestinal Di: Yes (ESOPHAGEAL STRICTURE) Gastrointestinal Disorders: Gastroesophageal Reflux, Chronic Diarrhea, Hiatal Hernia Musculoskeletal History of Musculoskeletal Dis: No Endocrine History of Endocrine Disorders: Yes Endocrine Disorders: Hypothyroidsim, Diabetes, Non-Insulin dep HEENT History of HEENT Disorders: No Cancer History of Cancer: No Psychosocial History of Psychiatric Problem: Yes (AGGRESIVE -- ) Behavioral Health Disorders: Sleep Difficulties, Anxiety Integumentary History of Skin or Integumenta: No Blood Transfusions History of Blood Disorders: No Adverse Reaction to a Blood Tr: No Family Medical History Significant Family History: Diabetes (sister and Aunt) Review of Systems-General Constitutional: No chills; malaise, weakness, weight loss EENTM: nose congestion; No blurred vision, No double vision, No mouth pain Respiratory: cough; No dyspnea on exertion, No hemoptysis, No short of breath Cardiovascular: No chest pain, No edema, No palpitations Gastrointestinal: abdominal pain; No hematemesis, No jaundice; loss of appetite; No nausea, No vomiting Genitourinary: No hematuria; hesitancy, incontinence, other (retention) Musculoskeletal: joint pain, joint swelling, muscle pain, muscle stiffness Skin: No change in color, No change in hair/nails Psychiatric/Neurological: Denies Anxiety, Denies Depressed, Denies Pre-Existing Deficit, Denies Tingling Physical Exam-General Problems Physical Exam Vital Signs Vital Signs - First Documented 05/09/19 12:27 Temp 97.4 Pulse 103 Resp 18 B/P (MAP) 137/83 (101) Pulse Ox 100 O2 Delivery Room Air Capillary Refill : Less Than 3 Seconds General Appearance: no apparent distress, cachetic Eyes: Bilateral Eye PERRL, Bilateral Eye EOMI HEENT: pharynx normal; No scleral icterus (R); other (poor dentition) Neck: supple, normal inspection Respiratory: chest non-tender, lungs clear, normal breath sounds, no respiratory distress, no accessory muscle use Cardiovascular: no murmur, irregularly irregular Gastrointestinal: normal bowel sounds, soft, no organomegaly, tenderness (mostly suprapubic) Back: no CVA tenderness, no vertebral tenderness Extremities: no pedal edema, no calf tenderness, normal capillary refill, other (muscle wasting on hands) 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, no motor/sensory deficits, alert, normal mood/affect, oriented x 3 Skin: normal color, warm/dry Lymphatic: no adenopathy (neck, axilla or groin) Data Review Labs Laboratory Tests 05/09/19 13:00: White Blood Count 10.2, Red Blood Count 3.73L, Hemoglobin 11.6L, Hematocrit 36L, Mean Corpuscular Volume 97, Mean Corpuscular Hemoglobin 31, Mean Corpuscular Hem oglobin Concent 32, Red Cell Distribution Width 14.9H, Platelet Count 206, Mean Platelet Volume 13.2H, Neutrophils (%) (Auto) 69, Lymphocytes (%) (Auto) 23, Monocytes (%) (Auto) 8, Eosinophils (%) (Auto) 0, Basophils (%) (Auto) 0, Neutrophils # (Auto) 7.1, Lymphocytes # (Auto) 2.3, Monocytes # (Auto) 0.8, Eosinophils # (Auto) 0.0, Basophils # (Auto) 0.0, Sodium Level 136, Potassium Level 6.0H, Chloride Level 91L, Carbon Dioxide Level 14L, Anion Gap 31H, Blood Urea Nitrogen 61H, Creatinine 4.03H, Estimat Glomerular Filtration Rate 14, BUN/Creatinine Ratio 15, Glucose Level 134H, Calcium Level 9.4, Corrected Calcium 9.7, Magnesium Level 2.4, Total Bilirubin 0.4, Aspartate Amino Transf (AST/SGOT) 59H, Alanine Aminotransferase (ALT/SGPT) 22, Alkaline Phosphatase 42, Total Protein 6.5, Albumin 3.6, Amylase Level 93, Lipase 245H, Valproic Acid (Depakene) Level 34.2L 05/09/19 13:20: Urine Color YELLOW, Urine Clarity CLEAR, Urine pH 5, Urine Specific [place] 1.015L, Urine Protein 2+H, Urine Glucose (UA) NEGATIVE, Urine Ketones 1+H, Urine Nitrite POSITIVEH, Urine Bilirubin NEGATIVE, Urine Urobilinogen NORMAL, Urine Leukocyte Esterase NEGATIVE, Urine RBC (Auto) 1+H, Urine RBC NONE, Urine WBC 0- 2, Urine Squamous Epithelial Cells NONE, Urine Crystals NONE, Urine Bacteria FEWH, Urine Casts PRESENT, Urine Granular Casts RARE, Urine Mucus NEGATIVE, Urine Culture Indicated YES Assessment/Plan Assessment/Plan Assessment/Plan Diarrhea Weight loss Dilated GB, ??cholecystitis Urinary retention Hydronephrosis and Hydroureter Right Hyperkalemia COPD, AFib, DM Acute Renal Failure Pt has multiple medical problems, but I think right now his abdominal pain and possibly some of this other problems are due to the Urinary retention. The nurse is placing a rice. I will order stool studies to see if we can find a cause for his diarrhea. He is not really complaining of any RUQ pain, so can ignore the distended GB for now. If anything changes can get an US and maybe HIDA scan; however not urgent. CT did not show any acute processes in the abdomen; he does have AAA and diverticula. JENIFER GARVEY DO May 09, 2019 15:40
[2019-05-09 15:53] VITALS: BP 150/77
[2019-05-09 16:01] VITALS: BP 150/77
--- NOTE | 2019-05-09 17:20 | NUR ---
BALJEET MIX V admitted to room 429-1, with an admitting diagnosis of ACUTE CHRONIC KIDNEY FAILURE, DEHYDRATION, UTI, URINARY RETENTION, on 05/09/19 from ER via [facility], accompanied by STAFF AND FAMILY.BALJEET MIX V introduced to surroundings, call light, bed controls, phone, TV, temperature control, lights, meal times, smoking policy, visitor policy, side rail policy, bathrooms and showers. Patient Rights given to patient in the handbook. BALJEET MIX V verbalizes understanding that [facility] is not responsible for the loss or damage to any personal effects or valuables that are kept in the patients posession during their hospitalization. BALJEET MIX V verbalizes understanding of Interdisciplinary Patient Education. Patient and/or family were informed about the Rapid Response Team and its purpose.
[2019-05-09] MEDS: 1/2 NS IV SOLUTION 1,000 ML IV SCH (18:20)
--- NOTE | 2019-05-09 18:45 | ED GI ---
General Chief Complaint: Abdominal/GI Problems Stated Complaint: ACUTE ON CHRONIC RENAL FAILURE,URINARY RETENTION,U Nursing Triage Note: Pt c/o chronic diarrhea for 2-3 weeks, nausea and vomiting for two days. Pt reports a weight loss of 30-40 pounds since the beginning of the year. Pt reports copious amount of phlegm and mucous, described as white/yellow to red/orange. Pt c/o L sided flank pain. Sepsis Screen: No Definite Risk Source of Information: Patient (PT IS LIMITED HISTORIAN), Spouse ( GIVES [place] ST OF INFORMATION) History of Present Illness Date Seen by Provider: May 09, 2019 Time Seen by Provider: 12:30 Initial Comments PT ARRIVES VIA POV FROM HOME C/O NAUSEA AND VOMITING SINCE Friday05/07/19 STATES HE IS VOMITING "MOSTLY PHLEGM"--WHITE, FROTHY MUCOUS PT DID KEEP DOWN 1/2 CUP OF WATER 2 HOURS AGO, BUT STARTED HAVING ABDOMINAL PAIN AND CRAMPING AN HOUR LATER PT HAS HAD ONGOING / CHRONIC DIARRHEA FOR MONTHS--WILL HAVE DIARRHEA WITHIN AN HOUR EVERY TIME HE TRIES TO EAT PT HAS BEEN HAVING LEFT SIDED ABDOMINAL PAIN AND LEFT FLANK PAIN FOR AT LEAST 6 MONTHS PT HAS LOST AT LEAST 30 LBS AND GONE DOWN A FEW SIZES IN CLOTHING OVER THE LAST 6 MONTHS. PT HAS CHRONIC PROBLEMS WITH SWALLOWING--ESPECIALLY WITH PILLS GETTING STUCK AND CAUSING HIM TO GAG AND CHOKE AND SPIT UP, ESPECIALLY HIS DEPAKOTE STATES IT IS BECAUSE HE HAS A HIATAL HERNIA PT HAS HISTORY OF 10 RECTAL FISSURES, WITH LAST COLONOSCOPY BEING 3 YEARS AGO IN [facility]--WAS REPORTEDLY ADVISED NOT TO HAVE ANY MORE DUE TO VERY DIFFICULT PROCEDURE AND PT DID NOT TOLERATE IT WELL, DUE TO SCAR TISSUE PT HAS CHRONIC ISSUES WITH URINATION--GOES SMALL AMOUNTS EVERY 5 MINUTES, ALL DAY AND ALL NIGHT PT STATES HE HAS ONLY URINATED X 2 TODAY--MUCH LESS THAN NORMAL. NO FEVER PCP: [facility] Allergies and Home Medications Allergies Coded Allergies: gabapentin (Verified Allergy, Unknown, 11/15/18) pregabalin (Verified Allergy, Unknown, 11/15/18) lorazepam (Verified Adverse Reaction, Severe, AGITATION, 12/08/18) haloperidol (Verified Adverse Reaction, Intermediate, AGITATION, 12/08/18) Home Medications Acetaminophen 325 Mg Tablet, 650 MG PO TID, (Reported) Apixaban 2.5 Mg Tablet, 2.5 MG PO BID Prescribed by: JAGDEEP PEARSON on 11/19/18 0936 Ascorbic Acid 1,000 Mg Tablet, 1,000 MG PO DAILY, (Reported) Aspirin 81 Mg Tablet.dr, 81 MG PO HS, (Reported) Brimonidine Tartrate/Timolol 5 Ml Drops, 1 DROP OU BID, (Reported) Cephalexin 500 Mg Capsule, 500 MG PO TID, (Reported) Cholecalciferol (Vitamin D3) 1,000 Unit Capsule, 1,000 UNIT PO DAILY, (Reported) Cyanocobalamin (Vitamin B-12) 1,000 Mcg Tablet, 1,000 MCG PO DAILY, (Reported) Diltiazem HCl 240 Mg Cap.er.24h, 240 MG PO DAILY, (Reported) Divalproex Sodium 500 Mg Tab.er.24h, 1,000 MG PO HS Prescribed by: BABAR PLUMMER on 12/29/18 1148 Famotidine 20 Mg Tablet, 20 MG PO BID, (Reported) Fenofibrate Nanocrystallized 145 Mg Tablet, 145 MG PO DAILY, (Reported) Fluticasone/Salmeterol 12 Gm Hfa.aer.ad, 2 PUFF IH RTBID@0800,1999 Prescribed by: BABAR PLUMMER on 11/19/18 0954 Furosemide 20 Mg Tablet, 20 MG PO Q48H Prescribed by: VANE BRISCOE on 12/10/18 1114 Garlic 1,000 Mg Capsule, 1,000 MG PO DAILY, (Reported) Ipratropium/Albuterol Sulfate 3 Ml Ampul.neb, 3 ML INH RTTID Prescribed by: VANE BRISCOE on 12/10/18 1114 Krill/Om3/Dha/Epa/Om6/Lip/Astx 1 Each Capsule, 1,000 MG PO DAILY, (Reported) Lactobacillus Acidophilus 1 Each Capsule, 1 CAP PO DAILY, (Reported) Lactulose 20 Gm/30 Ml Solution, 20 GM PO BID, (Reported) Levothyroxine Sodium 100 Mcg Tablet, 100 MCG PO DAILY, (Reported) Linezolid 600 Mg Tablet, 600 MG PO BID Prescribed by: BABAR PLUMMER on 12/28/18 0956 Liothyronine Sodium 25 Mcg Tablet, 25 MCG PO DAILY, (Reported) Multivitamin 1 Each Tablet, 1 TAB PO DAILY, (Reported) Pyridoxine HCl 100 Mg Tablet, 50 MG PO DAILY, (Reported) Quetiapine Fumarate 25 Mg Tablet, 25 MG PO HS Prescribed by: BABAR PLUMMER on 12/29/18 1148 Ropinirole HCl 1 Mg Tablet, 1 MG PO 0800,1530, (Reported) Ropinirole HCl 1 Mg Tablet, 2 MG PO 2030, (Reported) TAKES 2 (1MG) TABLETS [place] Fruit 450 Mg Capsule, 450 MG PO BID, (Reported) Vit C/Vit E/Lutein/Min/[place]-3 1 Each Capsule, 1 CAP PO DAILY, (Reported) Patient Home Medication List Home Medication List Reviewed: Yes Review of Systems Review of Systems Constitutional: No dizziness, No fever; malaise, weakness, weight loss Respiratory: No Symptoms Reported; Denies Shortness of Air Cardiovascular: No Symptoms Reported; Denies Chest Pain, Denies Edema, Denies Lightheadedness, Denies Palpitations, Denies Syncope Gastrointestinal: See HPI, Abdominal Pain, Diarrhea, Difficulty Swallowing, Nausea, Poor Appetite, Poor Fluid Intake; Denies Rectal Bleeding; Vomiting Genitourinary: See HPI, Frequency, Flank Pain; Denies Hematuria; Incontinence, Urgency Musculoskeletal: joint pain, joint swelling, muscle pain, muscle stiffness, other (ALL CHRONIC) Skin: no symptoms reported Psychiatric/Neurological: No Symptoms Reported; Denies Pre-Existing Deficit, Denies Tingling Endocrine: No Symptoms Reported Hematologic/Lymphatic: No Symptoms Reported Past Vrrumir-Bglruv-Fktwpc Hx Patient Social History Alcohol Use: Denies Use Recreational Drug Use: No Smoking Status: Former Smoker Type Used: Pipe Former Smoker, Quit: Nov 03, 2018 2nd Hand Smoke Exposure: No Recent Foreign Travel: No Contact w/Someone Who Travel: No Recent Infectious Disease Expo: No Recent Hopitalizations: No (OCT 2018 FOR PNEUMONIA; 11/16-11/19/18 FOR A FIB AND PNEUMONIA) Immunizations Up To Date Date of Pneumonia Vaccine: Nov 03, 2016 Date of Influenza Vaccine: Aug 03, 2018 Seasonal Allergies Seasonal Allergies: No Past Medical History Surgeries: Yes (EGD WITH DILATION OF ESOPHAGEAL STRICTURE; RECTAL FISSURES; COLONOSCOPY) Orthopedic, Rectal 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 ; 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) Pneumonia, COPD Currently Using CPAP: No Currently Using BIPAP: No Cardiac: Yes (SVT; CHF; 3.[address] ON CT 05/09/19) Aneurysm, Atrial Fibrillation, High Cholesterol, Hypertension, Irregular Heartbeat Neurological: Yes (DEMENTIA WITH PSYCHOSIS) Dementia Sexually Transmitted Disease: No HIV/AIDS: No Genitourinary: Yes (CHRONIC RENAL FAILURE/INSUFFICIENCY--NO DIALYSIS; KIDNEY STONE AND PROSTATE ENLARGMENT NOTED ON CT--PT HAS NOT BEEN DX PRIOR TO 05/09/19 ) Prostate Problems, Kidney Stones, Renal Failure Gastrointestinal: Yes (ESOPHAGEAL STRICTURE) Gastroesophageal Reflux, Chronic Diarrhea, Hiatal Hernia Musculoskeletal: Yes (CHRONIC JOINT PAIN) Endocrine: Yes Hypothyroidsim, Diabetes, Non-Insulin dep HEENT: Yes Dysphagia Cancer: No Psychosocial: Yes (AGGRESIVE -- DEMENTIA WITH PSYCHOSIS ) Sleep Difficulties, Anxiety Integumentary: No Blood Disorders: No Adverse Reaction/Blood Tranf: No Family Medical History Diabetes (sister and Aunt) Physical Exam Vital Signs Vital Signs - First Documented 05/09/19 12:27 Temp 97.4 Pulse 103 Resp 18 B/P (MAP) 137/83 (101) Pulse Ox 100 O2 Delivery Room Air Capillary Refill : Less Than 3 Seconds Height/Weight/BMI Height: 5'9.00" Weight: 124lbs. 6.4oz. 56.430861me; 18.4 BMI Method:Stated General Appearance: cachetic, other (MILDLY LETHARGIC) HEENT: PERRL/EOMI, other (ORAL MUCOSA SLIGHTLY DRY) Neck: normal inspection Respiratory: normal breath sounds, no respiratory distress, no accessory muscle use Cardiovascular: no edema, no murmur, irregularly irregular Gastrointestinal: soft, no organomegaly, no pulsatile mass, abnormal bowel sounds (DECREASED); No distended, No guarding, No rebound; tenderness (DIFFUSE LEFT ABDOMEN AND FLANK TENDERNESS); No hernia, No mass Extremities: normal inspection, no pedal edema, normal capillary refill Back: CVA tenderness (L) Neurologic/Psychiatric: 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, no motor/sensory deficits, alert, normal mood/affect, oriented x 3 (BUT POOR MEMORY) Skin: warm/dry, pallor Progress/Results/Core Measures Results/Orders Lab Results Laboratory Tests Test 05/09/19 13:00 05/09/19 13:20 Range/Units White Blood Count 10.2 4.3-11.0 10^3/uL Red Blood Count 3.73 L 4.35-5.85 10^6/uL Hemoglobin 11.6 L 13.3-17.7 G/DL Hematocrit 36 L 40-54 % Mean Corpuscular Volume 97 80-99 FL Mean Corpuscular Hemoglobin 31 25-34 PG Mean Corpuscular Hemoglobin Concent 32 32-36 G/DL Red Cell Distribution Width 14.9 H 10.0-14.5 % Platelet Count 206 130-400 10^3/uL Mean Platelet Volume 13.2 H 7.4-10.4 FL Neutrophils (%) (Auto) 69 42-75 % Lymphocytes (%) (Auto) 23 12-44 % Monocytes (%) (Auto) 8 0-12 % Eosinophils (%) (Auto) 0 0-10 % Basophils (%) (Auto) 0 0-10 % Neutrophils # (Auto) 7.1 1.8-7.8 X 10^3 Lymphocytes # (Auto) 2.3 1.0-4.0 X 10^3 Monocytes # (Auto) 0.8 0.0-1.0 X 10^3 Eosinophils # (Auto) 0.0 0.0-0.3 10^3/uL Basophils # (Auto) 0.0 0.0-0.1 10^3/uL Sodium Level 136 135-145 MMOL/L Potassium Level 6.0 H 3.6-5.0 MMOL/L Chloride Level 91 L 98-107 MMOL/L Carbon Dioxide Level 14 L 21-32 MMOL/L Anion Gap 31 H 5-14 MMOL/L Blood Urea Nitrogen 61 H 7-18 MG/DL Creatinine 4.03 H 0.60-1.30 MG/DL Estimat Glomerular Filtration Rate 14 BUN/Creatinine Ratio 15 Glucose Level 134 H 70-105 MG/DL Calcium Level 9.4 8.5-10.1 MG/DL Corrected Calcium 9.7 8.5-10.1 MG/DL Magnesium Level 2.4 1.8-2.4 MG/DL Total Bilirubin 0.4 0.1-1.0 MG/DL Aspartate Amino Transf (AST/SGOT) 59 H 5-34 U/L Alanine Aminotransferase (ALT/SGPT) 22 0-55 U/L Alkaline Phosphatase 42 40-136 U/L Total Protein 6.5 6.4-8.2 GM/DL Albumin 3.6 3.2-4.5 GM/DL Amylase Level 93 25-125 U/L Lipase 245 H 8-78 U/L Valproic Acid (Depakene) Level 34.2 L 50.0-100.0 UG/ML Urine Color YELLOW Urine Clarity CLEAR Urine pH 5 5-9 Urine Specific Loving 1.015 L 1.016-1.022 Urine Protein 2+ H NEGATIVE Urine Glucose (UA) NEGATIVE NEGATIVE Urine Ketones 1+ H NEGATIVE Urine Nitrite POSITIVE H NEGATIVE Urine Bilirubin NEGATIVE NEGATIVE Urine Urobilinogen NORMAL NORMAL MG/DL Urine Leukocyte Esterase NEGATIVE NEGATIVE Urine RBC (Auto) 1+ H NEGATIVE Urine RBC NONE /HPF Urine WBC 0-2 /HPF Urine Squamous Epithelial Cells NONE /HPF Urine Crystals NONE /LPF Urine Bacteria FEW H /HPF Urine Casts PRESENT /LPF Urine Granular Casts RARE /LPF Urine Mucus NEGATIVE /LPF Urine Culture Indicated YES My Orders Orders - FLORIAN VILLARREAL DO Ed Iv/Invasive Line Start (05/09/19 12:55) Monitor-Rhythm Ecg Trace Only (05/09/19 12:55) Ct Abdomen/Pelvis Wo (05/09/19 12:55) Chest 1 View, Ap/Pa Only (05/09/19 12:55) Amylase (05/09/19 12:55) Cbc With Automated Diff (05/09/19 12:55) Comprehensive Metabolic Panel (05/09/19 12:55) Lipase (05/09/19 12:55) Magnesium (05/09/19 12:55) Ua Culture If Indicated (05/09/19 12:55) Ed Iv/Invasive Line Start (05/09/19 12:55) Ondansetron Injection (Zofran Injectio (05/09/19 13:15) Ed Iv/Invasive Line Start (05/09/19 13:09) Lactated Ringers (Lr 1000 Ml Iv Solution (05/09/19 13:09) Valproic Acid (05/09/19 13:10) Urine Culture (05/09/19 13:20) Ceftriaxone For Iv Use (Rocephin For I (05/09/19 14:15) Catheter(Urinary) Insert & Ass 03,15 (05/09/19 14:09) Sodium Polystyrene Sulfonate (Kayexalate (05/09/19 14:30) Ekg Tracing (05/09/19 14:18) O2 (05/09/19 14:18) Pantoprazole Injection (Protonix Injecti (05/09/19 14:30) Lidocaine 2% (Urojet) (Xylocaine Urojet) (05/09/19 15:00) Medications Given in ED Current Medications Medications Dose Ordered Sig/Munira Route Start Time Stop Time Status Last Admin Dose Admin Ceftriaxone Sodium 1000 mg/ Sterile Water 10 ml @ 200 mls/hr ONCE ONCE IV 05/09/19 14:15 05/09/19 14:17 DC 05/09/19 14:55 200 MLS/HR Lactated Ringer's 1,000 ml @ 0 mls/hr Q0M ONCE IV 05/09/19 13:09 05/09/19 13:10 DC 05/09/19 13:19 1,000 MLS/HR Lidocaine HCl 10 ml ONCE ONCE TOP 05/09/19 15:00 05/09/19 15:01 DC 05/09/19 15:06 10 ML Ondansetron HCl 4 mg ONCE ONCE IVP 05/09/19 13:15 05/09/19 13:16 DC 05/09/19 13:20 4 MG Pantoprazole 40 mg ONCE ONCE IV 05/09/19 14:30 05/09/19 14:31 DC 05/09/19 14:55 40 MG Sodium Polystyrene Sulfonate 15 gm ONCE ONCE PO 05/09/19 14:30 05/09/19 14:31 DC 05/09/19 15:48 15 GM Vital Signs/I&O 05/09/19 05/09/19 05/09/19 05/09/19 12:27 15:50 15:53 16:01 Temp 97.4 97.4 98.0 98.0 Pulse 103 93 100 100 Resp 18 18 20 20 B/P (MAP) 137/83 (101) 121/75 (90) 150/77 150/77 (101) Pulse Ox 100 99 99 99 O2 Delivery Room Air Room Air Room Air Room Air 05/09/19 18:14 O2 Delivery Room Air Blood Pressure Mean: 101 Progress Progress Note : Progress Note NO DETERIORATION IN PT'S CONDITION DURING ER STAY Initial ECG Impression Date: May 09, 2019 Initial ECG Impression Time: 14:29 Initial ECG Rate: 96 Initial ECG Impression: Nonspecific Changes, Atrial Fibrillation Diagnostic Imaging Comments CT ABDOMEN/PELVIS--1 CM NON-OBSTRUCTING STONE IN LEFT KIDNEY, MODERATE DISTENTION OF BLADDER WITH PROSTATE ENLARGEMENT WITH RIGHT SIDED HYDROURETER/HYDRONEPHROSIS; 3.5 CM AAA--PER RADIOLOGIST REPORT CXR--WORSENING BIBASILAR INFILTRATES, PER RADIOLOGIST REPORT Reviewed: Reviewed by Me Departure Communication (Admissions) 1405--SPOKE WITH DR. BRISCOE, HOSPITALIST, ACCEPTS PT FOR ADMIT. WILL CONSULT UROLOGY AND SURGERY. 1410--DR. BRISCOE HERE TO SEE PT 1420--SPOKE WITH DR. GARVEY AND INFORMED OF NEED FOR CONSULT 1513--DR. GARVEY HERE TO SEE PT Impression Primary Impression: Acute on chronic renal failure Additional Impressions: Bladder outlet obstruction Hyperkalemia Dehydration UTI (urinary tract infection) Pneumonia COPD (chronic obstructive pulmonary disease) Chronic atrial fibrillation Nausea & vomiting Chronic diarrhea Chronic abdominal pain Weight loss, non-intentional Dementia Qualified Codes: G30.9 - Alzheimer's disease, unspecified; F02.80 - Dementia in other diseases classified elsewhere without behavioral disturbance Hypothyroidism Qualified Codes: E03.9 - Hypothyroidism, unspecified Non-insulin dependent type 2 diabetes mellitus Disposition: ADMITTED INPATIENT Condition: Improved Admissions Decision to Admit Reason: Admit from ER (General) Decision to Admit/Date: May 09, 2019 Time/Decision to Admit Time: 14:05 Departure-Patient Inst. Referrals: ROBEL FALCON MD (PCP) Primary Care Physician FLORIAN VILLARREAL DO May 09, 2019 18:45
[2019-05-09 20:02] VITALS: BP 133/83
[2019-05-09] MEDS: TAMSULOSIN 0.4 MG (FLOMAX) CAP PO SCH (20:16)
[2019-05-09] MEDS: APIXABAN 2.5 MG (ELIQUIS) TABLET PO SCH (20:17)
[2019-05-09] MEDS: inSUlin ASPART (NovoLOG) 1 UNIT/0.01 ML (CHARGE PER UNIT) SC SCH (21:12)
[2019-05-09 21:35] LABS: CREATININE SERUM 3.82 MG/DL (0.60-1.30); POTASSIUM 4.5 MMOL/L (3.6-5.0)
--- NOTE | 2019-05-09 22:19 | CONSULTATION REPORT ---
DATE OF SERVICE: 05/09/2019 ATTENDING PHYSICIAN: Jessie Stiles DO SUMMARY: After reviewing the patient's record, x-rays and labs, this is an 84-year-old very nice man from [place] patient of Dr. Guerrero with previous admissions [facility] as well as here presented to the emergency room and was found to have a distended bladder with obstruction and creatinine of 4 with a potassium of 6 that was treated accordingly with the help also with Dr. Kothari. He had a noncontrast CT scan of the abdomen that revealed a left lower renal stone, 1 cm and a large distended bladder and bilateral hydronephrosis without mechanical obstruction due to the from the distended bladder. MEDICATIONS: Home medicines per chart. ALLERGIES: GABAPENTIN, PREGABALIN AND LORAZEPAM. No seasonal allergies. 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 No alcohol, no drugs. Quit smoking this November. Used to smoke pipe. PAST MEDICAL HISTORY: Orthopedic surgery and rectal surgery. MEDICAL ILLNESSES: COPD, emphysema, history of pneumonia, atrial fibrillation, hypercholesterolemia, hypertension, dementia, restless leg syndrome, renal insufficiency, GERD, hypothyroidism, non-insulin dependent diabetes, anxiety. REVIEW OF SYSTEMS: Abdominal pain, which improved after draining the bladder. The patient does describe a long history of voiding symptoms in the form of nocturia every hour, decreased stream and incomplete emptying of the bladder, dribbling. He was not taking any medicine for it. PHYSICAL EXAMINATION: VITAL SIGNS: Per chart. GENERAL: Well-nourished, well developed in no acute distress. HEENT: Normocephalic. ENT unremarkable. NECK: Supple, no bruits. CHEST: Clear, nontender. HEART: Regular rate and rhythm, no murmurs. ABDOMEN: Soft, no tenderness, no CVA tenderness. EXTREMITIES: Lower extremities, no edema or cyanosis. NEUROLOGIC: Grossly intact and oriented x3. IMPRESSION: 1. Acute on top of chronic renal failure with bladder outlet obstruction, BPH, neurogenic bladder with bilateral hydronephrosis. 2. Left renal stone, asymptomatic, no obstruction. 3. Hyperkalemia. 4. Medical problems per history. RECOMMENDATION: 1. Keep Khan in, daily basic metabolic panel, renal ultrasound tomorrow. 2. Start Flomax today. We will watch for postobstructive diuresis, doubt hematuria at this point. 3. In three days about Friday, we will perform a bedside flexible local cystoscopy and examined the patient locally at that point. My plan was fully explained to the patient and his . Thank you for letting me participate in the care of this patient. We will follow with you. Job ID: [id number] DocumentID: [id number] Dictated Date: 05/09/2019 17:11:40 [employer] Date: 05/09/2019 22:19:08 Dictated By: CLARIBEL LAU MD
[2019-05-10] VITALS: BP 93/52
[2019-05-10] MEDS: 1/2 NS IV SOLUTION 1,000 ML IV SCH ×3 (02:43→20:47)
[2019-05-10 04:00] VITALS: BP 92/52
[2019-05-10 06:02] LABS: BASOPHILS % (AUTO) 0 % (0-10); EOSINOPHILS % (AUTO) 0 % (0-10); HEMATOCRIT 30 % (40-54); HEMOGLOBIN 9.9 G/DL (13.3-17.7); LYMPHOCYTES # (AUTO) 1.6 X 10^3 (1.0-4.0); LYMPHOCYTES % (AUTO) 18 % (12-44); MEAN CORPUSCULAR HEMOGLOBIN 31 PG (25-34); MEAN CORPUSCULAR HGB CONC 33 G/DL (32-36); MEAN CORPUSCULAR VOLUME 93 FL (80-99); MEAN PLATELET VOLUME 12.9 FL (7.4-10.4); MONOCYTES # (AUTO) 1.1 X 10^3 (0.0-1.0); MONOCYTES % (AUTO) 13 % (0-12); NEUTROPHILS # (AUTO) 5.8 X 10^3 (1.8-7.8); NEUTROPHILS % (AUTO) 69 % (42-75); PLATELET COUNT 177 10^3/uL (130-400); RED CELL DISTRIBUTION WIDTH 14.7 % (10.0-14.5); WHITE BLOOD COUNT 8.4 10^3/uL (4.3-11.0)
[2019-05-10 06:23] LABS: ALBUMIN 2.9 GM/DL (3.2-4.5); BILIRUBIN,TOTAL 0.3 MG/DL (0.1-1.0); CALCIUM 8.2 MG/DL (8.5-10.1); CREATININE SERUM 3.76 MG/DL (0.60-1.30); POTASSIUM 4.2 MMOL/L (3.6-5.0); TOTAL PROTEIN 5.1 GM/DL (6.4-8.2)
[2019-05-10] MEDS: inSUlin ASPART (NovoLOG) 1 UNIT/0.01 ML (CHARGE PER UNIT) SC SCH ×4 (06:30→20:51)
--- NOTE | 2019-05-10 06:59 | Progress Note - Urology ---
Progress Note-Urology Progress Notes/Assess & Plan Progress/Assessment & Plan SOME GROSS HEMATURIA (NOT UNCOMMON). CONDE DRAINING WELL. OBSERVE. HYDRATE. RENAL US TODAY. BMP IMPROVING. Final Diagnosis URINE RETENTION CLARIBEL LAU MD May 10, 2019 06:59
[2019-05-10 08:00] VITALS: BP 110/63
[2019-05-10] MEDS: APIXABAN 2.5 MG (ELIQUIS) TABLET PO SCH ×2 (08:46→20:46)
[2019-05-10] MEDS ORDERED: IPRA3AMP31 NEB (11:53)
[2019-05-10] MEDS ORDERED: METF-399 PO (11:53)
[2019-05-10] MEDS ORDERED: BUDE0.5A NEB (11:53)
[2019-05-10] MEDS ORDERED: FURO40TA4 PO (11:53)
[2019-05-10] MEDS ORDERED: DONE10TA41 PO (11:53)
[2019-05-10] MEDS ORDERED: BRIMON0.2 OU (11:53)
[2019-05-10] MEDS ORDERED: DIVA-76 PO (11:53)
[2019-05-10] MEDS ORDERED: TIMO5DRO5 OU (11:53)
[2019-05-10] MEDS ORDERED: QUET25TA PO (11:53)
[2019-05-10] MEDS ORDERED: INSU100I14 SC (11:54)
[2019-05-10] MEDS ORDERED: IBUP-30 PO (11:54)
--- NOTE | 2019-05-10 11:58 | NUR ---
PATIENTS STATES SHE BROUGHT IN HIS MEDS YESTERDAY AND THE NURSE WENT OVER THEM AND NOW SHE HAS TAKEN THEM BACK HOME. MED REC WAS NOT COMPLETE SO I WENT OVER THE EXT MED HX WITH HER. SHE VERIFIED HOW HE TAKES THEM. HE FILLED DEPAKOTE 500MG #180 FOR A 90 DAY SUPPLY 04-16-19 HOWEVER SHE STATES THIS HAS BEEN DECREASED TO 1.5 TABS AT HS. HE FILLED SEROQUEL 25MG 3 HS #90 04-13-19 HOWEVER THIS HAS BEEN DECREASED TO 2 TABS HS. HE FILLED FENOFIBRATE 145MG #90 02-12-19 HOWEVER THIS HAS BEEN DISCONTINUED. OTC MEDS: PEPCID BID PRN IBU 2 PRN PROBIOTIC DAILY [employer] DAILY HE HAS STOPPED TAKING SEVERAL SUPPLEMENTS THAT WERE ONE FILE FROM HIS PREVIOUS VISIT.
[2019-05-10 12:00] VITALS: BP 100/65
--- NOTE | 2019-05-10 14:12 | Progress Note - Surgery ---
Subjective Time Seen by a Provider: 13:08 Subjective/Events-last exam Pt seen and examined, no longer complaining of Left sided abdominal pain....now in the RUQ. Pain is minimal. His is more worried about blood in rice. Review of Systems General: No Chills, No Night Sweats; Malaise Pulmonary: No Dyspnea, No Cough Cardiovascular: No: Chest Pain, Palpitations Gastrointestinal: No: Nausea, Vomiting Objective Exam Vital Signs Date Time Temp Pulse Resp B/P (MAP) Pulse Ox O2 Delivery O2 Flow Rate FiO2 05/10/19 12:54 115 05/10/19 12:00 97.1 106 18 100/65 (77) 96 Room Air 05/10/19 08:10 Room Air 05/10/19 08:00 97.9 115 20 110/63 (79) 98 Room Air 05/10/19 07:20 105 05/10/19 04:00 98.4 115 18 92/52 (65) 99 Room Air 05/10/19 01:00 117 05/10/19 00:00 98.6 103 18 93/52 (66) 99 Room Air 05/09/19 20:15 99 Room Air 05/09/19 20:02 98.2 110 20 133/83 (100) 99 Room Air 05/09/19 19:19 101 05/09/19 18:14 Room Air 05/09/19 16:01 98.0 100 20 150/77 (101) 99 Room Air 05/09/19 15:53 98.0 100 20 150/77 99 Room Air 05/09/19 15:50 97.4 93 18 121/75 (90) 99 Room Air I & O 05/10/19 07:00 Intake Total 2400 ml Output Total 2550 ml Balance -150 ml Capillary Refill : Less Than 3 Seconds General Appearance: No Apparent Distress, Chronically ill, Thin HEENT: PERRL/EOMI, Moist Mucous Membranes Respiratory: Chest Non Tender, Lungs Clear, Normal Breath Sounds, No Accessory Muscle Use, No Respiratory Distress Cardiovascular: Regular Rate, Rhythm, No Murmur Gastrointestinal: soft, no organomegaly, no pulsatile mass; No distended, No guarding, No rebound; tenderness (mostly RUQ now) Extremity: Non Tender, No Calf Tenderness, No Pedal Edema Neurologic/Psychiatric: Alert, Normal Mood/Affect Skin: Normal Color, Warm/Dry Results Lab Laboratory Tests 05/09/19 20:53: Glucometer 165H 05/09/19 21:10: Sodium Level 133L, Potassium Level 4.5, Chloride Level 91L, Carbon Dioxide Level 18L, Anion Gap 24H, Blood Urea Nitrogen 64H, Creatinine 3.82H, Estimat Glomerular Filtration Rate 15, BUN/Creatinine Ratio 17, Glucose Level 158H, Calcium Level 9.0 05/10/19 05:20: Sodium Level 133L, Potassium Level 4.2, Chloride Level 94L, Carbon Dioxide Level 25, Anion Gap 14, Blood Urea Nitrogen 65H, Creatinine 3.76H, Estimat Glomerular Filtration Rate 16, BUN/Creatinine Ratio 17, Glucose Level 128H, Calcium Level 8.2L, White Blood Count 8.4, Red Blood Count 3.18L, Hemoglobin 9.9L, Hematocrit 30L, Mean Corpuscular Volume 93, Mean Corpuscular Hemoglobin 31, Mean Corpuscular Hemoglobin Concent 33, Red Cell Distribution Width 14.7H, Platelet Count 177, Mean Platelet Volume 12.9H, Neutrophils (%) (Auto) 69, Lymphocytes (%) (Auto) 18, Monocytes (%) (Auto) 13H, Eosinophils (%) (Auto) 0, Basophils (%) (Auto) 0, Neutrophils # (Auto) 5.8, Lymphocytes # (Auto) 1.6, Monocytes # (Auto) 1.1H, Eosinophils # (Auto) 0.0, Basophils # (Auto) 0.0, Corrected Calcium 9.1, Total Bilirubin 0.3, Aspartate Amino Transf (AST/SGOT) 42H, Alanine Aminotransferase (ALT/SGPT) 17, Alkaline Phosphatase 37L, Total Protein 5.1L, Albumin 2.9L 05/10/19 11:15: Glucometer 163H Assessment/Plan Assessment/Plan Assessment/Plan Diarrhea Weight loss Dilated GB, ??cholecystitis Urinary retention - now with gross Hematuria, they did get out 1600ml initially when rice was placed Hydronephrosis and Hydroureter Right Hyperkalemia COPD, AFib, DM Acute Renal Failure Pt has multiple medical problems; a rice was placed and now he has hematuria, I believe Urology has seen pt. Will await stool studies results to hopefully find a cause for his diarrhea. Today he has some RUQ pain and if that worsens may order GB US; however not urgent. CT did not show any acute processes in the abdomen; he does have AAA and diverticula. Maximum medical care and electrolyte replacement. Clinical Quality Measures DVT/VTE Risk/Contraindication: Risk Factor Score Per Nursin RFS Level Per Nursing on Admit: 4+=Very High JENIFER GARVEY DO May 10, 2019 14:12
--- NOTE | 2019-05-10 14:25 | NUR ---
Pastoral care visit.
--- NOTE | 2019-05-10 14:40 | Progress Note ---
Subjective Subjective/Events-last exam 84 yo M doing better this AM. States that his lower abdominal pain has improved since rice was placed. He is eating his first meal in 4 days this AM. Has not been out of bed since admission. Review of Systems Date Seen by Provider: May 10, 2019 Time Seen by Provider: 13:15 Pulmonary: No Dyspnea, No Cough Cardiovascular: No: Chest Pain, Palpitations Gastrointestinal: Abdominal Pain, Diarrhea; No: Nausea, Vomiting Genitourinary: Hematuria, Retention Neurological: Weakness, Incoordination, Confusion Objective Exam Last Set of Vital Signs Vital Signs Date Time Temp Pulse Resp B/P (MAP) Pulse Ox O2 Delivery O2 Flow Rate FiO2 05/10/19 12:54 115 05/10/19 12:00 97.1 18 100/65 (77) 96 Room Air Capillary Refill : Less Than 3 Seconds I&O Intake and Output 05/10/19 00:00 Intake Total 1400 ml Output Total 2150 ml Balance -750 ml Intake Oral 390 ml IV Total 1010 ml Output Urine Total 2150 ml # Bowel Movements 2 Daily Weight Change Yes, 14-23 lbs Yes, 14-23 lbs General: Alert, No Acute Distress HEENT: Mucous Memb Moist/[place] Lungs: Clear to Auscultation, Normal Air Movement Heart: Regular Rate, No Murmurs Abdomen: Normal Bowel Sounds, Soft, No Tenderness, No Masses Extremities: No Edema, No Tenderness/Swelling Skin: No Rashes, No Breakdown Neuro: Normal Speech, Strength at 5/5 X4 Ext, Cranial Nerves 3-12 NL Psych/Mental Status: Mental Status NL, Mood NL Results/Procedures Lab Laboratory Tests 05/09/19 20:53: Glucometer 165H 05/09/19 21:10: Sodium Level 133L, Potassium Level 4.5, Chloride Level 91L, Carbon Dioxide Level 18L, Anion Gap 24H, Blood Urea Nitrogen 64H, Creatinine 3.82H, Estimat Glomerular Filtration Rate 15, BUN/Creatinine Ratio 17, Glucose Level 158H, Calcium Level 9.0 05/10/19 05:20: Sodium Level 133L, Potassium Level 4.2, Chloride Level 94L, Carbon Dioxide Level 25, Anion Gap 14, Blood Urea Nitrogen 65H, Creatinine 3.76H, Estimat Glomerular Filtration Rate 16, BUN/Creatinine Ratio 17, Glucose Level 128H, Calcium Level 8.2L, White Blood Count 8.4, Red Blood Count 3.18L, Hemoglobin 9.9L, Hematocrit 30L, Mean Corpuscular Volume 93, Mean Corpuscular Hemoglobin 31, Mean Corpuscular Hemoglobin Concent 33, Red Cell Distribution Width 14.7H, Platelet Count 177, Mean Platelet Volume 12.9H, Neutrophils (%) (Auto) 69, Lymphocytes (%) (Auto) 18, Monocytes (%) (Auto) 13H, Eosinophils (%) (Auto) 0, Basophils (%) (Auto) 0, Neutrophils # (Auto) 5.8, Lymphocytes # (Auto) 1.6, Monocytes # (Auto) 1.1H, Eosinophils # (Auto) 0.0, Basophils # (Auto) 0.0, Corrected Calcium 9.1, Total Bilirubin 0.3, Aspartate Amino Transf (AST/SGOT) 42H, Alanine Aminotransferase (ALT/SGPT) 17, Alkaline Phosphatase 37L, Total Protein 5.1L, Albumin 2.9L 05/10/19 11:15: Glucometer 163H Assessment/Plan Assessment/Plan (1) Bladder outlet obstruction Status: Acute Assessment & Plan: 05/10: Dr Márquez Consulted and managing (2) Acute on chronic renal failure Status: Acute Assessment & Plan: 05/10: Cr trending down slowly, unsure of baseline Cr Qualifiers: Qualified Codes: N17.9 - Acute kidney failure, unspecified; N18.4 - Chronic kidney disease, stage 4 (severe) (3) Weight loss, non-intentional Status: Acute Assessment & Plan: 05/10: Dr Hilliard consulted due to profuse diarrhea (4) Chronic atrial fibrillation Status: Acute (5) Hypothyroidism Status: Chronic Qualifiers: Qualified Codes: E03.9 - Hypothyroidism, unspecified (6) Non-insulin dependent type 2 diabetes mellitus Status: Chronic (7) Dementia Status: Chronic Assessment & Plan: - At baseline Qualifiers: Qualified Codes: G30.9 - Alzheimer's disease, unspecified; F02.80 - Dementia in other diseases classified elsewhere without behavioral disturbance (8) COPD (chronic obstructive pulmonary disease) Status: Chronic Qualifiers: Qualified Codes: J44.9 - Chronic obstructive pulmonary disease, unspecified (9) Hyperkalemia Status: Resolved (10) Left renal stone Status: Chronic (11) Hydronephrosis Status: Chronic Qualifiers: Qualified Codes: N13.30 - Unspecified hydronephrosis (12) DVT prophylaxis Assessment & Plan: - Lovenox Clinical Quality Measures DVT/VTE Risk/Contraindication: Risk Factor Score Per Nursin RFS Level Per Nursing on Admit: 4+=Very High TARAS MOHAN MD May 10, 2019 14:40
[2019-05-10] MEDS ORDERED: NON-FORMULARY MEDICATION 1 EA EA (Famotidine (Acid Reducer (FAMOTIDINE)) 20 MG) PO PRN (14:45)
[2019-05-10 16:00] VITALS: BP 128/85
--- NOTE | 2019-05-10 16:20 | Diagnostic Imaging Report ---
PROCEDURE: US Renal Bilateral. INDICATION: Renal obstruction and urine retention TECHNIQUE: Multiple real-time grayscale sonographic images were obtained of the kidneys. COMPARISON: CT 05/09/2019 FINDINGS: RIGHT KIDNEY: 10.9 x 6.1 x 5.1 cm. LEFT KIDNEY: 10.6 x 4.4 x 5.3 cm. There is mild dilatation of the right renal pelvis. Perhaps slightly less severe compared to prior CT imaging. Nonobstructing stone in the inferior pole of the left kidney is present. Hypoechoic mass in the left kidney favoring probable cyst, approximately 5.0 x 3.3 x 2.4 cm. URINARY BLADDER: There has been placement of a Khan catheter. There is diffuse bladder wall thickening. Irregular echogenic foci present within the urinary bladder, nonspecific could reflect debris and/or blood. The ureteral jets are visualized. IMPRESSION: 1. Interval placement of a Khan catheter. Despite placement of the Khan catheter, there is some urine retention. Echogenic foci in the urinary bladder, nonspecific could reflect perhaps blood and/or debris. Mass lesion considered less likely but not excluded. Correlation with urinalysis. There is some irregular urinary bladder wall thickening, nonspecific could reflect neurogenic changes. 2. Mild dilatation of particularly the right renal collecting system but appears overall likely less severe from previous CT imaging. 3. Nonobstructing left renal stone. Slightly complex septated left renal cyst. Dictated by: Dictated on workstation # [id number]
[2019-05-10] MEDS: TAMSULOSIN 0.4 MG (FLOMAX) CAP PO SCH (17:09)
[2019-05-10 20:00] VITALS: BP 139/79
[2019-05-10] MEDS: DIVALPROEX 500 MG DELAYED RELEASE (DEPAKOTE) TAB PO SCH (20:44)
[2019-05-10] MEDS: FAMOTIDINE 20 MG (PEPCID) TABLET PO PRN (20:44)
[2019-05-10] MEDS: DILTIAZEM 240 MG (CARDIZEM CD) CAP PO SCH (20:46)
[2019-05-10] MEDS: QUEtiapine 25 MG (SEROquel) TAB IMMEDIATE RELEASE PO SCH (20:46)
[2019-05-10] MEDS ORDERED: NON-FORMULARY MEDICATION 1 EA EA (Diltiazem HCl (Cartia Xt) 240 MG) PO SCH (21:00)
[2019-05-10] MEDS ORDERED: NON-FORMULARY MEDICATION 1 EA EA (Quetiapine Fumarate (Seroquel) 50 MG) PO SCH (21:00)
[2019-05-11 00:30] VITALS: BP 134/82
[2019-05-11 03:45] VITALS: BP 130/92
[2019-05-11 06:08] LABS: BASOPHILS % (AUTO) 0 % (0-10); EOSINOPHILS % (AUTO) 0 % (0-10); HEMATOCRIT 29 % (40-54); HEMOGLOBIN 9.9 G/DL (13.3-17.7); LYMPHOCYTES # (AUTO) 1.8 X 10^3 (1.0-4.0); LYMPHOCYTES % (AUTO) 22 % (12-44); MEAN CORPUSCULAR HEMOGLOBIN 31 PG (25-34); MEAN CORPUSCULAR HGB CONC 34 G/DL (32-36); MEAN CORPUSCULAR VOLUME 91 FL (80-99); MEAN PLATELET VOLUME 12.2 FL (7.4-10.4); MONOCYTES # (AUTO) 0.9 X 10^3 (0.0-1.0); MONOCYTES % (AUTO) 12 % (0-12); NEUTROPHILS # (AUTO) 5.2 X 10^3 (1.8-7.8); NEUTROPHILS % (AUTO) 66 % (42-75); PLATELET COUNT 158 10^3/uL (130-400); RED CELL DISTRIBUTION WIDTH 14.2 % (10.0-14.5); WHITE BLOOD COUNT 7.9 10^3/uL (4.3-11.0)
[2019-05-11 06:24] LABS: CALCIUM 7.9 MG/DL (8.5-10.1); CREATININE SERUM 2.62 MG/DL (0.60-1.30); POTASSIUM 3.5 MMOL/L (3.6-5.0)
[2019-05-11] MEDS: LEVOTHYROXINE 100 MCG (LEVOTHROID) TAB PO SCH (06:24)
[2019-05-11] MEDS: inSUlin ASPART (NovoLOG) 1 UNIT/0.01 ML (CHARGE PER UNIT) SC SCH ×4 (07:18→21:16)
[2019-05-11] MEDS: FUROSEMIDE 40 MG (LASIX) TAB PO SCH (07:46)
[2019-05-11] MEDS: APIXABAN 2.5 MG (ELIQUIS) TABLET PO SCH ×2 (07:46→21:20)
[2019-05-11] MEDS: 1/2 NS IV SOLUTION 1,000 ML IV SCH ×2 (07:47→18:12)
[2019-05-11 08:00] VITALS: BP 129/87
--- NOTE | 2019-05-11 08:02 | NUR ---
prior to a.m. medications pulse was 103 and b/p was 129/87
[2019-05-11] MEDS ORDERED: LIOTHYRONINE 25 MCG PO SCH (09:00)
--- NOTE | 2019-05-11 11:04 | Progress Note - Urology ---
Progress Note-Urology Progress Notes/Assess & Plan Progress/Assessment & Plan RENAL US GOOD. LABS STABLE. BEDSIDE CYSTO IN AM. FULLY EXPLAINED TO PATIENT AND Final Diagnosis URINE RETENTION CLARIBEL LAU MD May 11, 2019 11:04
[2019-05-11 11:40] VITALS: BP 142/92
[2019-05-11 16:09] VITALS: BP 130/85
[2019-05-11] MEDS: TAMSULOSIN 0.4 MG (FLOMAX) CAP PO SCH (18:12)
--- NOTE | 2019-05-11 18:31 | Progress Note - Surgery ---
Subjective Time Seen by a Provider: 12:36 Subjective/Events-last exam Pt seen and examined, denies abdominal pain. Tolerating diet. Review of Systems General: No Chills, No Night Sweats Cardiovascular: No: Chest Pain Gastrointestinal: No: Nausea, Vomiting Genitourinary: Dysuria, Frequency, Hematuria Objective Exam Vital Signs Date Time Temp Pulse Resp B/P (MAP) Pulse Ox O2 Delivery O2 Flow Rate FiO2 05/11/19 16:09 98.7 112 20 130/85 (100) 96 Room Air 05/11/19 12:24 132 05/11/19 11:40 98.2 100 18 142/92 (109) 97 Room Air 05/11/19 08:00 Room Air 05/11/19 08:00 98.6 103 18 129/87 (101) 98 Room Air 05/11/19 07:00 113 05/11/19 03:45 98.6 113 18 130/92 (105) 95 Room Air 05/11/19 01:00 100 05/11/19 00:30 97.8 133 19 134/82 (99) 97 Room Air 05/10/19 20:00 99.0 116 20 139/79 (99) 97 Room Air 05/10/19 20:00 Room Air 05/10/19 19:00 101 I & O 05/11/19 07:00 Intake Total 2730 ml Output Total 1750 ml Balance 980 ml Capillary Refill : Less Than 3 SecondsLess Than 3 Seconds General Appearance: No Apparent Distress, Chronically ill, Thin HEENT: PERRL/EOMI, Moist Mucous Membranes Respiratory: Chest Non Tender, Lungs Clear, Normal Breath Sounds, No Accessory Muscle Use, No Respiratory Distress Cardiovascular: Regular Rate, Rhythm, No Murmur Gastrointestinal: soft, no organomegaly, no pulsatile mass; No distended, No guarding, No rebound; tenderness (minimal with deep palpation) Extremity: Non Tender, No Calf Tenderness, No Pedal Edema Neurologic/Psychiatric: Alert, Normal Mood/Affect Results Lab Laboratory Tests 05/10/19 20:51: Glucometer 107 05/11/19 05:55: White Blood Count 7.9, Red Blood Count 3.18L, Hemoglobin 9.9L, Hematocrit 29L, Mean Corpuscular Volume 91, Mean Corpuscular Hemoglobin 31, Mean Corpuscular Hemoglobin Concent 34, Red Cell Distribution Width 14.2, Platelet Count 158, Mean Platelet Volume 12.2H, Neutrophils (%) (Auto) 66, Lymphocytes (%) (Auto) 22, Monocytes (%) (Auto) 12, Eosinophils (%) (Auto) 0, Basophils (%) (Auto) 0, Neutrophils # (Auto) 5.2, Lymphocytes # (Auto) 1.8, Monocytes # (Auto) 0.9, Eosinophils # (Auto) 0.0, Basophils # (Auto) 0.0, Sodium Level 130L, Potassium Level 3.5L, Chloride Level 94L, Carbon Dioxide Level 23, Anion Gap 13, Blood Urea Nitrogen 57H, Creatinine 2.62#H, Estimat Glomerular Filtration Rate 24, BUN/Creatinine Ratio 22, Glucose Level 126H, Calcium Level 7.9L 05/11/19 06:11: Glucometer 131H 05/11/19 11:07: Glucometer 158H 05/11/19 16:09: Glucometer 226H Microbiology 05/09/19 Urine Culture - Final, 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 Maximum medical care and electrolyte replacement. Clinical Quality Measures DVT/VTE Risk/Contraindication: Risk Factor Score Per Nursin RFS Level Per Nursing on Admit: 4+=Very High JENIFER GARVEY DO May 11, 2019 18:30
[2019-05-11 19:35] VITALS: BP 152/93
--- NOTE | 2019-05-11 20:22 | Progress Note ---
Subjective Subjective/Events-last exam Patient states that his stomach is not feeling well this AM after breakfast. States that he has not had any more diarrhea since admission. Denies any pain Review of Systems Date Seen by Provider: May 11, 2019 Time Seen by Provider: 12:40 Pulmonary: Dyspnea Gastrointestinal: Abdominal Pain Neurological: Weakness Objective Exam Last Set of Vital Signs Vital Signs Date Time Temp Pulse Resp B/P (MAP) Pulse Ox O2 Delivery O2 Flow Rate FiO2 05/11/19 19:35 98.6 108 18 152/93 (112) 97 Room Air Capillary Refill : Less Than 3 SecondsLess Than 3 Seconds I&O Intake and Output 05/11/19 00:00 Intake Total 2580 ml Output Total 1250 ml Balance 1330 ml Intake Oral 580 ml IV Total 2000 ml Output Urine Total 1250 ml # Bowel Movements 2 General: Alert, Cooperative, No Acute Distress HEENT: Mucous Memb Moist/[place] Lungs: Clear to Auscultation, Normal Air Movement Heart: Regular Rate, No Murmurs Abdomen: Normal Bowel Sounds, Soft, No Tenderness, No Masses Extremities: No Edema, No Tenderness/Swelling Results/Procedures Lab Laboratory Tests 05/10/19 20:51: Glucometer 107 05/11/19 05:55: White Blood Count 7.9, Red Blood Count 3.18L, Hemoglobin 9.9L, Hematocrit 29L, Mean Corpuscular Volume 91, Mean Corpuscular Hemoglobin 31, Mean Corpuscular Hemoglobin Concent 34, Red Cell Distribution Width 14.2, Platelet Count 158, Mean Platelet Volume 12.2H, Neutrophils (%) (Auto) 66, Lymphocytes (%) (Auto) 22, Monocytes (%) (Auto) 12, Eosinophils (%) (Auto) 0, Basophils (%) (Auto) 0, Neutrophils # (Auto) 5.2, Lymphocytes # (Auto) 1.8, Monocytes # (Auto) 0.9, Eosinophils # (Auto) 0.0, Basophils # (Auto) 0.0, Sodium Level 130L, Potassium Level 3.5L, Chloride Level 94L, Carbon Dioxide Level 23, Anion Gap 13, Blood Urea Nitrogen 57H, Creatinine 2.62#H, Estimat Glomerular Filtration Rate 24, BUN/Creatinine Ratio 22, Glucose Level 126H, Calcium Level 7.9L 05/11/19 06:11: Glucometer 131H 05/11/19 11:07: Glucometer 158H 05/11/19 16:09: Glucometer 226H Microbiology 05/09/19 Urine Culture - Final, 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, 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 jg Assessment/Plan Assessment/Plan (1) Bladder outlet obstruction Status: Acute Assessment & Plan: 05/10: Dr Márquez Consulted and managing 05/11: Cysto planned for the AM (2) Acute on chronic renal failure Status: Acute Assessment & Plan: 05/10: Cr trending down slowly, unsure of baseline Cr 05/11: Trending down, Normal Renal US Qualifiers: Qualified Codes: N17.9 - Acute kidney failure, unspecified; N18.4 - Chronic kidney disease, stage 4 (severe) (3) Weight loss, non-intentional Status: Acute Assessment & Plan: 05/10: Dr Hilliard consulted due to profuse diarrhea (4) Chronic atrial fibrillation Status: Acute (5) Hypothyroidism Status: Chronic Qualifiers: Qualified Codes: E03.9 - Hypothyroidism, unspecified (6) Non-insulin dependent type 2 diabetes mellitus Status: Chronic (7) Dementia Status: Chronic Assessment & Plan: - At baseline Qualifiers: Qualified Codes: G30.9 - Alzheimer's disease, unspecified; F02.80 - Dementia in other diseases classified elsewhere without behavioral disturbance (8) COPD (chronic obstructive pulmonary disease) Status: Chronic Qualifiers: Qualified Codes: J44.9 - Chronic obstructive pulmonary disease, unspecified (9) Hyperkalemia Status: Resolved (10) Left renal stone Status: Chronic (11) Hydronephrosis Status: Chronic Qualifiers: Qualified Codes: N13.30 - Unspecified hydronephrosis (12) DVT prophylaxis Assessment & Plan: - Lovenox Clinical Quality Measures DVT/VTE Risk/Contraindication: Risk Factor Score Per Nursin RFS Level Per Nursing on Admit: 4+=Very High TARAS MOHAN MD May 11, 2019 20:22
[2019-05-11] MEDS: DIVALPROEX 500 MG DELAYED RELEASE (DEPAKOTE) TAB PO SCH (21:20)
[2019-05-11] MEDS: QUEtiapine 25 MG (SEROquel) TAB IMMEDIATE RELEASE PO SCH (21:21)
[2019-05-11] MEDS: DILTIAZEM 240 MG (CARDIZEM CD) CAP PO SCH (21:21)
--- NOTE | 2019-05-11 22:00 | NUR ---
PT C/O BACK PAIN. DR. MOHAN CALLED. ORDER FOR TYLENOL 650MG Q6HR PRN PAIN.
[2019-05-11] MEDS ORDERED: ACETAMINOPHEN 325 MG TABLET PO PRN (22:45)
[2019-05-11] MEDS ORDERED: ACETAMINOPHEN 325 MG TABLET ONE (23:23)
[2019-05-12 00:24] VITALS: BP 139/97
[2019-05-12 04:00] VITALS: BP 121/75
[2019-05-12] MEDS: 1/2 NS IV SOLUTION 1,000 ML IV SCH (04:13)
[2019-05-12 05:45] LABS: BASOPHILS % (AUTO) 0 % (0-10); EOSINOPHILS # (AUTO) 0.1 10^3/uL (0.0-0.3); EOSINOPHILS % (AUTO) 2 % (0-10); HEMATOCRIT 29 % (40-54); LYMPHOCYTES # (AUTO) 2.5 X 10^3 (1.0-4.0); LYMPHOCYTES % (AUTO) 33 % (12-44); MEAN CORPUSCULAR HEMOGLOBIN 31 PG (25-34); MEAN CORPUSCULAR HGB CONC 35 G/DL (32-36); MEAN CORPUSCULAR VOLUME 90 FL (80-99); MONOCYTES # (AUTO) 0.8 X 10^3 (0.0-1.0); MONOCYTES % (AUTO) 11 % (0-12); NEUTROPHILS # (AUTO) 4.2 X 10^3 (1.8-7.8); NEUTROPHILS % (AUTO) 55 % (42-75); PLATELET COUNT 146 10^3/uL (130-400); RED CELL DISTRIBUTION WIDTH 14.2 % (10.0-14.5); WHITE BLOOD COUNT 7.6 10^3/uL (4.3-11.0)
[2019-05-12] MEDS: LEVOTHYROXINE 100 MCG (LEVOTHROID) TAB PO SCH (05:58)
[2019-05-12 06:06] LABS: ALBUMIN 2.8 GM/DL (3.2-4.5); BILIRUBIN,TOTAL 0.5 MG/DL (0.1-1.0); CALCIUM 7.7 MG/DL (8.5-10.1); CREATININE SERUM 1.85 MG/DL (0.60-1.30); TOTAL PROTEIN 4.9 GM/DL (6.4-8.2)
[2019-05-12] MEDS: inSUlin ASPART (NovoLOG) 1 UNIT/0.01 ML (CHARGE PER UNIT) SC SCH ×4 (06:13→21:02)
[2019-05-12] MEDS ORDERED: LIDOCAINE UROJET 2% GEL 10 ML PKG ONE ×3 (07:08→21:15)
--- NOTE | 2019-05-12 07:13 | Progress Note-Pre Operative ---
Pre-Operative Progress Note H&P Reviewed The H&P was reviewed, patient examined and no changes noted. Date Seen by Provider: May 12, 2019 Time Seen by Provider: 07:13 Date H&P Reviewed: May 12, 2019 Time H&P Reviewed: 07:13 Pre-Operative Diagnosis: URINE RETENTION CLARIBEL LAU MD May 12, 2019 07:13
--- NOTE | 2019-05-12 07:16 | Progress Note-Post Operative ---
Post-Operative Progess Note Surgeon (s)/Subsorter (s) Surgeon CLARIBEL LAU MD Subsorter: NONE Pre-Operative Diagnosis URINE RETENTION Post-Operative Diagnosis SAME Procedure & Operative Findings Date of Procedure 05/12/19 Procedure Performed/Findings CYSTOSCOPY Anesthesia Type LOCAL Estimated Blood Loss Estimated blood loss (mL): NONE Specimens/Packing Specimens Removed NONE Packing: NONE CLARIBEL LAU MD May 12, 2019 07:16
[2019-05-12 07:51] VITALS: BP 119/75
--- NOTE | 2019-05-12 08:30 | NUR ---
DR LAU HERE, BEDSIDE CYSTO DONE, CONDE REMOVED, PATIENT INSTRUCTED TO USE URINAL, MARCIO WELL, IV SITE WITHOUT REDNESS OR SWELLING, CALL LIGHT WITHIN REACH, AT BEDSIDE.
[2019-05-12] MEDS: APIXABAN 2.5 MG (ELIQUIS) TABLET PO SCH ×2 (09:21→20:21)
[2019-05-12] MEDS: FUROSEMIDE 40 MG (LASIX) TAB PO SCH (09:22)
[2019-05-12 12:09] VITALS: BP 124/81
--- NOTE | 2019-05-12 12:25 | OPERATIVE REPORT ---
DATE OF SERVICE: 05/12/2019 PREOPERATIVE DIAGNOSIS: Urinary retention. POSTOPERATIVE DIAGNOSIS: Urinary retention. OPERATION PERFORMED: Cystoscopy. SURGEON: Asher Lau MD ANESTHESIA: Local. COMPLICATIONS: None. DESCRIPTION OF PROCEDURE: With the patient is supine in his bed after removing the Khan catheter, the genitalia were prepped and draped in the usual sterile fashion. Flexible cystoscope was introduced under vision. The anterior urethra was normal. The prostate was mildly enlarged with some bladder neck obstruction. The bladder revealed some trabeculation. No foreign body, bladder tumor or stones visualized. Cystoscopy was confirmed in an antegrade fashion and the cystoscope was removed. The patient tolerated the procedure and anesthesia well and remained in his bed in stable condition. Examination of the genitalia, phallus adequate meatus, testes down the scrotum and decreased in size. Rectal exam flat, 1+ benign, nontender, elastic prostate. The plan is to do trial of voiding. Bladder scan postvoid residual daily and p.r.n. and straight catheterization if over 400 mL or uncomfortable. Job ID: [id number] DocumentID: [id number] Dictated Date: 05/12/2019 08:59:23 Executive Office Manager Date: 05/12/2019 12:24:06 Dictated By: ASHER LAU MD
--- NOTE | 2019-05-12 13:26 | NUR ---
voided 150mls. bladder scan shows 590. straight cath # 15 done with urojet 550ml return from cath. patient tolerated well
[2019-05-12] MEDS ORDERED: LIDOCAINE UROJET 2% GEL 10 ML PKG TOP ONE (13:45)
[2019-05-12 15:49] VITALS: BP 125/76
[2019-05-12] MEDS: FAMOTIDINE 20 MG (PEPCID) TABLET PO PRN (16:47)
[2019-05-12] MEDS: TAMSULOSIN 0.4 MG (FLOMAX) CAP PO SCH (18:00)
[2019-05-12 20:05] VITALS: BP 154/89
[2019-05-12] MEDS: DIVALPROEX 500 MG DELAYED RELEASE (DEPAKOTE) TAB PO SCH (20:21)
[2019-05-12] MEDS: QUEtiapine 25 MG (SEROquel) TAB IMMEDIATE RELEASE PO SCH (20:21)
[2019-05-12] MEDS: DILTIAZEM 240 MG (CARDIZEM CD) CAP PO SCH (20:22)
[2019-05-12] MEDS: LIDOCAINE UROJET 2% GEL 10 ML PKG TOP PRN (21:28)
[2019-05-12] MEDS ORDERED: LIDOCAINE UROJET 2% GEL 10 ML PKG TOP PRN (21:30)
--- NOTE | 2019-05-12 22:22 | Progress Note ---
Subjective Subjective/Events-last exam Doing well this AM. Khan removed today after cysto. Tolerating PO diet. Review of Systems Date Seen by Provider: May 12, 2019 Time Seen by Provider: 09:35 Pulmonary: No Dyspnea Cardiovascular: No: Chest Pain, Palpitations Gastrointestinal: Abdominal Pain; No: Nausea, Vomiting Genitourinary: Incontinence Neurological: Weakness Objective Exam Last Set of Vital Signs Vital Signs Date Time Temp Pulse Resp B/P (MAP) Pulse Ox O2 Delivery O2 Flow Rate FiO2 05/12/19 20:20 Room Air 05/12/19 20:05 98.6 109 20 154/89 (110) 95 Capillary Refill : Less Than 3 SecondsLess Than 3 Seconds I&O Intake and Output 05/12/19 00:00 Intake Total 3150 ml Output Total 3000 ml Balance 150 ml Intake Oral 1150 ml IV Total 2000 ml Output Urine Total 3000 ml General: Alert, Cooperative, No Acute Distress Lungs: Clear to Auscultation, Normal Air Movement Heart: Regular Rate, No Murmurs Abdomen: Normal Bowel Sounds, Soft, No Tenderness, No Masses Extremities: No Edema, No Tenderness/Swelling Results/Procedures Lab Laboratory Tests 05/12/19 05:20: Sodium Level 132L, Potassium Level 3.0L, Chloride Level 98, Carbon Dioxide Level 21, Anion Gap 13, Blood Urea Nitrogen 43H, Creatinine 1.85H, Estimat Glomerular Filtration Rate 35, BUN/Creatinine Ratio 23, Glucose Level 111H, Calcium Level 7.7L, Corrected Calcium 8.7, Total Bilirubin 0.5, Aspartate Amino Transf (AST/SGOT) 53H, Alanine Aminotransferase (ALT/SGPT) 17, Alkaline Phosphatase 42, Total Protein 4.9L, Albumin 2.8L 05/12/19 05:30: White Blood Count 7.6, Red Blood Count 3.21L, Hemoglobin 10.0L, Hematocrit 29L, Mean Corpuscular Volume 90, Mean Corpuscular Hemoglobin 31, Mean Corpuscular Hemoglobin Concent 35, Red Cell Distribution Width 14.2, Platelet Count 146, Mean Platelet Volume 12.0H, Neutrophils (%) (Auto) 55, Lymphocytes (%) (Auto) 33, Monocytes (%) (Auto) 11, Eosinophils (%) (Auto) 2, Basophils (%) (Auto) 0, Neutrophils # (Auto) 4.2, Lymphocytes # (Auto) 2.5, Monocytes # (Auto) 0.8, Eosinophils # (Auto) 0.1, Basophils # (Auto) 0.0 05/12/19 06:09: Glucometer 109 05/12/19 10:52: Glucometer 206H 05/12/19 15:49: Glucometer 127H 05/12/19 20:51: Glucometer 197H Microbiology 05/09/19 Urine Culture - Final, 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, 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 skin jg Assessment/Plan Assessment/Plan (1) Bladder outlet obstruction Status: Acute Assessment & Plan: 05/10: Dr Márquez Consulted and managing 05/11: Cysto planned for the AM 05/12: Khan removed today, Voiding trial (2) Acute on chronic renal failure Status: Acute Assessment & Plan: 05/10: Cr trending down slowly, unsure of baseline Cr 05/11: Trending down, Normal Renal US 05/12: Cr improving, IVFs stopped, Will continue to monitor Qualifiers: Qualified Codes: N17.9 - Acute kidney failure, unspecified; N18.4 - Chronic kidney disease, stage 4 (severe) (3) Weight loss, non-intentional Status: Acute Assessment & Plan: 05/10: Dr Hilliard consulted due to profuse diarrhea 05/12: Discussed appetite stimulants (4) Chronic atrial fibrillation Status: Acute (5) Hypothyroidism Status: Chronic Qualifiers: Qualified Codes: E03.9 - Hypothyroidism, unspecified (6) Non-insulin dependent type 2 diabetes mellitus Status: Chronic (7) Dementia Status: Chronic Assessment & Plan: - At baseline Qualifiers: Qualified Codes: G30.9 - Alzheimer's disease, unspecified; F02.80 - Dementia in other diseases classified elsewhere without behavioral disturbance (8) COPD (chronic obstructive pulmonary disease) Status: Chronic Qualifiers: Qualified Codes: J44.9 - Chronic obstructive pulmonary disease, unspecified (9) Hyperkalemia Status: Resolved (10) Left renal stone Status: Chronic (11) Hydronephrosis Status: Chronic Qualifiers: Qualified Codes: N13.30 - Unspecified hydronephrosis (12) DVT prophylaxis Assessment & Plan: - Lovenox Clinical Quality Measures DVT/VTE Risk/Contraindication: Risk Factor Score Per Nursin RFS Level Per Nursing on Admit: 4+=Very High TARAS MOHAN MD May 12, 2019 22:22
[2019-05-13] VITALS: BP 92/51
[2019-05-13 04:00] VITALS: BP 112/61
[2019-05-13] MEDS: LEVOTHYROXINE 100 MCG (LEVOTHROID) TAB PO SCH (06:27)
[2019-05-13] MEDS: inSUlin ASPART (NovoLOG) 1 UNIT/0.01 ML (CHARGE PER UNIT) SC SCH ×4 (06:32→20:55)
[2019-05-13 07:03] LABS: BASOPHILS % (AUTO) 0 % (0-10); EOSINOPHILS # (AUTO) 0.2 10^3/uL (0.0-0.3); EOSINOPHILS % (AUTO) 3 % (0-10); HEMATOCRIT 31 % (40-54); HEMOGLOBIN 10.6 G/DL (13.3-17.7); LYMPHOCYTES # (AUTO) 1.7 X 10^3 (1.0-4.0); LYMPHOCYTES % (AUTO) 26 % (12-44); MEAN CORPUSCULAR HEMOGLOBIN 32 PG (25-34); MEAN CORPUSCULAR HGB CONC 34 G/DL (32-36); MEAN CORPUSCULAR VOLUME 91 FL (80-99); MEAN PLATELET VOLUME 12.8 FL (7.4-10.4); MONOCYTES # (AUTO) 0.7 X 10^3 (0.0-1.0); MONOCYTES % (AUTO) 11 % (0-12); NEUTROPHILS # (AUTO) 3.9 X 10^3 (1.8-7.8); NEUTROPHILS % (AUTO) 60 % (42-75); PLATELET COUNT 135 10^3/uL (130-400); RED CELL DISTRIBUTION WIDTH 14.1 % (10.0-14.5); WHITE BLOOD COUNT 6.4 10^3/uL (4.3-11.0)
[2019-05-13 07:24] LABS: CALCIUM 8.2 MG/DL (8.5-10.1); CREATININE SERUM 1.54 MG/DL (0.60-1.30); POTASSIUM 3.2 MMOL/L (3.6-5.0)
[2019-05-13 07:32] VITALS: BP 114/74
[2019-05-13] MEDS: APIXABAN 2.5 MG (ELIQUIS) TABLET PO SCH ×2 (08:38→20:49)
[2019-05-13] MEDS: FUROSEMIDE 40 MG (LASIX) TAB PO SCH (08:38)
[2019-05-13] MEDS ORDERED: KCL 20 MEQ TAB (K-DUR) PO NR (09:15)
--- NOTE | 2019-05-13 10:55 | NUR ---
THIS RN CONTACTED DR BEAVERS IN REGARDS TO PT NEED FOR STRAIGHT CATH. NEW ORDERS RECEIVED
[2019-05-13] MEDS: LIDOCAINE UROJET 2% GEL 10 ML PKG TOP PRN (10:57)
[2019-05-13 11:29] VITALS: BP 126/72
--- NOTE | 2019-05-13 11:47 | Progress Note - Urology ---
Progress Note-Urology Progress Notes/Assess & Plan Progress/Assessment & Plan UNABLE TO VOID. CONDE BACK IN. START URECHOLINE. CONTINUE FLOMAX. Final Diagnosis URINE RETENTION CLARIBEL LAU MD May 13, 2019 11:47
--- NOTE | 2019-05-13 15:45 | NUR ---
CM/SS spoke with patient about discharge planning. [facility] will be set up with [facility], patient's preference due to them being in area. Will also ask Jose RN educator to speak with him and his about rice care. Information will be sent by fax to [facility] when discharge in.
[2019-05-13 16:16] VITALS: BP 119/79
[2019-05-13] MEDS: TAMSULOSIN 0.4 MG (FLOMAX) CAP PO SCH (17:10)
[2019-05-13] MEDS: BETHANECHOL 25 MG (URECHOLINE) TAB PO SCH ×2 (17:10→20:49)
--- NOTE | 2019-05-13 18:27 | Progress Note ---
Subjective Subjective/Events-last exam Doing well today. Khan was replaced. Tolerating PO diet. Denies any pain Review of Systems Date Seen by Provider: May 13, 2019 Time Seen by Provider: 10:25 Pulmonary: No Dyspnea, No Cough Cardiovascular: No: Chest Pain, Palpitations, Edema Gastrointestinal: Abdominal Pain; No: Nausea, Vomiting, Diarrhea, Constipation Genitourinary: Incontinence, Retention Neurological: Weakness Objective Exam Last Set of Vital Signs Vital Signs Date Time Temp Pulse Resp B/P (MAP) Pulse Ox O2 Delivery O2 Flow Rate FiO2 05/13/19 16:16 98.6 86 18 119/79 (92) 96 Room Air Capillary Refill : Less Than 3 SecondsLess Than 3 Seconds I&O Intake and Output 05/13/19 00:00 Intake Total 2445 ml Output Total 4400 ml Balance -1955 ml Intake Oral 1645 ml IV Total 800 ml Output Urine Total 4250 ml Post Void Residual 150 ml Bladder Scan Volume Amount 591 ml 591 ml 898 ml # Voids 6 General: Alert, Cooperative, No Acute Distress Lungs: Clear to Auscultation, Normal Air Movement Heart: Regular Rate, No Murmurs Abdomen: Normal Bowel Sounds, Soft, No Tenderness, No Masses Extremities: No Edema, No Tenderness/Swelling Neuro: Sensation Intact, Cranial Nerves 3-12 NL Results/Procedures Lab Laboratory Tests 05/12/19 20:51: Glucometer 197H 05/13/19 05:54: White Blood Count 6.4, Red Blood Count 3.37L, Hemoglobin 10.6L, Hematocrit 31L, Mean Corpuscular Volume 91, Mean Corpuscular Hemoglobin 32, Mean Corpuscular Hemoglobin Concent 34, Red Cell Distribution Width 14.1, Platelet Count 135, Mean Platelet Volume 12.8H, Neutrophils (%) (Auto) 60, Lymphocytes (%) (Auto) 26, Monocytes (%) (Auto) 11, Eosinophils (%) (Auto) 3, Basophils (%) (Auto) 0, Neutrophils # (Auto) 3.9, Lymphocytes # (Auto) 1.7, Monocytes # (Auto) 0.7, Eosinophils # (Auto) 0.2, Basophils # (Auto) 0.0, Sodium Level 138, Potassium Level 3.2L, Chloride Level 100, Carbon Dioxide Level 27, Anion Gap 11, Blood Urea Nitrogen 30H, Creatinine 1.54H, Estimat Glomerular Filtration Rate 43, BUN/Creatinine Ratio 19, Glucose Level 105, Calcium Level 8.2L 05/13/19 06:31: Glucometer 103 05/13/19 09:25: Glucometer 204H 05/13/19 10:54: Glucometer 236H 05/13/19 16:16: Glucometer 144H Microbiology 05/09/19 Urine Culture - Final, 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, Coag Neg (STAFF COMMAND AND CONTROL OFFICER) Normal skin jg Assessment/Plan Assessment/Plan (1) Bladder outlet obstruction Status: Acute Assessment & Plan: 05/10: Dr Márquez Consulted and managing 05/11: Cysto planned for the AM 05/12: Khan removed today, Voiding trial 05/13: Khan replaced, will d/c home with outpatient f.u with Dr Márquez, Will need for nursing care/PT/OT (2) Acute on chronic renal failure Status: Acute Assessment & Plan: 05/10: Cr trending down slowly, unsure of baseline Cr 05/11: Trending down, Normal Renal US 05/12: Cr improving, IVFs stopped, Will continue to monitor 05/13: Improving off fluids Qualifiers: Qualified Codes: N17.9 - Acute kidney failure, unspecified; N18.4 - Chronic kidney disease, stage 4 (severe) (3) Weight loss, non-intentional Status: Acute Assessment & Plan: 05/10: Dr Hilliard consulted due to profuse diarrhea 05/12: Discussed appetite stimulants (4) Chronic atrial fibrillation Status: Acute (5) Hypothyroidism Status: Chronic Qualifiers: Qualified Codes: E03.9 - Hypothyroidism, unspecified (6) Non-insulin dependent type 2 diabetes mellitus Status: Chronic (7) Dementia Status: Chronic Assessment & Plan: - At baseline Qualifiers: Qualified Codes: G30.9 - Alzheimer's disease, unspecified; F02.80 - Dementia in other diseases classified elsewhere without behavioral disturbance (8) COPD (chronic obstructive pulmonary disease) Status: Chronic Qualifiers: Qualified Codes: J44.9 - Chronic obstructive pulmonary disease, unspecified (9) Hyperkalemia Status: Resolved (10) Left renal stone Status: Chronic (11) Hydronephrosis Status: Chronic Qualifiers: Qualified Codes: N13.30 - Unspecified hydronephrosis (12) DVT prophylaxis Assessment & Plan: - Lovenox Clinical Quality Measures DVT/VTE Risk/Contraindication: Risk Factor Score Per Nursin RFS Level Per Nursing on Admit: 4+=Very High TARAS MOHAN MD May 13, 2019 18:26
[2019-05-13 19:55] VITALS: BP 120/76
[2019-05-13] MEDS: DIVALPROEX 500 MG DELAYED RELEASE (DEPAKOTE) TAB PO SCH (20:49)
[2019-05-13] MEDS: QUEtiapine 25 MG (SEROquel) TAB IMMEDIATE RELEASE PO SCH (20:49)
[2019-05-13] MEDS: DILTIAZEM 240 MG (CARDIZEM CD) CAP PO SCH (20:49)
[2019-05-14] VITALS: BP 120/75
[2019-05-14 04:06] VITALS: BP 108/67
[2019-05-14] MEDS: BETHANECHOL 25 MG (URECHOLINE) TAB PO SCH ×2 (06:31→11:42)
[2019-05-14] MEDS: inSUlin ASPART (NovoLOG) 1 UNIT/0.01 ML (CHARGE PER UNIT) SC SCH ×2 (06:31→11:17)
[2019-05-14] MEDS: LEVOTHYROXINE 100 MCG (LEVOTHROID) TAB PO SCH (06:31)
[2019-05-14 07:14] LABS: BASOPHILS % (AUTO) 0 % (0-10); EOSINOPHILS # (AUTO) 0.2 10^3/uL (0.0-0.3); EOSINOPHILS % (AUTO) 3 % (0-10); HEMATOCRIT 30 % (40-54); HEMOGLOBIN 10.2 G/DL (13.3-17.7); LYMPHOCYTES # (AUTO) 2.8 X 10^3 (1.0-4.0); LYMPHOCYTES % (AUTO) 34 % (12-44); MEAN CORPUSCULAR HEMOGLOBIN 31 PG (25-34); MEAN CORPUSCULAR HGB CONC 34 G/DL (32-36); MEAN CORPUSCULAR VOLUME 93 FL (80-99); MEAN PLATELET VOLUME 12.7 FL (7.4-10.4); MONOCYTES # (AUTO) 0.7 X 10^3 (0.0-1.0); MONOCYTES % (AUTO) 9 % (0-12); NEUTROPHILS # (AUTO) 4.6 X 10^3 (1.8-7.8); NEUTROPHILS % (AUTO) 55 % (42-75); PLATELET COUNT 141 10^3/uL (130-400); RED CELL DISTRIBUTION WIDTH 14.7 % (10.0-14.5); WHITE BLOOD COUNT 8.4 10^3/uL (4.3-11.0)
[2019-05-14 07:42] LABS: ALBUMIN 3.1 GM/DL (3.2-4.5); BILIRUBIN,TOTAL 0.5 MG/DL (0.1-1.0); CALCIUM 8.3 MG/DL (8.5-10.1); CREATININE SERUM 1.54 MG/DL (0.60-1.30); POTASSIUM 3.5 MMOL/L (3.6-5.0); TOTAL PROTEIN 5.7 GM/DL (6.4-8.2)
[2019-05-14] MEDS: TAMSULOSIN 0.4 MG (FLOMAX) CAP PO SCH (08:00)
[2019-05-14] MEDS: FUROSEMIDE 40 MG (LASIX) TAB PO SCH (08:00)
[2019-05-14] MEDS: APIXABAN 2.5 MG (ELIQUIS) TABLET PO SCH (08:01)
--- NOTE | 2019-05-14 08:45 | NUR ---
Visited with pt about rice catheter care and changing to leg bag for daily use. Gave a handout with an explanation of the procedure. Step by step instructions on how to change from rice drainage bag to leg bag and back to rice drainage bag. Also gave information on how to clean bags when not in use. Discussed s/sx of UTI, ways to prevent it, and when to call the Dr. Gave supplies needed for home use. Pt verbalized understanding.
[2019-05-14 08:59] VITALS: BP 102/62
--- NOTE | 2019-05-14 09:25 | NUR ---
LANDON AUSTIN, DEHYDRATION UNIT OPERATOR PROVIDED CONDE EDUCATION TO THE PATIENT AND HIS .
--- NOTE | 2019-05-14 09:44 | Progress Note - Urology ---
Progress Note-Urology Progress Notes/Assess & Plan Progress/Assessment & Plan TOLERATES URECHOLINE WELL. NO A.E. PLAN PER ORDERS Final Diagnosis URINE RETENTION CLARIBEL LAU MD May 14, 2019 09:44
--- NOTE | 2019-05-14 10:38 | Discharge Summary ---
Diagnosis/Chief Complaint Date of Admission May 09, 2019 at 14:11 Date of Discharge 05/14/2019 Admission Diagnosis Admission Diagnosis See problem list Discharge Diagnosis See below Problems/Diagnosis: (1) Bladder outlet obstruction Assessment & Plan: 05/10: Dr Márquez Consulted and managing 05/11: Cysto planned for the AM 05/12: Rice removed today, Voiding trial 05/13: Rice replaced, will d/c home with outpatient f.u with Dr Márquez, Will need for nursing care/PT/OT 05/14: D/c home with rice and Dr Márquez would like it removed on Friday and to proceed with voiding trial Status: Acute (2) Acute on chronic renal failure Assessment & Plan: 05/10: Cr trending down slowly, unsure of baseline Cr 05/11: Trending down, Normal Renal US 05/12: Cr improving, IVFs stopped, Will continue to monitor 05/13: Improving off fluids 05/14: Baseline Cr of 1.5 Qualifiers: Qualified Codes: N17.9 - Acute kidney failure, unspecified; N18.4 - Chronic kidney disease, stage 4 (severe) Status: Acute (3) Weight loss, non-intentional Assessment & Plan: 05/10: Dr Hilliard consulted due to profuse diarrhea 05/12: Discussed appetite stimulants Status: Acute (4) Chronic atrial fibrillation Status: Acute (5) Hypothyroidism Qualifiers: Qualified Codes: E03.9 - Hypothyroidism, unspecified Status: Chronic (6) Non-insulin dependent type 2 diabetes mellitus Status: Chronic (7) Dementia Assessment & Plan: - At baseline Qualifiers: Qualified Codes: G30.9 - Alzheimer's disease, unspecified; F02.80 - Dementia in other diseases classified elsewhere without behavioral disturbance Status: Chronic (8) COPD (chronic obstructive pulmonary disease) Qualifiers: Qualified Codes: J44.9 - Chronic obstructive pulmonary disease, unspecified Status: Chronic (9) Hyperkalemia Status: Resolved Resolution Date/Time: 05/10/19 @ 14:39 (10) Left renal stone Status: Chronic (11) Hydronephrosis Qualifiers: Qualified Codes: N13.30 - Unspecified hydronephrosis Status: Chronic (12) DVT prophylaxis Assessment & Plan: - Lovenox Discharge Summary-Simple/Stand Procedures Bedside Cysto: No obstruction revealed Consultations Dr Márquez: Urology Dr Hilliard: General Surgery Discharge Physical Examination Allergies: Coded Allergies: gabapentin (Verified Allergy, Unknown, 11/15/18) pregabalin (Verified Allergy, Unknown, 11/15/18) lorazepam (Verified Adverse Reaction, Severe, AGITATION, 12/08/18) haloperidol (Verified Adverse Reaction, Intermediate, AGITATION, 12/08/18) Vitals & I&Os Vital Sign - Last 12Hours Date Time Temp Pulse Resp B/P (MAP) Pulse Ox O2 Delivery O2 Flow Rate FiO2 05/14/19 08:59 98.0 94 18 102/62 (75) 98 Room Air Intake and Output 05/14/19 00:00 Intake Total 1350 ml Output Total 1975 ml Balance -625 ml General Appearance: Alert, Cooperative, No Acute Distress HEENT: Mucous Memb Moist/[place] Respiratory: Clear to Auscultation, Normal Air Movement Cardiovascular: Regular Rate, No Murmurs Abdominal: Normal Bowel Sounds, Soft, No Tenderness, No Masses, Other (Rice in place draining clear urine) Extremities: No Edema, No Tenderness/Swelling Skin: No Rashes, No Breakdown Neuro: Cranial Nerves 3-12 NL, Other (Strenght 4/5 LE) Hospital Course Was the Problem List Reviewed?: Yes See final discharge diagnosis. Discussion & Recommendations 84 yo M that presented to ER with N/V and abdominal pain with unintentional weight loss of 40#. He was seen by general surgery and had CT abdomen and pelvis that did not reveal any concerning masses or reasons for weight loss. states that patient had normal colonoscopy 2 years ago. Patient has known hiatal hernia that causes problems with eating and patient states that he has a very poor appetite. He was found to have elevated Cr of 4 at admission. Renally metabolized medications were held and patient was started on gentle fluids. Cr trended down during admission to 1.5 which seems to be patient's baseline. He also had problems with urinary retention and was seen by Dr Márquez. Patient was discharged home with rice and will have voiding trial with home health on Friday. He will have close f.u with Dr Márquez and PCP Dr Guerrero Discharge Condition at discharge Poor Prognosis Instructions to patient/family Please see electronic discharge instructions given to patient. Discharge Medications Reviewed and agree with Discharge Medication list on patient's Discharge Instruction sheet Clinical Quality Measures DVT/VTE Risk/Contraindication: Risk Factor Score Per Nursin RFS Level Per Nursing on Admit: 4+=Very High Copy Copies To 1: SELF,TARAS MEADOWS MD, MD May 14, 2019 10:37
[2019-05-14] MEDS ORDERED: DRON2.5C11 PO (10:41)
[2019-05-14] MEDS ORDERED: TAMS0.4C98 PO (10:41)
--- NOTE | 2019-05-14 10:44 | D/C HH Face to Face Order ---
D/C Face to Face Orders Instructions for Patient Via [facility], Patient Instructions/FollowUp: [address] Guerrero PCP f/u with Yulisa Physician to follow Patient: Self Discharge Diet for Home: No Restrictions Patient Problems: Weight loss Urinary Retention IDDM CKD Stage 3 Goals for Patient: Weight gain Improvement in ADLs Increase strength Patient Data-Allergies,Ht & Wt Patient Allergies: Coded Allergies: gabapentin (Verified Allergy, Unknown, 11/15/18) pregabalin (Verified Allergy, Unknown, 11/15/18) lorazepam (Verified Adverse Reaction, Severe, AGITATION, 12/08/18) haloperidol (Verified Adverse Reaction, Intermediate, AGITATION, 12/08/18) Height (Feet): 5 Height (Inches): 9.00 Weight (Pounds): 131 Weight (Ounces): 2.0 Home Health Need/Face to Face Date of Face to Face: May 14, 2019 Clinical Findings: Generalized weakness and fatigue, Instability, Muscle weakness, Unsteady gait I have seen Pt [id number]: Yes Discharged To: Home Diagnosis/Conditions: See Above Patient is Homebound due to: CognItive deficits, Dylan fall risk due to instabilty, Muscle weakness Homebound Status Due to the above stated illness, injury or surgical procedure (medical condition or diagnosis) and associated clinical findings, the patient is homebound because of his/her inability to leave home except with aid of a supportive device and/or person AND leaving the home requires a considerable and taxing effort or is medically contraindicated. Pt req the following assistanc: [facility] Nursing Orders Home Health Services Order: Nursing Services, Film Recordist-Evaluate & Treat, Physical Therapy-Evaluate & Treat - Per Dr Yulisa aguilar/charlene rice on Friday am: Reinsert if unable to void or has PVR >400cc and then call Dr Márquez office Home Health Infusion Therapy Line Start Date: May 09, 2019 Therapy Orders Therapy Orders: OT (must have SN or PT order), Physical Therapy, PT to assess for OT Certify Stmt I certify that this patient is under my care and that I, a nurse practitioner or a physician; a assistant customer service manager working with me, had a face to face encounter that - meets the physician face to face encounter requirements with this patient as dated. TARAS MOHAN MD May 14, 2019 10:44
[2019-05-14] MEDS ORDERED: BETH25TA11 PO (11:03)
--- NOTE | 2019-05-14 11:19 | NUR ---
[facility] information faxed to [facility], patient's choice agency. [facility] choice form on chart. RN Education has been in to see the patient and his for rice care, they are more comfortable with that process.
== END 2019-05-14 11:56 | disposition home health service (06) | DRG 683 ==
LOC: EDUNIT# 12:18 → ER 12:19 → UNDOADMIN 14:11 → 4TH 14:11
PROVIDERS: ADMIT Internal Medicine; ATTEND Family Medicine
PROC: 0TJB8ZZ Inspection of Bladder, Via Natural or Artificial Opening Endoscopic (ICD-10-PCS; principal; 2019-05-12 08:40)
DX: N17.9 Acute kidney failure, unspecified (principal); N40.1 Benign prostatic hyperplasia with lower urinary tract symptoms; N18.9 Chronic kidney disease, unspecified; N13.8 Other obstructive and reflux uropathy; R33.8 Other retention of urine; N13.30 Unspecified hydronephrosis; I13.0 Hypertensive heart and chronic kidney disease with heart failure and stage 1 through stage 4 chronic kidney disease, or unspecified chronic kidney disease; I50.9 Heart failure, unspecified; E87.2 Acidosis; R64 Cachexia; N31.9 Neuromuscular dysfunction of bladder, unspecified; N20.0 Calculus of kidney; K52.9 Noninfective gastroenteritis and colitis, unspecified; E87.5 Hyperkalemia; I48.0 Paroxysmal atrial fibrillation; E86.1 Hypovolemia; E03.9 Hypothyroidism, unspecified; J43.9 Emphysema, unspecified; G30.9 Alzheimer's disease, unspecified; F02.80 Dementia in other diseases classified elsewhere, unspecified severity, without behavioral disturbance, psychotic disturbance, mood disturbance, and anxiety; E11.9 Type 2 diabetes mellitus without complications; E78.00 Pure hypercholesterolemia, unspecified; K21.9 Gastro-esophageal reflux disease without esophagitis; R63.4 Abnormal weight loss; G47.9 Sleep disorder, unspecified; F41.9 Anxiety disorder, unspecified; K82.8 Other specified diseases of gallbladder; I71.4 Abdominal aortic aneurysm, without rupture; K57.90 Diverticulosis of intestine, part unspecified, without perforation or abscess without bleeding; G25.81 Restless legs syndrome
CPT/HCPCS: 36415; 51702; 71045; 74176; 76770; 80048; 80053; 80164; 81000; 82150; 82962; 83690; 83735; 84153; 85025; 87088; 93005; 93041; 96361; 96365; 96375

== ENCOUNTER 2019-05-18 14:06 | Emergency (ER) | payer MEDICARE, OTHER ==
[~2019-05-18] VITALS: Ht 175.3 cm; Wt 56.2 kg
[~2019-05-18 14:06] MED LIST changes: +BETH25TA11 PO; +BRIMON0.2 OU; +BUDE0.5A NEB; +DIVA-76 PO; +DONE10TA41 PO; +DRON2.5C11 PO; +FURO40TA4 PO; +IBUP-30 PO; +INSU100I14 SC; +IPRA3AMP31 NEB; +METF-399 PO; +QUET25TA PO; +TAMS0.4C98 PO; +TIMO5DRO5 OU
[2019-05-18] MEDS ORDERED: NS IV 500 ML 500 ML IV ONE (14:19)
--- NOTE | 2019-05-18 14:25 | ED Cardiac General ---
History of Present Illness General Chief Complaint: Cardiac/General Problems Stated Complaint: LOW BP Source: patient, family Exam Limitations: no limitations History of Present Illness Date Seen by Provider: May 18, 2019 Time Seen by Provider: 14:15 Initial Comments 84-year-old male brought in due to low blood pressure reading at home. Patient was recently discharged from the hospital about 4 days ago due to urinary retention. When he was discharged they doubled his Flomax. Home health care nurse came and took his blood pressure this morning and reported a systolic of the 60s. Patient however denies any symptoms at the time his blood pressure was taken at home. They called his primary care physician who told him to come directly to the ER. Patient reports no symptoms at this time. However he does state occasionally he may get a little bit dizzy but he is not dizzy at this time. He denies any urinary symptoms at this time, he is able to urinate without difficulty, denies any chest pain, shortness of breath, nausea vomiting fevers or chills Allergies and Home Medications Allergies Coded Allergies: gabapentin (Verified Allergy, Unknown, 11/15/18) pregabalin (Verified Allergy, Unknown, 11/15/18) lorazepam (Verified Adverse Reaction, Severe, AGITATION, 12/08/18) haloperidol (Verified Adverse Reaction, Intermediate, AGITATION, 12/08/18) Home Medications Apixaban 2.5 Mg Tablet, 2.5 MG PO BID Prescribed by: JAGDEEP PEARSON on 11/19/18 0936 Bethanechol Chloride 25 Mg Tablet, 25 MG PO ACQID Prescribed by: PETTY THOMAS on 05/14/19 1103 Brimonidine Tartrate 5 Ml Btl, 1 DROP OU BID, (Reported) Budesonide 0.5 Mg/2 Ml Ampul.neb, 0.5 MG NEB BID, (Reported) Diltiazem HCl 240 Mg Cap.er.24h, 240 MG PO HS, (Reported) Divalproex Sodium 500 Mg Tablet.dr, 750 MG PO HS, (Reported) TAKES 1 & 1/2 (500MG) TABLET Donepezil HCl 10 Mg Tablet, 10 MG PO HS, (Reported) Dronabinol 2.5 Mg Capsule, 2.5 MG PO DAILY Prescribed by: TARAS MOHAN on 05/14/19 1041 Famotidine 20 Mg Tablet, 20 MG PO BID PRN for HEARTBURN, (Reported) Furosemide 40 Mg Tablet, 40 MG PO DAILY, (Reported) Insulin Aspart 300 Units/3 Ml Solution, 2 UNITS SC BID PRN for BS>200, (Reported) Ipratropium/Albuterol Sulfate 3 Ml Ampul.neb, 3 ML NEB QID PRN for SHORTNESS OF BREATH, (Reported) Lactobacillus Acidophilus 1 Each Capsule, 1 CAP PO DAILY, (Reported) Levothyroxine Sodium 100 Mcg Tablet, 100 MCG PO DAILY, (Reported) Liothyronine Sodium 25 Mcg Tablet, 25 MCG PO DAILY, (Reported) Metformin HCl 1,000 Mg Tablet, 1,000 MG PO BID, (Reported) Multivitamin 1 Each Tablet, 1 TAB PO DAILY, (Reported) Quetiapine Fumarate 25 Mg Tablet, 50 MG PO HS, (Reported) TAKES 2 (25MG) TABLETS Tamsulosin HCl 0.4 Mg Cap, 0.4 MG PO BID Prescribed by: TARAS MOHAN on 05/14/19 1041 Timolol Maleate 5 Ml Drops, 1 DROP OU BID, (Reported) Patient Home Medication List Home Medication List Reviewed: Yes Review of Systems Review of Systems Constitutional: No chills, No diaphoresis; dizziness; No fever EENTM: No Blurred Vision Respiratory: Denies Cough, Denies Shortness of Air, Denies SOA With Exertion Cardiovascular: Denies Chest Pain, Denies Irregular Heart Rate Gastrointestinal: Denies Abdominal Pain, Denies Diarrhea, Denies Nausea, Denies Vomiting Genitourinary: See HPI Musculoskeletal: no symptoms reported Skin: no symptoms reported Psychiatric/Neurological: No Symptoms Reported Past Tmhibcw-Nbnokm-Dbmzde Hx Past Med/Social Hx: Reviewed Nursing Past Med/Soc Hx Patient Social History Alcohol Use: Denies Use Recreational Drug Use: No Smoking Status: Former Smoker Type Used: Pipe Former Smoker, Quit: Sep 03, 2018 2nd Hand Smoke Exposure: No Recent Hopitalizations: No (OCT 2018 FOR PNEUMONIA; 11/16-11/19/18 FOR A FIB AND PNEUMONIA) Physical Abuse: No Sexual Abuse: No Mistreated: No Fear: No Immunizations Up To Date Date of Pneumonia Vaccine: Nov 03, 2016 Date of Influenza Vaccine: Aug 03, 2018 Seasonal Allergies Seasonal Allergies: No Past Medical History Surgeries: Yes (EGD WITH DILATION OF ESOPHAGEAL STRICTURE; RECTAL FISSURES; COLONOSCOPY) Orthopedic, Rectal 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 ; 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) Pneumonia, COPD Currently Using CPAP: No Currently Using BIPAP: No Cardiac: Yes (SVT; CHF; 3.[address] ON CT 05/09/19) Aneurysm, Atrial Fibrillation, High Cholesterol, Hypertension, Irregular Heartbeat Neurological: Yes (DEMENTIA WITH PSYCHOSIS) Dementia Sexually Transmitted Disease: No HIV/AIDS: No Genitourinary: Yes Prostate Problems, Kidney Stones, Renal Failure Gastrointestinal: Yes (ESOPHAGEAL STRICTURE) Gastroesophageal Reflux, Chronic Diarrhea, Hiatal Hernia Musculoskeletal: Yes (CHRONIC JOINT PAIN) Endocrine: Yes Hypothyroidsim, Diabetes, Non-Insulin dep HEENT: Yes Dysphagia Cancer: No Psychosocial: Yes (AGGRESIVE -- DEMENTIA WITH PSYCHOSIS ) Sleep Difficulties, Anxiety Integumentary: No Blood Disorders: No Adverse Reaction/Blood Tranf: No Family Medical History Diabetes Physical Exam Vital Signs Vital Signs - First Documented 05/18/19 14:13 Temp 98.0 Pulse 87 Resp 18 B/P (MAP) 84/43 (57) Pulse Ox 99 Capillary Refill : Height, Weight, BMI Height: 5'9.00" Weight: 131lbs. 2.0oz. [id number]; 18.4 BMI Method:Stated General Appearance: No Apparent Distress, WD/WN, Thin HEENT: PERRL/EOMI, TMs Normal Neck: Supple Respiratory: Chest Non Tender, Lungs Clear, Normal Breath Sounds Cardiovascular: Regular Rate, Rhythm, No Edema Gastrointestinal: Non Tender, Soft Extremity: Normal Capillary Refill Neurologic/Psychiatric: Alert, Oriented x3, No Motor/Sensory Deficits Skin: Normal Color, Warm/Dry Progress/Results/Core Measures Results/Orders Lab Results Laboratory Tests Test 05/18/19 14:28 05/18/19 15:40 Range/Units White Blood Count 12.4 H 4.3-11.0 10^3/uL Red Blood Count 3.02 L 4.35-5.85 10^6/uL Hemoglobin 9.5 L 13.3-17.7 G/DL Hematocrit 29 L 40-54 % Mean Corpuscular Volume 97 80-99 FL Mean Corpuscular Hemoglobin 31 25-34 PG Mean Corpuscular Hemoglobin Concent 32 32-36 G/DL Red Cell Distribution Width 14.7 H 10.0-14.5 % Platelet Count 237 130-400 10^3/uL Mean Platelet Volume 12.4 H 7.4-10.4 FL Neutrophils (%) (Auto) 68 42-75 % Lymphocytes (%) (Auto) 20 12-44 % Monocytes (%) (Auto) 9 0-12 % Eosinophils (%) (Auto) 2 0-10 % Basophils (%) (Auto) 0 0-10 % Neutrophils # (Auto) 8.4 H 1.8-7.8 X 10^3 Lymphocytes # (Auto) 2.5 1.0-4.0 X 10^3 Monocytes # (Auto) 1.2 H 0.0-1.0 X 10^3 Eosinophils # (Auto) 0.2 0.0-0.3 10^3/uL Basophils # (Auto) 0.0 0.0-0.1 10^3/uL Sodium Level 133 L 135-145 MMOL/L Potassium Level 4.7 3.6-5.0 MMOL/L Chloride Level 94 L 98-107 MMOL/L Carbon Dioxide Level 23 21-32 MMOL/L Anion Gap 16 H 5-14 MMOL/L Blood Urea Nitrogen 24 H 7-18 MG/DL Creatinine 1.92 H 0.60-1.30 MG/DL Estimat Glomerular Filtration Rate 34 BUN/Creatinine Ratio 13 Glucose Level 129 H 70-105 MG/DL Calcium Level 8.6 8.5-10.1 MG/DL Urine Color YELLOW Urine Clarity CLEAR Urine pH 5.5 5-9 Urine Specific Andrews <1.005 1.016-1.022 Urine Protein NEGATIVE NEGATIVE Urine Glucose (UA) NEGATIVE NEGATIVE Urine Ketones NEGATIVE NEGATIVE Urine Nitrite NEGATIVE NEGATIVE Urine Bilirubin NEGATIVE NEGATIVE Urine Urobilinogen 0.2 NORMAL MG/DL Urine Leukocyte Esterase TRACE NEGATIVE Urine RBC (Auto) NEGATIVE NEGATIVE Urine RBC NONE /HPF Urine WBC 0-2 /HPF Urine Squamous Epithelial Cells 0-2 /HPF Urine Crystals NONE /LPF Urine Bacteria NONE /HPF Urine Casts NONE /LPF Urine Mucus NEGATIVE /LPF Urine Culture Indicated NO My Orders Orders - GRETTA ABURTO DO Basic Metabolic Panel (05/18/19 14:19) Cbc With Automated Diff (05/18/19 14:19) Ua Culture If Indicated (05/18/19 14:19) Ed Iv/Invasive Line Start (05/18/19 14:19) Ekg Tracing (05/18/19 14:19) Ed Iv/Invasive Line Start (05/18/19 14:19) Ns Iv 500 Ml (Sodium Chloride 0.9%) (05/18/19 14:19) Medications Given in ED Current Medications Medications Dose Ordered Sig/Munira Route Start Time Stop Time Status Last Admin Dose Admin Sodium Chloride 500 ml @ 0 mls/hr Q0M ONCE IV 05/18/19 14:19 05/18/19 14:21 DC 05/18/19 15:12 500 MLS/HR Vital Signs/I&O 05/18/19 14:13 Temp 98.0 Pulse 87 Resp 18 B/P (MAP) 84/43 (57) Pulse Ox 99 Progress Progress Note : Progress Note Patient remained stable with slightly low blood pressure. He remained asymptoma tic. Patient will need to stop his Flomax. Family called and discussed with Dr. Braxton who is okay and in agreement and wants him to double up on another prostate medication. I discussed with family that he should slowly and when he stands he should stand for a few minutes before ambulating. That he needs to get himself approximately 48 hours for the Flomax to get out of his system. If symptoms severely worsen he should return to the ED.I recommend he follow up with his primary care physician on Friday. Patient is discharged home in stable condition Departure Impression Primary Impression: Hypotension due to medication Disposition: 01 HOME, SELF-CARE Condition: Stable Departure-Patient Inst. Referrals: SELF,ROBEL RICHTER (PCP/Family) Primary Care Physician Patient Instructions: Low Blood Pressure (DC) Add. Discharge Instructions: Stop Flomax . Within setting up or standing up do so slowly and rest for a few seconds to minute in between. Do not stand up and ambulate without bleeding a little bit after standing up Follow-up with primary care physician on Friday Return to the ER if symptoms worsen or with any other concerns All discharge instructions reviewed with patient and/or family. Voiced understanding. GRETTA ABURTO DO May 18, 2019 14:25
[2019-05-18 14:39] LABS: BASOPHILS % (AUTO) 0 % (0-10); EOSINOPHILS # (AUTO) 0.2 10^3/uL (0.0-0.3); EOSINOPHILS % (AUTO) 2 % (0-10); HEMATOCRIT 29 % (40-54); HEMOGLOBIN 9.5 G/DL (13.3-17.7); LYMPHOCYTES # (AUTO) 2.5 X 10^3 (1.0-4.0); LYMPHOCYTES % (AUTO) 20 % (12-44); MEAN CORPUSCULAR HEMOGLOBIN 31 PG (25-34); MEAN CORPUSCULAR HGB CONC 32 G/DL (32-36); MEAN CORPUSCULAR VOLUME 97 FL (80-99); MEAN PLATELET VOLUME 12.4 FL (7.4-10.4); MONOCYTES # (AUTO) 1.2 X 10^3 (0.0-1.0); MONOCYTES % (AUTO) 9 % (0-12); NEUTROPHILS # (AUTO) 8.4 X 10^3 (1.8-7.8); NEUTROPHILS % (AUTO) 68 % (42-75); PLATELET COUNT 237 10^3/uL (130-400); RED CELL DISTRIBUTION WIDTH 14.7 % (10.0-14.5); WHITE BLOOD COUNT 12.4 10^3/uL (4.3-11.0)
[2019-05-18 14:54] LABS: CREATININE SERUM 1.92 MG/DL (0.60-1.30); POTASSIUM 4.7 MMOL/L (3.6-5.0)
[2019-05-18 14:55] LABS: CALCIUM 8.6 MG/DL (8.5-10.1)
[2019-05-18 15:48] LABS: BILIRUBIN,URINE NEGATIVE (NEGATIVE); CLARITY,URINE CLEAR; COLOR,URINE YELLOW; GLUCOSE, URINE (UA) NEGATIVE (NEGATIVE); KETONES,URINE NEGATIVE (NEGATIVE); LEUKOCYTE ESTERASE ,URINE TRACE (NEGATIVE); NITRITE,URINE NEGATIVE (NEGATIVE); PH,URINE 5.5 (5-9); PROTEIN,URINE NEGATIVE (NEGATIVE); SQUAMOUS EPITHELIAL CELL,UR 0-2 /HPF; UROBILINOGEN,URINE 0.2 MG/DL (NORMAL); WBC,URINE 0-2 /HPF
[2019-05-18 16:51] VITALS: BP 90/51
== END 2019-05-18 16:54 | disposition home or self-care (01) ==
LOC: EDUNIT# 14:06 → ER FS 14:07
DX: I95.2 Hypotension due to drugs (principal); I48.91 Unspecified atrial fibrillation; J44.9 Chronic obstructive pulmonary disease, unspecified; I10 Essential (primary) hypertension; E78.00 Pure hypercholesterolemia, unspecified; F03.90 Unspecified dementia, unspecified severity, without behavioral disturbance, psychotic disturbance, mood disturbance, and anxiety; K21.9 Gastro-esophageal reflux disease without esophagitis; E11.9 Type 2 diabetes mellitus without complications; E03.9 Hypothyroidism, unspecified; F41.9 Anxiety disorder, unspecified; Z87.19 Personal history of other diseases of the digestive system; Z99.81 Dependence on supplemental oxygen; Z87.01 Personal history of pneumonia (recurrent); Z88.8 Allergy status to other drugs, medicaments and biological substances; Z79.4 Long term (current) use of insulin; Z87.891 Personal history of nicotine dependence; Z87.442 Personal history of urinary calculi
CPT/HCPCS: 36415; 80048; 81000; 85025; 93005

== ENCOUNTER → 2019-06-14 | Outpatient (CLI) | payer MEDICARE, OTHER ==
[~2019-06-14] MED LIST changes: +CYAN-41 PO; -CYAN10006 PO; +LIOT25TA PO
[2019-06-14 13:38] LABS: BASOPHILS % (AUTO) 0 % (0-10); EOSINOPHILS # (AUTO) 0.2 10^3/uL (0.0-0.3); EOSINOPHILS % (AUTO) 2 % (0-10); HEMATOCRIT 36 % (40-54); HEMOGLOBIN 10.8 G/DL (13.3-17.7); LYMPHOCYTES % (AUTO) 21 % (12-44); MEAN CORPUSCULAR HEMOGLOBIN 31 PG (25-34); MEAN CORPUSCULAR HGB CONC 30 G/DL (32-36); MEAN CORPUSCULAR VOLUME 104 FL (80-99); MONOCYTES # (AUTO) 0.8 X 10^3 (0.0-1.0); MONOCYTES % (AUTO) 8 % (0-12); NEUTROPHILS # (AUTO) 6.4 X 10^3 (1.8-7.8); NEUTROPHILS % (AUTO) 68 % (42-75); PLATELET COUNT 201 10^3/uL (130-400); RED CELL DISTRIBUTION WIDTH 15.2 % (10.0-14.5); WHITE BLOOD COUNT 9.4 10^3/uL (4.3-11.0)
[2019-06-14 14:02] LABS: ALBUMIN 3.6 GM/DL (3.2-4.5); BILIRUBIN,TOTAL 0.4 MG/DL (0.1-1.0); CALCIUM 8.5 MG/DL (8.5-10.1); CREATININE SERUM 1.87 MG/DL (0.60-1.30); POTASSIUM 4.5 MMOL/L (3.6-5.0); TOTAL PROTEIN 6.6 GM/DL (6.4-8.2)
== END ==
LOC: LAB FS 13:03
PROVIDERS: ATTEND Nurse Practitioner Family
DX: I48.91 Unspecified atrial fibrillation (principal); I10 Essential (primary) hypertension; R09.02 Hypoxemia
CPT/HCPCS: 36415; 80053; 84443; 85025